=== PATIENT | male | born 1960 | race Caucasian/White ===

== ENCOUNTER 2020-05-24 10:31 | Emergency (ER) | payer MEDICARE, SELFPAY ==
--- NOTE | ~2020-05-24 | CT_ITS ---
EXAMINATION: CT abdomen pelvis wo con EXAM DATE: 05/24/2020 13:54 INDICATION: Flank pain, urinary retention and hematuria.. TECHNIQUE: Spiral CT of the abdomen and pelvis was performed without contrast. Axial, coronal and sag ittal images were reviewed. The dose-length product (DLP) for this examination was 1657.97 mGy-cm. The exposure was tailored according to patient size (auto mA exposure control), and iterative reconst ruction (ASIR) was used as additional dose reduction technique. Comparison is made to prior examinati on from 09/16/2010. FINDINGS: There are several mildly enlarged bilateral external iliac lymph nodes, measuring 2.7 x 1.1 cm on the left and 1.9 x 1.1 cm on the right. These appear unchanged compared to 2011. There is a 9 mm sclerot ic focus in the right superior ramus, new compared to 2011. Possible osteoblastic disease. Recommend considering possibility of prostate cancer. There is no nephrolithiasis or hydronephrosis. There is mild prostatomegaly. The bladder is unremar kable. The liver, spleen, adrenal glands and pancreas are unremarkable. There are cholecystectomy c lips. There is mild to moderate scattered arteriosclerotic disease. There are small to moderate-size d left inguinal, small right inguinal fat-containing hernias. There are surgical changes consistent with appendectomy. The stomach and small bowel are unremarkab le. There is expected amount of colonic stool. No free intraperitoneal gas. The heart is normal in size. There are no pericardial or pleural effusions. Cardiac pacemaker. The lung bases are unrema rkable. IMPRESSION: 1. Chronic mildly enlarged pelvic lymph nodes and development of small right superior ramus scleroti c focus. Prostate cancer could explain both these findings, although either or both could be benign. Check PSA levels. 2. Inguinal fat-containing hernias. 3. Surgical changes. 4. No nephrolithiasis, hydronephrosis or acute intra-abdominal findings. Reviewed, dictated and finalized at location A. [employer] IMPRESSION: 1. Chronic mildly enlarged pelvic lymph nodes and development of small right s uperior ramus sclerotic focus. Prostate cancer could explain both these finding s, although either or both could be benign. Check PSA levels. 2. Inguinal fat-containing hernias. 3. Surgical changes. 4. No nephrolithiasis, hydronephrosis or acute intra-abdominal findings.
[2020-05-24 10:38] VITALS: BP 133/92; PULSE 93; RESP 18; TEMP 36.8; O2SAT 98
[2020-05-24 11:36] LABS: Add Urine Microscopic? YES; Appearance Urine Turbid (Clear); Bilirubin Urine Negative (Negative); Blood Urine 3+ (Negative); Glucose Urine UA Negative (Negative); Ketones Urine Negative (Negative); Leukocyte Esterase Ur 3+ LEU/UL (Negative); Nitrate Urine Negative (Negative); Protein Urine 2+ mg/dL (Negative); RBC Urine >75 /hpf (0-2); Specific Grav Ur 1.015 (1.001-1.035); Squamous Epithelial Cell Urine Many /hpf (Few); Urobilinogen Urine Negative mg/dL (<2.0); WBC Clumps Urine Present /HPF; WBC Urine >75 /hpf
[2020-05-24 11:37] LABS: Color Urine Amber (Yellow)
[2020-05-24 12:11] LABS: Basophils Percent Auto 0.3 % (0.2-1.2); Eosinophils Absolute Auto 0.1 K/mm3 (0-0.3); Eosinophils Percent Auto 0.9 % (0-4.4); Hematocrit 45.5 % (42.0-52.0); Hemoglobin 15.3 g/dL (14.0-18.0); Immature Granulocyte Absolute 0.06 K/mm3 (0.00-0.031); Immature Granulocyte Percent A 0.5 % (0-0.5); Lymphocytes Absolute Auto 0.95 K/mm3 (0.9-3.2); Lymphocytes Percent Auto 8.1 % (18.3-44.2); Mean Corpuscular HGB Conc 33.6 g/dl (32-36); Mean Corpuscular Hemoglobin 29.4 pg (26-34); Mean Corpuscular Volume 87.3 fl (80-100); Mean Platelet Volume 9.3 fl (7.4-10.4); Monocytes Absolute Auto 1.5 K/mm3 (0.1-0.6); Monocytes Percent Auto 12.5 % (2.6-8.5); Neutrophils Absolute Auto 9.1 K/mm3 (1.3-6.7); Neutrophils Percent Auto 77.7 % (45.5-73.1); Platelet Count Result 187 k/mm3 (150-375); Red Blood Count 5.21 M/mm3 (4.6-6.20); Red Cell Distribution Width 13.1 % (11.5-14.5); White Blood Count 11.7 K/mm3 (4.5-10.0)
[2020-05-24] MEDS: SODIUM CHLORIDE 0.9% IV 1,000 ML 999 ML IV CONT (12:14)
[2020-05-24 12:21] LABS: Prothrombin Time 13.8 Seconds (11.1-14.7)
[2020-05-24 12:22] LABS: Anion Gap 6 mmol/L (8-16); Blood Urea Nitrogen 10 mg/dL (9-20); Carbon Dioxide 27 mmol/L (22-30); Chloride 103 mmol/L (98-107); Estimated CRCL calculation 99 ml/min; Estimated Glomerular Filt Rate > 60; Glucose 146 mg/dL (75-110); Potassium 4.3 mmol/L (3.4-5.0); Sodium 136 mmol/L (137-145)
[2020-05-24 13:56] VITALS: BP 132/90; PULSE 75; RESP 18; O2SAT 98
--- NOTE | 2020-05-24 15:11 | ED.GENADULT ---
HPI - General Adult General Chief complaint: Urogenital-Male Stated complaint: urinary retention, hematuria Time Seen by Provider: 05/24/20 11:22 Source: patient Mode of arrival: ambulatory Limitations: no limitations History of Present Illness HPI narrative: Patient is a 59-year-old male who presents to emergency department for evaluation of urinary frequency urgency and hematuria that began yesterday patient presents from home noting that he feels as though he needs to urinate and is able to and noticing some pink-tinged urine patient denies similar occurrence in the past patient is currently on Eliquis patient denies injury or trauma or other complaints and on arrival does not appear distressed or uncomfortable Related Data Home Medications Medication Instructions Recorded Confirmed amlodipine 05/24/20 apixaban [Eliquis] mg 05/24/20 Allergies Allergy/AdvReac Type Severity Reaction Status Date / Time No Known Allergies Allergy Verified 01/27/15 14:37 Review of Systems Review of Systems: All systems reviewed & are unremarkable except as noted in HPI and below PMFSH Past Medical History Medical History (Updated 05/24/20 @ 15:16 by Genaro Alexis PA-C) DVT (deep venous thrombosis) Pulmonary embolus Social History Social History Alcohol intake: never Gender identity (if verbalized by the patient): Male Sexual Orientation (if Verbalized by the Patient): Straight or Heterosexual Exam Narrative: Exam Narrative: GENERAL: Well-appearing, well-nourished, and in no acute distress. HEAD: Normocephalic, atraumatic. EYES: PERRLA and EOMI. ENT: Nares clear, no rhinorrhea or epistaxis. Mucous membranes moist. CHEST: Clear to auscultation. No respiratory distress. No wheezes rales or rhonchi HEART: Regular rate and rhythm. No murmur heard. Normal peripheral pulses. ABDOMEN: Soft, nontender, nondistended EXTREMITIES: Normal range of motion. No edema. SKIN: Warm, dry, no rash. NEURO: No focal deficits. Alert and oriented x3. Cranial nerves II through XII grossly intact. Normal speech and gait PSYCH: Normal mood and affect. Course Course Emergency Course: Patient evaluated in the emergency department for evaluation of urinary frequency urgency and hematuria patient was found to have what is likely a bladder or prostate infection was given IV fluids and antibiotics in the emergency department patient will be discharged home with plan follow-up with primary care as well as given referral for urology to rule out prostate cancer as a potential issue given his CT findings. There was no urolithiasis noted. Patient's urine does not appear to have obvious or gross blood on exam in the room. Patient provided with reasons to return Vital Signs Vital signs: Vital Signs Temperature 98.3 F 05/24/20 10:38 Pulse Rate 93 05/24/20 10:38 Respiratory Rate 18 05/24/20 10:38 Blood Pressure 133/92 H 05/24/20 10:38 Pulse Oximetry 98 05/24/20 10:38 Temperature 98.3 F 05/24/20 10:38 Pulse Rate 75 05/24/20 13:56 Respiratory Rate 18 05/24/20 13:56 Blood Pressure 132/90 05/24/20 13:56 Pulse Oximetry 98 05/24/20 13:56 Medical Decision Making MDM Narrative Medical decision making narrative: Patient aware of case findings treatment plan diagnosis agreeing to follow-up with instructed follow-ups and given reasons to return Vital Signs Vital Signs: Vital Signs Temperature 98.3 F 05/24/20 10:38 Pulse Rate 93 05/24/20 10:38 Respiratory Rate 18 05/24/20 10:38 Blood Pressure 133/92 H 05/24/20 10:38 Pulse Oximetry 98 05/24/20 10:38 Temperature 98.3 F 05/24/20 10:38 Pulse Rate 75 05/24/20 13:56 Respiratory Rate 18 05/24/20 13:56 Blood Pressure 132/90 05/24/20 13:56 Pulse Oximetry 98 05/24/20 13:56 Lab Data Result diagrams: 05/24/20 12:04 05/24/20 12:04 Labs: Lab Results
[2020-05-24 15:33] VITALS: BP 149/89; PULSE 74; RESP 20; O2SAT 99
== END 2020-05-24 15:34 | disposition home or self-care (01) ==
PROVIDERS: Emergency Medicine Emergency Medical Services; Emergency Provider Emergency Medicine; PCP Family Medicine
DX: N39.0 Urinary tract infection, site not specified (principal); R31.9 Hematuria, unspecified; Z86.718 Personal history of other venous thrombosis and embolism; Z86.711 Personal history of pulmonary embolism; Z79.01 Long term (current) use of anticoagulants; K40.90 Unilateral inguinal hernia, without obstruction or gangrene, not specified as recurrent; R93.5 Abnormal findings on diagnostic imaging of other abdominal regions, including retroperitoneum
CPT/HCPCS: 36415; 74176; 80048; 81001; 85025; 85610; 85730; 87077; 87086; 87088; 87186; 96365; 99284; J0696; J7030

== ENCOUNTER 2021-08-24 18:02 | Emergency (ER) | payer MEDICARE, SELFPAY ==
--- NOTE | ~2021-08-24 | CT_ITS ---
EXAMINATION: CT abdomen pelvis wo con DATE: 08/24/2021 20:01 INDICATION: Rflank pain,dysuria,urinary retention,chills,7/5prostat biop TECHNIQUE: Computed tomography (CT) of the abdomen and pelvis was performed without intravenous contr ast. Automated exposure control and iterative reconstruction technique were employed. The dose-length product was 1692.26 mGy-cm. COMPARISON: 05/24/2020. FINDINGS: Lower thorax: Incompletely visualized pacer wires. Coronary artery calcification. Liver: Normal. Biliary/Gallbladder: Gallbladder is absent. No bile duct dilation. Pancreas: No mass or duct dilation. Spleen: Normal. Adrenals:No mass. Kidneys: No mass, stone, or hydronephrosis. GI tract: No small or large bowel dilation. Appendectomy. Mesentery/Peritoneum: No ascites, mass, or free air. Retroperitoneum: No mass. Atherosclerotic arterial calcifications. Lower para-aortic and bilateral ex ternal iliac and inguinal lymphadenopathy, unchanged. Pelvis: Prostatomegaly. Soft Tissues: Bilateral fat-containing inguinal hernias. Bones: No acute osseous finding. Stable sclerotic focus in the right superior pubic ramus. IMPRESSION: No acute abdominopelvic process. Reviewed, dictated and finalized at location K.
[2021-08-24 18:09] VITALS: BP 102/73; PULSE 95; RESP 18; TEMP 37.1; O2SAT 98
[2021-08-24 18:26] LABS: Appearance Urine Cloudy (Clear); Bilirubin Urine 1+ (Negative); Blood Urine 3+ (Negative); Glucose Urine UA Negative (Negative); Ketones Urine 1+ mg/dL (Negative); Leukocyte Esterase Ur 2+ LEU/UL (Negative); Nitrate Urine Positive (Negative); Protein Urine 2+ mg/dL (Negative); Specific Grav Ur 1.025 (1.001-1.035)
[2021-08-24 18:31] LABS: Add Urine Microscopic? YES; Color Urine Dark Yellow (Yellow)
--- NOTE | 2021-08-24 19:33 | ED.MALEGU ---
HPI - Male Genitourinary General Chief complaint: Urogenital-Male Stated complaint: DYSURIA Time Seen by Provider: 08/24/21 19:15 History of Present Illness HPI Narrative: 60yoM h/o UTIs p/w 1-2d of dysuria, some right-sided dull aching nonradiating flank pain, and chills last night. He states he took a cold bath and thought it helped. No nausea/vomiting. Feels like his old UTIs. Related Data Home Medications Medication Instructions Recorded Confirmed amlodipine 5 mg tablet 05/24/20 apixaban 5 mg tablet (Eliquis) mg 05/24/20 Allergies Allergy/AdvReac Type Severity Reaction Status Date / Time No Known Allergies Allergy Verified 08/24/21 18:14 [facility] Past Medical History Medical History DVT (deep venous thrombosis) Pulmonary embolus Social History Social History Alcohol intake: never Gender identity (if verbalized by the patient): Male Sexual Orientation (if Verbalized by the Patient): Straight or Heterosexual Exam Narrative: EXAMINATION OF ORGAN SYSTEMS/BODY AREAS: Constitutional: Vital signs per nursing GENERAL:[No acute distress, non-toxic appearing.] HEAD: Normal with no signs of head trauma. EYES: EOMI, conjunctiva normal LUNGS: Nonlabored breathing. HEART: [Regular rate and rhythm] ABD: [Soft], [nontender to palpation], minimal CVAT on right EXT: Normal range of motion SKIN: [No rashes or lesions.] NEURO: [Alert and oriented x 3. No gross focal sensory or strength deficits.] PSYCH: Normal affect Course Vital Signs Vital signs: Vital Signs Temperature 98.8 F 08/24/21 18:09 Pulse Rate 95 08/24/21 18:09 Respiratory Rate 18 08/24/21 18:09 Blood Pressure 102/73 08/24/21 18:09 Pulse Oximetry 98 08/24/21 18:09 Temperature 98.8 F 08/24/21 18:09 Pulse Rate 95 08/24/21 18:09 Respiratory Rate 18 08/24/21 18:09 Blood Pressure 102/73 08/24/21 18:09 Pulse Oximetry 98 08/24/21 18:09 MDM - Male Genitourinary MDM Narrative Medical decision making narrative: 60-year-old male presenting with 1 to 2 days of dysuria, vital stable, exam shows minimal right flank tenderness hospitalist service is likely and no abdominal tenderness, I suspect likely UTI/pyelonephritis versus less likely kidney stone given the nature of his symptoms, urinalysis is notable for UTI, I will obtain a CT noncon to ensure no infected or obstructing stone, this is negative. Patient given IV ceftriaxone here and will be discharged with ciprofloxacin, he is given follow-up to his urologist and return precautions. Stable for discharge home. Lab Data Result diagrams: 08/24/21 19:39 08/24/21 19:39 Labs: Lab Results 08/24/21 08/24/21 08/24/21 Range/Units 18:19 19:39 19:39 WBC 13.2 H (4.5-10.0) K/mm3 RBC 4.94 (4.6-6.20) M/mm3 Hgb 14.5 (14.0-18.0) g/dL Hct 42.8 (42.0-52.0) % MCV 86.6 (80-100) fl MCH 29.4 (26-34) pg MCHC 33.9 (32-36) g/dl RDW 13.2 (11.5-14.5) % Plt Count 213 (150-375) k/mm3 MPV 9.7 (7.4-10.4) fl Immature Gran % (Auto) 0.5 (0-0.5) % Neut % (Auto) 81.2 H (45.5-73.1) % Lymph % (Auto) 5.6 L (18.3-44.2) % [place] % (Auto) 12.4 H (2.6-8.5) % Eos % (Auto) 0.1 (0-4.4) % Baso % (Auto) 0.2 (0.2-1.2) % Lymph # (Auto) 0.74 L (0.9-3.2) K/mm3 [place] # (Auto) 1.6 H (0.1-0.6) K/mm3 Eos # (Auto) 0.0 (0-0.3) K/mm3 Baso # (Auto) 0.0 (0.0-0.1) K/mm3 Abs Immat Gran (auto) 0.06 H (0.00-0.031) K/mm3 Absolute Neuts (auto) 10.7 H (1.3-6.7) K/mm3 Absolute Nucleated RBC 0.0 (0.0-0.012) K/mm3 Nucleated RBC % 0.0 (0.0-0.2) % Sodium 137 (137-145) mmol/L Potassium 3.7 (3.4-5.0) mmol/L Chloride 106 (98-107) mmol/L Carbon Dioxide 24 (22-30) mmol/L Anion Gap 7 L (8-16) mmol/L BUN 14 (9-20) mg/dL Creatinine 1.00 (0.7-1.3) m
[2021-08-24 19:44] LABS: Basophils Percent Auto 0.2 % (0.2-1.2); Eosinophils Percent Auto 0.1 % (0-4.4); Hematocrit 42.8 % (42.0-52.0); Hemoglobin 14.5 g/dL (14.0-18.0); Immature Granulocyte Absolute 0.06 K/mm3 (0.00-0.031); Immature Granulocyte Percent A 0.5 % (0-0.5); Lymphocytes Absolute Auto 0.74 K/mm3 (0.9-3.2); Lymphocytes Percent Auto 5.6 % (18.3-44.2); Mean Corpuscular HGB Conc 33.9 g/dl (32-36); Mean Corpuscular Hemoglobin 29.4 pg (26-34); Mean Corpuscular Volume 86.6 fl (80-100); Mean Platelet Volume 9.7 fl (7.4-10.4); Monocytes Absolute Auto 1.6 K/mm3 (0.1-0.6); Monocytes Percent Auto 12.4 % (2.6-8.5); Neutrophils Absolute Auto 10.7 K/mm3 (1.3-6.7); Neutrophils Percent Auto 81.2 % (45.5-73.1); Platelet Count Result 213 k/mm3 (150-375); Red Blood Count 4.94 M/mm3 (4.6-6.20); Red Cell Distribution Width 13.2 % (11.5-14.5); White Blood Count 13.2 K/mm3 (4.5-10.0)
[2021-08-24] MEDS: cefTRIAXone 2 GM in SODIUM CHLORIDE 0.9% IV 100 ML 200 ML IVPB (19:44)
[2021-08-24 19:54] LABS: Anion Gap 7 mmol/L (8-16); Blood Urea Nitrogen 14 mg/dL (9-20); Calcium 8.7 mg/dL (8.4-10.2); Carbon Dioxide 24 mmol/L (22-30); Chloride 106 mmol/L (98-107); Estimated CRCL calculation 101 ml/min; Estimated Glomerular Filt Rate > 60; Glucose 123 mg/dL (65-110); Potassium 3.7 mmol/L (3.4-5.0); Sodium 137 mmol/L (137-145)
[2021-08-24] MEDS: CIPROFLOXACIN 500 MG TAB PO (20:47)
[2021-08-24 20:50] VITALS: BP 102/70; PULSE 92; RESP 22; TEMP 36.1; O2SAT 96
== END 2021-08-24 20:53 | disposition home or self-care (01) ==
PROVIDERS: Emergency Medicine; Emergency Provider Emergency Medicine; PCP Family Medicine
DX: N10 Acute pyelonephritis (principal); B96.89 Other specified bacterial agents as the cause of diseases classified elsewhere; Z86.718 Personal history of other venous thrombosis and embolism; Z86.711 Personal history of pulmonary embolism
CPT/HCPCS: 36415; 74176; 80048; 81001; 85025; 87077; 87086; 87186; 96365; 99284; A9270

== ENCOUNTER 2024-02-21 14:51 | Emergency (ER) | payer MEDICARE, SELFPAY ==
--- NOTE | ~2024-02-21 | XR_ITS ---
XR knee LT min 4V Ordering provider: Monica Brasher PA-C History: . pain x1mo . Comparison: June 15, 2007 FINDINGS: BONES: No acute fracture or dislocation. JOINT SPACES: Normal. SOFT TISSUES: Normal. IMPRESSION: No acute osseous abnormality left knee. Reviewed, dictated and finalized at location A. [employer]
--- NOTE | ~2024-02-21 | US_ITS ---
EXAMINATION: US venous doppler [facility] DATE: 02/21/2024 15:55 INDICATION: Left calf pain. TECHNIQUE: Grayscale ultrasound images without and with compression and Doppler ultrasound images of the left lower extremity veins were obtained. COMPARISON: Ultrasound 01/28/2015 FINDINGS: The visualized portions of left common femoral vein, profunda (deep) femoral vein, femoral vein, popl iteal vein, peroneal veins, posterior tibial veins, and greater saphenous vein outflow are patent. IMPRESSION: 1. No deep venous thrombosis. Reviewed, dictated and finalized at location A. FARMER
[2024-02-21 15:04] VITALS: BP 161/97; PULSE 95; RESP 16; TEMP 36.6; O2SAT 97
--- NOTE | 2024-02-21 15:06 | ED_ITS ---
HPI - Extremity Problem General Chief complaint: Extremity Problem,Nontraumatic Stated complaint: L knee pain x 1 month Time Seen by Provider: 02/21/24 15:06 Focused HPI: Patient is a 63 y/o male who presents to the ED with c/o L knee pain. Patient reports having pain in his L calf over the past few weeks. States he has been walking differently to accommodate for this. Now reports having increased pain in his L knee, worse with bearing weight. Has been wearing a knee brace and taking Ibuprofen with minimal pain. Denies numbness. Has had previous DVT, on eliquis, notes he has missed a few doses here and there. Denies CP/SOB. GENERAL: Well-appearing, well-nourished, and in no acute distress. HEAD: Normocephalic, atraumatic. CHEST: Clear to auscultation. ?No respiratory distress. HEART: Regular rate and rhythm.? MSK: TTP along medial L knee joint space. No significant calf tenderness. Limited ROM of L knee d/t pain. Trace peripheral edema. NEURO: ?Alert and oriented x3. Patient screened in triage and initial orders placed.? ?Additional care and disposition to be based upon?diagnostic testing and treatment. Source: patient Mode of arrival: ambulatory Limitations: no limitations Related Data Home Medications Medication Instructions Recorded Confirmed amlodipine 5 mg tablet 05/24/20 apixaban 5 mg tablet (Eliquis) mg 05/24/20 Allergies Allergy/AdvReac Type Severity Reaction Status Date / Time No Known Allergies Allergy Verified 08/24/21 18:14 [facility] Past Medical History Medical History DVT (deep venous thrombosis) Pulmonary embolus Social History Social History Alcohol intake: never Gender identity (if verbalized by the patient): Male Sexual Orientation (if Verbalized by the Patient): Straight or Heterosexual Course Vital Signs Vital signs: Vital Signs Temperature 97.9 F 02/21/24 15:04 Pulse Rate 95 02/21/24 15:04 Respiratory Rate 16 02/21/24 15:04 Blood Pressure 161/97 H 02/21/24 15:04 Pulse Oximetry 97 02/21/24 15:04 Temperature 97.7 F 02/21/24 17:27 Pulse Rate 71 02/21/24 17:27 Respiratory Rate 16 02/21/24 17:27 Blood Pressure 149/80 H 02/21/24 17:27 Pulse Oximetry 97 02/21/24 17:27 MDM - Extremity (Nontraumatic) MDM Narrative Medical decision making narrative: MSE by KIAH in triage. Discharge Plan Discharge Clinical Impression: Acute internal derangement of left knee Patient Disposition: Home, Self-Care Condition: Stable Instructions: Antibiotic Form, Crutch Instructions (ED), Knee Pain (ED), Knee Immobilizer (ED) Additional Instructions: The knee immobilizer for comfort. Crutches for limited weight-bearing. Flexeril for muscle spasm pain [facility] as needed for additional pain control. Have close follow-up with your primary care physician for an outpatient MRI of the knee. Have close follow-up with Orthopedics. If you have any worsening symptoms then please call or return to the emergency department. Prescriptions: New hydrocodone-acetaminophen 5-325 mg tablet 1 tablet PO Q12H PRN (Reason: pain) Qty: 14 0RF cyclobenzaprine 10 mg tablet 10 mg PO BID PRN (Reason: muscle spasm) Qty: 14 0RF No Action ciprofloxacin HCl [Cipro] 500 mg tablet 500 mg PO Q12H Qty: 14 0RF amlodipine 5 mg tablet Eliquis 5 mg tablet cephalexin 500 mg tablet 500 mg PO Q12H 10 Days Qty: 20 0RF phenazopyridine [Pyridium] 200 mg tablet 200 mg PO TID PRN (Reason: pain) Qty: 6 0RF Follow-up/Referrals: Mumtaz Colmenares MD [Physician] - Myrick,Tiffanie Carver MD [Primary Care Provider] -
[2024-02-21] MEDS: ACETAMINOPHEN 500 MG TABLET 1000 MG PO (16:01)
[2024-02-21] MEDS: KETOROLAC 30 MG/ML VIAL (*BKC) IM (16:01)
--- NOTE | 2024-02-21 16:54 | ED.GENADULT ---
HPI - General Adult General Chief complaint: Extremity Problem,Nontraumatic Stated complaint: L knee pain x 1 month Time Seen by Provider: 02/21/24 15:06 Source: patient Mode of arrival: ambulatory Limitations: no limitations History of Present Illness HPI narrative: 63-year-old male presenting to the emergency department for evaluation for left knee pain. Patient reports he has had intermittent knee injuries to the left knee with the course of the last month. Patient states that the knee will began to heal up and then he has a no other twisting injury causing increased pain with weight-bearing. Knee brace that seemed to help but today patient states that the pain significantly worsened. Related Data Home Medications Medication Instructions Recorded Confirmed amlodipine 5 mg tablet 05/24/20 apixaban 5 mg tablet (Eliquis) mg 05/24/20 Allergies Allergy/AdvReac Type Severity Reaction Status Date / Time No Known Allergies Allergy Verified 08/24/21 18:14 Review of Systems Review of Systems: All systems reviewed & are unremarkable except as noted in HPI and below PMFSH Past Medical History Medical History DVT (deep venous thrombosis) Pulmonary embolus Social History Social History Alcohol intake: never Gender identity (if verbalized by the patient): Male Sexual Orientation (if Verbalized by the Patient): Straight or Heterosexual Exam Narrative: APPEARANCE: Well appearing, no pain, no distress, well-nourished. HEAD: normocephalic, atraumatic. EYES: PERRLA/EOMI, conjunctivae clear. NOSE: Normal no drainage EARS:TMS clear with good light reflex. THROAT: Pharynx clear, no exudate. NECK: Supple. No adenopathy, no masses. RESPIRATORY: Airway patent, respirations nonlabored. Clear to auscultation bilaterally, no rales, rhonchi, wheezing. CARDIOVASCULAR: Regular rate and rhythm without murmurs rubs or gallops. ABDOMINAL: Soft, nontender, nondistended, normal bowel sounds MUSCULOSKELETAL: No left knee deformity NEURO: Alert. Cranial nerves II through XII intact. Good gait. Good coordination SKIN: Warm, dry. Normal Color Course Vital Signs Vital signs: Vital Signs Temperature 97.9 F 02/21/24 15:04 Pulse Rate 95 02/21/24 15:04 Respiratory Rate 16 02/21/24 15:04 Blood Pressure 161/97 H 02/21/24 15:04 Pulse Oximetry 97 02/21/24 15:04 Temperature 97.9 F 02/21/24 15:04 Pulse Rate 95 02/21/24 15:04 Respiratory Rate 16 02/21/24 15:04 Blood Pressure 161/97 H 02/21/24 15:04 Pulse Oximetry 97 02/21/24 15:04 Medical Decision Making MDM Narrative Medical decision making narrative: [age] old male presenting to the emergency department for evaluation for left knee pain. X-ray was negative for acute fracture dislocation an ultrasound was negative for DVT. Patient does take Eliquis. Patient was provided crutches and knee immobilizer for comfort. Patient was encouraged of close follow-up with his primary care physician for additional outpatient imaging including an MRI. Patient was also encouraged to have close outpatient follow-up with Orthopedics. Patient was provided medications for pain control including [place] and Flexeril. Vital Signs Vital Signs: Vital Signs Temperature 97.9 F 02/21/24 15:04 Pulse Rate 95 02/21/24 15:04 Respiratory Rate 16 02/21/24 15:04 Blood Pressure 161/97 H 02/21/24 15:04 Pulse Oximetry 97 02/21/24 15:04 Temperature 97.9 F 02/21/24 15:04 Pulse Rate 95 02/21/24 15:04 Respiratory Rate 16 02/21/24 15:04 Blood Pressure 161/97 H 02/21/24 15:04 Pulse Oximetry 97 02/21/24 15:04 Discharge Plan Discharge Clinical Impression: Acute internal derangement of left knee Patient Disposition: Home, Self-Care Condition: Stable Instructions: Antibiotic Form, Crutch Instructions (ED), Knee Pain (ED), Knee Immobilizer (ED) Additional Instructions: The knee immobilizer for comfort. Crutches for limited weight-bearing. Flexeril for muscle spasm pain [place] as needed for additional pain control. Have close follow-up with your primary care physician for an outpatient MRI of the knee. Have close follow-up with Orthopedics. If you have any worsening symptoms then please call or return to the emergency department. Prescriptions: New hydrocodone-acetaminophen 5-325 mg tablet 1 tablet PO Q12H PRN (Reason: pain) Qty: 14 0RF cyclobenzaprine 10 mg tablet 10 mg PO BID PRN (Reason: muscle spasm) Qty: 14 0RF No Action ciprofloxacin HCl [Cipro] 500 mg tablet 500 mg PO Q12H Qty: 14 0RF amlodipine 5 mg tablet Eliquis 5 mg tablet cephalexin 500 mg tablet 500 mg PO Q12H 10 Days Qty: 20 0RF phenazopyridine [Pyridium] 200 mg tablet 200 mg PO TID PRN (Reason: pain) Qty: 6 0RF Follow-up/Referrals: Mumtaz Colmenares MD [Physician] - Myrick,Tiffanie Carver MD [Primary Care Provider] -
[2024-02-21 17:27] VITALS: BP 149/80; PULSE 71; RESP 16; TEMP 36.5; O2SAT 97
== END 2024-02-21 17:30 | disposition home or self-care (01) ==
PROVIDERS: Emergency Provider Emergency Medicine; PCP Family Medicine
DX: M23.92 Unspecified internal derangement of left knee (principal); Z86.718 Personal history of other venous thrombosis and embolism; Z86.711 Personal history of pulmonary embolism
CPT/HCPCS: 73564; 93971; 96372; 99284; A9270; J1885

== ENCOUNTER 2024-05-24 07:30 | Outpatient (CLI) | payer MEDICARE, SELFPAY ==
--- NOTE | ~2024-05-24 | XR_ITS ---
EXAMINATION: XR fl inj knee LT for MR/CT DATE: 05/24/2024 08:39 INDICATION: Other tear of medial meniscus, current injury. TECHNIQUE: A time-out was performed to verify the patient's name, date of , and procedure to b e performed. The procedure including the risks, benefits, and alternatives was discussed with the pat ient. Risks discussed included bleeding and infection. The patient understood the risks and agreed to proceed. The skin overlying the left knee joint was prepped and draped in usual sterile fashion. An esthetic was administered with 1% lidocaine subcutaneously. A 22 G needle was advanced under fluoros copic guidance into the joint. Subsequently, injectate consisting of 30 mL of 1:4 1% lidocaine and 1 :2 Omnipaque 240 was instilled. The needle was removed and the entry site was cleaned and dressed. There were no immediate complications. Fluoroscopy exposure time was 0.1 minutes. The total number of images was 2. FINDINGS: Real-time fluoroscopy demonstrates the needle and contrast in the left knee joint. IMPRESSION: 1. Successful left knee joint injection of contrast for subsequent CT arthrography. Reviewed, dictated and finalized at location A. NALISM INTERN IMPRESSION: 1. Successful left knee joint injection of contrast for subsequent CT arthrogra phy.
--- NOTE | ~2024-05-24 | CT_ITS ---
EXAMINATION: CT knee LT w con DATE: 05/24/2024 08:31 INDICATION: Medial meniscal tear TECHNIQUE: High resolution computed tomography (CT) of the left knee was performed with intra-articul ar contrast but without intravenous contrast. Details of the contrast mixture in joint injection have been dictated separately. Additional sagittal and coronal reconstructions were performed. Automated exposure control and iterative reconstruction technique were employed. The dose-length product was 63 5.40 mGy-cm. COMPARISON: None FINDINGS: Bone alignment is normal. No fracture. 3 small sclerotic bone islands in the distal femur. The inject ed intra-articular contrast extends into a moderate-sized Fry's cyst measuring 4.8 x 1.7 x 1.9 cm. Soft tissues surrounding the are unremarkable. Complex full-thickness oblique parrot beak configuration tear at the posterior horn of the medial men iscus with mild medial extrusion of the medial meniscal body. There is mild osteoarthritis in the med ial compartment with partial-thickness chondral ulceration and deep fissuring along the weightbearing medial femoral condyle and partial-thickness cartilage loss with chondral surface regularity the med ial tibial plateau with more focal partial-thickness chondral fissure at the medial aspect of the med ial tibial plateau at the base of the intercondylar eminence. Lateral meniscus is normal. There is partial thickness chondral fissuring involving up to 50% the car tilage thickness at the central and medial aspect of the lateral tibial plateau. Mild partial-thickne ss chondral ulceration along the anterior weightbearing lateral femoral condyle. Mild partial-thickness chondral fissuring at the lateral patellar facet. Deep chondral ulceration wit h underlying subarticular cystlike changes at the inferior aspect of the lateral trochlea. IMPRESSION: 1. Complex tear at the posterior horn of the medial meniscus. 2. 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 3. Moderate-sized Fry's cyst. Reviewed, dictated and finalized at location B. UAGE ARTS TEACHER IMPRESSION: 1. Complex tear at the posterior horn of the medial meniscus. 2. Mild tricompartmental osteoarthritis with high-grade chondromalacia at later al trochlea and with moderate grade chondral malacia the patella and in the med ial and lateral compartments. 3. Moderate-sized Fry's cyst.
--- OUTSIDE RECORDS SUMMARY | 2024-05-24 07:35 | XMS_ITS | Data Portability ---
Author Organization [facility] Address [address] [place] [address] Care Team Providers Care Neon Sign Servicer Name Role Phone SHERI WHITNEY Php Architect CHRISTY VELASQUEZ Urologist KAMERON CORRIGAN Medical Oncologist EDMUNDO ARRIETA Primary Care Provider Assessment No assessment recorded. Plan of Treatment Reminders Order Date Submit Date Provider Last Modified By Organization Details Last Modified Time Details Appointments ANY 15 2024 02:00P M RACHEAL Cano Not available Not available Not available MEDICARE WELLNESS VISIT 2024 01:30P M RACHEAL Cano Not available Not available Not available Lab HbA1c (hemoglob in A1c), blood 2024 025 [employer] [facility], [address], [address], [place], [address], 03/22/2024 10:45:38 CBC w/ auto diff 2024 025 [employer] [facility], [address], [place], [address], 03/22/2024 10:45:37 CMP, serum or plasma 2024 025 [employer] [facility], [address], [address], [place], [address], 03/22/2024 10:45:35 lipid panel, serum 2024 025 [employer] [facility], [address], [address], [place], [address], 03/22/2024 10:45:34 CMP, serum or plasma 2022 023 [facility] Not available 02/03/2023 16:12:58 CBC w/ auto diff 2022 023 [facility] Not available 02/03/2023 16:12:58 lipid panel, serum 2022 023 [facility] Not available 02/03/2023 16:12:58 HbA1c (hemoglob in A1c), blood 2022 023 [facility] Not available 02/22/2023 14:54:59 CMP, serum or plasma [facility], [address], [address], [place], [address], 08/31/2023 17:05:17 CBC w/ auto diff 2022 023 [facility], [address], [address], [place], [address], 08/31/2023 17:05:17 lipid panel, serum 2022 023 [facility], [address], [address], [place], [address], 08/31/2023 17:05:17 HbA1c (hemoglob in A1c), blood 2022 023 [facility], [address], [address], [place], [address], 08/18/2023 22:28:34 HbA1c (hemoglob in A1c), blood 2021 022 [employer] [facility], [address], [address], [place], [address], 02/01/2022 14:09:53 lipid panel, serum 2021 [facility], [address], [address], [place], [address], 02/01/2022 14:09:52 AST/SGOT (aspartat e aminotran sferase), serum or plasma 2021 [facility], [address], [address], [place], [address], 02/01/2022 14:09:52 BMP, serum or plasma 2021 [facility], [address], [address], [place], [address], 02/01/2022 14:09:53 Referral None recorded. Procedures None recorded. Surgeries None recorded. Imaging None recorded. Medication Orders amlodipin e 5 mg tablet 2022 023 [facility] [address], [address], [place], [address], 01/30/2023 17:30:19 Eliquis 5 mg tablet 2022 023 [facility] [address], [address], [place], [address], 01/30/2023 17:30:17 atorvasta tin 40 mg tablet 2021 022 [facility] [address], [address], [place], [address], 02/01/2022 14:23:01 Patient TargetsNo targets recorded. Patient Instructions Encounter Date Encounter Id Patient Instructions Last Modified By Organization Details Last Modified Time 07/12/2021 [id number] body mass index: care instructions Not available 07/12/2021 17:45:00 learning about healthy weight Not available 07/12/2021 17:45:00 hemorrhoids: car e instructions Not available 07/12/2021 17:43:56 When You Want to Lose Weight: Care Instructions Not available 07/12/2021 17:43:56 learning about high blood pressure Not available 07/12/2021 17:43:56 high cholesterol : care instructions Not available 07/12/2021 17:43:56 01/31/2022 [id number] learning about high blood sugar Not available 01/31/2022 16:54:40 When You Want to Lose Weight: Care Instructions Not available 01/31/2022 16:54:41 learning about high blood pressure Not available 01/31/2022 16:54:40 high cholesterol : care instructions Not available 01/31/2022 16:54:41 08/02/2022 [id number] high cholesterol : care instructions [email or web address] Not available 12/08/2023 17:20:31 sleep apnea: car e instructions [id number] Not available 12/08/2023 17:20:31 learning about high blood sugar [id number] Not available 12/08/2023 17:20:31 body mass index: care instructions [email or web address] Not available 12/08/2023 17:20:31 learning about healthy weight [email or web address] Not available 12/08/2023 17:20:31 learning about high blood pressure [email or web address] Not available 12/08/2023 17:20:31 Gino, - Thank you for your visit - Continue your current medications - Return to clinic in 6 months, AND as needed. - Call with any concerns Immunization recommendations: Preventive immunization against tetanus, diphtheria and pertussis is recommended every 10 years, or after 7 years if sustaining a tetanus-prone wound. Preventive immunization against shingles (herpes zoster) is recommended to reduce risk of occurrence, possible chronic pain, and transmission. Currently this is a two shot regimen. All individuals age 65 and up are encouraged to obtain vaccination against Pneumococcal pneumonia. Currently, this is a single immunization, [id number], if you have never previously been immunized. Yearly influenza immunization is recommended, and typically available beginning in mid-November. I highly encourage all who are able to complete an initial immunization series against COVID19, along with boosters as indicated by age or medical history. Exercise recommendations: It is recommended that you do daily aerobic (walking, bicycling, swimming) and resistance exercises (light weight lifting, resistance band stretching) for at least 30 minutes, most days of the week. If you cannot walk, chair exercises for 10-15 minutes a day would help tremendously. As little as 15-20 minutes exercise, in one or two sessions a day, is still very helpful to manage/improve your weight and overall health Diet recommendations: Eat small portion meals, trying not to consume more than 1800 calories a day. Try to eat not more than 2 servings of carbs (starches) with your meals. Avoid soft drinks, including regular sodas, fruit juices, and sweetened tea. Drink water instead. Eat plenty of green and leafy vegetables, including salads. [email or web address] Not available 08/02/2022 17:08:04 01/30/2023 [id number] high cholesterol : care instructions Not available 01/30/2023 17:20:28 sleep apnea: car e instructions [id number] Not available 01/30/2023 17:20:28 body mass index: care instructions [email or web address] Not available 01/30/2023 17:20:28 learning about healthy weight chutzktrdk39 Not available 01/30/2023 17:20:28 learning about high blood sugar byeeuwwzcu85 Not available 01/30/2023 17:20:28 learning about high blood pressure [id number] Not available 01/30/2023 17:20:28 Gino, - Thank you for your visit - Continue your current medications - HAVE YOUR LABWORK DONE AT YOUR EARLIEST CONVENIENCE - Your results will be available on the portal with any recommendations, or we will call you with them - Return to clinic in one year, AND as needed. - Consider scheduling or calling us to schedule a follow-up colonoscopy at your convenience - Call with any concerns Immunization recommendations: Preventive immunization against tetanus, diphtheria and pertussis is recommended every 10 years, or after 7 years if sustaining a tetanus-prone wound. Preventive immunization against shingles (herpes zoster) is recommended to reduce risk of occurrence, possible chronic pain, and transmission. Currently this is a two shot regimen. All individuals age 65 and up are encouraged to obtain vaccination against Pneumococcal pneumonia. Currently, this is a single immunization, [id number], if you have never previously been immunized. Yearly influenza immunization is recommended, and typically available beginning in mid-November. I highly encourage all who are able to complete an initial immunization series against COVID19, along with boosters as indicated by age or medical history. Consider obtaining an RSV immunization. For more information: https://www.cdc.g ov/vaccines/vpd/r sv/index.html Exercise recommendations: It is recommended that you do daily aerobic (walking, bicycling, swimming) and resistance exercises (light weight lifting, resistance band stretching) for at least 30 minutes, most days of the week. If you cannot walk, chair exercises for 10-15 minutes a day would help tremendously. As little as 15-20 minutes exercise, in one or two sessions a day, is still very helpful to manage/improve your weight and overall health Diet recommendations: Eat small portion meals, trying not to consume more than 1800 calories a day. Try to eat not more than 2 servings of carbs (starches) with your meals. Avoid soft drinks, including regular sodas, fruit juices, and sweetened tea. Drink water instead. Eat plenty of green and leafy vegetables, including salads. [email or web address] Not available 01/30/2023 17:30:14 03/21/2024 [id number] A healthy lifestyle: care instructions jreuss Not available 03/21/2024 16:21:14 Reason for Referral None Reported. Results Created Date Observation Date Name Description Value Unit Range Abnormal Flag Note LastModifiedBy Organization Detail LastModifiedTime 07/17/19 22 07/16/2021 PLATE LET COUNT platelet count 209 x10'3 /uL 130-40 0 Not Available [facility] (Lab) One [facility], [place], [address], 07/16/2021 09:16:28 07/17/19 22 07/16/2021 PLATE LET COUNT MPV 9.7 fL 9.3-12 .2 Not Available [facility] (Lab) [address] [facility], [place], [address], 07/16/2021 09:16:28 07/17/19 22 07/16/2021 PROTI ME protime 12.8 sec 10.2-1 2.9 Not Available [facility] (Lab) [address] [facility], [place], [address], 07/16/2021 09:34:44 07/17/19 22 07/16/2021 PROTI ME INR 1.1 Recom charlie d INR Thera peuti c Goals : 2.0-3 .0 Routi ne Thera py 2.5-3 .5 Mecha nical Prost hetic Valve s (High Risk) Not Available [facility] (Lab) [address] [facility], [place], [address], 07/16/2021 09:34:44 07/17/19 22 07/16/2021 PTT PTT 29.7 sec 25.1-3 6.5 Not Available [facility] (Lab) [address], [place], [address], 07/16/2021 09:34:46 07/17/19 22 07/16/2021 DOM SURGI JAVIER PATHO LOGY dom surgical pathology [facility] Sandra [facility] [place] [address] Phone : [phone] Fax: Depar tment of Patho logy Patho logy Repor t Consu ltati on Repor t Patie nt Name: GINO CUNNINGHAM Acces parveen# : [id number] : 960 (Age: 60) Locat ion: [facility] S Sean r: Alexa Dhillon cted Date: 2021 Med Rec #: [id number] Date Recei luis: 2021 Date Repor jessica: 022 Provi orlin: SAMPSON CORRIGAN DO SAQUI B ORI Henderson MD Speci men(s ) Flow cytom etry Final Patho logic Diagn osis PELVI C LYMPH NODE, FLOW CYTOM ETRIC IMMUN OPHEN OTYPI NG: - NO FLOW IMMUN OPHEN OTYPI C EVIDE NCE OF A LYMPH OPROL IFERA TIVE DISOR ORLIN COMME NT B cells are polyc lonal and T cells have no loss of T cell antig ens. There is no flow immun ophen otypi c evide nce of a B or T cell lymph oprol ifera tive disor orlin. Hodgk in lymph george, some large cell lymph omas, and nonhe matop oieti c tumor s canno t be exclu ded by flow cytom etry. Corre latio n with morph ology ([id number] ), clini javier histo ry, and other diagn ostic infor matio n is recom charlie d. Histo logic secti ons of the lymph node show invol vemen t by nonne croti zing granu lomat ous infla mmati on. Luisana ctron icall y Jen d Out YULIA Diego MD Patho logis t OJL:t hs Micro scopi c Descr iptio n: ANTIB ODIES EVALU ATED: CD2, CD3, CD4, CD5, CD7, CD8, CD10, CD11c , CD19, CD20, CD23, CD34, CD38, CD45, CD56, kappa , lambd a (17 antib odies ) Flow cytom etric immun ophen otypi ng is perfo rmed on the pelvi c lymph node. Evalu ation of CD45 expre ssion versu s side scatt er revea ls 95.3% of cells withi n the lymph ocyte gate, 4.2% withi n the granu locyt e gate, 0.4% withi n the CD45 negat fili gate, and 0.3% withi n the plasm a cell gate. Evalu ation of the lymph ocyte gate revea ls 58% T cells with a naun l CD4/C D8 ratio of 2.6 and witho ut overt pheno typic abnor malit y. Natur al kille r cells accou nt for 4% of the lymph ocyte s and matur e, polyc lonal B cells accou nt for 36% (jonah a/reaves bda ratio 1.3). CD34 posit fili event s are not detec jessica. Marek zuleta Fee Code( s): 30093 Not Available [facility] (Lab) One [facility], [place], [address], 07/19/2021 16:13:39 07/17/19 22 07/16/2021 DOM [facility]OL OGY [facility] [place] [address] Phone : [phone] Fax: Depar tment of Patho logy Patho logy Repor t CYTOL OGY FINAL REPOR T Patie nt Name: GINO CUNNINGHAM parveen# : [id number] : 960 (Age: 60) Locat ion: [facility] Estrada r: Alexa Dhillon cted Date: 2021 Med Rec #: [id number] Date Recei luis: 2021 Date Repor jessica: 022 Provi orlin: SAMPSON CORRIGAN DO ERNIE Henderson MD Speci men(s ) CT Guide d Needl e Biops y, Pelvi c Lymph Node Final Patho logic Diagn osis TOUCH IMPRI NTS FROM PELVI C LYMPH NODE CT- IDED BIOPS Y: NEGAT FILI FOR MADELINE MULLIGAN The smear s show predo minan tly lymph ocyte s with few histi ocyte s. For final diagn osis, pleas e see surgi javier biops y speci men [id number]. Luisana ctron icall y Jen d Out ALLIS ON T ROD Eduardo MD Patho logis t ATB:p b Micro scopi c Descr iptio n: Two air dried Diff- Quik stain ed slide s and one Papan icola ou stain ed slide are exami daniele. Clini javier Histo ry Pelvi c lymph node enlar alvarez [place] n Secti on Diagn osis Pelvi c lymph node: - Pass 1 and 2: Predo minan tly lymph ocyte s ATB Gross Descr iptio n Two air dried and one fixed smear are recei luis. :pb Marek ng Fee Code( s): 30274 , 92068 Not Available [facility] (Lab) One [facility], [place], [address], 07/20/2021 16:47:00 07/17/19 22 07/16/2021 DOM SURGI JAVIER PATHO LOGY dom surgical pathology [facility] 3 [facility] [place] [address] Phone : [phone] Fax: Depar tment of Patho logy Patho logy Repor t SURGI JAVIER FINAL REPOR T Shiv tarango Name: GINO CUNNINGHAM# : [id number] : 960 (Age: 60) Locat ion: [facility] Estrada r: M Colle cted Date: 2021 Med Rec #: [id number] Date Recei luis: 2021 Date Repor jessica: 022 Provi orlin: JUSTSydney CORRIGAN DO SAQUI B ORI Henderson MD Speci men(s ) CT Guide d Needl e Biops y, Pelvi c Lymph Node Final Patho logic Diagn osis PELVI C LYMPH NODE, CT- IDED BIOPS Y: LYMPH OID TISSU E WITH SMALL NON-N ECROT IZING GRANU NARCISO (SEE COMME NT) COMME NT Per the clini javier notes , the patie nt is a 60-ye ar-ol d male with 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 The biops y shows fragm ents of lymph oid tissu e with small non-n ecrot izing granu narciso . Non-n ecrot izing granu narciso may be seen with sarco idosi s, infec tious etiol ogies , react ion to forei gn mater ial or sarco id-li ke granu narciso . GMS and AFB stain s are negat fili for mycob acter ia and funga l forms . No polar izabl e mater ial is seen. No evide nce of madeline mulligan is seen in this biops y sampl e. Luisana ctron icall y Jen d Out ALLIS ON T ROD Eduardo MD Patho logis t ATB:p b Micro scopi c Descr iptio n: GMS and AFB stain s are perfo rmed on multi ple unsta ined slide level s. Dr. Corrigan was conta cted to discu ss the resul ts on 2. This case has under gone intra depar tment al revie w. The speci al stain contr ol(s) perfo rmed as expec jessica. Clini javier Histo ry Pelvi c lymph node enlar gemen t Gross Descr iptio n Recei luis is a singl e forma trisha-f illed conta iner label ed with the patie nt's name (Maverick Cunningham ), date of (1960) , colle ction time at 9:35, and addit ional ly label ed CT bx pelvi c lymph node. The speci men consi sts of multi ple red-t an tissu es and tissu e fragm ents, measu ring 0.9 x 0.5 x 0.2 cm in aggre gate dimen sions . The speci men is pipet jessica onto filtr ation paper , wrapp ed, and submi tted in toto in casse tte 1. :samuel zuleta Fee Code( s): 94745 , 08154 (2) Not Available [facility] (Lab) One [facility], [place], [address], 07/20/2021 17:14:47 02/01/20 22 02/01/2022 LIPID PANEL , STAND STEVENSON cholesterol, total 285 mg/dL <200 high Not Available [facility] [address] [address] [place], [address], 02/01/2022 14:09:52 02/01/20 22 02/01/2022 LIPID PANEL , STAND STEVENSON HDL cholesterol 38 mg/dL > or = 40 low Not Available [facility] [address] [address] [place], [address], 02/01/2022 14:09:52 02/01/20 22 02/01/2022 LIPID PANEL , STAND STEVENSON triglyceride s 133 mg/dL <150 normal Not Available [facility] [address] [address] [place], [address], 02/01/2022 14:09:52 02/01/20 22 02/01/2022 LIPID PANEL , STAND STEVENSON LDL-choleste rol 219 mg/dL _(javier c) high LDL-C level s > or = 190 mg/dL may indic ate famil ial hyper jenae stero lemia (FH). Clini javier asses sment and measu remen t of blood lipid level s shoul d be consi dered for all first degre e relat kilo of patie nts with an FH diagn osis. For quest ions about testi ng for famil ial hyper jenae stero lemia , pleas e call [facility] at 1.866 .GENE .INFO . Saman drew T, et al. J Natio nal Lipid Assoc iatio n Recom menda tions for Patie nt-Ce ntere d Manag ement of Dysli pidem ia: Part 1 Journ al of Clini javier Lipid ology 2015; 9(2), 129-1 69. Refer ence range : <100 Elsy able range <100 mg/dL for prima ry preve ntion ; <70 mg/dL for patie nts with CHD or diabe tic patie nts with > or = 2 CHD risk facto rs. LDL-C is now calcu lated using the [facility] kins danau daily roberts, which is a valid ated novel joao henderson accur acy than the Fried javier equat ion in the estim ation of LDL-C . Clare roberts SS et al. LORE. 2013; 310(1 9): 2061- 2068 (http ://ed ucati on.Qu Joey [employer]. com/f aq/FA Q164) Not Available [facility] [address] [address] [place], [address], 02/01/2022 14:09:52 02/01/20 22 02/01/2022 LIPID PANEL , STAND STEVENSON chol/HDLC ratio 7.5 (calc ) <5.0 high Not Available [facility] [address] [address] [place], [address], 02/01/2022 14:09:52 02/01/20 22 02/01/2022 LIPID PANEL , STAND STEVENSON non HDL cholesterol 247 mg/dL _(javier c) <130 high Non-H DL level > or = 220 is very high and may indic ate belinda ic famil ial hyper jenae stero lemia (FH). Clini javier asses sment and measu remen t of blood lipid level s shoul d be consi dered for all first -degr ee relat kilo of patie nts with an FH diagn osis. For patie nts with diabe josef plus 1 major ASCVD risk facto r, treat ing to a non-H DL-C goal of <100 mg/dL (LDL- C of <70 mg/dL ) is consi dered a thera peuti c optio n. Not Available [facility] [address] [address] [place], [address], 02/01/2022 14:09:52 02/01/20 22 02/01/2022 AST AST 20 U/L 10-35 normal Not Available [facility] [address] [address] [place], [address], 02/01/2022 14:09:52 02/01/20 22 02/01/2022 BASIC METAB OLIC PANEL glucose 105 mg/dL 65-99 high Fasti ng refer ence inter bin For someo ne witho ut known diabe josef, a gluco se value betwe en 100 and 125 mg/dL is consi stent with predi abete s and shoul d be confi rmed with a follo w-up test. Not Available [facility] [address] [address] [place], [address], 02/01/2022 14:09:53 02/01/20 22 02/01/2022 BASIC METAB OLIC PANEL urea nitrogen (BUN) 12 mg/dL 7-25 normal Not Available [address], [address], 02/01/2022 14:09:53 02/01/20 22 02/01/2022 BASIC METAB OLIC PANEL creatinine 0.98 mg/dL 0.70-1 .35 normal Not Available [address] [address] [place], [address], 02/01/2022 14:09:53 02/01/2002/01/2022 BASIC METAB OLIC PANEL eGFR 87 mL/mi n/1.7 3m2 > or = 60 normal The eGFR is based on the CKD-E PI 2020 equat ion. To calcu late the new eGFR from a previ ous Creat inine or Cysta tin C resul t, go to https ://pavel w.rashmi aguilar.o deanna/ander malhotra s/ kdoqi /gfr% 5Fcal culat or Not Available [facility] [address] [address] [place], [address], 02/01/2022 14:09:53 02/01/20 22 02/01/2022 BASIC METAB OLIC PANEL BUN/creatini ne ratio NOT APPLIC ABLE (calc ) 6-22 Not Available [facility] [address] [address] [place], [address], 02/01/2022 14:09:53 02/01/20 22 02/01/2022 BASIC METAB OLIC PANEL sodium 139 mmol/ L 135-14 6 normal Not Available [address], [address], 02/01/2022 14:09:53 02/01/20 22 02/01/2022 BASIC METAB OLIC PANEL potassium 4.3 mmol/ L 3.5-5. 3 normal Not Available [address], [address], 02/01/2022 14:09:53 02/01/20 22 02/01/2022 BASIC METAB OLIC PANEL chloride 104 mmol/ L 98-110 normal Not Available [address], [address], 02/01/2022 14:09:53 02/01/20 22 02/01/2022 BASIC METAB OLIC PANEL carbon dioxide 28 mmol/ L 20-32 normal Not Available [address], [address], 02/01/2022 14:09:53 02/01/20 22 02/01/2022 BASIC METAB OLIC PANEL calcium 9.1 mg/dL 8.6-10 .3 normal Not Available [address], [address], 02/01/2022 14:09:53 02/01/20 22 02/01/2022 HEMOG LOBIN A1C hemoglobin A1C 5.8 %_of_ total _HGB <5.7 high For someo ne witho ut known diabe josef, a hemog lobin A1c value betwe en 5.7% and 6.4% is consi stent with predi abete s and shoul d be confi rmed with a follo w-up test. For someo ne with known diabe josef, a value <7% indic ates that their diabe josef is well contr olled . A1c targe ts shoul d be indiv idual ized based on durat ion of diabe josef, age, comor bid condi tions , and other consi derat ions. This assay resul t is consi stent with an incre ased risk of diabe josef. Curre ntly, no conse nsus exist s leta albrecht use of hemog lobin A1c for diagn osis of diabe josef for child marva. Your reque st to have a Dine inli miriam copy faxed has been lara [facility] ed. Queue d to: [phone] Not Available [facility] [address] [address] [place], [address], 02/01/2022 14:09:53 03/21/1903/22/2024 LIPID PANEL , STAND STEVENSON cholesterol, total 309 mg/dL <200 high Not Available [facility] [address] [address] [place], [address], 03/22/2024 10:45:34 03/21/19 25 03/22/2024 LIPID PANEL , STAND STEVENSON HDL cholesterol 43 mg/dL > or = 40 normal Not Available [facility] [address] [address] [place], [address], 03/22/2024 10:45:34 03/21/19 25 03/22/2024 LIPID PANEL , STAND STEVENSON triglyceride s 233 mg/dL <150 high If a non-f astin g speci men was colle cted, consi orlin repea t trigl yceri de testi ng on a fasti ng speci men if clini zaida indic ated. Saman drew et al. J. of Clin. Lipid ol. 2015; 9:129 -169. Not Available [facility] [address] [address] [place], [address], 03/22/2024 10:45:34 03/21/19 25 03/22/2024 LIPID PANEL , STAND STEVENSON LDL-choleste rol 223 mg/dL _(javier c) high LDL-C level s > or = 190 mg/dL may indic ate famil ial hyper jenae stero lemia (FH). Clini javier asses sment and measu remen t of blood lipid level s shoul d be consi dered for all first degre e relat kilo of patie nts with an FH diagn osis. LDL Jenae stero l (LDL- C) level s > or = 300 mg/dL may indic ate homoz ygous famil ial hyper jenae stero lemia (HoFH ). Untre ated, these extre gonzalo high LDL-C level s can resul t in kwaku ture CV event s and morta lity. Patie nts shoul d be ident ified early and provi ded appro priat e inter venti ons to reduc e the cumul ative LDL-C burde n from . For quest ions about testi ng for famil ial hyper jenae stero lemia , pleas e call [facility] at 1.866 .GENE .INFO . Saman drew T, et al. J Natio nal Lipid Assoc iatio n Recom menda tions for Patie nt-Ce ntere d Manag ement of Dysli pidem ia: Part 1 Journ al of Clini javier Lipid ology 2015; 9(2), 129-1 69. Alexa Scales. et al. (2014 ). Homoz ygous famil ial hyper jenae stero laemi a: new insig hts and simone nce for clini cians to impro ve detec tion and clini javier manag ement . Europ mohit Heart Journ al, 35(32 ), 2146- 2157. Refer ence range : <100 Elsy able range <100 mg/dL for prima ry preve ntion ; <70 mg/dL for patie nts with CHD or diabe tic patie nts with > or = 2 CHD risk facto rs. LDL-C is now calcu lated using the Clare n-Hop kins calcu latrebeka n, which is a valid ated novel metho d provi ding seble r accur acy than the Fried javier equat ion in the estim ation of LDL-C . Clare roberts SS et al. LORE. 2013; 310(1 9): 2061- 2068 (http ://ed ucati on.Qu estDi kyle tics. com/f aq/FA Q164) Not Available [facility] [address], [place], [address], 03/22/2024 10:45:34 03/21/19 25 03/22/2024 LIPID PANEL , STAND STEVENSON chol/HDLC ratio 7.2 (calc ) <5.0 high Not Available [facility] [address], [place], [address], 03/22/2024 10:45:34 03/21/19 25 03/22/2024 LIPID PANEL , STAND STEVENSON non HDL cholesterol 266 mg/dL _(javier c) <130 high Non-H DL level > or = 220 is very high and may indic ate belinda ic famil ial hyper jenae stero lemia (FH). Clini javier asses sment and measu remen t of blood lipid level s shosybil lawton be consi dered for all first -degr ee relat kilo of patie nts with an FH diagn osis. For patie nts with diabe josef plus 1 major ASCVD risk facto r, treat ing to a non-H DL-C goal of <100 mg/dL (LDL- C of <70 mg/dL ) is consi dered a thera peuti c optio n. Not Available [address], [place], [address], 03/22/2024 10:45:34 03/21/19 25 03/22/2024 COMPR EHENS FILI METAB OLIC PANEL glucose 118 mg/dL 65-99 high Fasti ng refer ence inter bin For someo ne witho ut known diabe josef, a gluco se value betwe en 100 and 125 mg/dL is consi stent with predi abete s and toña lawton be confi rmed with a follo w-up test. Not Available [facility] [address], [place], [address], 03/22/2024 10:45:35 03/21/19 25 03/22/2024 COMPR EHENS FILI METAB OLIC PANEL urea nitrogen (BUN) 10 mg/dL 7-25 normal Not Available [address], [address], 03/22/2024 10:45:35 03/21/19 25 03/22/2024 COMPR EHENS FILI METAB OLIC PANEL creatinine 1.01 mg/dL 0.70-1 .35 normal Not Available [address], [address], 03/22/2024 10:45:35 03/21/19 25 03/22/2024 COMPR EHENS FILI METAB OLIC PANEL eGFR 83 mL/mi n/1.7 3m2 > or = 60 normal Not Available [address], [address], 03/22/2024 10:45:35 03/21/19 25 03/22/2024 COMPR EHENS FILI METAB OLIC PANEL BUN/creatini ne ratio SEE NOTE: (calc ) 6-22 Not Repor jessica: BUN and Creat inine are withi n refer ence range . Not Available [address], [address], 03/22/2024 10:45:35 03/21/19 25 03/22/2024 COMPR EHENS FILI METAB OLIC PANEL sodium 136 mmol/ L 135-14 6 normal Not Available [address], [address], 03/22/2024 10:45:35 03/21/19 25 03/22/2024 COMPR EHENS FILI METAB OLIC PANEL potassium 4.3 mmol/ L 3.5-5. 3 normal Not Available [address], [address], 03/22/2024 10:45:35 03/21/19 25 03/22/2024 COMPR EHENS FILI METAB OLIC PANEL chloride 101 mmol/ L 98-110 normal Not Available [address], [address], 03/22/2024 10:45:35 03/21/19 25 03/22/2024 COMPR EHENS FILI METAB OLIC PANEL carbon dioxide 23 mmol/ L 20-32 normal Not Available [address], [place], [address], 03/22/2024 10:45:35 03/21/19 25 03/22/2024 COMPR EHENS FILI METAB OLIC PANEL calcium 9.2 mg/dL 8.6-10 .3 normal Not Available [address], [place], [address], 03/22/2024 10:45:35 03/21/19 25 03/22/2024 COMPR EHENS FILI METAB OLIC PANEL protein, total 6.9 g/dL 6.1-8. 1 normal Not Available [address], [address], 03/22/2024 10:45:35 03/21/19 25 03/22/2024 COMPR EHENS FILI METAB OLIC PANEL albumin 4.3 g/dL 3.6-5. 1 normal Not Available [address], [address], 03/22/2024 10:45:35 03/21/19 25 03/22/2024 COMPR EHENS FILI METAB OLIC PANEL globulin 2.6 g/dL_ (calc ) 1.9-3. 7 normal Not Available [address], [address], 03/22/2024 10:45:35 03/21/19 25 03/22/2024 COMPR EHENS FILI METAB OLIC PANEL albumin/glob ulin ratio 1.7 (calc ) 1.0-2. 5 normal Not Available [address], [address], 03/22/2024 10:45:35 03/21/19 25 03/22/2024 COMPR EHENS FILI METAB OLIC PANEL bilirubin, total 1.4 mg/dL 0.2-1. 2 high Not Available [address], [address], 03/22/2024 10:45:35 03/21/19 25 03/22/2024 COMPR EHENS FILI METAB OLIC PANEL alkaline phosphatase 74 U/L 35-144 normal Not Available [facility] [address] [address] [address] [place], [address], 03/22/2024 10:45:35 03/21/19 25 03/22/2024 COMPR EHENS FILI METAB OLIC PANEL AST 22 U/L 10-35 normal Not Available [address], [address], 03/22/2024 10:45:35 03/21/19 25 03/22/2024 COMPR EHENS FILI METAB OLIC PANEL ALT 31 U/L 9-46 normal Not Available [address], [address], 03/22/2024 10:45:35 03/21/19 25 03/22/2024 CBC (INCL UDES DIFF/ PLT) white blood cell count TNP TEST NOT PERFO RMED Speci men recei luis clott ed. Not Available [address], [address], 03/22/2024 10:45:37 03/21/19 25 03/22/2024 HEMOG LOBIN A1C hemoglobin A1C 6.5 %_of_ total _HGB <5.7 high For someo ne witho ut known diabe josef, a hemog lobin A1c value of 6.5% or great er indic ates that they may have diabe josef and this shoul d be confi rmed with a follo w-up test. For someo ne with known diabe josef, a value <7% indic ates that their diabe josef is well contr olled and a value great er than or equal to 7% indic ates subop timal contr ol. A1c targe ts shoul d be indiv idual ized based on durat ion of diabe josef, age, comor bid condi tions , and other consi derat ions. Curre ntly, no conse nsus exist s leta albrecht use of hemog lobin A1c for diagn osis of diabe josef for child marva. Not Available [facility] [address] [address] [place], [address], 03/22/2024 10:45:38 05/06/1905/08/2024 LIPID PANEL , STAND STEVENSON cholesterol, total 250 mg/dL <200 high Not Available [facility] [address] [address] [place], [address], 05/08/2024 04:06:57 05/06/19 25 05/08/2024 LIPID PANEL , STAND STEVENSON HDL cholesterol 48 mg/dL > or = 40 normal Not Available [facility] [address] [address] [place], [address], 05/08/2024 04:06:57 05/06/19 25 05/08/2024 LIPID PANEL , STAND STEVENSON triglyceride s 169 mg/dL <150 high Not Available [facility] [address] [address] [place], [address], 05/08/2024 04:06:57 05/06/19 25 05/08/2024 LIPID PANEL , STAND STEVENSON LDL-choleste rol 170 mg/dL _(javier c) high Refer ence range : <100 Elsy able range <100 mg/dL for prima ry preve ntion ; <70 mg/dL for patie nts with CHD or diabe tic patie nts with > or = 2 CHD risk facto rs. LDL-C is now calcu lated using the Clare n-Hop kins calcu latio n, which is a valid ated novel beno jered pruett r accur acy than the Fried javier equat ion in the estim ation of LDL-C . Clare n SS et al. LORE. 2013; 310(1 9): 2061- 2068 (http ://ed ucati on.[employer] kervinmPATH. com/f aq/FA Q164) Not Available [facility] [address] [address], [place], [address], 05/08/2024 04:06:57 05/06/1905/08/2024 LIPID PANEL , STAND STEVENSON chol/HDLC ratio 5.2 (calc ) <5.0 high Not Available [facility] [address] [address], [place], [address], 05/08/2024 04:06:57 05/06/1905/08/2024 LIPID PANEL , STAND STEVENSON non HDL cholesterol 202 mg/dL _(javier c) <130 high For patie nts with diabe josef plus 1 major ASCVD risk facto r, treat ing to a non-H DL-C goal of <100 mg/dL (LDL- C of <70 mg/dL ) is consi dered a thera peuti c optio n. Not Available [facility] [address] [address], [place], [address], 05/08/2024 04:06:57 07/17/[address] gd BX lymph deep [facility] [address] EXAMIN ATION: CT-ofelia ded abdomi nal lymph node biopsy ACCESS ION: [id number] EXAM DATE/T PAT: 022 9:43 AM REASON FOR EXAM: 60-yea r-old male presen ting for core needle biopsy of the pelvic adenop athy.. COMPAR GASTON: CT abdome n pelvis 022 PROCED URE/FI NDINGS : Inform ed verbal and writte n consen t was obtain ed from the patien t/eunice ent's medica l power of attorn ey. The proced ure was explai daniele discus sed includ ing the ration gavin, altern atives , benefi ts and risks includ ing but not limite d to infect ion, bleedi ng, damage to adjace nt struct ures and failur e to obtain a diagno stic sample . The patien t was leticia t to the CT proced ure suite and positi oned prone on the table. Initia l planni ng CT imagin g was perfor med throug h to the low pelvis the to the inferi or pelvis redemo nstrat ing the iliac chain and obtura tor adenop athy. Index left anteri or obtura tor lymph node measur ing 1.8 x 2.5 cm lying just anteri or to the left acetab ulum was identi fied and target ed for sampli ng. Antici pated needle entry path was determ ined and skin entry site marked on the skin with the help of a radiop aque grid and preppe d and draped . All CT fluoro scopy and subseq uent CT imagin g was perfor med using an automa jessica low-do se exposu re protoc ol. Timeou t was perfor med. Intrav enous analge dann was admini stered by the interv ention al radiol ogy nurse with contin uous vital sign monito ring includ ing pulse, blood pressu re, and oxygen satura tion, under the superv ision of the interv ention al radiol ogist. Total intrap rocedu re time with the radiol ogist was 20 minute s. Medica tions: No IV sedati on Fentan yl 50 mcg IV Maximu m steril e ramin r techni que includ ing hand hygien e, and skin prepar ation was employ ed for the proced ure. 1% lidoca ine was admini stered for local anesth esia at the skin and deeper soft tissue s. A small skin incisi on was made throug h which a 17-gau ge guidin g needle was advanc ed with CT fluoro scopic guidan ce to the edge of the target lesion . Multip le 18-gau ge core needle biopsy sample s were acquir ed. These were collec jessica and assess ed by the pathol ogist on site. The guide needle was then remove d. Compre ssion applie d and a small steril e dressi ng placed . Patien t remain ed asympt omatic tolera ting the proced ure well. There was no immedi ate compli cation . Operat or: Dr. Salmeron : Domingo lopez blood loss: None IMPRES PARVEEN: Proced ure note for left anteri or operat or node lying just anteri or to the left acetab ulum 18-gau ge core needle biopsy perfor med with CT spenceran cintia. Ordere d By: KAMERON CORRIGAN Electr onical ly Signed By: Nabil Salmeron MD on 10:51 AM Interp reted By: Nabil Salmeron MD, 9:[address] [facility], [place], [address], 01/31/2022 16:56:53 08/26/19 22 08/24/2021 CT, abdom en + pelvi s, w/o contr ast No observ ation record ed. [address], [place], [address], 01/31/2022 16:56:53 Result Notes None recorded. Problems Name Problem SNOMED Code Status Onset Date Resolution Date Notes Provider Name and Address Organization Details Recorded Time Essential hypertensi on 09379303 Active 2019 Edmundo Arrieta MD Attn: Liliana diego,[address] [facility], [place], [address], [facility] 3 14:36:07 Retroperit ignacio lymphadeno tien 843190746 Active 2020 under care of DO Edmundo Conroy MD Attn: Liliana diego,[address] [facility], [place], [address], [facility] - [facility] 3 14:36:07 History of pulmonary embolus 508154364 Active 2014 Tiffanie vásquez, [place] - [facility] 2 08:49:02 Cardiac pacemaker in situ 006331158 Active 2015 Edmundo Arrieta MD Attn: Liliana diego,[address] [facility], [place], [address], [place] [facility] 3 14:36:07 Body mass index 40+ - severely obese 787301189 Active 2022 Edmundo Arrieta MD Attn: Aidansulaiman diego,[address] [facility], [place], [address], [place] [facility] 3 14:37:43 Sleep apnea 22030986 Active 2014 Edmundo Arrieta MD Attn: Liliana brandie,[address] [place] [address], [place], [address], [place] [facility] 3 14:35:54 Deep vein phlebitis and thrombophl ebitis of the leg Completed 201404/10/2015 Edmundo Arrieta MD Attn: Liliana brandie,[address] [place] [address], [place], [address], [place] [facility] 3 14:36:16 Gallstone 083571861 Completed 201506/08/2015 Edmundo Arrieta MD Attn: Liliana diego,[address] [place] [address], [place], [address], [place] [facility] 3 14:36:20 Pulmonary embolism 04712353 Completed 201404/10/2015 Edmundo Arrieta MD Attn: Liliana diego,[address] [place] [address], [place], [address], [place] - [facility] 3 14:36:24 External hemorrhoid s 81639467 Active 2014 Edmundo Arrieta MD Attn: Liliana diego,[address] [place] [address], [place], [address], [place] [facility] 3 14:35:28 Hyperlipid emia 80598080 Active 2014 Edmundo Arrieta MD Attn: Liliana diego,[address] [place] [address], [place], [address], [place] [facility] 3 14:35:36 Long-term drug therapy Active 2015 Edmundo Arrieta MD Attn: Liliana diego,[address] [facility], [place], [address], [place] - [facility] 3 14:35:40 Family history of Blood disorder 655729502 Active 2015 Edmundo Arrieta MD Attn: Liliana diego,[address] [facility], [place], [address], [facility] - [facility] 3 14:35:33 Hyperglyce nicolas 67571959 Active 2016 Edmundo Arrieta MD Attn: Liliana diego,[address] [facility], [place], [address], [facility] - [facility] 3 14:36:07 Problem Notes None recorded. Procedures Surgical History Date Name Laterality Status Provider Name and Address Organization Details Recorded Time 09/17/19 11 Appendectomy completed [facility] 12/01/2016 14:40:49 Tonsillectomy completed [facility] 12/01/2016 14:41:24 Imaging Results Imaging Date Name Status LastModified by Organiz ation Details LastModified Time 07/16/2021 CT gd BX lymph deep completed [address] [place], [address], 01/31/2022 16:56:53 08/24/2021 CT, abdomen + pelvis, w/o contrast completed [place], [place], [address], 01/31/2022 16:56:53 Procedure Notes None recorded. Medical Equipment None Reported. Allergies No known drug allergies Medications Name Sig Start Date Stop Date Status Note LastModified by Organization Details LastModified Time cyclobenza merna 10 mg tablet 03/21 completed Not Available Not Available Not Available atorvastat in 40 mg tablet TAKE 1 TABLET DAILY 02/01 completed Not Available Not Available Not Available prednisone 10 mg tablet 03/21 completed Not Available Not Available Not Available hydrocodon e 5 mg-acetami nophen 325 mg tablet 03/21 completed Not Available Not Available Not Available amlodipine 5 mg tablet TAKE 1 TABLET DAILY 2024 active Not Available Not Available Not Avai lable ciprofloxa jose david 500 mg tablet TAKE 1 TABLET BY MOUTH EVERY 12 HOURS 01/31 completed Not Available Not Available Not Available sulfametho xazole 800 mg-trimeth oprim 160 mg tablet TAKE 1 TABLET BY MOUTH TWICE DAILY 01/11 completed Not Available Not Available Not Available amoxicilli n 500 mg tablet TAKE 1 TABLET BY MOUTH THREE TIMES A DAY 01/30 completed Not Available Not Available Not Available tamsulosin 0.4 mg capsule Take 1 capsule by mouth at bedtime active Not Available Not Available No t Available cephalexin 500 mg capsule TAKE ONE CAPSULE BY MOUTH EVERY 12 HOURS 01/11 completed Not Available Not Available Not Available simvastati n 20 mg tablet Take 1 tablet po q hs 03/03 completed RxNorm: 501781; Allow Substit ution: True Not Available Not Available Not Available niacin 500 mg tablet take 1 tab q hs 02/09 completed RxNorm: 230206; Allow Substit ution: True Not Available Not Available Not Available niacin ER 500 mg capsule,ex tended release Take 1 capsule( s) by mouth daily 06/09 completed RxNorm: 195068; Allow Substit ution: True Not Available Not Available Not Available pravastati n 20 mg tablet Take 1 tablet(s ) by mouth at bedtime 08/02 completed RxNorm: 950274; Allow Substit ution: True Not Available Not Available Not Available metformin ER 500 mg tablet,ext ended release 24 hr TAKE 1 TABLET DAILY active Not Available Not Available No t Available Adult Low Dose Aspirin 81 mg tablet,del ayed release Take 1 tablet every day by oral route. 07/12 completed Not Available Not Available Not Available ezetimibe 10 mg tablet TAKE 1 TABLET DAILY active Not Available Not Available No t Available rosuvastat in 20 mg tablet Take 1 tablet every day by oral route. 08/02 completed nausea and dizzy Not Available Not Available Not Available GaviLyte-G 236 gram-22.74 gram-6.74 gram-5.86 gram oral solution 01/03 completed Not Available Not Available Not Available dabigatran etexilate 150 mg capsule Take 1 capsule( s) by mouth bid 07/05 completed Allow Substit ution: True Not Available Not Available Not Available Eliquis 5 mg tablet Take 1 tablet(s ) twice a day by oral route. 2024 active Not Available Not Available Not Avai lable Vitals Date Recorded Body height Body temperature Oxygen saturation Oxygen saturation in Arterial blood by Pulse oximetry Heart rate Systolic blood pressure Diastolic blood pressure Provider Name and Address Organization Details Last Updated DateTime 2 180.34 cm 97.7 [degF] 97 % 97 % 100 /min 118 mm[Hg] 78 mm[Hg] Talita Sánchez MA [facility] 2 16:58:01 Date Recorded Body mass index (BMI) Body weight Provider Name and Address Organization Details Last Updated DateTime 07/12/2021 44.8 kg/m2 675988.3 g Tiffanie Myrick [facility] 2021 17:33:59 Date Recorded Body height Body mass index (BMI) Body weight Body temperature Oxygen saturation Oxygen saturation in Arterial blood by Pulse oximetry Heart rate Systolic blood pressure Diastolic blood pressure Provider Name and Address Organization Details Last Updated DateTime 2 180.34 cm 45.2 kg/m2 553518. 93 g 97 [degF] 96 % 96 % 92 /min 126 mm[Hg] 84 mm[Hg] Tiffanie Chisholm MA [facility] 2 16:06:23 Date Recorded Body height Body mass index (BMI) Body weight Body temperature Oxygen saturation Oxygen saturation in Arterial blood by Pulse oximetry Heart rate Systolic blood pressure Diastolic blood pressure Provider Name and Address Organization Details Last Updated DateTime 3 180.34 cm 43 kg/m2 875989. 45 g 97.5 [degF] 98 % 98 % 83 /min 123 mm[Hg] 82 mm[Hg] Rudi Reza MA [facility] 3 15:51:49 Date Recorded Body height Body mass index (BMI) Body weight Body temperature Oxygen saturation Oxygen saturation in Arterial blood by Pulse oximetry Heart rate Systolic blood pressure Diastolic blood pressure Provider Name and Address Organization Details Last Updated DateTime 3 180.34 cm 42.5 kg/m2 102346. 18 g 97.8 [degF] 97 % 97 % 67 /min 135 mm[Hg] 84 mm[Hg] Kirill Stoll MA [facility] 3 16:41:05 Date Recorded Body weight Body temperature Oxygen saturation Oxygen saturation in Arterial blood by Pulse oximetry Heart rate Systolic blood pressure Diastolic blood pressure Provider Name and Address Organization Details Last Updated DateTime 5 451294. 34 g 97.9 [degF] 98 % 98 % 88 /min 140 mm[Hg] 82 mm[Hg] Kaur Carter MA [facility] 5 14:05:23 Date Recorded Systolic blood pressure Diastolic blood pressure Provider Name and Address Organization Details Last Updated DateTime 03/21/2024 138 mm[Hg] 84 mm[Hg] RACHEAL Cano Attn: Accounting[address] [place], [address], [facility] 03/21/2024 14:24:16 Social History Question Answer Notes LastModified by Organizat ion Details LastModified Time Tobacco Smoking Status Never Smoker Kaela Michelle vásquez, [facility] 12/01/2016 14:38:45 Do You Have An Advance Directive? No Information not available 07/12/2021 What Is Your Level Of Alcohol Consumption? Occasional Information not available 01/11/2021 Are You Blind Or Do You Have Difficulty Seeing? No Information not available 07/12/2021 What Is Your Level Of Caffeine Consumption? Occasional Information not available 01/11/2021 Are You Currently Employed? No Information not available 07/12/2021 Are You Deaf Or Do You Have Serious Difficulty Hearing? Yes Ringing In Ears Information not available 07/12/2021 What Type Of Diet Are You Following? REGULAR Information not available 07/12/2021 What Was The Date Of Your Most Recent Tobacco Screening? 01/30/2023 [email or web address] Information not available 01/30/2023 What Is Your Relationship Status? Information not available 07/12/2021 Do You Feel Stressed (tense, Restless, Nervous, Or Anxious, Or Unable To Sleep At Night)? [id number] Information not available 07/12/2021 Do You Use Any Illicit Or Recreational Drugs? No Information not available 01/11/2021 Has Tobacco Cessation Counseling Been Provided? No Information not available 01/31/2022 Do You Or Have You Ever Used Any Other Forms Of Tobacco Or Nicotine? No Information not available 01/31/2022 Sex: Male Functional Status Question Answer Note LastModified by Organizat ion Details LastModified Time Are you able to care for yourself? Yes Information not available 07/12/2021 What is your exercise level? Occasional Information not available 07/12/2021 Mental Status None recorded. Family History Relationship Description Onset Age of this Age Resolved Age Notes LastModified by Organization Details LastModified Time Mother Hypertensive disorder [email or web address] Not available 14:41:43 Paternal Grandmother Type 2 diabetes mellitus [email or web address] Not available 14:41:55 Maternal Grandmother Type 2 diabetes mellitus [email or web address] Not available 15:06:58 Medical History Condition Response High Cholesterol Y Immunizations Vaccine Type Date Status Note Provider Nam e and Address Organization Details Recorded Time Tdap 01/03/2017 completed Not Available [facility] 04/06/2019 02:42:30 Tdap 08/08/2000 completed Not Available [facility] 03/23/2016 05:53:41 Past Encounters Encounter ID Performer Location Encounter Start Date Encounter Closed Date Diagnosis/Indication Diagnosis SNOMED-CT Code Diagnosis ICD10 Code Diagnosis Note [id number] Keturah Guallpaalejandra [facility] [address] [place] [address] 06/28/2016 11:53:55 06/28/2016 14:40:14 Hyperlipidemia 13787339 E78.5 Morbid obesity 148992531 E66.01 Long-term drug therapy 629505536 Z79.531 [id number] Kaela Cadetpaul kimball [facility] [address] [place] [address] 07/05/2016 11:37:30 07/05/2016 13:40:37 Hyperlipidemia 34229531 E78.5 Coronary arteriosclerosis 33263059 I25.10 completed disability 5 Physical 2A Mixed anxi ety and depressive disorder 292799516 F41.8 [id number] [facility] [address] [place] [address] 01/03/2017 10:16:01 01/04/2017 16:43:53 Hyperlipidemia 53325155 E78.5 History of pulmonary embolus 057509827 Z86.711 Hyperglycemia 30138741 R 73.9 Administra tion of diphtheria, pertussis, and tetanus vaccine 598757565 Z23 Change in skin lesion 39 5908152 L98.9 enlarging lip lesion [id number] Pauline Snowmyranda [place] [id number] [place] [address] 01/04/2017 14:37:41 01/05/2017 15:00:53 Hyperglycemia 93642715 R73.9 Long-term drug therapy 195933668 Z79.899 Hyperlipidemia 97211561 E78.5 Morbid obesity 579505606 E66.01 [id number] Kaela kimball [place] [id number] [place] [address] 06/26/2017 14:49:40 06/27/2017 10:18:08 Hyperlipidemia 97010405 E78.5 Morbid obesity 449451632 E66.01 Essential hypertension 68630860 I10 Mixed anxi ety and depressive disorder 510302528 F41.8 Intentiona l weight loss 547832881 R63.8 [id number] [facility] [address] [place] [address] 12/28/2017 13:35:29 12/29/2017 11:34:05 Hyperlipidemia 07682537 E78.5 Essential hypertension 38125814 I10 History of pulmonary embolus 596406330 Z86.711 Influenza vaccination declined 957029934 Z28.21 [id number] [place] [address] [place] [address] 07/05/2018 14:17:04 07/06/2018 09:18:13 Hyperlipidemia 24673211 E78.5 Hyperglycemia 45214786 R 73.9 Morbid obesity 636518618 E66.01 Essential hypertension 25800287 I10 [id number] [place] [address] [place] [address] 01/03/2019 14:36:19 01/03/2019 16:15:16 Hyperlipidemia 25058124 E78.5 Essential hypertension 85615407 I10 History of pulmonary embolus 307558523 Z86.711 Hyperglycemia 57267949 R 73.9 Influenza vaccination declined 471309013 Z28.21 HIV screening 553879648 Z11.4 [id number] [place] [address] [place] [address] 07/04/2019 13:28:01 07/04/2019 15:19:05 Body mass index 40+ - severely obese 124535042 Z68.41 Hyperlipidemia 67101528 E78.5 Cardiomegaly 8739607 I51 .7 [id number] [place] [address] [place] [address] 12/24/2019 13:58:59 12/24/2019 18:05:52 Hyperlipidemia 30059577 E78.5 Essential hypertension 51789134 I10 History of pulmonary embolus 028596614 Z86.269 [id number] [place] [address] [place] [address] 01/11/2021 15:27:43 01/11/2021 17:06:49 Adult health examination 356255597 Z00.00 Body mass index 40+ - severely obese 902501515 Z68.41 Retroperit ignacio lymphadenopathy 840225745 R59.0 getting blood work from the specialist [id number] [place] [address] [place] [address] 07/12/2021 15:54:28 07/12/2021 18:03:57 Essential hypertension 03541653 I10 Morbid obesity 208050002 E66.01 Hyperlipidemia 43469644 E78.5 External hemorrhoids 239 28925 K64.4 Retroperit ignacio lymphadenopathy 427603018 R59.0 under care of oncology - maybe getting a biopsy soon Body mass index 40+ - severely obese 747454906 Z68.41 [id number] Tiffanie Myrick [facility] [address] [place] [address] 01/31/2022 15:52:32 01/31/2022 18:15:57 Essential hypertension 87476608 I10 Hyperlipidemia 96947258 E78.5 Morbid obesity 739478832 E66.01 Hyperglycemia 87719225 R 73.9 [id number] Edmundo Arrieta MD [facility] [address] [place] [address] 08/02/2022 15:29:08 08/17/2022 21:26:51 Essential hypertension 05878454 I10 # HTN {{Controll ed* Nearly controlled Suboptima lly controlled Uncontrol led}} Continue current medication s. No change in management Encouraged routine blood pressure checksat home, targetless than 140/90 DiscussedD MARLY diet(https ://www.nhl bi.nih.gov /files/doc s/public/h eart/dash_ brief.pdf) anddietary sodium restrictio ns Continue/I ncrease dietary efforts and physical activity Hyperlipidemia 70527262 E78.5 # Hyperlipid emiaLast lipid panel {{< >*}} 1 year agoObtain panel for cardiovasc ular disease, cerebrovas cular disease risk assessment Continue with current management without changes.Fo cus on a dietlow in saturated fats(https ://www.[facility] fhealth.or g/educatio n/guidelin es-for-a-l ow-cholest ruddy-low-s aturated-f at-diet),b lood pressure control,sm oking cessation( http://che tyes.org/) anddaily exerciseto reduce your risk ofheart disease and stroke. Cardiac pa angel in situ 644053414 Z95.0 follows with cardiology Sleep apnea 23302864 G47 .30 reports history of sleep apnea, not currently using cpapconsid er referral to sleep medicine Body mass index 40+ - severely obese 101352768 Z68.41 Focus on a healthy diet, avoid added salt, and [id number] calories or less daily. Exercise as tolerated, targeting3 0-60 minutes of exercise daily, at least 5 days per week Retroperit ignacio lymphadenopathy 264180782 R59.0 following with oncology for monitoring Long-term drug therapy 465130225 Z79.899 Checking routine labwork for ongoing long-term medication use. Hyperglycemia 77441464 R 73.9 recheck hemoglobin A1c [id number] Edmundo Arrieta MD [facility] [address] [place] [address] 01/30/2023 15:29:54 01/31/2023 15:04:33 Cardiac pacemaker in situ 169246318 Z95.0 - electrophy siology every 6 months- remote interrogat ion in 3 months Essential hypertension 11798653 I10 # HTN - {{Controll ed* Nearly controlled Suboptima lly controlled Uncontrol led}} - Continue current medication s. No change in management - Encouraged routine blood pressure checksat home, targetless than 140/90 - DiscussedD MARLY diet(https ://www.nhl bi.nih.gov /files/doc s/public/h eart/dash_ brief.pdf) anddietary sodium restrictio ns - Continue/I ncrease dietary efforts and physical activity Hyperlipidemia 19504228 E78.5 # Hyperlipid emia- Last lipid panel ~ 1 year ago- ACC/AHA CV risk {{< >*}} 7.5%- Repeat {{today* a t earliest convenienc e prior to next visit in one year}}- Continue with current management without changes.- Focus on a dietlow in saturated fats(https ://www.[facility] fhealth.or g/educatio n/guidelin es-for-a-l ow-cholest ruddy-low-s aturated-f at-diet),b lood pressure control,sm oking cessation( http://che tyes.org/) anddaily exerciseto reduce your risk ofheart disease and stroke. History of pulmonary embolus 139475110 Z86.711 - chronic apixaban use- stable- due for complete blood count Hyperglycemia 54106697 R 73.9 - check hemoglobin A1c Body mass index 40+ - severely obese 415446818 Z68.41 Focus on a healthy diet, avoid added salt, and gsssri7048 calories or less daily. Exercise as tolerated, targeting3 0-60 minutes of exercise daily, at least 5 days per week Long-term drug therapy 516255735 Z79.899 Checking routine labwork for ongoing long-term medication use. Retroperit ignacio lymphadenopathy 635890903 R59.0 - follows with hematology -oncology - Dr. Corrigan- no more scans, labs only Sleep apnea 26243007 G47 .30 # CARY on CPAPGood compliance .Symptoms improved.C ontinue to monitor. Adult [facility] th examination 704739376 Z00.00 Discussed importance of annual wellness examinatio nEncourage d routine exercise as well as the importance of balance training to improve stability and prevent fallsRevie wed alcohol and tobacco use and related concernsDi scussed current medication s, including risk of medication s, adherence and affordabil ity, as well as possible drug-to-dr ug and disease-to -drug interactio nsReviewed social support, ability to complete activities of daily living, as well as advance directives Performed depression and memory evaluation s as documented Discussed cancer screenings with considerat ion to life expectancy , potential harm, and patient preference Reviewed recommende d vaccinatio ns including annual influenza, pneumococc al (65+ year-old), and herpes zoster (50+ year-old) [id number] Susana Schofield, YARN BLEACHING MACHINE OPERATOR-C [facility] [address] [place] [address] 03/21/2024 13:42:50 03/22/2024 10:01:03 Pain of left knee joint [id number] 57798 M25.562 -has MRI 03/24/24 and f/u with Dr. Colmenares on 03/28/24.-he is using 1 crutch right now to help with ambulation . He feels like his knee is weak and that it will give out at any moment. Said this has happened before but resolved on its own. Will see what MRI shows and treatment will be determined from that. Essential hypertension 75904838 I10 -Controlle d on current therapy. -Should notify office for BP less than 90/60. -Maintain a low sodium (less than 2000mg) diet and encouraged at least 30-45 minutes of aerobic activity most days of the week -f/u 6 months Prediabetes 308754933 R7 3.03 -pt glucose was 120 in 2022, will check labs and A1C today.-if A1C is elevated again will discuss medication regimen. Sleep apnea 07441177 G47 .30 -Pt needs new machine and supplies soon.-pt has informatio n at home of where he wants it sent. If the company will not send in new equipment with new PCP laly n he will call me with informatio n on where to send orders to. Morbid obesity 549967294 E66.01 1. Restrict Caloric Intake: Instead of calculatin g total calories, you can eliminate one food item from daily intake at a time that would be worth of 100-200 kcal. Minimize Processed carbohydra josef (Potatoes, Pasta, Bread, rice and corn) and processed sugars (Sodas, Cookies, Donuts & Desserts). Small plates and bowels. Small meals (Under 250kcal) at a time! 2. Quality of Diet: Organic, Non-GMO, fresh, raw-food, whole-food & more fruits and vegetables . Look for lean protein (Soy, Lentils, beans, legumes and nuts). Avoid processed food (frozen, canned, fast-food) . Shop food economical ly from multiple places. 3. Stress Reduction: Yoga, Mindfulnes s, Exercise, Volunteeri ng, Spirituali ty! Mindfulnes s eating (Avoid multi-task ing while eating and Increase awareness of what food is doing to Body). 4. Quality Restful Sleep: Melatonin, Yoga-Nidra , Kiwi fruit. Avoid meals in last two hours of the day. Avoid Caffeine, alcohol, high sugar/mayco erts and tobacco with or after dinner. 5. Increase Exertion within Daily Activities : [id number] Steps/day. Avoid Elevators, escalators at public places. Increase steps in parking lots! Immunization advised 310 864180 Z71.9 -pt educated on flu, pneumonia, RSV and shingles vaccine. He declines today and says he does not do shots anymore and will not . I educated on his risk factors and why they would be appropriat e. Pt still declines at this time. Health Concerns Section Related Observation LastModified by Organization Detai ls LastModified Time None Recorded Concern Status LastModified by Organization Details LastModified Time None Recorded Advance Directives Directive N: Payers Encounter Date Sequence Insurance Name Policy Number Policy Ward Covered Member ID Ward Member ID Guarantor Name 07/12/2021 1 [employer] (MEDICARE REPLACEMENT PPO) [id number] Gino Hawthornear [id number] Gino Hawthornear 01/31/2022 1 [employer] (MEDICARE REPLACEMENT/AD VANTAGE - HMO) [id number] Gino Fiore Cuvar [id number] Gino Fiore Cuvar 08/02/2022 1 [employer] (MEDICARE REPLACEMENT/AD VANTAGE - HMO) [id number] Gino Fiore Cuvar [id number] Gino Hawthornear 01/30/2023 1 [employer] (MEDICARE REPLACEMENT/AD VANTAGE - HMO) [id number] Gino Hawthornear [id number] Gino Hawthornear 03/21/2024 1 [employer] (MEDICARE REPLACEMENT PPO) [id number] Gino Hawthornear [id number] Gino Cunningham Notes Date Note Type Note Provider Name and Address Organization Details Recorded Time 2 text/html HyperlipidemiaReported bypatient.Duration:chronic Prior Tests:highest cholesterol level: Control:usually well controlled Current Therapy:currently taking: Compliance:noncompliant Complications:no peripheral artery disease;coronary artery disease;cardiovascular disease Risk Factors:hypertensionHyperte nsion F/UReported bypatient.Associated Symptoms:no chest pain;dizziness;lightheadedn ess;shortness of breath(pulmonary issues);palpitations(someti mes);edema(ankles) Lifestyle:not exercising regularly;high salt intake Medications:taking medications as directed; no side effects from medication pt wants to know if you are the one that approves his Eliquis CHEIKH Elizabeth SIRadha 07/12/2021 17:45:21 2 text/html HyperlipidemiaReported bypatient.Duration:chronic Control:usually well controlled Current Therapy:currently taking: (atorvastatin 40mg); last cholesterol level: (156); last LDL level: (98); last triglyceride level: (95); last HDL level: (39); last non HDL level: (117); as of 01/01/2020 Compliance:noncompliant Complications:no peripheral artery disease;coronary artery disease;cardiovascular disease Risk Factors:hypertension;obesit yHypertension F/UReported bypatient.Associated Symptoms:no dizziness; no lightheadedness; no chest pain; no shortness of breath; no palpitations; no edema; no calf pain with exertion Lifestyle:not exercising regularly;high salt intake Medications:taking medications as directed; no side effects from medication Went over medications with pt pt states that he will need refills on today's visit. Tiffanie v[facility]quez [facility] 01/31/2022 16:57:32 3 text/html HyperlipidemiaReported bypatient.Duration:chronic Control:usually well controlled Current Therapy:currently taking: (atorvastatin 40mg); last cholesterol level: (156); last LDL level: (98); last triglyceride level: (95); last HDL level: (39); last non HDL level: (117); as of 01/01/2020 Compliance:noncompliant Complications:no peripheral artery disease;coronary artery disease;cardiovascular disease Risk Factors:hypertension;obesit yHypertension F/UReported bypatient.Associated Symptoms:no dizziness (not since stopping cholesterol meds); no lightheadedness; no chest pain; no shortness of breath; no palpitations; no edema; no calf pain with exertion Lifestyle:not exercising regularly;high salt intake Medications:taking medications as directed;side effects from medications(cholesterol meds he stopped)Obstructive Sleep Apnea F/UReported bypatient.Quality:no change since last visit Onset/Timing:chronic Severity:does not limit daily activities; no difficulty getting going in the morning; no awakening in the middle of the night with sore throat Context:no lack of adequate sleep; using cp 6-MONTH FOLLOW-UP VISIT/SUBJECTIVE: The patient presents for routine 6-month follow-up of hypertension, hyperlipidemia, hyperglycemia, obstructive sleep apnea, among other chronic conditions Last office visit: [id number] labwork: Patient reports consistent use of medications, without side effects or intolerances. Current concerns:- none- recently pulled his back-- 1 month ago while working on a deck-- affecting sleep to some degree- decreased hearing on left - working on getting replacement aids- lymphadenopathy - pelvis, found on imaging for prostate Health maintenance:- Immunizations due: Tdap up to date, all others due (declines)- Colorectal cancer screeninOct19 - Josué - 3 yrfu- PSA: urology follows ([facility]) History of pulmonary embolism, deep venous thromboses - {{On* Not on}} chronic anticoagulation - And rate control medications - {{Consistent* Inconsistent} } use of medications - {{No side effects* Side effects, including:}} - {{Endorses Denies*}} palpitations, chest pain, dyspnea. Hypertension - On {{ amlodipine* atenolol liseth azepril bisoprolol bumetani de candesartan carvedilol c hlorthalidone clonidine dil tiazem doxazosin enalapril fosinopril furosemide guanf acine hydralazine hydrochlo rothiazide indapamide labet alol lisinopril losartan me tolazone metoprolol nadolol nebivolol nicardipine nife dipine perindopril proprano lol quinapril ramipril sota lol spironolactone telmisar kirk terazosin torsemide tra ndolapril triamterene valsa rtan verapamil}} - {{Consistent* Inconsistent} } use of medications - {{Reports Does not report any*}} headaches, blurry vision, dizziness, chest pain, shortness of breath, or palpitations - {{Following* Not following}} a low salt diet. - {{Exercising* Not exercising Limited exercise}} - active, no formal Hyperlipidemia - {{Consistent use of lipid-lowering medication(s) Inconsistent use of lipid-lowering medication(s) On no medication(s) at this time*}} - intolerable side effects - {{No side effects* Notes side effects including:}} - {{Following* Not following}} a low-cholesterol diet - Last lipid panel {{<* >}} 1 year ago Prediabetes - last hemoglobin A1c {{>* <}} 1 year ago - {{Following* Not following}} a lower carbohydrate diet - {{Exercising* Not Exercising}} CARY on CPAP - Good adherence to CPAP use - Comfortable with CPAP pressures and mask fit - Reports improvement in alertness and quality of life -Customer Service Associate/Nursing note reviewed.- Edmundo Arrieta MD Attn: Accounting,[address] , [place], [address], [place] [facility] 12/08/2023 17:20:35 3 text/html HyperlipidemiaReported bypatient.Duration:chronic Control:usually well controlled Current Therapy:currently taking: (atorvastatin 40mg); last cholesterol level: (156); last LDL level: (98); last triglyceride level: (95); last HDL level: (39); last non HDL level: (117); as of 01/01/2020 Compliance:noncompliant Complications:no peripheral artery disease;coronary artery disease;cardiovascular disease Risk Factors:hypertension;obesit yHypertension F/UReported bypatient.Associated Symptoms:no dizziness (not since stopping cholesterol meds); no lightheadedness; no chest pain; no shortness of breath; no palpitations; no edema; no calf pain with exertion Lifestyle:not exercising regularly;high salt intake Medications:taking medications as directed;side effects from medications(cholesterol meds he stopped)Obstructive Sleep Apnea F/UReported bypatient.Quality:no change since last visit Onset/Timing:chronic Severity:does not limit daily activities; no difficulty getting going in the morning; no awakening in the middle of the night with sore throat Context:no lack of adequate sleep; using cp ANNUAL HEALTH MAINTENANCE VISIT/SUBJECTIVE: Gino presents for routine yearly health maintenance visit. Last routine follow-up office visit: [id number] labwork: Patient reports consistent use of medications, without side effects or intolerances. Current concerns:- none Health maintenance:- Immunizations due: COVID series, vzv, RSV, flu- Colorectal cancer screeninOct19 - [place] - 3 yrfu -- PSA: urology follows ([facility] [place]- LDCT: never smoker History of pulmonary embolism, deep venous thromboses- {{On* Not on}} chronic anticoagulation- And rate control medications- {{Consistent* Inconsistent} } use of medications- {{No side effects* Side effects, including:}}- {{Endorses Denies*}} palpitations, chest pain, dyspnea. Hypertension- On {{ amlodipine* atenolol liseth azepril bisoprolol bumetani de candesartan carvedilol c hlorthalidone clonidine dil tiazem doxazosin enalapril fosinopril furosemide guanf acine hydralazine hydrochlo rothiazide indapamide labet alol lisinopril losartan me tolazone metoprolol nadolol nebivolol nicardipine nife dipine perindopril proprano lol quinapril ramipril sota lol spironolactone telmisar kirk terazosin torsemide tra ndolapril triamterene valsa rtan verapamil}}- {{Consistent* Inconsistent} } use of medications- {{Reports Does not report any*}} headaches, blurry vision, dizziness, chest pain, shortness of breath, or palpitations- {{Following* Not following}} a low salt diet.- {{Exercising* Not exercising Limited exercise}} - active, no formal Hyperlipidemia- {{Consistent use of lipid-lowering medication(s) Inconsistent use of lipid-lowering medication(s) On no medication(s) at this time*}} - intolerable side effects- {{No side effects* Notes side effects including:}}- {{Following* Not following}} a low-cholesterol diet- Last lipid panel {{<* >}} 1 year ago Prediabetes- last hemoglobin A1c {{>* <}} 1 year ago- {{Following* Not following}} a lower carbohydrate diet- {{Exercising* Not Exercising}} CARY on CPAP- Good adherence to CPAP use- Comfortable with CPAP pressures and mask fit- Reports improvement in alertness and quality of life -Customer Service Associate/Nursing note reviewed.- Edmundo Arrieta MD Attn: Accounting,[address] [facility], [place], [address], [facility] 01/30/2023 17:38:31 5 text/html Pt is here today for an annual visit. He has no complaints other than his knee, but he has f/u with Dr. Colmenares coming up next week for further evaluation. RACHEAL Cano Attn: Accounting,[address] [facility], [place], [address], [facility] 03/21/2024 16:23:35
--- OUTSIDE RECORDS SUMMARY | 2024-05-24 07:35 | XMS_ITS | Clinical Summary ---
Author Organization [facility] Address [address] [place] [address] Care Team Providers Care Director Electrical Engineering Name Role Phone Faisal Marina MD Unavailable Marjan Henriquez PA-C Unavailable Howard Ponce MD Primary Care Provider [phone] Source Comments [facility],non-owned Affiliates and Associated Physician Practices is amultiple site organization consisting of ambulatory clinics and hospital sitesin [place], [place], [place] and [place]. This disclosure is being madepursuant to the Care Everywhere program and may not contain all information available regarding this patient. Last updated 17.[facility] Allergies No known active allergies Medications * Be aware that medications may not be up to date on this document. Alwaysverify current medications with the patient. Medication Sig Dispensed Refills Start Date End Date Status amLODIPine (NORVASC) 5 MG tablet Take 5 mg by mouth DAILY. 90 tablet 5 03/06/2017 Active apixaban (ELIQUIS) 5 MG tablet 1 tablet 2 times daily 60 tablet 3 12/22/2017 Active Tamsulosin HCl (FLOMAX PO) Active Active Problems Problem Noted Date Diagnosed Date Sinus bradycardia 12/18/2017 Supraventricular tachycardia 04/26/2017 Overview (06/19/2017): Up to 16 seconds in duration. Cycle length 290-320 ms. Assessment & Plan (10/04/2019 1:15 PM CDT): No symptoms since last visit. No further workup or evaluation at this time Nonrheumatic mitral valve insufficiency 04/21/19 Overview (06/19/2017): And moderate TR with EF of 60% along with mild CLVH on echo of 04-20-2017 Assessment & Plan (10/04/2019 1:16 PM CDT): Continues on a baby aspirin a day, statin, and amlodipine for blood pressure control and primary preventative therapy. Encouraged increase in activity to result in better cardiovascular fitness as well as weight loss. Presence of cardiac pacemaker 04/20/2016 Overview (06/19/2017): Medtronic DDD MRI compatible pacer implanted on 01-11-2016 for symptomatic sinus bradycardia. Assessment & Plan (01/04/2019 9:36 AM CDT): Medtronic dual chamber pacemaker interrogated today. Underlying rhythm is sinus, as 63 bpm. Programmed in AAIR plus mode. Lower pacing rate of 60 bpm. Noted to require 96% atrial pacing. Battery voltage of 3.01 V, with estimated life of 7 years. Thresholds and impedance levels for right atrial right ventricular leads within normal limits. 5 episodes of supraventricular tachycardia noted, most recent and longest episode was on November 27 lasting 1 minute and 13 seconds at 154 bpm. Cholecystitis 07/12/2015 Abdominal distension (gaseous) 06/02/2015 Overview (06/19/2017): Patient has been on Prilosec twice a day for gastric dyspepsia and is now feeling better. Still has bloating symptomatology. 54 y.o. male patient who recently presented to [facility] ER with epigastric pain. He relates that he had had chocolate bars and caffeinate soda prior to the episode. He describes the pain consistent with GERD. Please note the patient is on ASA and Pradaxa being s/p bilateral PE in January 2015 with subsequent IVC filter placed. Patient is morbidly obese. He also describes significant intake of methylxanthines. CT scan at time of ER demonstrates cholelithiasis without wall thickening nor pericholecystic fluid. Patient tried to recreate the episode with eating a high fat meal without subsequent pain. Symptoms are all consistent with dypepsia and GERD. Epigastric pain 05/19/2015 Overview (06/19/2017): Patient presented recently to [facility] ER with epigastric pain. He relates that he had had chocolate bars and caffeinate soda prior to the episode. He describes the pain consistent with GERD. Please note the patient is on ASA and Pradaxa being s/p bilateral PE in January 2015 with subsequent IVC filter placed. Patient is morbidly obese. He also describes significant intake of methylxanthines. CT scan at time of ER demonstrates cholelithiasis without wall thickening nor pericholecystic fluid. Patient tried to recreate the episode with eating a high fat meal without subsequent pain. Symptoms are all consistent with dypepsia and GERD. 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 Morbid (severe) obesity due to excess calories 0 05/19/2015 Body mass index (BMI) of 40.0-44.9 in adult 03/2015 Gastro-esophageal reflux disease without esophag itis 05/19/2015 Overview (06/19/2017): Patient presented recently to [facility] ER with epigastric pain. He relates that he had had chocolate bars and caffeinate soda prior to the episode. He describes the pain consistent with GERD. Please note the patient is on ASA and Pradaxa being s/p bilateral PE in January 2015 with subsequent IVC filter placed. Patient is morbidly obese. He also describes significant intake of methylxanthines. CT scan at time of ER demonstrates cholelithiasis without wall thickening nor pericholecystic fluid. Patient tried to recreate the episode with eating a high fat meal without subsequent pain. Symptoms are all consistent with dypepsia and GERD. Acute embolism and thrombosi s of deep vein of lower extremity 02/02/2015 Cardiomegaly 01/28/2015 Other pulmonary embolism without acute cor pulmo nale 01/28/2015 Obstructive sleep apnea 01/28/2015 Dependence on other enabling machines and device s 01/28/2015 Other secondary pulmonary hypertension 5 Resolved Problems Problem Noted Date Diagnosed Date Resolved Date Shortness of breath 01/28/2015 10/04/19 20 Immunizations Name Administration Dates Next Due TDAP (7yrs+) 01/03/2017,08/08/2000 Family History Medical History Relation Name Comments CVA Father Heart Disease Mother Relation Name Status Comments Father Alive Mother Alive Social History Tobacco Use Types Packs/Day Years Used Date Smoking Tobacco: Never Smokeless Tobacco: Never Alcohol Use Standard Drinks/Week Comments Yes 0.8 (1 standard drink = 0.6 oz p ure alcohol) rare Sex and Gender Information Value Date Recorded Sex Assigned at Not on file Gender Identity Not on file Sexual Orientation Not on file Last Filed Vital Signs Vital Sign Reading Time Taken Comments Blood Pressure 130/84 10/31/2022 2:38 PM CDT Pulse 93 10/31/2022 1:49 PM CDT Temperature 36.8 C (98.2 F) 04/20/2022 4:11 PM HAND BOX FOLDER Respiratory Rate 18 05/29/2019 12:21 PM CDT Oxygen Saturation 98% 10/31/2022 1:49 PM CDT Inhaled Oxygen Concentration - - Weight 131.5 kg (290 lb) 10/31/2022 2:38 PM CDT Height 175.3 cm (5' 9 ) 05/04/2023 2:57 PM HAND BOX FOLDER Body Mass Index 42.83 10/31/2022 2:38 PM CDT Plan of Treatment Upcoming Encounters Date Type Department Care Team (Late st Contact Info) Description 08/06/2024 1:10 AM CDT Clinical Support [facility] - Cardiology [address] [facility], [address] [address] 11/05/2024 1:10 AM CDT Clinical Support [facility] - Cardiology [address] [facility], [address] [address] 02/04/2025 1:10 AM HAND BOX FOLDER Clinical Support [facility] - Cardiology [address] [facility], [address] [address] Health Maintenance Due Date Last Done Comments COLOGUARD (AGES 45-75) - COL ON CA SCREENING 1960 CT COLONOGRAPHY - COLON CA SCREENING 1960 FIT - COLON CA SCREENING 1960 FLEX SIG - COLON CA SCREENING 1960 HIV SCREENING 09/22/1974 HEPATITIS C SCREENING 09/18/1977 PNEUMOCOCCAL VACCINE 50+ (1 of 1 - PCV) 09/22/2009 ZOSTER VACCINE (1 of 2) 09/22/2009 Respiratory Syncytial Virus (RSV) Vaccine Pt: or over 60 yrs (1 - Risk 60-74 years 1-dose series) 2019 LIPID TESTING 04/20/2022 04/20/2017 COVID-19 VACCINE (1 - 2023-2 5 season) 2023 INFLUENZA VACCINE (#1) 2023 DEPRESSION SCREENING 03/20/2024 MEDICARE AWV CALENDAR YEAR 2024 DTAP/TDAP/TD VACCINES (3 - T d or Tdap) 01/03/2027 01/03/2017, 08/08/2000 COLON MONITORING 12/20/2028 12/20/2018, 12/20/2018 COLONOSCOPY - COLON CA SCREENING 12/20/2028 12/20/2018, 12/20/2018 Colorectal Cancer Screening 12/20/2028 HEPATITIS B VACCINE Aged Out No longe r eligible based on patient's age to complete this topic HIB VACCINE Aged Out No longer eligi ble based on patient's age to complete this topic HPV VACCINE Aged Out No longer eligi ble based on patient's age to complete this topic MENINGOCOCCAL (Group B) VACCINE Aged Out No longer eligible b ased on patient's age to complete this topic MENINGOCOCCAL VACCINE Aged Out No bernardo og eligible based on patient's age to complete this topic Procedures Procedure Name Priority Date/Time Associated Diagnosis Comments ENDOSCOPY, COLON, SCREENING Routine 12/20/2018 1:47 PM CDT LIPID PROFILE Routine 04/20/2017 11:55 AM HAND BOX FOLDER from Last 3 Months or Most Recently Relevant to Health Maintenance Results * ENDOSCOPY, COLON, SCREENING (12/20/2018 1:47 PM CDT) Report Endoscopy POC Endoscopy Department Report _ Patient Name: Gino Cunningham Procedure Date: 12/20/2018 1:47 PM Date of : 1960 Classification: Outpatient Gender: Male Ethnicity: Not or Race: White _ Providers: Nick Moses MD, Vitaliy Hickman (Fellow) Referring MD: Tiffanie Myrick (Referring MD) Procedure: Colonoscopy Indications: High risk colon cancer surveillance: Personal history of colonic polyps Medications: Monitored Anesthesia Care Description of Procedure: Pre-Anesthesia Assessment: - Prior to the procedure, a History and Physical was performed, and patient medications and allergies were reviewed. The patient's tolerance of previous anesthesia was also reviewed. The risks and benefits of the procedure and the sedation options and risks were discussed with the patient. All questions were answered, and informed consent was obtained. Prior Anticoagulants: The patient has taken Eliquis (apixaban), last dose was 4 days prior to procedure. ASA Grade Assessment: II - A patient with mild systemic disease. After reviewing the risks and benefits, the patient was deemed in satisfactory condition to undergo the procedure. After I obtained informed consent, the scope was passed under direct vision. Throughout the procedure, the patient's blood pressure, pulse, and oxygen saturations were monitored continuously. The [id number] was introduced through the anus and advanced to the cecum, identified by appendiceal orifice and ileocecal valve. The colonoscopy was performed without difficulty. The patient tolerated the procedure well. The quality of the bowel preparation was good. Findings: Four small polyps were found in the rectum (on retroflexion), transverse colon and ascending colon. The polyps were 3 to 7 mm in size. These polyps were removed with a jumbo cold forceps. Resection and retrieval were complete. Two polyps were found in the descending colon and transverse colon. The polyps were 8 mm in size. These polyps were removed with a cold snare. Resection and retrieval were complete. A few diverticula were found in the sigmoid colon and descending colon. The exam was otherwise without abnormality. No mass or large polyps seen. External and internal hemorrhoids were found during retroflexion. The hemorrhoids were medium-sized. Estimated Blood Loss: Estimated blood loss was minimal. Complications: No immediate complications. Impression: - Four 3 to 7 mm polyps in the rectum, in the transverse colon and in the ascending colon, removed with a jumbo cold forceps. Resected and retrieved. - Two 8 mm polyps in the descending colon and in the transverse colon, removed with a cold snare. Resected and retrieved. - Diverticulosis in the sigmoid colon and in the descending colon. - The examination was otherwise normal. - External and internal hemorrhoids. Recommendation: - Await pathology results. - Repeat colonoscopy in 3 years for surveillance. - Resume regular diet. - Resume Eliquis (apixaban) at prior dose tomorrow. - Return to referring physician as previously scheduled. Attending Participation: I was present and participated during the entire procedure, including non-hernadez portions. Procedure Code(s): --- Professional --- 46090, Colonoscopy, flexible; with removal of tumor(s), polyp(s), or other lesion(s) by snare technique 60325, 59, Colonoscopy, flexible; with biopsy, single or multiple Diagnosis Code(s): --- Professional --- Z86.010, Personal history of colonic polyps K62.1, Rectal polyp D12.2, Benign neoplasm of ascending colon D12.4, Benign neoplasm of descending colon D12.3, Benign neoplasm of transverse colon (hepatic flexure or splenic flexure) K64.8, Other hemorrhoids K57.30, Diverticulosis of large intestine without perforation or abscess without bleeding CPT copyright 2016 [employer]. All rights reserved. The codes documented in this report are preliminary and upon directory assistance operator review may be revised to meet current compliance requirements. _ Nick Moses MD 12/20/2018 3:33:40 PM Note Initiated On: 12/20/2018 1:47 PM Number of Addenda: 0 [facility] [address] [place] [address] H PROVATION 12/20/2018 1:47 PM CDT Nick Moses MD GI PROCEDURE ORDERAB LES [facility] PROVATION * (ABNORMAL) LIPID PROFILE (04/20/2017 11:55 AM HAND BOX FOLDER) Cholesterol Total 125 <200 mg/dL [facility] HDL 31(L) >40 mg/dL [facility] Comment: ATP III Classification of HDL Cholesterol: <40 mg/dL: Considered a major risk factor. >60 mg/dL: Considered a negative risk factor. LDL Calculated 74 <100 mg/dL [facility] Comment: ATP III Classification of LDL Cholesterol: <100 mg/dL: Optimal 100 - 129 mg/dL: Near Optimal/Above Optimal 130 - 159 mg/dL: Borderline High 160 - 189 mg/dL: High >190 mg/dL: Very High Triglycerides 99 <150 mg/dL [facility] Comment: ATP III Classification of Triglycerides: <150 mg/dL: Normal 150 - 199 mg/dL: Borderline High 200 - 400 mg/dL: High >500 mg/dL: Very High Blood specimen (specimen) BLOOD SPECIMEN / Unknown 04/20/2017 11:55 AM HAND BOX FOLDER 04/20/2017 12:27 PM HAND BOX FOLDER Historical Provider LAB - CHEMISTRY [facility] [address] [phone] from Last 3 Months or Most Recently Relevant to Health Maintenance Care Teams Director Electrical Engineering Relationship Specialty Start Date End Date Howard Ponce MD [address] [address] PCP - General Internal Medicine 10/31/22 Faisal Marina MD Internal Medicine 02/26/19 Marjan Henriquez, PA-C [address] [facility] [address] [place] [id number] Gastroenterology 02/26/19
--- OUTSIDE RECORDS SUMMARY | 2024-05-24 07:35 | XMS_ITS | Patient Health Summary ---
Author Organization [facility] Address [address] [place] [address] Care Team Providers Care Registered Nurse Post Partum Name Role Phone Faisal Marina MD Unavailable [phone] Marjan Henriquez PA-C Unavailable Howard Ponce MD Primary Care Provider [phone] Note from [facility],non-owned Affiliates and Associated Physician Practices is amultiple site organization consisting of ambulatory clinics and hospital sitesin [place], [place], [place] and [place]. This disclosure is being madepursuant to the Care Everywhere program and may not contain all information available regarding this patient. Last updated 17.[facility] Allergies No known active allergies Medications * Be aware that medications may not be up to date on this document. Alwaysverify current medications with the patient. * amLODIPine (NORVASC) 5 MG tablet(Started 03/06/2017) Take 5 mg by mouth DAILY. 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 Morbid (severe) obesity due to excess calories 0 05/19/2015 Body mass index (BMI) of 40.0-44.9 in adult 03/2015 Gastro-esophageal reflux disease without esophag itis 05/19/2015 Acute embolism and thrombosi s of deep vein of lower extremity 02/02/2015 Cardiomegaly 01/28/2015 Other pulmonary embolism without acute cor pulmo nale 01/28/2015 Obstructive sleep apnea 01/28/2015 Dependence on other enabling machines and device s 01/28/2015 Other secondary pulmonary hypertension 5 Resolved Problems Problem Noted Date Diagnosed Date Resolved Date Shortness of breath 01/28/2015 10/04/19 20 Immunizations * TDAP (7yrs+)(Given 01/03/2017, 08/08/2000) Social History Tobacco Use Types Packs/Day Years [...] 36.8 C (98.2 F) 04/20/2022 4:11 PM FLAG CAR DRIVER Respiratory Rate 18 05/29/2019 12:21 PM CDT Oxygen Saturation 98% 10/31/2022 1:49 PM CDT Inhaled Oxygen Concentration - - Weight 131.5 kg (290 lb) 10/31/2022 2:38 PM CDT Height 175.3 cm (5' 9 ) 05/04/2023 2:57 PM FLAG CAR DRIVER Body Mass Index 42.83 10/31/2022 2:38 PM CDT Procedures * NE PM/ICD REMOTE TECH SERV(Performed 02/18/2024) Performed for Sinus bradycardia * NE PM DEVICE INTERROGATE REMOTE(Performed 02/18/2024) Performed for Sinus bradycardia * CARDIAC PROCEDURE ORDER(Performed 02/06/2024) * CARDIAC PROCEDURE ORDER(Performed 05/09/2023) * NE PM DEVICE PROGR EVAL DUAL(Performed 05/04/2023) Performed for Presence of cardiac pacemaker * NE PM DEVICE INTERROGATE REMOTE(Performed 03/14/2023) Performed for Presence of cardiac pacemaker, Sinus bradycardia * NE PM/ICD REMOTE TECH SERV(Performed 03/14/2023) Performed for Presence of cardiac pacemaker, Sinus bradycardia * CARDIAC PROCEDURE ORDER(Performed 01/30/2023) * NE PM DEVICE EVAL IN PERSON(Performed 10/31/2022) Performed for Sinus bradycardia, Presence of cardiac pacemaker * ECHO COMPLETE(Performed 10/31/2022) Performed for Nonrheumatic mitral valve insufficiency * CARDIAC PROCEDURE ORDER(Performed 05/16/2022) * NE PM DEVICE EVAL IN PERSON(Performed 04/21/2022) Performed for Sinus bradycardia, Presence of cardiac pacemaker * NE PM/ICD REMOTE TECH SERV(Performed 01/30/2022) Performed for Sinus bradycardia, Presence of cardiac pacemaker * NE PM DEVICE INTERROGATE REMOTE(Performed 01/30/2022) Performed for Sinus bradycardia, Presence of cardiac pacemaker * CARDIAC PROCEDURE ORDER(Performed 01/20/2022) * NE PM DEVICE PROGR EVAL DUAL(Performed 10/21/2021) Performed for Sinus bradycardia, Presence of cardiac pacemaker * CARDIAC PROCEDURE ORDER(Performed 10/21/2021) * CARDIAC PROCEDURE ORDER(Performed 10/14/2021) * CARDIAC PROCEDURE ORDER(Performed 04/15/2021) * PROC IMPLANT WEAR CARDIAC DEVICE EVAL(Performed 04/13/2021) Performed for Presence of cardiac pacemaker * NE PM/ICD REMOTE TECH SERV(Performed 01/19/2021) Performed for Presence of cardiac pacemaker, Sinus bradycardia * NE PM DEVICE INTERROGATE REMOTE(Performed 01/19/2021) Performed for Presence of cardiac pacemaker, Sinus bradycardia * CARDIAC PROCEDURE ORDER(Performed 01/11/2021) * CARDIAC PROCEDURE ORDER(Performed 01/11/2021) * CARDIAC PROCEDURE ORDER(Performed 10/21/2020) * PROC IMPLANT WEAR CARDIAC DEVICE EVAL(Performed 10/13/2020) Performed for Presence of cardiac pacemaker * NE PM/ICD REMOTE TECH SERV(Performed 07/21/2020) Performed for Presence of cardiac pacemaker, Sinus bradycardia * NE PM DEVICE INTERROGATE REMOTE(Performed 07/21/2020) Performed for Presence of cardiac pacemaker, Sinus bradycardia * CARDIAC PROCEDURE ORDER(Performed 06/22/2020) * CARDIAC PROCEDURE ORDER(Performed 04/14/2020) * NE PM/ICD REMOTE TECH SERV(Performed 04/14/2020) Performed for Presence of cardiac pacemaker, Sinus bradycardia * NE PM DEVICE INTERROGATE REMOTE(Performed 04/14/2020) Performed for Presence of cardiac pacemaker, Sinus bradycardia * NE PM/ICD REMOTE TECH SERV(Performed 12/31/2019) Performed for Supraventricular tachycardia, Sinus bradycardia, Presence of cardiac pacemaker * NE PM DEVICE INTERROGATE REMOTE(Performed 12/31/2019) Performed for Supraventricular tachycardia, Sinus bradycardia, Presence of cardiac pacemaker * CARDIAC PROCEDURE ORDER(Performed 12/25/2019) * NE PM/ICD REMOTE TECH SERV(Performed 09/25/2019) Performed for Sinus bradycardia, Presence of cardiac pacemaker * NE PM DEVICE INTERROGATE REMOTE(Performed 09/25/2019) Performed for Sinus bradycardia, Presence of cardiac pacemaker * CARDIAC PROCEDURE ORDER(Performed 09/25/2019) * CARDIAC PROCEDURE ORDER(Performed 04/01/2019) * NE PM/ICD REMOTE TECH SERV(Performed 03/29/2019) Performed for Sinus bradycardia, Supraventricular tachycardia, Presence of cardiac pacemaker * NE PM DEVICE INTERROGATE REMOTE(Performed 03/29/2019) Performed for Sinus bradycardia, Supraventricular tachycardia, Presence of cardiac pacemaker * NE PM DEVICE PROGR EVAL DUAL(Performed 01/04/2019) Performed for Presence of cardiac pacemaker, Symptomatic bradycardia, Hx pulmonary embolism * PATHOLOGY TISSUE(Performed 12/20/2018) Performed for Colon cancer screening * COLONOSCOPY SCREEN(Performed 12/20/2018) Performed for Colon cancer screening * ENDOSCOPY, COLON, SCREENING(Performed 12/20/2018) * NE PM/ICD REMOTE TECH SERV(Performed 09/14/2018) Performed for Sinus bradycardia, Presence of cardiac pacemaker * NE PM DEVICE INTERROGATE REMOTE(Performed 09/14/2018) Performed for Sinus bradycardia, Presence of cardiac pacemaker * CARDIAC PROCEDURE ORDER(Performed 08/28/2018) * NE PM DEVICE PROGR EVAL DUAL(Performed 06/08/2018) Performed for Supraventricular tachycardia, Sinus bradycardia, SSS (sick sinus syndrome) (HCC), Pacemaker * NE PM/ICD REMOTE TECH SERV(Performed 02/23/2018) Performed for Sinus bradycardia, Supraventricular tachycardia, Presence of cardiac pacemaker * NE PM DEVICE INTERROGATE REMOTE(Performed 02/23/2018) Performed for Sinus bradycardia, Supraventricular tachycardia, Presence of cardiac pacemaker * NE PM/ICD REMOTE TECH SERV(Performed 12/18/2017) Performed for Presence of cardiac pacemaker, Sinus bradycardia * NE PM DEVICE INTERROGATE REMOTE(Performed 12/18/2017) Performed for Presence of cardiac pacemaker, Sinus bradycardia * CARDIAC PROCEDURE ORDER(Performed 08/22/2017) * NE PM DEVICE PROGR EVAL DUAL(Performed 08/10/2017) Performed for Presence of cardiac pacemaker * PROC IMPLANT WEAR CARDIAC DEVICE EVAL(Performed 04/26/2017) * VAS BILATERAL VENOUS DUPLEX LE(Performed 04/20/2017) * NM LUNG VENT AND PERFUSION(Performed 04/20/2017) * CBC W AUTO DIFFERENTIAL(Performed 04/20/2017) * HEMOGLOBIN A1C(Performed 04/20/2017) * AST BLOOD(Performed 04/20/2017) * LIPID PROFILE(Performed 04/20/2017) * BASIC METABOLIC PANEL (CALCIUM TOTAL)(Performed 04/20/2017) * CBC W AUTO DIFFERENTIAL(Performed 04/20/2017) * ECHO COMPLETE(Performed 04/20/2017) * PROC PACEMAKER DEVICE CHECK (REMOTE)(Performed 10/28/2016) * PROC PACEMAKER DEVICE CHECK (REMOTE)(Performed 08/04/2016) * PFT CARDIOPULMONARY EXERCISE TEST-CPET(Performed 07/06/2016) * COMPREHENSIVE METABOLIC PANEL(Performed 06/01/2016) * CBC W AUTO DIFFERENTIAL(Performed 06/01/2016) * CBC W AUTO DIFFERENTIAL(Performed 06/01/2016) * PROC IMPLANT WEAR CARDIAC DEVICE EVAL(Performed 04/20/2016) * XR CHEST 1VW PORTABLE(Performed 01/11/2016) * EP A-V PPM INSERT(Performed 01/11/2016) * US ABDOMEN LIMITED(Performed 01/11/2016) * EKG 12-LEAD(Performed 01/11/2016) * TISSUE TRANSGLUTAMINASE AB IGA(Performed 12/30/2015) * COMPREHENSIVE METABOLIC PANEL(Performed 12/30/2015) * CBC W AUTO DIFFERENTIAL(Performed 12/30/2015) * CBC W AUTO DIFFERENTIAL(Performed 12/30/2015) * CULTURE DUODENAL ASPIRATE QUANT(Performed 12/23/2015) * PATHOLOGY TISSUE(Performed 12/23/2015) * PROC MOBILE CV TELEMETRY(Performed 11/06/2015) * IR IVC FILTER REMOVAL(Performed 10/30/2015) * PT-INR SLH(Performed 10/30/2015) * CBC W AUTO DIFFERENTIAL(Performed 10/30/2015) * CBC W AUTO DIFFERENTIAL(Performed 10/30/2015) * VAS BILATERAL VENOUS DUPLEX LE(Performed 10/28/2015) * COMPREHENSIVE METABOLIC PANEL(Performed 07/15/2015) * DIFFERENTIAL MANUAL(Performed 07/14/2015) * CBC W AUTO DIFFERENTIAL(Performed 07/14/2015) * CBC W AUTO DIFFERENTIAL(Performed 07/14/2015) * COMPREHENSIVE METABOLIC PANEL(Performed 07/14/2015) * PATHOLOGY TISSUE(Performed 07/13/2015) * FACTOR V LEIDEN MUTATION PANEL(Performed 07/13/2015) * TYPE + SCREEN PANEL(Performed 07/13/2015) * CBC W AUTO DIFFERENTIAL(Performed 07/13/2015) * DIFFERENTIAL MANUAL(Performed 07/13/2015) * CBC W AUTO DIFFERENTIAL(Performed 07/13/2015) * COMPREHENSIVE METABOLIC PANEL(Performed 07/13/2015) * US ABDOMEN LIMITED(Performed 07/12/2015) * XR CHEST 1VW PORTABLE(Performed 07/12/2015) * LACTIC ACID BLOOD(Performed 07/12/2015) * CK + CKMB PANEL(Performed 07/12/2015) * TROPONIN I(Performed 07/12/2015) * LIPASE BLOOD(Performed 07/12/2015) * COMPREHENSIVE METABOLIC PANEL(Performed 07/12/2015) * CBC W AUTO DIFFERENTIAL(Performed 07/12/2015) * CBC W AUTO DIFFERENTIAL(Performed 07/12/2015) * EKG 12-LEAD(Performed 07/12/2015) * HELICOBACTER PYLORI ANTIBODY IGA(Performed 05/19/2015) * HELICOBACTER PYLORI ANTIBODY IGM(Performed 05/19/2015) * HELICOBACTER PYLORI ANTIBODY IGG(Performed 05/19/2015) * LACTIC ACID BLOOD(Performed 05/07/2015) * D-DIMER(Performed 05/07/2015) * PTT SLH(Performed 05/07/2015) * PT-INR SLH(Performed 05/07/2015) * CT ANGIO AORTA FOR DISSECTION(Performed 05/07/2015) * XR CHEST 1VW PORTABLE(Performed 05/07/2015) * LACTIC ACID BLOOD(Performed 05/07/2015) * CK + CKMB PANEL(Performed 05/07/2015) * TROPONIN I(Performed 05/07/2015) * B-TYPE NATRIURETIC PEPTIDE(Performed 05/07/2015) * LIPASE BLOOD(Performed 05/07/2015) * COMPREHENSIVE METABOLIC PANEL(Performed 05/07/2015) * CBC W AUTO DIFFERENTIAL(Performed 05/07/2015) * CBC W AUTO DIFFERENTIAL(Performed 05/07/2015) * EKG 12-LEAD(Performed 05/07/2015) * XR CHEST 2VW(Performed 05/06/2015) * NM LUNG VENT AND PERFUSION(Performed 05/06/2015) * VAS BILATERAL VENOUS DUPLEX LE(Performed 05/06/2015) * ECHO COMPLETE(Performed 05/06/2015) * CT HEAD WO CONTRAST(Performed 02/11/2015) * PROTHROMBIN [id number] PANEL(Performed 02/02/2015) * PTT SLH(Performed 02/02/2015) * BLOOD GASES ARTERIAL(Performed 02/02/2015) * NM LUNG VENT AND PERFUSION(Performed 02/02/2015) * VAS BILATERAL VENOUS DUPLEX LE(Performed 02/02/2015) * PHOSPHORUS BLOOD(Performed 02/02/2015) * MAGNESIUM BLOOD(Performed 02/02/2015) * COMPREHENSIVE METABOLIC PANEL(Performed 02/02/2015) * PTT SLH(Performed 02/02/2015) * CBC W AUTO DIFFERENTIAL(Performed 02/02/2015) * CBC W AUTO DIFFERENTIAL(Performed 02/02/2015) * PTT SLH(Performed 02/01/2015) * PTT SLH(Performed 02/01/2015) * CBC W AUTO DIFFERENTIAL(Performed 02/01/2015) * CBC W AUTO DIFFERENTIAL(Performed 02/01/2015) * COMPREHENSIVE METABOLIC PANEL(Performed 02/01/2015) * PHOSPHORUS BLOOD(Performed 02/01/2015) * MAGNESIUM BLOOD(Performed 02/01/2015) * PTT SLH(Performed 02/01/2015) * PTT SLH(Performed 01/31/2015) * PTT SLH(Performed 01/31/2015) * PTT SLH(Performed 01/31/2015) * PTT SLH(Performed 01/31/2015) * COMPREHENSIVE METABOLIC PANEL(Performed 01/31/2015) * PHOSPHORUS BLOOD(Performed 01/31/2015) * MAGNESIUM BLOOD(Performed 01/31/2015) * PTT SLH(Performed 01/31/2015) * PTT SLH(Performed 01/30/2015) * PTT SL[facility](Performed 01/30/2015) * IR IVC FILTER PLACEMENT(Performed 01/30/2015) * IR THROMBOLYSIS RECHECK(Performed 01/30/2015) * PHOSPHORUS BLOOD(Performed 01/30/2015) * MAGNESIUM BLOOD(Performed 01/30/2015) * COMPREHENSIVE METABOLIC PANEL(Performed 01/30/2015) * PTT SLH(Performed 01/30/2015) * CBC W AUTO DIFFERENTIAL(Performed 01/30/2015) * CBC W AUTO DIFFERENTIAL(Performed 01/30/2015) * ECHO COMPLETE(Performed 01/30/2015) * PTT SLH(Performed 01/29/2015) * IR THROMBOLYSIS ARTERIAL(Performed 01/29/2015) * IR THROMBOLYSIS ARTERIAL(Performed 01/29/2015) * IR PULMONARY ANGIO PROCEDURAL CODE(Performed 01/29/2015) * IR PULMONARY ANGIO PROCEDURAL CODE(Performed 01/29/2015) * IR PULMONARY ANGIOGRAM BILAT(Performed 01/29/2015) * IR PULMONARY ANGIOGRAM BILAT(Performed 01/29/2015) * IR US GUIDE VASCULAR ACCESS(Performed 01/29/2015) * VAS BILATERAL VENOUS DUPLEX LE(Performed 01/29/2015) * TROPONIN I(Performed 01/29/2015) * PTT SLH(Performed 01/29/2015) * CARDIOLIPIN ANTIBODY IGM(Performed 01/29/2015) * CARDIOLIPIN ANTIBODY IGG(Performed 01/29/2015) * CARDIOLIPIN ANTIBODY IGA(Performed 01/29/2015) * FACTOR V ASSAY(Performed 01/29/2015) * TROPONIN I(Performed 01/29/2015) * COMPREHENSIVE METABOLIC PANEL(Performed 01/29/2015) * PHOSPHORUS BLOOD(Performed 01/29/2015) * MAGNESIUM BLOOD(Performed 01/29/2015) * HOMOCYSTEINE BLOOD QUANTITATIVE(Performed 01/29/2015) * PTT SLH(Performed 01/29/2015) * CBC W AUTO DIFFERENTIAL(Performed 01/29/2015) * CBC W AUTO DIFFERENTIAL(Performed 01/29/2015) * PTT SLH(Performed 01/29/2015) * CT ANGIO CHEST PULM EMBOLISM(Performed 01/28/2015) * XR CHEST 1VW PORTABLE(Performed 01/28/2015) * B-TYPE NATRIURETIC PEPTIDE(Performed 01/28/2015) * CK + CKMB PANEL(Performed 01/28/2015) * TROPONIN I(Performed 01/28/2015) * PTT SLH(Performed 01/28/2015) * PT-INR SLH(Performed 01/28/2015) * BASIC METABOLIC PANEL (CALCIUM TOTAL)(Performed 01/28/2015) * PHOSPHORUS BLOOD(Performed 01/28/2015) * MAGNESIUM BLOOD(Performed 01/28/2015) * CBC W AUTO DIFFERENTIAL(Performed 01/28/2015) * CBC W AUTO DIFFERENTIAL(Performed 01/28/2015) * ECHO COMPLETE(Performed 01/28/2015) * EKG 12-LEAD(Performed 01/28/2015) Results * NE PM DEVICE INTERROGATE REMOTE, NE PM/ICD REMOTE TECH SERV (02/18/2024 5:40 PM FLAG CAR DRIVER) Narrative Kofi Joseph MD - 02/18/2024 5:40 PM FLAG CAR DRIVER Kofi Joseph MD 02/18/2024 5:41 PM Dear Gino Cunningham, I reviewed the remote interrogation of your device. Your device's sensing and capture thresholds are appropriate and stable. Lead impedances for your device: Atrial lead: 361 ohms RV lead: 418 ohms You are currently paced 100% in the atrial and 0% in the ventricle. During this most recent monitored period (02/06/2024 to 02/06/2024), you had no sustained arrhythmias. The estimated remaining battery life for your device is 2.5 years. Device function is normal, and no programming changes are required. Please call our offices if you have any further questions. Sincerely, Kofi Joseph 02/18/2024 Kofi Joseph MD PROCEDURE/MINOR SURG ICAL ORDERABLES * CARDIAC PROCEDURE ORDER (02/06/2024) Only the most recent of18 resultswithin the time period is included. Narrative 02/06/2024 Ordered by an unspecified provider. Scanned Document CARDIAC SERVICES ORD ERABLES * NE PM DEVICE PROGR EVAL DUAL (05/04/2023 3:50 PM FLAG CAR DRIVER) Narrative Marianne Srivastava PA - 05/04/2023 3:50 PM FLAG CAR DRIVER Marianne Srivastava PA 05/04/2023 3:51 PM See progress note. Marianne BARBA PROCEDURE/MINOR SURG ICAL ORDERABLES * NE PM/ICD REMOTE TECH SERV, NE PM DEVICE INTERROGATE REMOTE (03/14/2023 12:22 AM FLAG CAR DRIVER) Narrative Eliza Tran MD - 03/14/2023 12:22 AM FLAG CAR DRIVER Eliza Tran MD 03/14/2023 12:23 AM Conclusion: Battery longevity 3 years Lead parameters are acceptable Percent pacing: Total ventricular pacing 0% Total atrial pacing 28% Events: None Impression: Normal Device Function. Mr. Cunningham will follow up with a remote check in 3 months and /or a follow-up in device clinic in 3-6 months. Thank you for allowing me to participate in the care of your patient. If you have any questions or concerns please do not hesitate to contact me.or concerns please do not hesitate to contact me. Eliza Tran MD PROCEDURE/AK NOR SURGICAL ORDERABLES * NE PM DEVICE EVAL IN PERSON (10/31/2022 3:48 PM CDT) Narrative Salome Seay, SENIOR MATERIALS ANALYST-STATISTICAL METHODS PROFESSOR - 10/31/2022 3:48 PM CDT Salome Seay APRN-[place] 10/31/2022 3:51 PM See progress note. Salome Seay APRN-[place] PROCEDURE/AK NOR SURGICAL ORDERABLES * ECHO COMPLETE (10/31/2022 2:39 PM CDT) [facility] BSA 2.1502150 m2 SSM CV FUJ I PACS RV-henderson basal diam 4.2 2.5 - 4.1 cm SSM CV FUJI PACS LV biplane EF 58 52 - 72 % SSM CV FUJI PACS LV A2C EF 61 48 - 76 % SSM CV FUJ I PACS LV A4C EF 55 46 - 74 % SSM CV FUJ I PACS LVOT stroke vol 76.18 cm3 SSM CV FUJI PACS LV stroke vol 2D teich 38.896 ml SSM CV FUJI PACS LV stroke vol index A4C MOD 56.081 ml SSM CV FUJI PACS LVIDd 3.92 4.2 - 5.8 cm SSM CV FUJI PACS LVIDs 2.73 2.5 - 4.0 cm SSM CV FUJI PACS IVSd 2D 1.195 0.6 - 1 cm SSM CV FUJI PACS LVPWd 1.01 cm SSM CV FUJ I PACS Fractional Shortening 2D 30 28 - 44 % SSM CV FUJI PACS LV ESV BP 39.361 21 - 61 mL SSM CV FUJI PACS LV ESV index BP 15.2 11 - 31 mL/m2 SSM CV FUJI PACS LV ESV A2C 45.015 15 - 75 mL SSM CV FUJI PACS LV EDV BP 94.357 mL SSM CV FUJ I PACS LV ESV A4C 34.244 22 - 78 mL SSM CV FUJI PACS LV EDV index BP 36.4 34 - 74 mL/m2 SSM CV FUJI PACS LV EDV A2C 87.359 59 - 175 mL SSM CV FUJI PACS LV EDV A4C 101.096 mL SSM CV FU JI PACS LV ESV 2D 27.76 21 - 61 mL SSM CV FUJI PACS LV EDV 2D 66.656 62 - 150 mL SSM CV FUJI PACS LVOT diam 2.2 cm SSM CV FUJ I PACS LVOT area 3.80 cm2 SSM CV [facility] I PACS LV RWT 0.518 SSM CV FUJ I PACS LV [place] A2C 9.875 cm SSM CV F UJI PACS LV [place] A4C 9.75 cm SSM CV F UJI PACS IVS/LVPW 1.178 SSM CV [facility] I PACS LV mass 2D 141.927 96 - 200 g SSM CV FUJI PACS LV mass index 2D 54.70 50 - 102 g/m2 [facility] MV E pk matthew 49.281 cm/s SSM CV F UJI PACS MV avg E/e' ratio 6.83 SS M CV FUJI PACS MV A pk matthew 73.715 cm/s SSM CV F UJI PACS MV E A ratio 0.67 [facility] MV E' lateral matthew 9.909 cm/s SS M CV FUJI PACS MV DT 212 ms SSM CV [facility] I PACS MV E' septal matthew 5.676 cm/s SSM CV FUJI PACS MV E/e' septal 8.683 SSM C V FUJI PACS MV E/e' lateral 4.973 SSM CV FUJI PACS LA vol BP 68.829 mL SSM CV [facility] I PACS TR pk matthew 221.1 cm/s SSM CV [facility] I PACS LVOT pk matthew 0.94 m/s SSM CV F UJI PACS LVOT mn matthew 0.69 m/s SSM CV F UJI PACS LVOT mn grad 2.0 mmHg SSM CV FUJI PACS LVOT Cardiac Output 5.13 l/min SSM CV FUJI PACS LA vol index 27.0 16 - 34 mL/m2 SSM CV FUJI PACS LA ESV A2C MOD Index 29 ml/m2 SSM CV FUJI PACS LA ESV A4C MOD Index 23 ml/m2 SSM CV FUJI PACS LA size 3.351 3.0 - 4.0 cm SSM CV FUJI PACS LA vol BP A-L 71.087 mL SSM CV FUJI PACS TV S' matthew 12.212 SSM CV FUJ I PACS TAPSE 2.667 1.7 cm SSM CV FUJ I PACS RA vol index 13 mL/m2 SSM CV FUJI PACS RA area 14.125 cm2 SSM CV FUJ I PACS AV mn grad 6 mmHg SSM CV FU JI PACS AV pk grad 12 mmHg SSM CV FU JI PACS AV mn matthew 1.18 m/s SSM CV FUJ I PACS AV pk matthew 1.75 m/s SSM CV FUJ I PACS AV VTI 32.635 cm SSM CV FUJ I PACS LVOT pk grad 3.505 mmHg SSM CV FUJI PACS LVOT VTI 20.051 cm SSM CV FUJ I PACS AV area planimetry 2.33 cm2 SSM CV FUJI PACS AV area index 0.9 cm2/m2 SSM CV FUJI PACS AV area cont VTI 2.3 cm2 SSM CV FUJI PACS AV area pk matthew 2.0 cm2 SSM C V FUJI PACS AV Doppler matthew index pk matthew 0.54 SSM CV FUJI PACS Dimensionless Index 0.614 SSM CV FUJI PACS AV PHT 808 ms SSM CV FUJ I PACS AV pk matthew regurg 429.165 cm/s SSM CV FUJI PACS MV decel slope 232.731 cm/s2 SSM C V FUJI PACS TR pk grad 20 mmHg SSM CV FU JI PACS PV pk matthew 92.426 cm/s SSM CV FUJ I PACS PV pk grad 3 mmHg SSM CV FU JI PACS Ascending aorta 4.15 cm SSM CV FUJI PACS IVC size 1.2 cm SSM CV FUJ I PACS Max Age Predicted HR 157 SSM CV FUJI PACS Target HR 133 SSM CV FUJ I PACS [id number] 8.331 cm SSM CV FUJ I PACS [id number] 8.151 cm SSM CV FUJ I PACS AV decel slope regurg 154.036 cm/s2 SSM CV FUJI PACS LA Size 5.193 cm [facility] CV FUJ I PACS LV stroke vol BP 54.996 mL [facility] CV FUJI PACS LVIDs index 1.05 1.3 - 2.1 cm/m2 SS CV FUJI PACS LV LVIDd index 1.51 2.2 - 3.0 cm/m2 [facility] CV FUJI PACS Anatomical Region Laterality Modality Ultrasound Narrative 11/01/2022 8:00 AM CDT Left Ventricle: Left ventricle size is normal. Normal wall thickness. Ventricular mass is normal. Normal systolic function. EF by 2D Salazar biplane is 58%. Normal wall motion. Normal diastolic function. Left Atrium: Left atrium is mildly dilated. Right Ventricle: Pacing/ICD wire present in the right ventricle. Right Atrium: Pacing/ICD wire present in the right atrium. Aortic Valve: Mild regurgitation. Aorta: Mildly enlarged ascending aorta ( 4.1 cm). Left Ventricle Left ventricle size is normal. Normal wall thickness. Ventricular mass is normal. Normal systolic function. EF by 2D Salazar biplane is 58%. Normal wall motion. Normal diastolic function. Right Ventricle Right ventricle size is normal. Normal systolic function. Pacing/ICD wire present in the right ventricle. Left Atrium Left atrium is mildly dilated. Right Atrium Right atrium size is normal. Pacing/ICD wire present in the right atrium. IVC/SVC IVC diameter is less than or equal to 21 mm and decreases greater than 50% during inspiration; therefore the estimated right atrial pressure is normal (~3 mmHg). Mitral Valve Valve structure is normal. Mild regurgitation. No stenosis. Tricuspid Valve Valve structure is normal. Mild regurgitation. The pulmonary artery systolic pressure is normal (under 35 mmHg). No stenosis. Aortic Valve Valve structure is trileaflet. Mild regurgitation. No stenosis. Pulmonic Valve Valve structure is normal. No regurgitation. No stenosis. Ascending Aorta Mildly enlarged ascending aorta ( 4.1 cm). Pericardium No pericardial effusion. Study Details Study quality was adequate. A complete 2D, color Doppler, spectral Doppler and M-mode echocardiogram was performed. The apical, parasternal, subcostal and suprasternal views were obtained. YUAN, Symptomatic Bradycardia, s/p dual chamber pacemaker Procedure Note Pauline Cardoza MD - 11/01/2022 Left Ventricle: Left ventricle size is normal. Normal wall thickness.Ventricular mass is normal. Normal systolic function. EF by 2D Simpsonbiplane is 58%. Normal wall motion. Normal diastolic function. Left Atrium: Left atrium is mildly dilated. Right Ventricle: Pacing/ICD wire present in the right ventricle. Right Atrium: Pacing/ICD wire present in the right atrium. Aortic Valve: Mild regurgitation. Aorta: Mildly enlarged ascending aorta ( 4.1 cm). 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 Interrogation was performed with results as follows: Device: Medtronic Advisa dual chamber pacemaker Mode: AAIR <-> DDDR 60-140 bpm Presenting EGM: Atrial paced, ventricular sensed rhythm Battery: 2.98 Volts; Estimated longevity 3.5 years Percent Paced: 53.8% in atrium, <0.2% in ventricle Sensing: P-waves 2.6 mV; R-waves 3.8 mV Impedance: Right Atrial 399 ohms; Right Ventricular 437 ohms Threshold: Right Atrial 0.75 V @ 0.4 ms; Right Ventricular 0.75 V @ 0.4 ms Events: No sustained arrhythmias Changes: None Impression: Normal Device Function. Patient reports worsening YUAN that he attributes to decreased amount of regular physical activity. No shortness of breath at rest or with ADLs. No chest pain, swelling, palpitations, dizziness/lightheadedness, or syncope. He has a history of mild MR, most recent echo 5 years ago. Plan to check echo at next office visit. Gino Cunningham will follow up with a remote check in 3 months and a follow-up in clinic in 6 months. Thank you for allowing me to participate in the care of your patient. If you have any questions or concerns please do not hesitate to contact me. Salome Seay APRN-[place] PROCEDURE/AK NOR SURGICAL ORDERABLES * NE PM DEVICE INTERROGATE REMOTE, NE PM/ICD REMOTE TECH SERV (01/30/2022 10:13 PM FLAG CAR DRIVER) Eliza Wolf MD - 01/30/2022 10:13 PM FLAG CAR DRIVER Eliza Tran MD 01/30/2022 10:19 PM Gino Cunningham underwent remote device check with the results as follows: Device: Advisa DR MRI [id number] Mode: AAIR<=> DDDR 60-140 bpm (MVP). Battery: 2.99 Volts; Estimated longevity 4 years. Sensing: P-waves 3.0 mV; R-waves 4.8 mV Impedence: Right Atrial 399 ohms; Right Ventricular 456 ohms Threshold: Right Atrial 0.75 V @ 0.4 ms; Right Ventricular 0.75 V @ 0.4 ms Percent Paced: Total DRYWALL STRIPPER 0% (MVP On) -VS 0% -DRYWALL STRIPPER 0% AP-VS 100% AP-DRYWALL STRIPPER 0% Events: None Impression: Normal Device Function. Gino Cunningham will follow up with a remote check in 3 months and a follow-up in device clinic every 6 months. Thank you for allowing me to participate in the care of your patient. If you have any questions or concerns please do not hesitate to contact me.or concerns please do not hesitate to contact me. Eliza Tran MD PROCEDURE/AK NOR SURGICAL ORDERABLES * NE PM DEVICE PROGR EVAL DUAL (10/21/2021 8:44 AM CDT) Salome Bowman, TO-[place] - 10/21/2021 8:44 AM CDT Salome Seay APRN-[place] 10/21/2021 8:49 AM Gino Cunningham presented to device clinic for follow up of the patient's pacemaker. Interrogation was performed with results as follows: Device: Medtronic Advisa dual chamber pacemaker Mode: AAIR <-> DDDR 60-140 bpm Battery: 2.99 Volts; Estimated longevity 5 years Percent Paced: 53.7% in atrium, < 0.1% in ventricle Sensing: P-waves 2.8 mV; R-waves 10.1 mV Impedance: Right Atrial 380 ohms; Right Ventricular 437 ohms Threshold: Right Atrial 0.75 V @ 0.4 ms; Right Ventricular 0.75 V @ 0.4 ms Events: 12 fast rate episodes, tracings show oversensing on the RV lead with unipolar sensing Changes: RV sensing changed to bipolar to prevent oversensing. Impression: Normal Device Function. Gino Cunningham will follow up with a remote check in 3 months and a follow-up in device clinic in 6 months. Thank you for allowing me to participate in the care of your patient. If you have any questions or concerns please do not hesitate to contact me. Salome Seay SENIOR MATERIALS ANALYST-STATISTICAL METHODS PROFESSOR PROCEDURE/AK NOR SURGICAL ORDERABLES * Implant Device Check (Office) (04/13/2021 3:56 PM FLAG CAR DRIVER) Eliza Wolf MD - 04/13/2021 3:56 PM FLAG CAR DRIVER Eliza Tran MD 04/13/2021 4:00 PM Gino Cunningham presented to device clinic for follow up of the patient's pacemaker. Interrogation was performed with results as follows: Device: Advisa DR TATE dual chamber PPM. Mode: AAIR <=> DDDR Battery: 2.99 Volts; Estimated longevity : 4.5 years Percent Paced: 95% in atrium, 0% in ventricle Sensing: P-waves 2.9 mV; R-waves 10.6 mV Impedence: Right Atrial 399 ohms; Right Ventricular 456 ohms. Threshold: Right Atrial 1.0 V @ 0.4 ms; Right Ventricular 1.5 V @ 0.4 ms Events: 5 NSVT episodes. There were 22 short runs of SVT, likely atrial tachycardia with the longest of 1.5 seconds and a total burden of <0.1%. Changes: The preferential pacing was turned off to save battery. Impression: Normal Device Function. Gino Cunningham will follow up with a remote check in 3 months and a follow-up in device clinic in 6 months. Thank you for allowing me to participate in the care of your patient. If you have any questions or concerns please do not hesitate to contact me.or concerns please do not hesitate to contact me. Eliza Tran MD PROCEDURE/AK NOR SURGICAL ORDERABLES * NE PM DEVICE INTERROGATE REMOTE, NE PM/ICD REMOTE TECH SERV (01/19/2021 2:01 PM CDT) Salome Bowman, TRINO - 01/19/2021 2:01 PM CDT Salome Seay APRN-CNP 01/19/2021 2:17 PM Gino Cunningham is undergoing remote device monitoring. Interrogation of patient's pacemaker was performed with results as follows: Device: Medtronic Advisa dual chamber pacemaker Mode: AAIR <-> DDDR 60-140 bpm Presenting EGM: Atrial paced, ventricular sensed rhythm Battery: 3 Volts; Estimated longevity 5 years Percent Paced: 97.2% in atrium, 0% in ventricle Sensing: P-waves 3 mV; R-waves 10.6 mV Impedance: Right Atrial 380 ohms; Right Ventricular 456 ohms Threshold: Right Atrial 0.75 V @ 0.4 ms; Right Ventricular 0.875 V @ 0.4 ms Events: None Impression: Normal Device Function. Gino Cunningham will follow up in EP clinic in 3 months. Thank you for allowing me to participate in the care of your patient. If you have any questions or concerns please do not hesitate to contact me. Salome JAMESON PROCEDURE/AK NOR SURGICAL ORDERABLES * Implant Device Check (Office) (10/13/2020 4:15 PM CDT) Eliza Wolf MD - 10/13/2020 4:15 PM CDT Eliza Tran MD 10/13/2020 4:18 PM Gino Cunningham presented to device clinic for follow up of the patient's pacemaker. Interrogation was performed with results as follows: Device: Advisa DR MRI dual chamber PPM. Mode: AAIR <=> DDDR Battery: 3 Volts; Estimated longevity : 5 years Percent Paced: 97% in atrium, 0% in ventricle Sensing: P-waves 3.1 mV; R-waves 10.3 mV Impedence: Right Atrial 399 ohms; Right Ventricular 456 ohms. Threshold: Right Atrial 1.25 V @ 0.4 ms; Right Ventricular 1.25 V @ 0.4 ms Events: 2 SVT episodes. Impression: Normal Device Function. Gino Cunningham will follow up with a remote check in 3 months and a follow-up in device clinic in 6 months. Thank you for allowing me to participate in the care of your patient. If you have any questions or concerns please do not hesitate to contact me.or concerns please do not hesitate to contact me. Eliza Tran MD PROCEDURE/AK NOR SURGICAL ORDERABLES * NE PM DEVICE INTERROGATE REMOTE, NE PM/ICD REMOTE TECH SERV (07/21/2020 9:37 AM CDT) Salome Bowman APRN-CNP - 07/21/2020 9:37 AM CDT Salome Seay APRN-CNP 07/21/2020 9:43 AM Gino Cunningham is undergoing remote device monitoring. Interrogation of patient's pacemaker was performed with results as follows: Device: Medtronic Advisa dual chamber pacemaker Mode: AAIR <-> DDDR 60-140 bpm Presenting EGM: Atrial paced, ventricular sensed rhythm Battery: 3.01 Volts; Estimated longevity 6 years Percent Paced: 100% in atrium, 0% in ventricle Sensing: P-waves 3 mV; R-waves 8.5 mV Impedance: Right Atrial 380 ohms; Right Ventricular 418 ohms Threshold: Right Atrial 0.875 V @ 0.4 ms; Right Ventricular 0.875 V @ 0.4 ms Events: None Impression: Normal Device Function. Gino Cunningham will follow up in EP clinic in 3 months. Thank you for allowing me to participate in the care of your patient. If you have any questions or concerns please do not hesitate to contact me. Salome JAMESON PROCEDURE/AK NOR SURGICAL ORDERABLES * NE PM DEVICE INTERROGATE REMOTE, NE PM/ICD REMOTE TECH SERV (04/14/2020 10:01 AM FLAG CAR DRIVER) Salome Bowman APRN-CNP - 04/14/2020 10:01 AM FLAG CAR DRIVER Salome Seay APRN-CNP 04/14/2020 10:11 AM Gino Cunningham is undergoing remote device monitoring. Interrogation of patient's pacemaker was performed with results as follows: Device: Medtronic Advisa dual chamber pacemaker Mode: AAIR <-> DDDR 60-140 bpm Presenting EGM: Atrial paced, ventricular sensed rhythm Battery: 3.01 Volts; Estimated longevity 6 years Percent Paced: 96.8% in atrium, < 0.1% in ventricle Sensing: P-waves 3 mV; R-waves 9.9 mV Impedance: Right Atrial 380 ohms; Right Ventricular 456 ohms Threshold: Right Atrial 0.75 V @ 0.4 ms; Right Ventricular 0.875 V @ 0.4 ms Events: 2 NSVT episodes, up to 6 beats. 4 Fast A&V episodes, sinus tachycardia at 162 bpm up to 4 minutes. 1 AF episode, 45 seconds in duration. Patient is taking Eliquis for anticoagulation. Impression: Normal Device Function. Gino Cunningham will follow up with a remote check in 3 months and a follow-up in EP clinic in 6 months. Thank you for allowing me to participate in the care of your patient. If you have any questions or concerns please do not hesitate to contact me. Salome Seay APRNAUGUSTA PROCEDURE/AK NOR SURGICAL ORDERABLES * NE PM DEVICE INTERROGATE REMOTE, NE PM/ICD REMOTE TECH SERV (12/31/2019 9:18 AM CDT) Narrative Salome Seay APRN-CNP - 12/31/2019 9:18 AM CDT Salome Seay, TRINO 12/31/2019 9:25 AM Gino Cunningham is undergoing remote device monitoring. Interrogation of patient's pacemaker was performed with results as follows: Device: Medtronic Advisa dual chamber pacemaker Mode: AAIR <-> DDDR 60-140 bpm Presenting EGM: Atrial paced, ventricular sensed rhythm Battery: 3.01 Volts; Estimated longevity 6 years Percent Paced: 100% in atrium, 0% in ventricle Sensing: P-waves 3.4 mV; R-waves 9.8 mV Impedance: Right Atrial 418 ohms; Right Ventricular 494 ohms Threshold: Right Atrial 0.75 V @ 0.4 ms; Right Ventricular 0.875 V @ 0.4 ms Events: None Impression: Normal Device Function. Gino Cunningham will follow up with a remote check in 3 months. Thank you for allowing me to participate in the care of your patient. If you have any questions or concerns please do not hesitate to contact me. Salome Seay APRN-STATISTICAL METHODS PROFESSOR PROCEDURE/AK NOR SURGICAL ORDERABLES * NE PM DEVICE INTERROGATE REMOTE, NE PM/ICD REMOTE TECH SERV (09/25/2019 10:27 AM CDT) Salome Bowman APRN-CNP - 09/25/2019 10:27 AM CDT Salome Seay APRN-CNP 09/25/2019 10:33 AM Gino Cunningham is undergoing remote device monitoring. Interrogation of patient's pacemaker was performed with results as follows: Device: Medtronic Advisa dual chamber pacemaker Mode: AAIR <-> DDDR 60-140 bpm Presenting EGM: Atrial paced, ventricular sensed rhythm Battery: 3.01 Volts; Estimated longevity 7 years Percent Paced: 96.3% in atrium, <0.1% in ventricle Sensing: P-waves 2.8 mV; R-waves 9.6 mV Impedance: Right Atrial 380 ohms; Right Ventricular 437 ohms Threshold: Right Atrial 0.75 V @ 0.4 ms; Right Ventricular 1 V @ 0.4 ms Events: None Impression: Normal Device Function. Gino Cunningham will follow up with a remote check in 3 months. Thank you for allowing me to participate in the care of your patient. If you have any questions or concerns please do not hesitate to contact me. Salome JAMESON PROCEDURE/AK NOR SURGICAL ORDERABLES * NE PM DEVICE INTERROGATE REMOTE, NE PM/ICD REMOTE TECH SERV (03/29/2019 3:27 PM FLAG CAR DRIVER) Salome Bowman APRN-CNP - 03/29/2019 3:27 PM FLAG CAR DRIVER Salome Seay APRN-CNP 04/08/2019 1:34 PM Remote interrogation of patient's pacemaker was performed with results as follows: Device: Medtronic Advisa dual chamber pacemaker Mode: AAIR <-> DDDR 60-140 bpm Battery: 3.01 Volts; Estimated longevity 7 years Percent Paced: 96.8% in atrium, < 0.1% in ventricle Sensing: P-waves 2.6 mV; R-waves 9.5 mV Impedence: Right Atrial 361 ohms; Right Ventricular 437 ohms Threshold: Right Atrial 0.75 V @ 0.4 ms; Right Ventricular 0.75 V @ 0.4 ms Events: 3 VT episodes, available EGM shows oversensing of atrial activity on RV lead, episodes 1 second each. 12 fast A&V episodes, tracings show 1:1 conduction consistent with SVT vs sinus tachycardia at rates up to 162 bpm. 1 fast A&V episode on 02/07/19 showed sudden onset and termination of SVT vs AVNRT at 194 bpm for 8 seconds. Impression: Normal Device Function. Gino Cunningham will follow up in clinic in 3 months. Thank you for allowing me to participate in the care of your patient. If you have any questions or concerns please do not hesitate to contact me. Salome Seay SENIOR MATERIALS ANALYST-STATISTICAL METHODS PROFESSOR PROCEDURE/AK NOR SURGICAL ORDERABLES * NE PM DEVICE PROGR EVAL DUAL (01/04/2019 9:44 AM CDT) Narrative Faisal Marina MD - 01/04/2019 9:44 AM CDT Faisal Marina MD 01/04/2019 9:44 AM Dual-chamber pacemaker interrogated today. Discussed in progress note. Full interrogation scanned into the record Faisal Marina MD PROCEDURE/MINOR SURG ICAL ORDERABLES * PATHOLOGY TISSUE (12/20/2018 2:53 PM CDT) Only the most recent of3 resultswithin the time period is included. Case Report Surgical Pathology Report Case: [id number] Authorizing Provider: Nick Moses MD Collected: 12/20/2018 02:53 PM Ordering Location: [facility] Received: 12/20/2018 07:01 PM Pathologist: Codie Lima MD Specimen: Colon, ascending polyps x3, transverse polyps x2, rectal polyp 12/24/2018 10:59 AM CDT [facility] Final Diagnosis Large intestine, ascending, transverse, rectal polyps, biopsy (A): - Tubular adenoma - Sessile serrated adenoma(s), fragmented - Hyperplastic polyps 12/24/2018 10:59 AM CDT [facility] Microscopic Description and Comment Microscopic examination substantiates the final diagnosis. 12/24/2018 10:59 AM CDT [facility] Clinical History The patient is a 58-year-old man who presents for high risk colon cancer surveillance (personal history of colonic polyps). Operative procedure/findings: Colonoscopy - four (3-7 mm) polyps in the rectum, transverse colon, ascending colon, biopsied; two (8mm) polyps in the descending and transverse colon, biospied. 12/24/2018 10:59 AM [facility] Gross Description The requisition and specimen label(s) are identified with the patient name, Gino Cunningham Received in formalin, specimen A, ascending colon polyps x3 , are multiple soft, brown-kirk tissue fragments ranging in size from 0.2 to 0.6 cm in greatest dimension, with an aggregate measurement of 1.2 x 1.0 x 0.2 cm. The specimen is entirely submitted in cassette A1. DS/met 12/24/2018 10:59 AM T [facility] Disclaimer The performance characteristics of all immunohistochemical and indirect immunofluorescence stains (if any) cited in this report were determined by the Histopathology Laboratory of [facility]. Some of these tests were developed by our own laboratory and have not been cleared or approved by the US Food and Drug Administration. The FDA does not require this test to go through premarket FDA review. These tests are used for clinical purposes. They should not be regarded as investigational or for research. This laboratory is certified under the Clinical Laboratory Improvement Amendments (CLIA) as qualified to perform high complexity clinical laboratory testing. This case has been personally reviewed and interpreted by the attending (teaching) pathologist. 12/24/2018 10:59 AM [facility] Embedded Images 12/24/2018 10:59 AM [facility] Biopsy, NOS COLON PART / Unknown 12/20/2018 2:53 PM CDT 12/20/2018 7:01 PM CDT Comment:Pre-op diagnosis: SCREENING Nick Moses MD LAB - PATHOLOGY/CYTO LOGY ORDERABLES [facility] [address] [phone] * ENDOSCOPY, COLON, SCREENING (12/20/2018 1:47 PM [...] and oxygen saturations were monitored continuously. The [id number] was introduced through the anus and advanced [...] non-hernadez portions. Procedure Code(s): --- Professional --- 05414, Colonoscopy, flexible; with removal of tumor(s), polyp(s), or other lesion(s) by snare technique 28529, 59, Colonoscopy, flexible; with biopsy, single or multiple Diagnosis Code(s): --- Professional --- Z86.010, Personal history of colonic polyps K62.1, Rectal polyp D12.2, Benign neoplasm of ascending colon D12.4, Benign neoplasm of descending colon D12.3, Benign neoplasm of transverse colon (hepatic flexure or splenic flexure) K64.8, Other hemorrhoids K57.30, Diverticulosis of large intestine without perforation or abscess without bleeding CPT copyright 2016 [employer]. All rights reserved. The codes documented in this report are preliminary and upon immigration law specialist review may be revised to meet current compliance requirements. _ Nick Moses MD 12/20/2018 3:33:40 PM Note Initiated On: 12/20/2018 1:47 PM Number of Addenda: 0 [facility] [address] [place] [address] [facility] 12/20/2018 1:47 PM CDT Nick Moses MD GI PROCEDURE ORDERAB LES [facility] * NE PM DEVICE INTERROGATE REMOTE, NE PM/ICD REMOTE TECH SERV (09/14/2018 3:36 PM CDT) Narrative Salome Seay APRN-STATISTICAL METHODS PROFESSOR - 09/14/2018 3:36 PM CDT Salome Seay APRN-CNP 09/14/2018 3:36 PM Remote interrogation of Gino Cunningham's pacemaker was performed with results as follows: Device: Medtronic Advisa dual chamber pacemaker Mode: AAIR <-> DDDR 60-140 bpm Battery: 3.02 Volts; Estimated longevity 7.5 years Percent Paced: 96.3% in atrium, < 0.1% in ventricle Sensing: P-waves 3 mV; R-waves 9 mV Impedence: Right Atrial 380 ohms; Right Ventricular 437 ohms Threshold: Right Atrial 0.75 V @ 0.4 ms; Right Ventricular 0.75 V @ 0.4 ms Events: 3 nonsustained VT episodes, 15 SVT episodes, 1 Fast A&V episode. Nonsustained VT episodes occurred on 08/19/18 between 8 PM and 8:15 PM and appeared to show oversensing on the RV lead. SVT episodes showed SVT vs sinus tachycardia at up to 162 bpm, lasting up to 1 minute and 18 seconds. Fast A&V episode reviewed with Dr. Hamlet Baron. 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 Impression: Normal Device Function. Gino Cunningham will follow up with Dr. Marina on 12/05/18. Salome Seay APRN-[place] PROCEDURE/AK NOR SURGICAL ORDERABLES * NE PM DEVICE PROGR EVAL DUAL (06/08/2018 4:09 PM CDT) Narrative Faisal Marina MD - 06/08/2018 4:09 PM CDT Faisal Marina MD 06/08/2018 4:09 PM Medtronic dual chamber pacemaker interrogated today, discussed results in progress note. Full interrogation scanned into record Faisal Marina MD PROCEDURE/MINOR SURG ICAL ORDERABLES * NE PM DEVICE INTERROGATE REMOTE, NE PM/ICD REMOTE TECH SERV (02/23/2018 2:55 PM FLAG CAR DRIVER) Narrative Kayla Stacy APRN-STATISTICAL METHODS PROFESSOR - 02/23/2018 2:55 PM FLAG CAR DRIVER Kayla Stacy, [facility] 02/23/2018 2:55 PM Carelink transmission reveals 23 fast A and V, longest 2 min. Fastest 158 bpm. ASVS 4% APVS 96%. Battery voltage, lead impedance, pacing and sensing all WNL(see printout in media) Kayla Stacy [facility] PROCEDURE/M INOR SURGICAL ORDERABLES * NE PM DEVICE INTERROGATE REMOTE, NE PM/ICD REMOTE TECH SERV (12/18/2017 3:30 PM CDT) Narrative Kayla Stacy [facility] - 12/18/2017 3:30 PM CDT Kayla Stacy [facility] 12/18/2017 3:30 PM Carelink transmission 11/13 reveals 1 VT on 11/09, <1 sec, A 122, V 240 bpm. 19 fast A and V, longest 1 min 10 sec, fastest 158 bpm. ASVS 4%. APVS 96%. Battery voltage, lead impedance, pacing and sensing all WNL.(see printout) Kayla Stacy [facility] PROCEDURE/M INOR SURGICAL ORDERABLES * NE PM DEVICE PROGR EVAL DUAL (08/10/2017 4:42 PM CDT) Narrative Faisal Marina MD - 08/10/2017 4:42 PM CDT Faisal Marina MD 08/10/2017 4:42 PM Interrogation scanned into media and discussed in progress note from today's visit. Faisal Marina MD PROCEDURE/MINOR SURG ICAL ORDERABLES * PROC IMPLANT WEAR CARDIAC DEVICE EVAL (04/26/2017 10:46 AM FLAG CAR DRIVER) Narrative [facility] - 04/26/2017 10:46 AM FLAG CAR DRIVER Medtronic dual-chamber pacemaker was implanted on December for the diagnosis of symptomatic sinus bradycardia. On interrogation today, sensing, pacing, impedance parameters were all within normal limits. Had 94% atrial paced rhythm. There was no ventricular paced rhythm. Estimated longevity 9 years. 98 episodes of SVT noted. The cycle length is around 320 ms. Longest one lasted 16 second . One episode of nonsustained asymptomatic VT noted. Remote interrogation every 3 months and in office device checked once a year. This dictation was performed using [employer] dictation. There may be some final inspector variances which are not appreciated and corrected in this note. Tanya Ballesteros MD Procedure Note Provider, MD Michel - 08/25/2017 Medtronic dual-chamber pacemaker was implanted on December forthe diagnosis of symptomatic sinus bradycardia. On interrogation today, sensing, pacing, impedance parameters were allwithin normal limits. Had 94% atrial paced rhythm. There was noventricular paced rhythm. Estimated longevity 9 years. 98 episodes of SVT noted. The cycle length is around 320 ms. Longest onelasted 16 second . One episode of nonsustained asymptomatic VT noted. Remote interrogation every 3 months and in office device checked once ayear. This dictation was performed using [employer] dictation. There may be sometranscription variances which are not appreciated and corrected in thisnote. Tanya Ballesteros MD Tanya Ballesteros MD PROCEDURE/MINOR SURG ICAL ORDERABLES [facility] * VAS BILATERAL VENOUS DUPLEX LE (04/20/2017 1:34 PM FLAG CAR DRIVER) Only the most recent of5 resultswithin the time period is included. Anatomical Region Laterality Modality Other Mack Harp MD VASCULAR LAB OR DERABLES * NM LUNG VENT AND PERFUSION (04/20/2017 1:15 PM FLAG CAR DRIVER) Only the most recent of3 resultswithin the time period is included. Anatomical Region Laterality Modality Lung, Chest Other Impressions 04/20/2017 4:30 PM FLAG CAR DRIVER Procedure: Ventilation and Perfusion (V/Q) Lung Scan History: 56-year-old male with shortness of breath. Past medical history significant for pulmonary embolism status post USAT and IVC filter placement 01/2015. Technique: 17.72 mCi of Xe-133 was administered via inhalation route. Single breath and equilibrium images were obtained during radioxenon inhalation in the posterior projection. Early and delayed washout images were obtained in posterior projection. Subsequently, 5.21 mCi Tc-99m MAA was administered IV in the RAC. Multiple planar perfusion images of the lungs were obtained in the anterior, posterior, and four oblique views. Patient's weight 332 pounds, height is 175 cm. Findings: Comparison is made to prior VQ scan from 05/06/2015. Chest radiograph from 01/11/2016 was reviewed. Ventilation scan shows normal tracer distribution during xenon entry and equilibrium phase within the lung. The early and delayed washout phases reveal no significant gas trapping. Multiple planar perfusion images of the lungs reveal mildly heterogeneous tracer distribution to both lungs. There is no significant change in the segmental defect the posterior aspect of the mid left lung. Impression: 1. Unchanged segmental defect in the posterior aspect of the mid left lung consistent with chronic PE. 2. No evidence of acute PE. This report was approved by [place] Maldonado on 04/20/2017 4:13 PM . I, Dr. BERTHA BROWN D.O. have personally reviewed and interpreted this examination/study. This report was electronically signed by BERTHA BROWN D.O. on 04/20/2017 4:30 PM . Narrative Procedure Note Bertha Brown, DO - 06/21/2017 IMPRESSION Procedure: Ventilation and Perfusion (V/Q) Lung Scan History: 56-year-old male with shortness of breath. Past medical historysignificant for pulmonary embolism status post USAT and IVC filterplacement 01/2015. Technique: 17.72 mCi of Xe-133 was administered via inhalation route.Single breath and equilibrium images were obtained during radioxenoninhalation in the posterior projection. Early and delayed washout imageswere obtained in posterior projection. Subsequently, 5.21 mCi Tc-99m MAA was administered IV in the RAC. Multipleplanar perfusion images of the lungs were obtained in the anterior,posterior, and four oblique views. Patient's weight 332 pounds, height is175 cm. Findings: Comparison is made to prior VQ scan from 05/06/2015. Chestradiograph from 01/11/2016 was reviewed. Ventilation scan shows normal tracer distribution during xenon entry andequilibrium phase within the lung. The early and delayed washout phasesreveal no significant gas trapping. Multiple planar perfusion images of the lungs reveal mildly heterogeneoustracer distribution to both lungs. There is no significant change in thesegmental defect the posterior aspect of the mid left lung. Impression: 1. Unchanged segmental defect in the posterior aspect of the mid left lungconsistent with chronic PE. 2. No evidence of acute PE. This report was approved by [place] Maldonado on 04/20/2017 4:13 PM . I, Dr. BERTHA BROWN D.O. have personally reviewed and interpreted thisexamination/study. This report was electronically signed by BERTHA BROWN D.O. on 04/20/20174:30 PM . Mack Harp MD NM ORDERABLES * HEMOGLOBIN A1C (04/20/2017 11:55 AM FLAG CAR DRIVER) Hemoglobin A1c 5.5 4.4 - 6.3 % [facility] Estimated Average Glucose 111 mg/dL [facility] Comment: HbA1c Interpretation: Treatment target values recommended by ADA and other clinical organizations should be used to evaluate metabolic control in patients. Treatment Target Values: Normal : < 5.7% Pre-diabetes: 5.7-6.4% Diabetes: Equal to or greater than 6.5% Reference: [place] [employer] Standards of Care in Diabetes -2014 In patients 70 years and older consider HbA1c target range of 7.0-7.5% Reference: Diabetes Mellitus in Older People: Position Statement on behalf of the International Association of Gerontology and Geriatrics (IAGG), the Diabetes Working Constitution Party for Older People (EDWPOP), and the International Task Force of Experts in Diabetes. Janes Carr, et al. J [employer]. 2012 Test results diagnostic of diabetes should be repeated for confirmation. The Tosoh G8 assay for the measurement of HbA1c is a National Glycohemoglobin Standardization Program (NGSP)certified method. Results for patients with HbE disease should be interpreted with caution as this hemoglobinopathy has been shown to interfere with the Tosoh G8 assay. Blood specimen (specimen) BLOOD SPECIMEN / Unknown 04/20/2017 11:55 AM FLAG CAR DRIVER 04/20/2017 12:28 PM FLAG CAR DRIVER Historical Provider LAB - CHEMISTRY O RDERABLES [facility] [address] [phone] * (ABNORMAL) CBC W AUTO DIFFERENTIAL (04/20/2017 11:55 AM FLAG CAR DRIVER) Only the most recent of26 resultswithin the time period is included. WBC 4.9 3.5 - 10.5 10 3/uL [facility] RBC 4.94 4.30 - 5.70 10 6/uL [facility] Hemoglobin 14.5 13.5 - 17.5 g/dL [facility] Hematocrit 42.5 39.0 - 50.0 % [facility] MCV 86.0 81.0 - 97.0 fL [facility] MCH 29.4 28.0 - 34.0 pg [facility] MCHC 34.1 32.0 - 36.0 g/dL [facility] Platelet Count 208 150 - 400 10 3/uL [facility] RDW-SD 43.0 36.0 - 50.0 fL [facility] RDW-CV 13.6 11.2 - 14.8 % [facility] MPV 10.1 9.3 - 12.8 fL [facility] Neutrophils % 56.5 35.0 - 70.0 % [facility] Lymphocytes % 25.0 19.7 - 55.1 % [facility] Monocytes % 15.0 3.0 - 15.0 % [facility] Eosinophils % 3.1 0.0 - 6.0 % [facility] Basophil % 0.4 0.0 - 1.5 % [facility] Neutrophils Absolute 2.8 1.6 - 7.0 10 3/uL [facility] Lymphocyte Absolute 1.2 0.8 - 2.9 10 3/uL [facility] Monocytes Absolute 0.73(H) 0.14 - 0.66 10 3/uL [facility] Eosinophils Absolute 0.15 0.00 - 0.22 10 3/uL [facility] Basophils Absolute 0.02 0.00 - 0.06 10 3/uL [facility] Immature Granulocytes % 0.4 0.0 - 1.0 % [facility] Blood specimen (specimen) BLOOD SPECIMEN / Unknown 04/20/2017 11:55 AM FLAG CAR DRIVER 04/20/2017 12:27 PM FLAG CAR DRIVER Historical Provider LAB - HEMATOLOGY ORDERABLES Performing Organization Address City/[facility] Co de Phone Number [address] [phone] * BASIC METABOLIC PANEL (CALCIUM TOTAL) (04/20/2017 11:55 AM FLAG CAR DRIVER) Only the most recent of2 resultswithin the time period is included. BUN 16 7 - 26 mg/dL [facility] Creatinine 1.0 0.6 - 1.2 mg/dL [facility] Sodium 142 136 - 145 mmol/L [facility] Potassium 3.8 3.5 - 4.5 mmol/L [facility] Chloride 105 98 - 107 mmol/L [facility] CO2 29 22 - 29 mmol/L [facility] Glucose 87 70 - 115 mg/dL [facility] Calcium 9.5 8.4 - 10.2 mg/dL [facility] Anion Gap 12 8 - 18 [facility] BUN/Creatinine Ratio 16 7 - 23 [facility] Osmolality Calculated 295 270 - 300 mOsm/kg [facility] eGFR >60 >60 mL/min/1.7 3 m2 [facility] Blood specimen (specimen) BLOOD SPECIMEN / Unknown 04/20/2017 11:55 AM FLAG CAR DRIVER 04/20/2017 12:27 PM FLAG CAR DRIVER Historical Provider LAB - CHEMISTRY O RDERABLES [address] [phone] * AST BLOOD (04/20/2017 11:55 AM FLAG CAR DRIVER) AST 30 5 - 34 Units/L [facility] Blood specimen (specimen) BLOOD SPECIMEN / Unknown 04/20/2017 11:55 AM FLAG CAR DRIVER 04/20/2017 12:27 PM FLAG CAR DRIVER Historical Provider LAB - CHEMISTRY O SUHAIL [address] [phone] * (ABNORMAL) LIPID PROFILE (04/20/2017 11:55 AM FLAG CAR DRIVER) Cholesterol Total 125 <200 mg/dL [facility] HDL 31(L) >40 mg/dL [facility] Comment: ATP III Classification of HDL Cholesterol: <40 mg/dL: Considered a major risk factor. >60 mg/dL: Considered a negative risk factor. LDL Calculated 74 <100 mg/dL [facility] Comment: ATP III Classification of LDL Cholesterol: <100 mg/dL: Optimal 100 - 129 mg/dL: Near Optimal/Above Optimal 130 - 159 mg/dL: Borderline High 160 - 189 mg/dL: High >190 mg/dL: Very High Triglycerides 99 <150 mg/dL [facility] Comment: ATP III Classification of Triglycerides: <150 mg/dL: Normal 150 - 199 mg/dL: Borderline High 200 - 400 mg/dL: High >500 mg/dL: Very High Blood specimen (specimen) BLOOD SPECIMEN / Unknown 04/20/2017 11:55 AM FLAG CAR DRIVER 04/20/2017 12:27 PM FLAG CAR DRIVER Historical Provider LAB - CHEMISTRY Jesus JANG Performing Organization Address City/[facility]/ZIP Co de Phone Number [address] [phone] * ECHO W DOPPLER AND COLOR FLOW (04/20/2017 12:00 AM FLAG CAR DRIVER) Only the most recent of4 resultswithin the time period is included. Anatomical Region Laterality Modality Other 04/20/2017 Mack Harp MD ECHOCARDIOGRAPH Y RADIANT * PROC PACEMAKER DEVICE CHECK (REMOTE) (10/28/2016 4:49 PM CDT) Narrative [facility] - 10/28/2016 4:49 PM CDT Carelink transmission reveals 3 VT episodes, 53 fast A and V , longest 15 sec. ASVS 7% APVS93%. Battery voltage, lead impedance, pacing and sensing all WNL(see printout) Procedure Note ProviderMichel MD - 08/25/2017 Carelink transmission reveals 3 VT episodes, 53 fast A and V , longest 15sec. ASVS 7% APVS93%. Battery voltage, lead impedance, pacing and sensing all WNL(seeprintout) Kayla JAMESON PROCEDURE/M INOR SURGICAL ORDERABLES Performing Organization Address [facility] de Phone Number [facility] * PROC PACEMAKER DEVICE CHECK (REMOTE) (08/04/2016 7:46 PM CDT) Narrative [facility] - 08/04/2016 7:46 PM CDT Carelink transmission reveals 1 VT which appears to atrial in origin, 14 fast A&V-longest 9 min, No AF. ASVS 4.8%. APVS 95%. Battery voltage, lead impedance, pacing and sensing all WNL(see printout) Procedure Note ProviderMichel MD - 08/25/2017 Carelink transmission reveals 1 VT which appears to atrial in origin, 14fast A&V-longest 9 min, No AF. ASVS 4.8%. APVS 95%. Battery voltage, lead impedance, pacing and sensing all WNL(seeprintout) Kayla JAMESON PROCEDURE/M INOR SURGICAL ORDERABLES Performing Organization Address [facility] de Phone Number [facility] * PFT CARDIOPULMONARY EXERCISE TEST-CPET (07/06/2016 12:27 PM CDT) Impressions [facility] - 07/06/2016 12:27 PM CDT Cardiopulmonary Exercise Test Results: HISTORY Gino Cunningham is a 55 y.o. year old male undergoing cardiopulmonary exercise testing for evaluation of dyspnea/etiology of inactivity. His height is 175 cm and weight 149 kg, with BMI of 48.4. The exercise test was performed on a treadmill using a ramp protocol. The patient tolerated a maximum workload of 3 mph at 7% grade, exercising for a total of 5 minutes 35 seconds while breathing room air. The patient s reason for stopping was shortness of breath and leg fatigue. Comments: Patient visibly fatigued at the conclusion of the test. HEMODYNAMICS The resting HR was 85 bpm. The patient had normal sinus rhythm. The peak HR was 155 bpm, or 95% of predicted at peak workload. The patient had sinus tachycardia. The patient s blood pressure was 120/78 at rest and 154/84 at maximal exertion. The O2 pulse was 5.2 mL/beat at rest and 20 mL/beat at maximal exertion. Comments: Normal maximal heart rate and O2 pulse. VENTILATION & GAS EXCHANGE The patient s breath rate was 12 per minute with a minute ventilation of 11.6 L/min at rest. The breath rate increased to 37 per minute with a minute ventilation of 104.3 L/min at peak exercise. The peak ventilation was 81% of predicted maximal ventilation. Pulse oximetry showed oxygen saturation of 99% at rest and 98% at peak exercise. Ventilatory reserve is > 11L which is normal. The Vd/Vt ratio was 14% at rest and decreased to 6% at peak exercise, which is a normal response. The peak VO2 is 3100 ml/min which is 101% of predicted max but when adjusted to IBW the peak VO2 is 20.8 mL/min/kg at peak exercise, or 63% of the predicted maximum, consistant with mild functional aerobic impairment. Anaerobic threshold occurred at 1 minute 50 seconds of exercise (in stage II of the protocol), at 63% of peak VO2, which was when expected. The R value was 1.19 at peak exercise, suggesting maximal effort. Comments: Mild functional aerobic impairment. NINE-PANEL GRAPHS Panel 1: VE increases in a curvilinear fashion as the AT increases. Normal. Panel 2: HR over time graph is upsloping. Normal. Panel 3: VO2 and VCO2 increase in an upsloping curvilinear fashion with time. Normal. Panel 4: VE increases linearly with VCO2. Normal. Panel 5: HR increases linearly with VO2. Normal. Panel 6: VE/VO2 and VE/VCO2 decreases to charity at AT. Normal. Panel 7: VT increases linearly with VE. Normal. Panel 8: RER over time graph appears normal. Panel 9: Normal. IMPRESSION 1. Mild functional aerobic impairment likely secondary to obesity and/or deconditioning. 2. Flow limitation with exercise. Gilberto Harp D.O. Pulmonary and Critical Care Fellow, PGY-4 [facility] Division of Pulmonary, Critical Care and Sleep Medicine Pager: [phone] 07/06/2016 ATTENDING PHYSICIAN ATTESTATION/MACK HARP M.D.: I have personally reviewed and interpreted the above test and I have made the necessary changes if needed to the above interpretation. Narrative Procedure Note ProviderMichel MD - 08/25/2017 IMPRESSION Cardiopulmonary Exercise Test Results: HISTORY Gino Cunningham is a 55 y.o. year old male undergoing cardiopulmonaryexercise testing for evaluation of dyspnea/etiology of inactivity. Hisheight is 175 cm and weight 149 kg, with BMI of 48.4. The exercise testwas performed on a treadmill using a ramp protocol. The patient tolerateda maximum workload of 3 mph at 7% grade, exercising for a total of 5minutes 35 seconds while breathing room air. The patient s reason forstopping was shortness of breath and leg fatigue. Comments: Patient visibly fatigued at the conclusion of the test. HEMODYNAMICS The resting HR was 85 bpm. The patient had normal sinus rhythm. The peakHR was 155 bpm, or 95% of predicted at peak workload. The patient hadsinus tachycardia. The patient s blood pressure was 120/78 at rest [id number] at maximal exertion. The O2 pulse was 5.2 mL/beat at rest and 20mL/beat at maximal exertion. Comments: Normal maximal heart rate and O2 pulse. VENTILATION & GAS EXCHANGE The patient s breath rate was 12 per minute with a minute ventilation of11.6 L/min at rest. The breath rate increased to 37 per minute with aminute ventilation of 104.3 L/min at peak exercise. The peak ventilationwas 81% of predicted maximal ventilation. Pulse oximetry showed oxygensaturation of 99% at rest and 98% at peak exercise. Ventilatory reserve is> 11L which is normal. The Vd/Vt ratio was 14% at rest and decreased to 6% at peak exercise,which is a normal response. The peak VO2 is 3100 ml/min which is 101% of predicted max but whenadjusted to IBW the peak VO2 is 20.8 mL/min/kg at peak exercise, or 63% ofthe predicted maximum, consistant with mild functional aerobic impairment.Anaerobic threshold occurred at 1 minute 50 seconds of exercise (in stageII of the protocol), at 63% of peak VO2, which was when expected. The Rvalue was 1.19 at peak exercise, suggesting maximal effort. Comments: Mild functional aerobic impairment. NINE-PANEL GRAPHS Panel 1: VE increases in a curvilinear fashion as the AT increases.Normal. Panel 2: HR over time graph is upsloping. Normal. Panel 3: VO2 and VCO2 increase in an upsloping curvilinear fashion withtime. Normal. Panel 4: VE increases linearly with VCO2. Normal. Panel 5: HR increases linearly with VO2. Normal. Panel 6: VE/VO2 and VE/VCO2 decreases to charity at AT. Normal. Panel 7: VT increases linearly with VE. Normal. Panel 8: RER over time graph appears normal. Panel 9: Normal. IMPRESSION 1. Mild functional aerobic impairment likely secondary to obesity and/ordeconditioning. 2. Flow limitation with exercise. Gilberto Harp D.O. Pulmonary and Critical Care Fellow, PGY-4 [facility] Division of Pulmonary, Critical Care and Sleep Medicine Pager: [phone] 07/06/2016 ATTENDING PHYSICIAN ATTESTATION/MACK HARP M.D.: I have personallyreviewed and interpreted the above test and I have made the necessarychanges if needed to the above interpretation. Mack Harp MD PFT ORDERABLES [facility] * (ABNORMAL) COMPREHENSIVE METABOLIC PANEL (06/01/2016 12:53 PM CDT) Only the most recent of12 resultswithin the time period is included. BUN 11 7 - 26 mg/dL [facility] Creatinine 1.1 0.6 - 1.2 mg/dL [facility] Sodium 137 136 - 145 mmol/L [facility] Potassium 4.0 3.5 - 4.5 mmol/L [facility] Chloride 103 98 - 107 mmol/L [facility] CO2 24 22 - 29 mmol/L [facility] Glucose 99 70 - 115 mg/dL [facility] Calcium 8.9 8.4 - 10.2 mg/dL [facility] Protein Total 6.8 6.0 - 8.3 g/dL [facility] Albumin 3.7 3.4 - 5.0 g/dL [facility] Bilirubin Total 1.5(H) 0.2 - 1.2 mg/dL [facility] Alkaline Phosphatase 75 40 - 150 Units/L [facility] ALT 46 0 - 55 Units/L [facility] AST 31 5 - 34 Units/L [facility] Anion Gap 14 8 - 18 [facility] BUN/Creatinine Ratio 10 7 - 23 [facility] Osmolality Calculated 283 270 - 300 mOsm/kg [facility] Albumin/Globulin Ratio 1.2 1.1 - 2.3 [facility] eGFR >60 >60 mL/min/1.7 3 m2 [facility] Blood specimen (specimen) BLOOD SPECIMEN / Unknown 06/01/2016 12:53 PM CDT 06/01/2016 1:12 PM CDT Marjan Henriquez PA-C LAB - CHEMISTRY O RDERABLES [facility] [address] [place] [address] * PROC IMPLANT WEAR CARDIAC DEVICE EVAL (04/20/2016 10:39 AM FLAG CAR DRIVER) Narrative [facility] - 04/20/2016 10:39 AM FLAG CAR DRIVER Medtronic dual-chamber pacemaker was implanted on December for the diagnosis of symptomatic sinus bradycardia. Interrogation today demonstrated less than 1% ventricular paced rhythm at 96% atrial paced rhythm. Sensing, pacing, impedance parameters were all within normal limits. Sinus tachycardia with a rate of 158 beats a minute was noted in 3 different occasions lasting 5 minutes. No atrial fibrillation. Remote interrogation every 3 months and in device clinic visit once per year. This dictation was performed using [employer] dictation. There may be some final inspector variances which are not appreciated and corrected in this note. Tanya Ballesteros MD Procedure Note Provider, MD Michel - 08/25/2017 Medtronic dual-chamber pacemaker was implanted on December forthe diagnosis of symptomatic sinus bradycardia. Interrogation today demonstrated less than 1% ventricular paced rhythm at96% atrial paced rhythm. Sensing, pacing, impedance parameters were allwithin normal limits. Sinus tachycardia with a rate of 158 beats a minutewas noted in 3 different occasions lasting 5 minutes. No atrial fibrillation. Remote interrogation every 3 months and in device clinic visit once peryear. This dictation was performed using [employer] dictation. There may be sometranscription variances which are not appreciated and corrected in thisnote. Tanya Ballesteros MD Tanya Ballesteros MD PROCEDURE/MINOR SURG ICAL ORDERABLES [facility] * XR CHEST 1VW PORTABLE (01/11/2016 2:22 PM CDT) Only the most recent of4 resultswithin the time period is included. Anatomical Region Laterality Modality Chest Other Impressions 01/12/2016 12:33 PM CDT IMPRESSION: No pneumothorax post left subclavian approach pacemaker implantation. Report dictated by Wen Meeks MD (sales vice president). This report was approved by Eda Meeks M.D. on 01/12/2016 11:05 AM . I, Dr. FREDERICK TUCKER M.D. have personally reviewed and interpreted this examination/study. This report was electronically signed by FREDERICK TUCKER M.D. on 01/12/2016 12:33 PM . Narrative 01/12/2016 12:33 PM CDT EXAMINATION: Chest, AP portable view HISTORY: s/p pacemaker implant - rule out pneumothorax COMPARISON: Comparison is made with chest radiograph from 07/12/2015. A left subclavian approach pacemaker has 2 intact leads which terminate in the right atrium and the right ventricle. The lungs are clear. There is no focal consolidation, pleural effusion, or pneumothorax. The cardiomediastinal silhouette is normal. Procedure Note Frederick Tucker MD - 06/17/2017 EXAMINATION: Chest, AP portable view HISTORY: s/p pacemaker implant - rule out pneumothorax COMPARISON: Comparison is made with chest radiograph from 07/12/2015. A left subclavian approach pacemaker has 2 intact leads which terminate inthe right atrium and the right ventricle. The lungs are clear. There is no focal consolidation, pleural effusion, orpneumothorax. The cardiomediastinal silhouette is normal. IMPRESSION IMPRESSION: No pneumothorax post left subclavian approach pacemaker implantation. Report dictated by Wen Meeks MD (sales vice president). This report was approved by Eda Meeks M.D. on 01/12/2016 11:05AM . Dr. FREDERICK Grimes M.D. have personally reviewed and interpreted thisexamination/study. This report was electronically signed by FREDERICK TUCKER M.D. on 01/12/201612:33 PM . Tanya Ballesteros MD DIAGNOSTIC IMAGING O RDERABLES * EP A-V PPM INSERT (01/11/2016 1:43 PM CDT) Anatomical Region Laterality Modality Other Narrative 01/11/2016 1:55 PM CDT This procedure was performed by a Cardiac Circuit Clerk in the EP lab. Please see the Op Note or Procedures Note placed by Electrophysiology. Procedure Note ProviderMichel MD - 08/25/2017 This procedure was performed by a Cardiac Circuit Clerk in the [facility]. Please see the Op Note or Procedures Note placed byElectrophysiology. Tanya Ballesteros MD ELECTROPHYS RADIANT * US ABDOMEN LIMITED (01/11/2016 9:23 AM CDT) Only the most recent of2 resultswithin the time period is included. Anatomical Region Laterality Modality Abdomen Other Impressions 01/11/2016 6:58 PM CDT IMPRESSION: 1. Hepatic steatosis. 2. No sonographic evidence of biliary dilatation. Report dictated by Aruna Yung M.D. This report was approved by Aruna Yung M.D. on 01/11/2016 11:[address] Deneen Grimes M.D. have personally reviewed and interpreted this examination/study. This report was electronically signed by Deneen CHOWDHURY M.D. on 01/11/2016 6:58 PM . Narrative 01/11/2016 6:58 PM CDT EXAM: Limited abdominal ultrasound HISTORY: 55-year-old male with history of abdominal pain and gallstones status post cholecystectomy in Jul, 2015. FINDINGS: Comparison is made to the prior study from 07/12/2015. The hepatic echogenicity is increased consistent with hepatic steatosis. The liver surface contour is smooth. No discrete hepatic mass or intrahepatic biliary dilation is seen. Color Doppler evaluation demonstrates patency of the hepatic and portal veins. The gallbladder is surgically absent. The common bile duct is nondilated, measuring 5.1 mm. The right kidney measures 12 x 7.2 x 5.8 cm. Limited views reveal no evidence of hydronephrosis. The visible pancreas shows normal echogenicity. The spleen measures 12.8 cm in length. No ascites is seen. Procedure Note Jojo Chowdhury MD - 06/17/2017 EXAM: Limited abdominal ultrasound HISTORY: 55-year-old male with history of abdominal pain and gallstonesstatus post cholecystectomy in Jul, 2015. FINDINGS: Comparison is made to the prior study from 07/12/2015. The hepatic echogenicity is increased consistent with hepatic steatosis.The liver surface contour is smooth. No discrete hepatic mass orintrahepatic biliary dilation is seen. Color Doppler evaluationdemonstrates patency of the hepatic and portal veins. The gallbladder is surgically absent. The common bile duct is nondilated,measuring 5.1 mm. The right kidney measures 12 x 7.2 x 5.8 cm. Limited views reveal noevidence of hydronephrosis. The visible pancreas shows normalechogenicity. The spleen measures 12.8 cm in length. No ascites is seen. IMPRESSION IMPRESSION: 1. Hepatic steatosis. 2. No sonographic evidence of biliary dilatation. Report dictated by Aruna Yung M.D. This report was approved by Aruna Yung M.D. on 01/11/2016 11:[address] Deneen Grimes M.D. have personally reviewed and interpreted thisexamination/study. This report was electronically signed by Deneen CHOWDHURY M.D. on01/11/2016 6:58 PM . Marjan Henriquez PA-C US ORDERABLES * EKG 12-LEAD (01/11/2016 12:00 AM CDT) Only the most recent of4 resultswithin the time period is included. Pathologist [facility] Comment: Exam Date/Time: Jan 11 2016 18:09:38 Test Reason : s/p pacemaker implant Blood Pressure : / mmHG Vent. Rate : 061 BPM Atrial Rate : 061 BPM P-R Int : 200 ms QRS Dur : 092 ms QT Int : 422 ms P-R-T Axes : 056 018 041 degrees QTc Int : 424 ms Electronic atrial pacemaker When compared with ECG of 12-JUL-2015 07:05, Electronic atrial pacemaker has replaced Sinus rhythm Confirmed by Franko Bunn, Amy ([id number]), dictionary editor LISBETH HARE ([id number]) on 02/16/2016 2:36:53 PM Referred By: REFERRING NO Confirmed By:Amy Bunn M.D. 01/11/2016 Jess Samuel SENIOR MATERIALS ANALYST-STATISTICAL METHODS PROFESSOR ECG ORDERABLES Performing Organization Address [facility] Co de Phone Number [facility] * TISSUE TRANSGLUTAMINASE AB IGA (12/30/2015 12:28 PM CDT) Pathologist [facility] TTG Antibody IgA <2 0 - 3 U/mL [facility] Comment: Negative 0 - 3 Weak Positive 4 - 10 Positive >10 Tissue Transglutaminase (tTG) has been identified as the endomysial antigen. Studies have demonstr- ated that endomysial IgA antibodies have over 99% specificity for gluten sensitive enteropathy. Blood specimen (specimen) BLOOD SPECIMEN / Unknown 12/30/2015 12:28 PM CDT 12/30/2015 1:22 PM CDT Narrative [facility] ([facility] - 12/31/2015 3:19 PM CDT Performed at: [facility] [id number] Jazz Singer: Dave Tarango PhD, Phone: [phone] Marjan Henriquez PA-C LAB - SEROLOGY OR DERABLES Performing Organization Address City/[facility] Co de Phone Number [facility]) * CULTURE DUODENAL ASPIRATE QUANT (12/23/2015 11:29 AM CDT) Culture Quant-Duodenal No Growth at 48 hours [facility] Duodenum PART OF DUODENUM / Unknown 12/23/2015 11:29 AM CDT 12/23/2015 12:40 PM CDT Юлия Falcon MD LAB - MICROBIOLOGY O RDERABLES Performing Organization Address [facility]/ZIP Co de Phone Number [address] [phone] * PROC MOBILE CV TELEMETRY (11/06/2015 8:35 AM CDT) Narrative [facility] - 11/06/2015 8:35 AM CDT Gino Cunningham underwent cardiac monitoring with a 14 day mobile telemetry. Results are as follows: Quality of Tracings: Good. Rhythm: Sinus. Rates: 24 1 27 with a mean of 70 bpm. Ectopy: None. Asymptomatic 3.1 seconds sinus pause with junctional escape beat noted. Symptoms: Lightheaded, dizzy, which correlated with sinus rhythm with a rate of 67 bpm. Short of breath, which correlated with sinus rhythm with a rate of 66 bpm. Please feel free to contact me with any questions, thank you. Procedure Note Provider, MD Michel - 08/25/2017 Gino Cunningham underwent cardiac monitoring with a 14 day mobile telemetry.Results are as follows: Quality of Tracings: Good. Rhythm: Sinus. Rates: 24 1 27 with a mean of 70 bpm. Ectopy: None. Asymptomatic 3.1 seconds sinus pause with junctional escapebeat noted. Symptoms: Lightheaded, dizzy, which correlated with sinus rhythm with arate of 67 bpm. Short of breath, which correlated with sinus rhythm with arate of 66 bpm. Please feel free to contact me with any questions, thank you. Hamlet Baron CD PROCEDURE/MINOR SURG ICAL ORDERABLES [facility] * IR IVC FILTER REMOVAL (10/30/2015 7:02 PM CDT) Anatomical Region Laterality Modality Other Impressions 10/30/2015 9:53 PM CDT Impression: Successful retrieval of embedded Crux IVC filter via right internal jugular vein and common femoral vein approach as described above. I Dr. Wesley was present throughout the procedure and provided the moderate sedation service. Please see nursing sedation flowsheet. I, Dr. Jacques Wesley M.D. have personally reviewed and interpreted this examination/study. This report was electronically signed by Jacques Wesley M.D. on 10/30/2015 9:53 PM . Narrative 10/30/2015 9:53 PM CDT History: 55 y.o. 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 Patient currently tolerating anticoagulation and has stable left DVT. He presents to IR for IVC filter removal. Operators: 1. Dr. Wesley, Attending Physician 2. Dr. Fuentes, Attending Physician 3. Dr. Ann, Resident Physician Anesthesia: 1. Local anesthesia - 10 ml of 1 % lidocaine 2. Intravenous Conscious Sedation (Versed 4 mg and Fentanyl 200 mcg). Procedure: 1. Initial spot radiograph of abdomen 2. Ultrasound-guided access of right internal jugular vein. 3. Inferior venacavogram. 4. Ultrasound-guided access of right common femoral vein. 5. Inferior venacavogram. 6. Removal of a Crux IVC filter using snare technique. 7. Post retrieval inferior venacavogram. Start time: 15:09, Sedation start time: 15:31, End time: 19:03 Fluoroscopic time: 50.8 minute Contrast: 180 mL of Omnipaque-240 Procedure in detail: The procedure, risks and possible complications were explained to the patient in detail, and an informed consent was obtained. The patient was placed supine on the angiographic table. The right neck was prepped and draped in the usual sterile manner. A athletic scout film of abdomen was obtained, which demonstrates an intact Crux IVC filter at the L1-L3 level. The patient was initiated intravenous conscious sedation with Versed and Fentanyl and maintained throughout the procedure. The vital signs of the patient were monitored by a qualified Radiology Nurse throughout the procedure. Limited ultrasound of right neck demonstrated a patent and compressible right internal jugular vein. A dover scale image was documented. After instillation with 1 % local lidocaine, a small incision was made in the right lower neck. Under real time ultrasound guidance, using a micropuncture needle, the right internal jugular vein was accessed. The needle entry was documented on dover scale ultrasound imaging. Following a series of exchanges, a 0.035 Amplatz wire was advanced through the right atrium into the IVC. A 10 Guamanian x 40 cm Flexor Check-Azam sheath was advanced and an inferior venacavogram was obtained. The study again revealed stable IVC filter position, patent IVC without acute thrombus or congenital abnormality, A 7 Guamanian x 45 cm Flexor Check-Azam sheath was advanced through the 10 Guamanian sheath above the level of filter apex. A 12-20 mm tri-lobed snare was introduced and used to snare the superior hook of the Crux IVC filter. Multiple attempts to advance the 7 Guamanian and 10 Guamanian sheath over the entire IVC filter was unsuccessful. The decision was made to access the right groin and try retrieving the filter below. Limited ultrasound of right groin demonstrated a patent and compressible right common femoral vein. A dover scale image was documented. After instillation with 1 % local lidocaine, a small incision was made in the right groin. Under real time ultrasound guidance, using a micropuncture needle, the right common femoral vein was accessed. The needle entry was documented on dover scale ultrasound imaging. Following a series of exchanges, a 0.035 Amplatz wire was advanced through the iliac vein into the IVC. A 10 Guamanian x 40 cm Flexor Check-Azam sheath was advanced and an inferior venacavogram was obtained. The study again revealed stable IVC filter position, patent IVC without acute thrombus or injury. A 7 Guamanian x 45 cm Flexor Check-Azam sheath was advanced through the 10 Guamanian sheath below the level of filter apex. A 12-20 mm tri- lobed snare was introduced and used to snare the inferior hook of the Crux IVC filter. Multiple attempts to advance the 7 Guamanian and 10 Guamanian sheath over the entire IVC filter were again unsuccessful. The 10 Guamanian sheath was exchanged for an 11 Guamanian Cook sheath. The mid body of the filter was noted to embedded along the posterior wall. A 7 Guamanian sheath was again advanced through the 10 Guamanian right IJ sheath above the filter apex. A snare was used to capture the filter superior filter hook again. With the superior and inferior hooks snared and constant tension applied. The 7 Guamanian and 10 Guamanian right IJ sheaths were able to completely sheath over the Crux IVC filter. The IVC filter was removed in its entirety. Follow-up venograms were performed through the right IJ and common femoral vein sheaths. The venogram demonstrated no acute thrombus or contrast extravasation. Both sheaths were removed. Hemostasis was achieved with manual compression at the right IJ and right common femoral venotomy sites. The right neck and right groin incision sites were closed with Dermabond and Steri-strips and sterile dressing were applied. The patient tolerated the procedure well and was transferred to holding area in stable condition. There were no immediate complications associated with the procedure. Procedure Note Jacques Wesley MD - 06/17/2017 History: 55 y.o. 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 Patient currently tolerating anticoagulation and hasstable left DVT. He presents to IR for IVC filter removal. Operators: 1. Dr. Wesley, Attending Physician 2. Dr. Fuentes, Attending Physician 3. Dr. Ann, Resident Physician Anesthesia: 1. Local anesthesia - 10 ml of 1 % lidocaine 2. Intravenous Conscious Sedation (Versed 4 mg and Fentanyl 200 mcg). Procedure: 1. Initial spot radiograph of abdomen 2. Ultrasound-guided access of right internal jugular vein. 3. Inferior venacavogram. 4. Ultrasound-guided access of right common femoral vein. 5. Inferior venacavogram. 6. Removal of a Crux IVC filter using snare technique. 7. Post retrieval inferior venacavogram. Start time: 15:09, Sedation start time: 15:31, End time: 19:03 Fluoroscopic time: 50.8 minute Contrast: 180 mL of Omnipaque-240 Procedure in detail: The procedure, risks and possible complications wereexplained to the patient in detail, and an informed consent was obtained.The patient was placed supine on the angiographic table. The right neckwas prepped and draped in the usual sterile manner. A athletic scout film of abdomen was obtained, whichdemonstrates an intact Crux IVC filter at the L1-L3 level. The patient was initiated intravenous conscious sedation with Versed andFentanyl and maintained throughout the procedure. The vital signs of thepatient were monitored by a qualified Radiology Nurse throughout theprocedure. Limited ultrasound of right neck demonstrated a patent and compressibleright internal jugular vein. A dover scale image was documented. Afterinstillation with 1 % local lidocaine, a small incision was made in theright lower neck. Under real time ultrasound guidance, using a micropuncture needle, the right internaljugular vein was accessed. The needle entry was documented on dover scaleultrasound imaging. Following a series of exchanges, a 0.035 Amplatz wirewas advanced through the right atrium into the IVC. A 10 Guamanian x 40 cm Flexor Check-Azam sheath was advanced and an inferiorvenacavogram was obtained. The study again revealed stable IVC filterposition, patent IVC without acute thrombus or congenital abnormality, A 7 Guamanian x 45 cm Flexor Check-Azam sheath was advanced through the 10French sheath above the level of filter apex. A 12-20 mm tri-lobed snarewas introduced and used to snare the superior hook of the Crux IVC filter.Multiple attempts to advance the 7 Guamanian and 10 Guamanian sheath over the entire IVC filter was unsuccessful. The decision was made to access the right groin and try retrieving thefilter below. Limited ultrasound of right groin demonstrated a patent andcompressible right common femoral vein. A dover scale image wasdocumented. After instillation with 1 % local lidocaine, a small incision was made in the right groin. Under realtime ultrasound guidance, using a micropuncture needle, the right commonfemoral vein was accessed. The needle entry was documented on dover scaleultrasound imaging. Following a series of exchanges, a 0.035 Amplatz wire was advanced through the iliacvein into the IVC. A 10 Guamanian x 40 cm Flexor Check-Azam sheath was advanced and an inferiorvenacavogram was obtained. The study again revealed stable IVC filterposition, patent IVC without acute thrombus or injury. A 7 Guamanian x 45 cmFlexor Check-Azam sheath was advanced through the 10 Guamanian sheath below the level of filter apex. A 12-20 mmtri-lobed snare was introduced and used to snare the inferior hook of theCrux IVC filter. Multiple attempts to advance the 7 Guamanian and 10 Frenchsheath over the entire IVC filter were again unsuccessful. The 10 Guamanian sheath was exchanged for an 11French Cook sheath. The mid body of the filter was noted to embedded alongthe posterior wall. A 7 Guamanian sheath was again advanced through the 10 Guamanian right IJ sheathabove the filter apex. A snare was used to capture the filter superiorfilter hook again. With the superior and inferior hooks snared andconstant tension applied. The 7 Guamanian and 10 Guamanian right IJ sheaths were able to completely sheath over theCrux IVC filter. The IVC filter was removed in its entirety. Follow-up venograms wereperformed through the right IJ and common femoral vein sheaths. Thevenogram demonstrated no acute thrombus or contrast extravasation. Both sheaths were removed. Hemostasis was achieved with manual compressionat the right IJ and right common femoral venotomy sites. The right neckand right groin incision sites were closed with Dermabond and Steri-stripsand sterile dressing were applied. The patient tolerated the procedure well and was [facility] condition. There were no immediate complicationsassociated with the procedure. IMPRESSION Impression: Successful retrieval of embedded Crux IVC filter via rightinternal jugular vein and common femoral vein approach as describedabove. I Dr. Wesley was present throughout the procedure and provided the moderatesedation service. Please see nursing sedation flowsheet. I, Dr. Jacques Wesley M.D. have personally reviewed and interpreted thisexamination/study. This report was electronically signed by Jacques Wesley M.D. on 10/30/20159:53 PM . Mack Harp MD IR ORDERABLES * PT-INR U (10/30/2015 12:48 PM CDT) Only the most recent of3 resultswithin the time period is included. PT 13.1 12.1 - 14.8 Seconds [facility] INR 1.0 See Comment [facility] Comment: Suggested therapeutic range for low-intensity coumadin therapy for venous thromboembolism prophylaxis is an INR of 2.0-3.0. For high risk patients (Mitral Valve Prosthesis, Atrial Fibrillation, history of TIA/stroke), suggested prophylactic therapeutic range is an INR of 2.5-3.5. Blood specimen (specimen) BLOOD SPECIMEN / Unknown 10/30/2015 12:48 PM CDT 10/30/2015 12:57 PM CDT Narrative [facility] - 10/30/2015 1:13 PM CDT Is patient on Heparin, Argatroban or Dabigatran?->N Silver Kim MD LAB - COAGULATION OR DERABLES [address] [phone] * (ABNORMAL) DIFFERENTIAL MANUAL (07/14/2015 11:30 AM CDT) Only the most recent of2 resultswithin the time period is included. WBC (corrected for NRBC) 8.1 10 3/uL [facility] Total Cell Count 100 [facility] Neutrophils Absolute Manual 5.59 1.60 - 7.00 10 3/uL [facility] Comment:(BANDS+SEGS) x WBC = NEUT # (ANC) Lymphocyte Absolute Manual 1.05 0.80 - 2.90 10 3/uL [facility] Monocytes Absolute Manual 1.30(H) 0.14 - 0.66 10 3/uL [facility] Eosinophils Absolute Manual 0.08 0.00 - 0.22 10 3/uL [facility] Neutrophil % Manual 69(H) 30 - 60 % [facility] Lymphocyte % Manual 13(L) 20 - 45 % [facility] Monocytes % Manual 16(H) 2 - 10 % [facility] Eosinophils % Manual 1 1 - 6 % [facility] Atypical Lymphocyte % Manual 1(H) 0 % [facility] Platelet Estimate Adequate Adequate [facility] RBC Morphology Normal [facility] Blood specimen (specimen) BLOOD SPECIMEN / Unknown 07/14/2015 11:30 AM CDT 07/14/2015 12:10 PM CDT Henry Díaz MD LAB - HEMATOLOGY ORD ERABLES [address] [phone] * FACTOR V LEIDEN MUTATION PANEL (07/13/2015 12:00 PM CDT) Specimen Type Whole Blood [facility] ([employer]) Factor V Leiden R506Q Mutation Negative [facility] ([employer]) Comment: Indication for testing: Assess genetic risk for thrombosis. NEGATIVE: The factor V Leiden mutation, R506Q, was not detected. This result has been reviewed and approved by Ramon Casanova, Ph.D. BACKGROUND INFORMATION: Factor V Leiden (F5) R506Q Mutation CHARACTERISTICS: Factor V Leiden mutation is the most common cause of inherited thrombophilia and accounts for over 90 percent of activated protein C resistance. The expression of Factor V Leiden thrombophilia is impacted by coexisting genetic thrombophilic disorders, acquired thrombophilic disorders (malignancy, hyperhomocysteinemia, high factor VIII levels), and circumstances including: , oral contraceptive use, hormone replacement therapy, selective estrogen receptor modulators, travel, central venous catheters, surgery, transplantation and advanced age. INCIDENCE: Approximately 5 percent of Caucasians, 2 percent of Hispanics, 1 percent of Americans and [place] Americans and 0.5 percent of Asians are heterozygous; homozygosity occurs in 1 in 5000 individuals. INHERITANCE: Incomplete autosomal dominant. PENETRANCE: Lifetime risk of thrombosis is 10 percent for heterozygotes and 80 percent of homozygotes. CAUSE: A deleterious F5 gene mutations R506Q ([id number]) Note: Standardized nomenclature for the Factor V Leiden mutation is c.[id number] (p.[id number]). CLINICAL SENSITIVITY AND SPECIFICITY: 99 percent. METHODOLOGY: Polymerase chain reaction and fluorescence monitoring. ANALYTICAL SENSITIVITY AND SPECIFICITY: 99 percent. LIMITATIONS: Diagnostic errors can occur due to rare sequence variations. F5 gene mutations, other than R506Q, will not be detected. Test developed and characteristics determined by [employer]. See Compliance Statement C: Bplats.Cubicle/CS Blood specimen (specimen) BLOOD SPECIMEN / Unknown 07/13/2015 12:00 PM CDT 07/13/2015 12:03 PM CDT Henry Díaz MD LAB - COAGULATION OR DERABLES [facility] (BEAKER) * TYPE + SCREEN PANEL (07/13/2015 2:45 AM CDT) Typem A POS [facility] Antibody Screen NEG [facility] Blood specimen (specimen) 07/13/2015 2:45 AM CDT 07/13/2015 3:25 AM CDT Henry Díaz MD LAB - BLOOD BANK ORD ERABLES [facility] [address] * (ABNORMAL) LACTIC ACID BLOOD (07/12/2015 7:47 AM CDT) Only the most recent of3 resultswithin the time period is included. Lactic Acid-Stat 3.9(H) 0.5 - 2.2 mmol/L [facility] Blood specimen (specimen) BLOOD SPECIMEN / Unknown 07/12/2015 7:47 AM CDT 07/12/2015 7:51 AM CDT Sarah Cotton MD LAB - CHEMISTRY NEDA ELLIOTT [address] [phone] * TROPONIN I (07/12/2015 7:08 AM CDT) Only the most recent of5 resultswithin the time period is included. Troponin I <0.010 <0.032 ng/mL [facility] Blood specimen (specimen) BLOOD SPECIMEN / Unknown 07/12/2015 7:08 AM CDT 07/12/2015 8:34 AM CDT Sarah Cotton MD LAB - CHEMISTRY NEDA ELLIOTT Performing Organization Address [facility] Co de Phone Number [address] [phone] * LIPASE BLOOD (07/12/2015 7:08 AM CDT) Only the most recent of2 resultswithin the time period is included. Lipase 22 8 - 78 Units/L [facility] Blood specimen (specimen) BLOOD SPECIMEN / Unknown 07/12/2015 7:08 AM CDT 07/12/2015 8:34 AM CDT Sarah Cotton MD LAB - CHEMISTRY NEDA ELLIOTT Performing Organization Address City/[facility]/ZIP Co de Phone Number [address] [phone] * (ABNORMAL) CK + CKMB PANEL (07/12/2015 7:08 AM CDT) Only the most recent of3 resultswithin the time period is included. Pathologist [facility] CK Total 215(H) 30 - 200 Units/L [facility] CK-MB 2.1 0.0 - 6.6 ng/mL [facility] Blood specimen (specimen) BLOOD SPECIMEN / Unknown 07/12/2015 7:08 AM CDT 07/12/2015 8:34 AM CDT Sarah Cotton MD LAB - CHEMISTRY NEDA ELLIOTT [address] [phone] * HELICOBACTER PYLORI ANTIBODY IGA (05/19/2015 11:58 AM FLAG CAR DRIVER) [facility] Helicobacter pylori Antibody IgA <9.0 0.0 - 8.9 units [facility] ([facility]) Comment: Negative <9.0 Equivocal 9.0 - 11.0 Positive >11.0 Blood specimen (specimen) BLOOD SPECIMEN / Unknown 05/19/2015 11:58 AM FLAG CAR DRIVER 05/19/2015 1:16 PM FLAG CAR DRIVER Narrative [facility] ([facility]) - 05/21/2015 1:14 PM FLAG CAR DRIVER Performed at: [facility] [id number] Jazz Singer: Dave Tarango PhD, Phone: [phone] Hugo Edmondson MD LAB - SEROLOGY ORDER HALIE Performing Organization Address City/[facility]/ZIP Co de Phone Number [facility] ([facility]) * HELICOBACTER PYLORI ANTIBODY IGG (05/19/2015 11:58 AM FLAG CAR DRIVER) [facility] Helicobacter pylori Antibody IgG <0.9 0.0 - 0.8 U/mL [facility] ([facility] Comment: Negative <0.9 Indeterminate 0.9 - 1.0 Positive >1.0 Blood specimen (specimen) BLOOD SPECIMEN / Unknown 05/19/2015 11:58 AM FLAG CAR DRIVER 05/19/2015 1:16 PM FLAG CAR DRIVER Narrative [facility] ([facility] - 05/20/2015 3:23 PM FLAG CAR DRIVER Performed at: [address] [place] [id number] Jazz Singer: Dave Tarango PhD, Phone: [phone] Hugo Edmondson MD LAB - CHEMISTRY ORDE EARL Performing Organization Address [facility] Co de Phone Number [facility]) * HELICOBACTER PYLORI ANTIBODY IGM (05/19/2015 11:58 AM FLAG CAR DRIVER) Pathologist [facility] Helicobacter pylori Antibody IgM <9.0 0.0 - 8.9 units [facility] ([facility]) Comment: Negative <9.0 Equivocal 9.0 - 11.0 Positive >11.0 This test was developed and its performance characteristics determined by [facility]. It has not been cleared or approved by the Food and Drug Administration. Results of this test are for investigational purposes only. The result should not be used as a diagnostic procedure without confirmation of the diagnosis by another medically diagnostic product or procedure. Blood specimen (specimen) BLOOD SPECIMEN / Unknown 05/19/2015 11:58 AM FLAG CAR DRIVER 05/19/2015 1:16 PM FLAG CAR DRIVER Narrative [facility] ([facility]) - 05/20/2015 5:15 PM FLAG CAR DRIVER Performed at: [address] [place] [address] [id number] Jazz Singer: Dave Tarango PhD, Phone: [phone] Hugo Edmondson MD LAB - SEROLOGY ORDER HALIE Performing Organization Address [facility] Co de Phone Number [facility]) * PTT SLU (05/07/2015 3:44 AM FLAG CAR DRIVER) Only the most recent of19 resultswithin the time period is included. Pathologist [facility] APTT 30.1 23.0 - 38.4 Seconds [facility] Comment:Suggested therapeuti c range for full dose I.V. heparin therapy for venous thromboembolism is 66.0-91.0 seconds. Blood specimen (specimen) BLOOD SPECIMEN / Unknown 05/07/2015 3:44 AM FLAG CAR DRIVER 05/07/2015 3:44 AM FLAG CAR DRIVER Narrative [facility] - 05/07/2015 4:09 AM FLAG CAR DRIVER Is patient on Heparin, Argatroban or Dabigatran?->N Thom Shelley MD LAB - COAGULATION OR DERABLES Performing Organization Address [facility] Co de Phone Number [address] [phone] * D-DIMER (05/07/2015 3:44 AM FLAG CAR DRIVER) D-Dimer Quantitative 0.35 <=0.50 mcg/mL FEU [facility] Comment: In the absence of clinical symptoms, a value less than or equal to 0.5 mcg/mL FEU significantly decreases the probability of PE/DVT (negative predictive value >95%). 1 mcg/mL FEU = 1 Fibrinogen Equivalent Unit (approximates 0.5 mcg/ml of D- Dimer). Blood specimen (specimen) BLOOD SPECIMEN / Unknown 05/07/2015 3:44 AM FLAG CAR DRIVER 05/07/2015 3:44 AM FLAG CAR DRIVER Thom Shelley MD LAB - COAGULATION OR DERABLES Performing Organization Address [facility] Co de Phone Number [address] [phone] * CT ANGIO AORTA FOR DISSECTION (05/07/2015 3:31 AM FLAG CAR DRIVER) Anatomical Region Laterality Modality Other Impressions 05/07/2015 8:57 AM FLAG CAR DRIVER IMPRESSION: 1. No acute aortic dissection, intramural hematoma, penetrating atherosclerotic ulcer, or aneurysm. Interval resolution of the previously seen large bilateral pulmonary emboli. 2. Cholelithiasis without CT evidence of acute cholecystitis. Report dictated by Tanya Mi M.D. (International Project Manager) I, Dr. SHIRLEY RICH M.D. have personally reviewed and interpreted this examination/study. This report was electronically signed by SHIRLEY RICH M.D. on 05/07/2015 8:57 AM . Narrative 05/07/2015 8:57 AM FLAG CAR DRIVER EXAMINATION: Computed tomography (CT) of the chest, abdomen, and pelvis without and with contrast HISTORY: Chest Pain TECHNIQUE: CT of the chest, abdomen, and pelvis was performed prior to and following the uneventful administration of 100 mL of Omnipaque 350 intravenous contrast according to an angiogram dissection protocol. COMPARISON: Comparison is made with the prior CT study of the chest dated 01/28/2015. FINDINGS: Vascular: There is no acute aortic dissection, intramural hematoma, penetrating atherosclerotic ulcer, or aneurysm. 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 There is moderate atherosclerotic calcification of the distal aorta and coronary arteries. The ascending thoracic aorta is mildly ectatic measuring 4 cm in AP dimension. The main pulmonary artery is nondilated without evidence of filling defects. The previous bilateral pulmonary emboli have resolved. The celiac, superior mesenteric, and inferior mesenteric arteries appear normal. The bilateral renal arteries appear normal. An accessory left renal arteries present supplying the inferior pole of the left kidney. Other than mild atherosclerotic calcifications, the common, external, and internal iliac arteries appear normal. Chest: The lungs are clear of focal consolidation. No pleural effusion or focal pleural thickening is identified. There is no evidence of pneumothorax. No suspicious pulmonary nodules are seen. The trachea is patent and midline. The heart size is normal. No pericardial effusion is present. No mediastinal, hilar, supraclavicular, or axillary lymphadenopathy is seen. The thyroid gland enhances homogenously. Abdomen & Pelvis: Within the limits of an arterial phase exam, no focal lesions are seen within the liver or spleen. Cholelithiasis is redemonstrated. Otherwise the gallbladder is normal without evidence of wall thickening or pericholecystic fluid. The intrahepatic and extrahepatic bile ducts are nondilated. There is mild fatty atrophy of the pancreas. The adrenal glands are normal. The kidneys enhance symmetrically. There is no evidence of renal calculi, hydronephrosis, or hydroureter. The esophagus and stomach appear normal. The small bowel and large bowel are normal in caliber without evidence of wall thickening or obstruction. The appendix is not visualized; however, no inflammatory changes are seen in the right lower quadrant. No free air or free fluid is identified within the abdomen. There is no abdominal or pelvic lymphadenopathy. The bladder is nondistended and appears normal. The prostate is present. No free fluid is seen within the pelvis. Osseous: Bone windows demonstrate no suspicious lytic or blastic lesions. The visible osseous structures are intact. Multilevel degenerative changes are noted in the spine. Procedure Note Patrizia Rich MD - 06/17/2017 EXAMINATION: Computed tomography (CT) of the chest, abdomen, and pelviswithout and with contrast HISTORY: Chest Pain TECHNIQUE: CT of the chest, abdomen, and pelvis was performed prior to andfollowing the uneventful administration of 100 mL of Omnipaque 350intravenous contrast according to an angiogram dissection protocol. COMPARISON: Comparison is made with the prior CT study of the chest dated103/30/2014. FINDINGS: Vascular: There is no acute aortic dissection, intramural hematoma, penetratingatherosclerotic ulcer, or aneurysm. There is a left-sided three-vesselaortic arch. There is moderate atherosclerotic calcification of the distalaorta and coronary arteries. The ascending thoracic aorta is mildly ectatic measuring 4 cm in AP dimension.The main pulmonary artery is nondilated without evidence of fillingdefects. The previous bilateral pulmonary emboli have resolved. Theceliac, superior mesenteric, and inferior mesenteric arteries appear normal. The bilateral renal arteries appearnormal. An accessory left renal arteries present supplying the inferiorpole of the left kidney. Other than mild atherosclerotic calcifications,the common, external, and internal iliac arteries appear normal. Chest: The lungs are clear of focal consolidation. No pleural effusion or focalpleural thickening is identified. There is no evidence of pneumothorax. Nosuspicious pulmonary nodules are seen. The trachea is patent andmidline. The heart size is normal. No pericardial effusion is present. Nomediastinal, hilar, supraclavicular, or axillary lymphadenopathy is seen.The thyroid gland enhances homogenously. Abdomen & Pelvis: Within the limits of an arterial phase exam, no focal lesions are seenwithin the liver or spleen. Cholelithiasis is redemonstrated. Otherwisethe gallbladder is normal without evidence of wall thickening orpericholecystic fluid. The intrahepatic and extrahepatic bile ducts are nondilated. There is mild fatty atrophy of thepancreas. The adrenal glands are normal. The kidneys enhancesymmetrically. There is no evidence of renal calculi, hydronephrosis, orhydroureter. The esophagus and stomach appear normal. The small bowel and large bowelare normal in caliber without evidence of wall thickening or obstruction.The appendix is not visualized; however, no inflammatory changes are seenin the right lower quadrant. No free air or free fluid is identified within the abdomen. There is noabdominal or pelvic lymphadenopathy. The bladder is nondistended and appears normal. The prostate is present.No free fluid is seen within the pelvis. Osseous: Bone windows demonstrate no suspicious lytic or blastic lesions. Thevisible osseous structures are intact. Multilevel degenerative changes arenoted in the spine. IMPRESSION IMPRESSION: 1. No acute aortic dissection, intramural hematoma, penetratingatherosclerotic ulcer, or aneurysm. Interval resolution of the previouslyseen large bilateral pulmonary emboli. 2. Cholelithiasis without CT evidence of acute cholecystitis. Report dictated by Tanya Mi M.D. (International Project Manager) I, Dr. SHIRLEY RICH M.D. have personally reviewed and interpreted thisexamination/study. This report was electronically signed by SHIRLEY RICH M.D. on05/07/2015 8:57 AM . Thom Shelley MD CT ORDERABLES * B-TYPE NATRIURETIC PEPTIDE (05/07/2015 2:53 AM FLAG CAR DRIVER) Only the most recent of2 resultswithin the time period is included. BNP 14 See Comment pg/mL [facility] Comment: A decision threshold of 100 pg/mL has been demonstrated to provide the maximal combination of sensitivity, specificity and predictive value for the diagnosis of congestive heart failure (CHF). Virtually all patients with no evidence of CHF have BNP values less than 100 pg/mL. A BNP value greater than 100 pg/mL is consistent with the diagnosis of CHF in the appropriate clinical setting. In a study of 693 patients (male and female) with diagnosed CHF, the following values were determined based on the NYHA functional classification system: NYHA Functional Class Mean Valule (pg/mL) % >100 pg/mL I 320 58.1 II 432 73.0 III 656 79.0 IV 1635 98.3 Blood specimen (specimen) BLOOD SPECIMEN / Unknown 05/07/2015 2:53 AM FLAG CAR DRIVER 05/07/2015 3:04 AM FLAG CAR DRIVER Thom Shelley MD LAB - CHEMISTRY [facility] Organization Address City/State/ZIP Co de Phone Number [address] [phone] * XR CHEST 2VW (05/06/2015 10:30 AM FLAG CAR DRIVER) Anatomical Region Laterality Modality Chest Other Impressions 05/06/2015 5:43 PM FLAG CAR DRIVER Impression: No acute pulmonary process. Dictated by Antione Jha MD This report was approved by Kervin Jha on 05/06/2015 5:[address] BERTIN Grimes MD have personally reviewed and interpreted this examination/study. This report was electronically signed by BERTIN CLARKE MD on 05/06/2015 5:43 PM . Narrative 05/06/2015 5:43 PM FLAG CAR DRIVER Exam: XR CHEST PA AND LATERAL Date: 05/06/2015 10:32 AM History: History of PE Comparison: 01/28/2015 Findings: There is no consolidation, pleural effusion, or pneumothorax. The cardiomediastinal silhouette is normal. Diffuse idiopathic skeletal hyperostosis is seen in the thoracic spine. Procedure Note Bertin Clarke MD - 06/17/2017 Exam: XR CHEST PA AND LATERAL Date: 05/06/2015 10:32 AM History: History of PE Comparison: 01/28/2015 Findings: There is no consolidation, pleural effusion, or pneumothorax. Thecardiomediastinal silhouette is normal. Diffuse idiopathic skeletalhyperostosis is seen in the thoracic spine. IMPRESSION Impression: No acute pulmonary process. Dictated by Antione Jha MD This report was approved by Kervin Jha on 05/06/2015 5:[address] BERTIN Grimes MD have personally reviewed and interpreted thisexamination/study. This report was electronically signed by BERTIN CLARKE MD on 05/06/20155:43 PM . Mack Harp MD DIAGNOSTIC IMAG ING ORDERABLES * CT HEAD WO CONTRAST (02/11/2015 9:46 AM FLAG CAR DRIVER) Anatomical Region Laterality Modality Head Other Impressions 02/11/2015 10:53 AM FLAG CAR DRIVER IMPRESSION: 1. No acute intracranial process. This report was approved by Ar Erazo on 02/11/2015 10:[address] AMOS Grimes M.D. have personally reviewed and interpreted this examination/study. This report was electronically signed by AMOS JAY M.D. on 02/11/2015 10:53 AM . Narrative 02/11/2015 10:53 AM FLAG CAR DRIVER EXAMINATION: Computed tomography (CT) of the head without contrast HISTORY: Dizziness, recent history of submassive pulmonary embolus TECHNIQUE: CT of the head was performed without contrast according to standard protocol. FINDINGS: No prior study is available for comparison. No acute intra- or extra-axial fluid collections are identified. The ventricles are of normal size, shape, and morphology. The basilar cisterns are patent. No mass effect or midline shift is seen. The dover-white matter differentiation is normal. The visualized portions of the orbits, paranasal sinuses, and mastoids appear normal. No acute fracture is identified. Procedure Note Amos Jay MD - 06/17/2017 EXAMINATION: Computed tomography (CT) of the head without contrast HISTORY: Dizziness, recent history of submassive pulmonary embolus TECHNIQUE: CT of the head was performed without contrast according tostandard protocol. FINDINGS: No prior study is available for comparison. No acute intra- or extra-axial fluid collections are identified. Theventricles are of normal size, shape, and morphology. The basilar cisternsare patent. No mass effect or midline shift is seen. The dover-white matterdifferentiation is normal. The visualized portions of the orbits, paranasal sinuses, and mastoids appearnormal. No acute fracture is identified. IMPRESSION IMPRESSION: 1. No acute intracranial process. This report was approved by Ar Erazo on 02/11/2015 10:[address] AMOS Grimes M.D. have personally reviewed and interpreted thisexamination/study. This report was electronically signed by AMOS JAY M.D. on02/11/2015 10:53 AM . Mack Harp MD CT ORDERABLES * PROTHROMBIN [id number] PANEL (02/02/2015 5:29 PM FLAG CAR DRIVER) PT PCR Specimen Whole Blood [facility] ([place]) Prothrombin (F2) [id number] Mutation Negative [facility] Comment: Indication for testing: Assess genetic risk for thrombosis. NEGATIVE: The Factor II, prothrombin [id number] mutation, was not detected. Other causes of elevated prothrombin levels and hereditary forms of venous thrombosis have not been excluded. Recommendations: If clinically indicated, testing for other inherited or acquired thrombophilic disorders is recommended including DNA testing for the factor V Leiden mutation, measurement of total plasma homocysteine concentration, serological assays for anticardiolipin antibodies, multiple phospholipid-dependent coagulation assays for lupus inhibitor, protein C activity, protein S activity or free protein S antigen, and antithrombin activity. This result has been reviewed and approved by Shruti Ramos M.D., Ph.D. 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 The expression of Factor II thrombophilia is impacted by coexisting genetic thrombophilic disorders, acquired thrombophilic disorders (eg malignancy, hyperhomocysteinemia, high Factor VIII levels), and circumstances including: , oral contraceptive use, hormone replacement therapy, selective estrogen receptor modulators, travel, central venous catheters, surgery, and organ transplantation. INCIDENCE: Approximately 2-5 percent of Caucasians and 0.3 percent of Americans are heterozygous; homozygosity occurs in 1 in 10,000 individuals. INHERITANCE: Incomplete autosomal dominant. PENETRANCE: The risk of thrombosis is increased 2-4 fold for heterozygotes and further increased for homozygotes. CAUSE: Homozygosity or heterozygosity for F2 c.03986E>A (W72588H). MUTATION TESTED: F2 c.01140T>A ([id number]). CLINICAL SENSITIVITY FOR VENOUS THROMBOSIS: Approximately 10 percent. METHODOLOGY: Polymerase chain reaction and fluorescence monitoring. ANALYTICAL SENSITIVITY AND SPECIFICITY: 99 percent. LIMITATIONS: Diagnostic errors can occur due to rare sequence variations. F2 gene mutations, other than [id number], will not be detected. Test developed and characteristics determined by [employer]. See Compliance Statement C: [employer]pl[employer]ub[employer]/CS Blood specimen (specimen) BLOOD SPECIMEN / Unknown 02/02/2015 5:29 PM FLAG CAR DRIVER 02/02/2015 5:38 PM FLAG CAR DRIVER Qi Hyde MD LAB - COAGULATION OR DERABLES [facility] ([facility]) * (ABNORMAL) BLOOD GASES ART (02/02/2015 3:30 PM FLAG CAR DRIVER) pH Arterial 7.43 7.35 - 7.45 [facility] pCO2 Arterial 33(L) 35 - 45 mmHg [facility] pO2 Arterial 93 77 - 101 mmHg [facility] HCO3 Arterial 21.6(L) 22.0 - 26.0 mmol/L [facility] TCO2 Arterial 22.6(L) 25.0 - 29.0 mmol/L [facility] Base Excess Arterial -2.1(L) -2.0 - 2.0 mmol/L [facility] Hemoglobin Arterial 12.5(L) 13.5 - 17.5 g/dL [facility] Oxyhemoglobin Arterial 96.0 95.0 - 100.0 % [facility] Carboxyhemoglobin 0.3 0.0 - 3.0 % [facility] Methemoglobin 0.2 0.0 - 2.0 % [facility] FI O2 Arterial 21.0 % [facility] Blood specimen (specimen) BLOOD SPECIMEN / Unknown 02/02/2015 3:30 PM FLAG CAR DRIVER 02/02/2015 3:35 PM FLAG CAR DRIVER Narrative [facility] - 02/02/2015 3:40 PM FLAG CAR DRIVER FIO2->21 Qi Hyde MD LAB - BLOOD GASES OR DERABLES [address] [phone] * (ABNORMAL) PHOSPHORUS BLOOD (02/02/2015 4:15 AM FLAG CAR DRIVER) Only the most recent of6 resultswithin the time period is included. Phosphorus 5.2(H) 2.3 - 4.7 mg/dL [facility] Blood specimen (specimen) BLOOD SPECIMEN / Unknown 02/02/2015 4:15 AM FLAG CAR DRIVER 02/02/2015 4:22 AM FLAG CAR DRIVER Qi Hyde MD LAB - CHEMISTRY [facility] Performing Organization Address City/[facility]/[place] [address], [facility] [phone] * MAGNESIUM BLOOD (02/02/2015 4:15 AM FLAG CAR DRIVER) Only the most recent of6 resultswithin the time period is included. Magnesium 2.5 1.6 - 2.6 mg/dL [facility] Blood specimen (specimen) BLOOD SPECIMEN / Unknown 02/02/2015 4:15 AM FLAG CAR DRIVER 02/02/2015 4:22 AM FLAG CAR DRIVER Qi Hyde MD LAB - CHEMISTRY [facility] Performing Organization Address [facility] Co de Phone Number [address] [phone] * IR THROMBOLYSIS RECHECK (01/30/2015 12:05 PM FLAG CAR DRIVER) Anatomical Region Laterality Modality Other Impressions 02/03/2015 3:40 PM FLAG CAR DRIVER Impression: 1. Bilateral pulmonary arterial angiogram demonstrating near complete resolution in clot burden in the bilateral pulmonary arteries. MPA pressure dropped from 44 to 28 mmHg. 2. Removal of bilateral pulmonary arterial thrombolytic infusion catheters. 3. A crux IVC filter was placed below the level of renal veins, via right common femoral vein, under fluoroscopic guidance as described above. Note: It is recommended to retrieve the temporary IVC filter within 3 months, if it is no longer needed. Otherwise, it potentially becomes irretrievable and permanent. Silver Grimes performed/was present throughout the procedure and provided the moderate sedation service. Please see nursing flow chart for more details. . This report was approved by Monroe Linares on 01/30/2015 2:[address] SILVER Grimes M.D. have personally reviewed and interpreted this examination/study. This report was electronically signed by SILVER KIM M.D. on 01/30/2015 5:45 PM . Narrative 02/03/2015 3:40 PM FLAG CAR DRIVER History: Patient has submassive PE with significant clot burden and RV strain that underwent ultrasound assisted thrombolysis over night. No significant issue but positional back pain. Patient presents for cessation of PE thrombolysis follow up angiogram and removal of bilateral EKOS infusion catheters. Will also place IVC filter to prevent further embolism of left dvt into the lungs. Operators: 1. Dr. Silver Kim, Attending Physician 2. Dr. Monroe Linares, IR fellow Physician Anesthesia: 1. Intravenous Conscious Sedation (Versed 2 mg and Fentanyl 100 mcg). Procedure: 1. Bilateral pulmonary arterial angiogram. 2. Removal over the wire of bilateral ultrasound assisted thrombolytic catheters in the pulmonary arteries. 3. Inferior venacavogram. 4. Deployment of a Crux IVC filter below the level of renal veins. 5. Post deployment sheath inferior venacavogram. Start time:1104 Sedation Initiated Time: 1141 End Time: 1210 Fluoroscopic time: 6.7 minute Contrast: 60 mL of Omnipaque-240 Procedure in detail: The procedure, risks and possible complications were explained to the patient in detail, and an informed consent was obtained. The patient was placed supine on the angiographic table. The right groin was prepped and draped in the usual sterile manner. Card Seller view of the chest demonstrated bilateral pulmonary arterial thrombolytic infusion catheters in place. A athletic scout film of abdomen was obtained, which was unremarkable. The patient was initiated intravenous conscious sedation with Versed and Fentanyl and maintained throughout the procedure. The vital signs of the patient were monitored by a qualified Radiology Nurse throughout the procedure. 0.035 Amplatz wire was advanced through the right pulmonary arterial thrombolytic catheter. Over the wire the thrombolytic catheter was exchanged for a 5 Guamanian Omni Flush catheter. The Omni flush catheter was parked in the main pulmonary artery and bilateral pulmonary arterial angiogram score performed. Pulmonary arterial angiogram demonstrated significant decrease in clot burden bilaterally in the pulmonary arteries post overnight ultrasound assisted thrombolysis. Therefore at this time it was decided to remove the bilateral pulmonary arterial infusion catheters. The the Omni Flush catheter was retracted into the inferior vena cava above the iliac veins and an inferior venacavogram was obtained. The study revealed patent IVC without any clot burden or congenital abnormality. 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 The level of both renal veins was studied. The catheter was removed over a wire and through the indwelling 12 Guamanian common femoral venous sheath, an IVC filter delivery sheath was advanced. A crux IVC filter was deployed below the level of renal veins. A post-deployment sheath venogram of IVC, confirmed the IVC filter below the level of renal veins. The sheath was left sutured to the skin for later removal in the ICU once the effects of infusion thrombolytics have worn off to decrease the chance for hematoma post groin venous sheath removal. There were no immediate complications associated with the procedure. The patient tolerated the procedure and sedation well. The patient was transferred to ICU in stable condition. Procedure Note Silver Kim MD - 06/17/2017 History: Patient has submassive PE with significant clot burden and RVstrain that underwent ultrasound assisted thrombolysis over night. Nosignificant issue but positional back pain. Patient presents for cessationof PE thrombolysis follow up angiogram and removal of bilateral EKOS infusion catheters. Will also place IVCfilter to prevent further embolism of left dvt into the lungs. Operators: 1. Dr. Silver iKm, Attending Physician 2. Dr. Monroe Linares, IR fellow Physician Anesthesia: 1. Intravenous Conscious Sedation (Versed 2 mg and Fentanyl 100 mcg). Procedure: 1. Bilateral pulmonary arterial angiogram. 2. Removal over the wire of bilateral ultrasound assisted thrombolyticcatheters in the pulmonary arteries. 3. Inferior venacavogram. 4. Deployment of a Crux IVC filter below the level of renal veins. 5. Post deployment sheath inferior venacavogram. Start time:1104 Sedation Initiated Time: 1141 End Time: 1210 Fluoroscopic time: 6.7 minute Contrast: 60 mL of Omnipaque-240 Procedure in detail: The procedure, risks and possible complications wereexplained to the patient in detail, and an informed consent was obtained.The patient was placed supine on the angiographic table. The right groinwas prepped and draped in the usual sterile manner. Card Seller view of the chest demonstrated bilateralpulmonary arterial thrombolytic infusion catheters in place. A athletic scout filmof abdomen was obtained, which was unremarkable. The patient was initiated intravenous conscious sedation with Versed andFentanyl and maintained throughout the procedure. The vital signs of thepatient were monitored by a qualified Radiology Nurse throughout theprocedure. 0.035 Amplatz wire was advanced through the right pulmonary arterialthrombolytic catheter. Over the wire the thrombolytic catheter wasexchanged for a 5 Guamanian Omni Flush catheter. The Omni flush catheter wasparked in the main pulmonary artery and bilateral pulmonary arterial angiogram score performed. Pulmonary arterialangiogram demonstrated significant decrease in clot burden bilaterally inthe pulmonary arteries post overnight ultrasound assisted thrombolysis.Therefore at this time it was decided to remove the bilateral pulmonary arterial infusion catheters. The the Omni Flush catheter was retracted into the inferior vena cavaabove the iliac veins and an inferior venacavogram was obtained. 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 The level of both renalveins was studied. The catheter was removed over a wire and through the indwelling 12 Frenchcommon femoral venous sheath, an IVC filter delivery sheath was advanced.A crux IVC filter was deployed below the level of renal veins. Apost-deployment sheath venogram of IVC, confirmed the IVC filter below the level of renal veins. The sheath was left sutured to the skin for later removal in the ICU oncethe effects of infusion thrombolytics have worn off to decrease the chancefor hematoma post groin venous sheath removal. There were no immediate complications associated with the procedure. Thepatient tolerated the procedure and sedation well. The patient wastransferred to ICU in stable condition. IMPRESSION Impression: 1. Bilateral pulmonary arterial angiogram demonstrating near completeresolution in clot burden in the bilateral pulmonary arteries. MPApressure dropped from 44 to 28 mmHg. 2. Removal of bilateral pulmonary arterial thrombolytic infusioncatheters. 3. A crux IVC filter was placed below the level of renal veins, via rightcommon femoral vein, under fluoroscopic guidance as described above. Note: It is recommended to retrieve the temporary IVC filter within 3months, if it is no longer needed. Otherwise, it potentially becomesirretrievable and permanent. Silver Grimes performed/was present throughout the procedure andprovided the moderate sedation service. Please see nursing flow chart formore details. . This report was approved by Monroe Linares on 01/30/2015 2:[address] SILVER Grimes M.D. have personally reviewed and interpreted thisexamination/study. This report was electronically signed by SILVER KIM M.D. on01/30/2015 5:45 PM . Silver Kim MD IR ORDERABLES * IR IVC FILTER PLACEMENT (01/30/2015 12:05 PM FLAG CAR DRIVER) Anatomical Region Laterality Modality Abdomen Other Impressions 02/03/2015 3:40 PM FLAG CAR DRIVER Impression: 1. Bilateral pulmonary arterial angiogram demonstrating near complete resolution in clot burden in the bilateral pulmonary arteries. MPA pressure dropped from 44 to 28 mmHg. 2. Removal of bilateral pulmonary arterial thrombolytic infusion catheters. 3. A crux IVC filter was placed below the level of renal veins, via right common femoral vein, under fluoroscopic guidance as described above. Note: It is recommended to retrieve the temporary IVC filter within 3 months, if it is no longer needed. Otherwise, it potentially becomes irretrievable and permanent. Silver Grimes performed/was present throughout the procedure and provided the moderate sedation service. Please see nursing flow chart for more details. . This report was approved by Monroe Linares on 01/30/2015 2:07 PM . IDr. SILVER M.D. have personally reviewed and interpreted this examination/study. This report was electronically signed by SILVER KIM M.D. on 01/30/2015 5:45 PM . Narrative 02/03/2015 3:40 PM FLAG CAR DRIVER History: Patient has submassive PE with significant clot burden and RV strain that underwent ultrasound assisted thrombolysis over night. No significant issue but positional back pain. Patient presents for cessation of PE thrombolysis follow up angiogram and removal of bilateral EKOS infusion catheters. Will also place IVC filter to prevent further embolism of left dvt into the lungs. Operators: 1. Dr. Silver Kim, Attending Physician 2. Dr. Monroe Linares, IR fellow Physician Anesthesia: 1. Intravenous Conscious Sedation (Versed 2 mg and Fentanyl 100 mcg). Procedure: 1. Bilateral pulmonary arterial angiogram. 2. Removal over the wire of bilateral ultrasound assisted thrombolytic catheters in the pulmonary arteries. 3. Inferior venacavogram. 4. Deployment of a Crux IVC filter below the level of renal veins. 5. Post deployment sheath inferior venacavogram. Start time:1104 Sedation Initiated Time: 1141 End Time: 1210 Fluoroscopic time: 6.7 minute Contrast: 60 mL of Omnipaque-240 Procedure in detail: The procedure, risks and possible complications were explained to the patient in detail, and an informed consent was obtained. The patient was placed supine on the angiographic table. The right groin was prepped and draped in the usual sterile manner. Card Seller view of the chest demonstrated bilateral pulmonary arterial thrombolytic infusion catheters in place. A athletic scout film of abdomen was obtained, which was unremarkable. The patient was initiated intravenous conscious sedation with Versed and Fentanyl and maintained throughout the procedure. The vital signs of the patient were monitored by a qualified Radiology Nurse throughout the procedure. 0.035 Amplatz wire was advanced through the right pulmonary arterial thrombolytic catheter. Over the wire the thrombolytic catheter was exchanged for a 5 Guamanian Omni Flush catheter. The Omni flush catheter was parked in the main pulmonary artery and bilateral pulmonary arterial angiogram score performed. Pulmonary arterial angiogram demonstrated significant decrease in clot burden bilaterally in the pulmonary arteries post overnight ultrasound assisted thrombolysis. Therefore at this time it was decided to remove the bilateral pulmonary arterial infusion catheters. The the Omni Flush catheter was retracted into the inferior vena cava above the iliac veins and an inferior venacavogram was obtained. The study revealed patent IVC without any clot burden or congenital abnormality. 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 The level of both renal veins was studied. The catheter was removed over a wire and through the indwelling 12 Guamanian common femoral venous sheath, an IVC filter delivery sheath was advanced. A crux IVC filter was deployed below the level of renal veins. A post-deployment sheath venogram of IVC, confirmed the IVC filter below the level of renal veins. The sheath was left sutured to the skin for later removal in the ICU once the effects of infusion thrombolytics have worn off to decrease the chance for hematoma post groin venous sheath removal. There were no immediate complications associated with the procedure. The patient tolerated the procedure and sedation well. The patient was transferred to ICU in stable condition. Procedure Note Silver Kim MD - 06/17/2017 History: Patient has submassive PE with significant clot burden and RVstrain that underwent ultrasound assisted thrombolysis over night. Nosignificant issue but positional back pain. Patient presents for cessationof PE thrombolysis follow up angiogram and removal of bilateral EKOS infusion catheters. Will also place IVCfilter to prevent further embolism of left dvt into the lungs. Operators: 1. Dr. Silver Kim, Attending Physician 2. Dr. Monroe Linares, IR fellow Physician Anesthesia: 1. Intravenous Conscious Sedation (Versed 2 mg and Fentanyl 100 mcg). Procedure: 1. Bilateral pulmonary arterial angiogram. 2. Removal over the wire of bilateral ultrasound assisted thrombolyticcatheters in the pulmonary arteries. 3. Inferior venacavogram. 4. Deployment of a Crux IVC filter below the level of renal veins. 5. Post deployment sheath inferior venacavogram. Start time:1104 Sedation Initiated Time: 1141 End Time: 1210 Fluoroscopic time: 6.7 minute Contrast: 60 mL of Omnipaque-240 Procedure in detail: The procedure, risks and possible complications wereexplained to the patient in detail, and an informed consent was obtained.The patient was placed supine on the angiographic table. The right groinwas prepped and draped in the usual sterile manner. Card Seller view of the chest demonstrated bilateralpulmonary arterial thrombolytic infusion catheters in place. A athletic scout filmof abdomen was obtained, which was unremarkable. The patient was initiated intravenous conscious sedation with Versed andFentanyl and maintained throughout the procedure. The vital signs of thepatient were monitored by a qualified Radiology Nurse throughout theprocedure. 0.035 Amplatz wire was advanced through the right pulmonary arterialthrombolytic catheter. Over the wire the thrombolytic catheter wasexchanged for a 5 Guamanian Omni Flush catheter. The Omni flush catheter wasparked in the main pulmonary artery and bilateral pulmonary arterial angiogram score performed. Pulmonary arterialangiogram demonstrated significant decrease in clot burden bilaterally inthe pulmonary arteries post overnight ultrasound assisted thrombolysis.Therefore at this time it was decided to remove the bilateral pulmonary arterial infusion catheters. The the Omni Flush catheter was retracted into the inferior vena cavaabove the iliac veins and an inferior venacavogram was obtained. 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 The level of both renalveins was studied. The catheter was removed over a wire and through the indwelling 12 Frenchcommon femoral venous sheath, an IVC filter delivery sheath was advanced.A crux IVC filter was deployed below the level of renal veins. Apost-deployment sheath venogram of IVC, confirmed the IVC filter below the level of renal veins. The sheath was left sutured to the skin for later removal in the ICU oncethe effects of infusion thrombolytics have worn off to decrease the chancefor hematoma post groin venous sheath removal. There were no immediate complications associated with the procedure. Thepatient tolerated the procedure and sedation well. The patient wastransferred to ICU in stable condition. IMPRESSION Impression: 1. Bilateral pulmonary arterial angiogram demonstrating near completeresolution in clot burden in the bilateral pulmonary arteries. MPApressure dropped from 44 to 28 mmHg. 2. Removal of bilateral pulmonary arterial thrombolytic infusioncatheters. 3. A crux IVC filter was placed below the level of renal veins, via rightcommon femoral vein, under fluoroscopic guidance as described above. Note: It is recommended to retrieve the temporary IVC filter within 3months, if it is no longer needed. Otherwise, it potentially becomesirretrievable and permanent. Silver Grimes performed/was present throughout the procedure andprovided the moderate sedation service. Please see nursing flow chart formore details. . This report was approved by Monroe Linares on 01/30/2015 2:07 PM . IDr. SILVER M.D. have personally reviewed and interpreted thisexamination/study. This report was electronically signed by SILVER KIM M.D. on01/30/2015 5:45 PM . Silver Kim MD IR ORDERABLES * IR PULMONARY ANGIO PROCEDURAL CODE (01/29/2015 7:27 PM FLAG CAR DRIVER) Only the most recent of2 resultswithin the time period is included. Anatomical Region Laterality Modality Other Impressions 01/29/2015 9:38 PM FLAG CAR DRIVER Impression: 1. Right and left pulmonary angiography demonstrating right greater than left bilateral pulmonary emboli. 2. Placement of a 18 cm infusion length EKOS ultrasound assisted infusion catheter in the right descending pulmonary artery. 3. Placement of a 18 cm infusion length EKOS ultrasound assisted infusion catheter in the left descending pulmonary artery. 4. Pulmonary artery pressure was 55/22 mmHg (mean 33 mmHg) Note: Followup pulmonary arterial angiogram is recommended within 24 hours to document improvement with thrombolytic therapy. Manoj Grimes performed/was present throughout the procedure and provided the moderate sedation service. Please see the nursing sedation flowsheet. This report was approved by Monroe Linares on 01/29/2015 7:18 PM . IDr. MANOJ MD have personally reviewed and interpreted this examination/study. This report was electronically signed by MANOJ FUENTES MD on 01/29/2015 9:38 PM . Narrative 01/29/2015 9:38 PM FLAG CAR DRIVER History: 54-year-old male with history of submassive PE with significant clot burden and RV strain. Plan is for Ultrasounds Assisted Catheter Directed Thrombolysis. Initial presentation of chest pain and dyspnea to [facility]. He had a LE doppler which was reported as positive for a popliteal DVT. Patient with pulmonary hypertension. Operators: 1. Dr. Manoj Fuentes, IR Attending Physician 2. Dr. Monroe Linares, IR Fellow Physician Anesthesia: 1. Local anesthesia - 15 ml of 1% lidocaine 2. Intravenous conscious sedation - Versed 3 mg and Fentanyl 150 mcg Procedure: 1. Ultrasound-guided access of the right common femoral vein. 2. Selective catheterization of the right descending pulmonary artery and angiogram. 3. Placement of ultrasound assisted infusion catheter (EKOS) with 18 cm infusion length through the right descending pulmonary artery and administration of tPA (Alteplase) at 1 mg/hour. 4. Selective catheterization of the left descending pulmonary artery and angiogram. 5. Placement of ultrasound assisted infusion catheter (EKOS) with 18 cm infusion length through the left descending pulmonary artery and administration of tPA (Alteplase) at 1 mg/hour. Start time: 1545 End time: 1600 Sedation initiated time: 1600 Fluoroscopic time: 39.5 minutes Contrast: 70 mL of Visipaque 320 Procedure in detail: The procedure, risks and possible complications were explained to the patient in detail, and an informed consent was obtained. The patient was placed supine on the angiographic table. The right groin was prepped and draped in the usual sterile manner. Otherwise, the chest was unremarkable. The patient received intravenous Versed and Fentanyl for conscious sedation. A qualified radiology nurse monitored the patient?s vital signs throughout the procedure. Limited ultrasound of right groin demonstrated a patent and compressible right common femoral vein. A dover scale image was documented. After instillation with 1 % local lidocaine, a small incision was made in the right groin. Under real time ultrasound guidance, using a micropuncture needle, the right common femoral vein was accessed. The needle entry was documented on dover scale ultrasound imaging. Following a series of exchanges, a 0.035 inch wire was advanced into the IVC.?Over a wire after series of dilators a 12 Guamanian vascular sheath was based in the right common femoral/iliac vein. Pulmonary artery pressure was measured and was as follows: 55/20 mmHg (mean 33 mmHg) Through the 12 Guamanian vascular sheath in the right common femoral vein, Using a 5 Guamanian angled catheter and Glidewire combination the catheter was advanced into the main pulmonary artery followed by right descending pulmonary artery. Contrast injection confirmed the position of the catheter. Over a wire the ultrasound assisted the infusion catheter (EKOS) with 18 cm infusion length was advanced into the right descending pulmonary artery. Through the 12 Guamanian vascular sheath in the right common femoral vein, Using a 5 Guamanian angled catheter and Glidewire combination the catheter was advanced into the main pulmonary artery followed by left descending pulmonary artery. Contrast injection confirmed the position of the catheter. Over a wire the ultrasound assisted the infusion catheter (EKOS) with 18 cm infusion length was advanced into the left descending pulmonary artery. The 12 Guamanian vascular sheath and both thrombolytic EKOS infusion catheters were secured to the skin using Steri-Strips and sutures. TPA were infused through each of these at 1 mg/hour. Heparin infusion was administered through both sheaths per EKOS thrombolytic protocol. Normal saline was infused into the coolant ports as per protocol. The patient tolerated the procedure well and was transferred to the holding area in stable condition. There were no immediate complications associated with the procedure. Procedure Note Manoj Fuentes MD - 06/17/2017 History: 54-year-old male with history of submassive PE with significantclot burden and RV strain. Plan is for Ultrasounds Assisted CatheterDirected Thrombolysis. Initial presentation of chest pain and dyspnea [facility]. He had a LE doppler which was reported as positive for a popliteal DVT. Patient with pulmonaryhypertension. Operators: 1. Dr. Manoj Fuentes, IR Attending Physician 2. Dr. Monroe Linares, IR Fellow Physician Anesthesia: 1. Local anesthesia - 15 ml of 1% lidocaine 2. Intravenous conscious sedation - Versed 3 mg and Fentanyl 150 mcg Procedure: 1. Ultrasound-guided access of the right common femoral vein. 2. Selective catheterization of the right descending pulmonary artery andangiogram. 3. Placement of ultrasound assisted infusion catheter (EKOS) with 18 cminfusion length through the right descending pulmonary artery andadministration of tPA (Alteplase) at 1 mg/hour. 4. Selective catheterization of the left descending pulmonary artery andangiogram. 5. Placement of ultrasound assisted infusion catheter (EKOS) with 18 cminfusion length through the left descending pulmonary artery andadministration of tPA (Alteplase) at 1 mg/hour. Start time: 1545 End time: 1600 Sedation initiated time: 1600 Fluoroscopic time: 39.5 minutes Contrast: 70 mL of Visipaque 320 Procedure in detail: The procedure, risks and possible complications were explained to thepatient in detail, and an informed consent was obtained. The patient wasplaced supine on the angiographic table. The right groin was prepped anddraped in the usual sterile manner. Otherwise, the chest was unremarkable. The patient received intravenous Versed and Fentanyl for conscioussedation. A qualified radiology nurse monitored the patient?s vital signsthroughout the procedure. Limited ultrasound of right groin demonstrated a patent and compressibleright common femoral vein. A dover scale image was documented. Afterinstillation with 1 % local lidocaine, a small incision was made in theright groin. Under real time ultrasound guidance, using a micropuncture needle, the right commonfemoral vein was accessed. The needle entry was documented on dover scaleultrasound imaging. Following a series of exchanges, a 0.035 inch wire wasadvanced into the IVC.?Over a wire after series of dilators a 12 Guamanian vascular sheath was based in theright common femoral/iliac vein. Pulmonary artery pressure was measured and was as follows: 55/20 mmHg(mean 33 mmHg) Through the 12 Guamanian vascular sheath in the right common femoral vein,Using a 5 Guamanian angled catheter and Glidewire combination the catheterwas advanced into the main pulmonary artery followed by right descendingpulmonary artery. Contrast injection confirmed the position of the catheter. Over a wire the ultrasoundassisted the infusion catheter (EKOS) with 18 cm infusion length wasadvanced into the right descending pulmonary artery. Through the 12 Guamanian vascular sheath in the right common femoral vein,Using a 5 Guamanian angled catheter and Glidewire combination the catheterwas advanced into the main pulmonary artery followed by left descendingpulmonary artery. Contrast injection confirmed the position of the catheter. Over a wire the ultrasoundassisted the infusion catheter (EKOS) with 18 cm infusion length wasadvanced into the left descending pulmonary artery. The 12 Guamanian vascular sheath and both thrombolytic EKOS infusioncatheters were secured to the skin using Steri-Strips and sutures. TPAwere infused through each of these at 1 mg/hour. Heparin infusion wasadministered through both sheaths per EKOS thrombolytic protocol. Normal saline was infused into the coolant ports asper protocol. The patient tolerated the procedure well [facility] There were no immediate complicationsassociated with the procedure. IMPRESSION Impression: 1. Right and left pulmonary angiography demonstrating right greater thanleft bilateral pulmonary emboli. 2. Placement of a 18 cm infusion length EKOS ultrasound assisted infusioncatheter in the right descending pulmonary artery. 3. Placement of a 18 cm infusion length EKOS ultrasound assisted infusioncatheter in the left descending pulmonary artery. 4. Pulmonary artery pressure was 55/22 mmHg (mean 33 mmHg) Note: Followup pulmonary arterial angiogram is recommended within 24 hoursto document improvement with thrombolytic therapy. IManoj performed/was present throughout the procedure andprovided the moderate sedation service. Please see the nursing sedationflowsheet. This report was approved by Monroe Linares on 01/29/2015 7:18 PM . IDr. MANOJ MD have personally reviewed and interpreted thisexamination/study. This report was electronically signed by MANOJ FUENTES MD on 01/29/20159:38 PM . Mack Harp MD IR ORDERABLES * IR THROMBOLYSIS ARTERIAL (01/29/2015 7:27 PM FLAG CAR DRIVER) Only the most recent of2 resultswithin the time period is included. Anatomical Region Laterality Modality Other Impressions 01/29/2015 9:38 PM FLAG CAR DRIVER Impression: 1. Right and left pulmonary angiography demonstrating right greater than left bilateral pulmonary emboli. 2. Placement of a 18 cm infusion length EKOS ultrasound assisted infusion catheter in the right descending pulmonary artery. 3. Placement of a 18 cm infusion length EKOS ultrasound assisted infusion catheter in the left descending pulmonary artery. 4. Pulmonary artery pressure was 55/22 mmHg (mean 33 mmHg) Note: Followup pulmonary arterial angiogram is recommended within 24 hours to document improvement with thrombolytic therapy. Manoj Grimes performed/was present throughout the procedure and provided the moderate sedation service. Please see the nursing sedation flowsheet. This report was approved by Monroe Linares on 01/29/2015 7:18 PM . IDr. MANOJ MD have personally reviewed and interpreted this examination/study. This report was electronically signed by MANOJ FUENTES MD on 01/29/2015 9:38 PM . Narrative 01/29/2015 9:38 PM FLAG CAR DRIVER History: 54-year-old male with history of submassive PE with significant clot burden and RV strain. Plan is for Ultrasounds Assisted Catheter Directed Thrombolysis. Initial presentation of chest pain and dyspnea to [facility]. He had a LE doppler which was reported as positive for a popliteal DVT. Patient with pulmonary hypertension. Operators: 1. Dr. Manoj Fuentes, IR Attending Physician 2. Dr. Monroe Linares, IR Fellow Physician Anesthesia: 1. Local anesthesia - 15 ml of 1% lidocaine 2. Intravenous conscious sedation - Versed 3 mg and Fentanyl 150 mcg Procedure: 1. Ultrasound-guided access of the right common femoral vein. 2. Selective catheterization of the right descending pulmonary artery and angiogram. 3. Placement of ultrasound assisted infusion catheter (EKOS) with 18 cm infusion length through the right descending pulmonary artery and administration of tPA (Alteplase) at 1 mg/hour. 4. Selective catheterization of the left descending pulmonary artery and angiogram. 5. Placement of ultrasound assisted infusion catheter (EKOS) with 18 cm infusion length through the left descending pulmonary artery and administration of tPA (Alteplase) at 1 mg/hour. Start time: 1545 End time: 1600 Sedation initiated time: 1600 Fluoroscopic time: 39.5 minutes Contrast: 70 mL of Visipaque 320 Procedure in detail: The procedure, risks and possible complications were explained to the patient in detail, and an informed consent was obtained. The patient was placed supine on the angiographic table. The right groin was prepped and draped in the usual sterile manner. Otherwise, the chest was unremarkable. The patient received intravenous Versed and Fentanyl for conscious sedation. A qualified radiology nurse monitored the patient?s vital signs throughout the procedure. Limited ultrasound of right groin demonstrated a patent and compressible right common femoral vein. A dover scale image was documented. After instillation with 1 % local lidocaine, a small incision was made in the right groin. Under real time ultrasound guidance, using a micropuncture needle, the right common femoral vein was accessed. The needle entry was documented on dover scale ultrasound imaging. Following a series of exchanges, a 0.035 inch wire was advanced into the IVC.?Over a wire after series of dilators a 12 Guamanian vascular sheath was based in the right common femoral/iliac vein. Pulmonary artery pressure was measured and was as follows: 55/20 mmHg (mean 33 mmHg) Through the 12 Guamanian vascular sheath in the right common femoral vein, Using a 5 Guamanian angled catheter and Glidewire combination the catheter was advanced into the main pulmonary artery followed by right descending pulmonary artery. Contrast injection confirmed the position of the catheter. Over a wire the ultrasound assisted the infusion catheter (EKOS) with 18 cm infusion length was advanced into the right descending pulmonary artery. Through the 12 Guamanian vascular sheath in the right common femoral vein, Using a 5 Guamanian angled catheter and Glidewire combination the catheter was advanced into the main pulmonary artery followed by left descending pulmonary artery. Contrast injection confirmed the position of the catheter. Over a wire the ultrasound assisted the infusion catheter (EKOS) with 18 cm infusion length was advanced into the left descending pulmonary artery. The 12 Guamanian vascular sheath and both thrombolytic EKOS infusion catheters were secured to the skin using Steri-Strips and sutures. TPA were infused through each of these at 1 mg/hour. Heparin infusion was administered through both sheaths per EKOS thrombolytic protocol. Normal saline was infused into the coolant ports as per protocol. The patient tolerated the procedure well and was transferred to the holding area in stable condition. There were no immediate complications associated with the procedure. Procedure Note Manoj Fuentes MD - 06/17/2017 History: 54-year-old male with history of submassive PE with significantclot burden and RV strain. Plan is for Ultrasounds Assisted CatheterDirected Thrombolysis. Initial presentation of chest pain and dyspnea [facility]. He had a LE doppler which was reported as positive for a popliteal DVT. Patient with pulmonaryhypertension. Operators: 1. Dr. Manoj Fuentes, IR Attending Physician 2. Dr. Monroe Linares, IR Fellow Physician Anesthesia: 1. Local anesthesia - 15 ml of 1% lidocaine 2. Intravenous conscious sedation - Versed 3 mg and Fentanyl 150 mcg Procedure: 1. Ultrasound-guided access of the right common femoral vein. 2. Selective catheterization of the right descending pulmonary artery andangiogram. 3. Placement of ultrasound assisted infusion catheter (EKOS) with 18 cminfusion length through the right descending pulmonary artery andadministration of tPA (Alteplase) at 1 mg/hour. 4. Selective catheterization of the left descending pulmonary artery andangiogram. 5. Placement of ultrasound assisted infusion catheter (EKOS) with 18 cminfusion length through the left descending pulmonary artery andadministration of tPA (Alteplase) at 1 mg/hour. Start time: 1545 End time: 1600 Sedation initiated time: 1600 Fluoroscopic time: 39.5 minutes Contrast: 70 mL of Visipaque 320 Procedure in detail: The procedure, risks and possible complications were explained to thepatient in detail, and an informed consent was obtained. The patient wasplaced supine on the angiographic table. The right groin was prepped anddraped in the usual sterile manner. Otherwise, the chest was unremarkable. The patient received intravenous Versed and Fentanyl for conscioussedation. A qualified radiology nurse monitored the patient?s vital signsthroughout the procedure. Limited ultrasound of right groin demonstrated a patent and compressibleright common femoral vein. A dover scale image was documented. Afterinstillation with 1 % local lidocaine, a small incision was made in theright groin. Under real time ultrasound guidance, using a micropuncture needle, the right commonfemoral vein was accessed. The needle entry was documented on dover scaleultrasound imaging. Following a series of exchanges, a 0.035 inch wire wasadvanced into the IVC.?Over a wire after series of dilators a 12 Guamanian vascular sheath was based in theright common femoral/iliac vein. Pulmonary artery pressure was measured and was as follows: 55/20 mmHg(mean 33 mmHg) Through the 12 Guamanian vascular sheath in the right common femoral vein,Using a 5 Guamanian angled catheter and Glidewire combination the catheterwas advanced into the main pulmonary artery followed by right descendingpulmonary artery. Contrast injection confirmed the position of the catheter. Over a wire the ultrasoundassisted the infusion catheter (EKOS) with 18 cm infusion length wasadvanced into the right descending pulmonary artery. Through the 12 Guamanian vascular sheath in the right common femoral vein,Using a 5 Guamanian angled catheter and Glidewire combination the catheterwas advanced into the main pulmonary artery followed by left descendingpulmonary artery. Contrast injection confirmed the position of the catheter. Over a wire the ultrasoundassisted the infusion catheter (EKOS) with 18 cm infusion length wasadvanced into the left descending pulmonary artery. The 12 Guamanian vascular sheath and both thrombolytic EKOS infusioncatheters were secured to the skin using Steri-Strips and sutures. TPAwere infused through each of these at 1 mg/hour. Heparin infusion wasadministered through both sheaths per EKOS thrombolytic protocol. Normal saline was infused into the coolant ports asper protocol. The patient tolerated the procedure well and was transferred to theholding area in stable condition. There were no immediate complicationsassociated with the procedure. IMPRESSION Impression: 1. Right and left pulmonary angiography demonstrating right greater thanleft bilateral pulmonary emboli. 2. Placement of a 18 cm infusion length EKOS ultrasound assisted infusioncatheter in the right descending pulmonary artery. 3. Placement of a 18 cm infusion length EKOS ultrasound assisted infusioncatheter in the left descending pulmonary artery. 4. Pulmonary artery pressure was 55/22 mmHg (mean 33 mmHg) Note: Followup pulmonary arterial angiogram is recommended within 24 hoursto document improvement with thrombolytic therapy. Manoj Grimes performed/was present throughout the procedure andprovided the moderate sedation service. Please see the nursing sedationflowsheet. This report was approved by Monroe Linares on 01/29/2015 7:18 PM . IDr. MANOJ MD have personally reviewed and interpreted thisexamination/study. This report was electronically signed by MANOJ FUENTES MD on 01/29/20159:38 PM . Mack Harp MD IR ORDERABLES * IR US GUIDE VASCULAR ACCESS (01/29/2015 7:27 PM FLAG CAR DRIVER) Anatomical Region Laterality Modality Other Impressions 02/03/2015 3:40 PM FLAG CAR DRIVER Impression: 1. Bilateral pulmonary arterial angiogram demonstrating near complete resolution in clot burden in the bilateral pulmonary arteries. MPA pressure dropped from 44 to 28 mmHg. 2. Removal of bilateral pulmonary arterial thrombolytic infusion catheters. 3. A crux IVC filter was placed below the level of renal veins, via right common femoral vein, under fluoroscopic guidance as described above. Note: It is recommended to retrieve the temporary IVC filter within 3 months, if it is no longer needed. Otherwise, it potentially becomes irretrievable and permanent. Silver Grimes performed/was present throughout the procedure and provided the moderate sedation service. Please see nursing flow chart for more details. . This report was approved by Monroe Linares on 01/30/2015 2:07 PM . IDr. SILVER M.D. have personally reviewed and interpreted this examination/study. This report was electronically signed by SILVER KIM M.D. on 01/30/2015 5:45 PM . Narrative 02/03/2015 3:40 PM FLAG CAR DRIVER History: Patient has submassive PE with significant clot burden and RV strain that underwent ultrasound assisted thrombolysis over night. No significant issue but positional back pain. Patient presents for cessation of PE thrombolysis follow up angiogram and removal of bilateral EKOS infusion catheters. Will also place IVC filter to prevent further embolism of left dvt into the lungs. Operators: 1. Dr. Silver Kim, Attending Physician 2. Dr. Monroe Linares, IR fellow Physician Anesthesia: 1. Intravenous Conscious Sedation (Versed 2 mg and Fentanyl 100 mcg). Procedure: 1. Bilateral pulmonary arterial angiogram. 2. Removal over the wire of bilateral ultrasound assisted thrombolytic catheters in the pulmonary arteries. 3. Inferior venacavogram. 4. Deployment of a Crux IVC filter below the level of renal veins. 5. Post deployment sheath inferior venacavogram. Start time:1104 Sedation Initiated Time: 1141 End Time: 1210 Fluoroscopic time: 6.7 minute Contrast: 60 mL of Omnipaque-240 Procedure in detail: The procedure, risks and possible complications were explained to the patient in detail, and an informed consent was obtained. The patient was placed supine on the angiographic table. The right groin was prepped and draped in the usual sterile manner. Card Seller view of the chest demonstrated bilateral pulmonary arterial thrombolytic infusion catheters in place. A athletic scout film of abdomen was obtained, which was unremarkable. The patient was initiated intravenous conscious sedation with Versed and Fentanyl and maintained throughout the procedure. The vital signs of the patient were monitored by a qualified Radiology Nurse throughout the procedure. 0.035 Amplatz wire was advanced through the right pulmonary arterial thrombolytic catheter. Over the wire the thrombolytic catheter was exchanged for a 5 Guamanian Omni Flush catheter. The Omni flush catheter was parked in the main pulmonary artery and bilateral pulmonary arterial angiogram score performed. Pulmonary arterial angiogram demonstrated significant decrease in clot burden bilaterally in the pulmonary arteries post overnight ultrasound assisted thrombolysis. Therefore at this time it was decided to remove the bilateral pulmonary arterial infusion catheters. The the Omni Flush catheter was retracted into the inferior vena cava above the iliac veins and an inferior venacavogram was obtained. The study revealed patent IVC without any clot burden or congenital abnormality. 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 The level of both renal veins was studied. The catheter was removed over a wire and through the indwelling 12 Guamanian common femoral venous sheath, an IVC filter delivery sheath was advanced. A crux IVC filter was deployed below the level of renal veins. A post-deployment sheath venogram of IVC, confirmed the IVC filter below the level of renal veins. The sheath was left sutured to the skin for later removal in the ICU once the effects of infusion thrombolytics have worn off to decrease the chance for hematoma post groin venous sheath removal. There were no immediate complications associated with the procedure. The patient tolerated the procedure and sedation well. The patient was transferred to ICU in stable condition. Procedure Note Silver Kim MD - 06/17/2017 History: Patient has submassive PE with significant clot burden and RVstrain that underwent ultrasound assisted thrombolysis over night. Nosignificant issue but positional back pain. Patient presents for cessationof PE thrombolysis follow up angiogram and removal of bilateral EKOS infusion catheters. Will also place IVCfilter to prevent further embolism of left dvt into the lungs. Operators: 1. Dr. Silver Kim, Attending Physician 2. Dr. Monroe Linares, IR fellow Physician Anesthesia: 1. Intravenous Conscious Sedation (Versed 2 mg and Fentanyl 100 mcg). Procedure: 1. Bilateral pulmonary arterial angiogram. 2. Removal over the wire of bilateral ultrasound assisted thrombolyticcatheters in the pulmonary arteries. 3. Inferior venacavogram. 4. Deployment of a Crux IVC filter below the level of renal veins. 5. Post deployment sheath inferior venacavogram. Start time:1104 Sedation Initiated Time: 1141 End Time: 1210 Fluoroscopic time: 6.7 minute Contrast: 60 mL of Omnipaque-240 Procedure in detail: The procedure, risks and possible complications wereexplained to the patient in detail, and an informed consent was obtained.The patient was placed supine on the angiographic table. The right groinwas prepped and draped in the usual sterile manner. Card Seller view of the chest demonstrated bilateralpulmonary arterial thrombolytic infusion catheters in place. A athletic scout filmof abdomen was obtained, which was unremarkable. The patient was initiated intravenous conscious sedation with Versed andFentanyl and maintained throughout the procedure. The vital signs of thepatient were monitored by a qualified Radiology Nurse throughout theprocedure. 0.035 Amplatz wire was advanced through the right pulmonary arterialthrombolytic catheter. Over the wire the thrombolytic catheter wasexchanged for a 5 Guamanian Omni Flush catheter. The Omni flush catheter wasparked in the main pulmonary artery and bilateral pulmonary arterial angiogram score performed. Pulmonary arterialangiogram demonstrated significant decrease in clot burden bilaterally inthe pulmonary arteries post overnight ultrasound assisted thrombolysis.Therefore at this time it was decided to remove the bilateral pulmonary arterial infusion catheters. The the Omni Flush catheter was retracted into the inferior vena cavaabove the iliac veins and an inferior venacavogram was obtained. 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 The level of both renalveins was studied. The catheter was removed over a wire and through the indwelling 12 Frenchcommon femoral venous sheath, an IVC filter delivery sheath was advanced.A crux IVC filter was deployed below the level of renal veins. Apost-deployment sheath venogram of IVC, confirmed the IVC filter below the level of renal veins. The sheath was left sutured to the skin for later removal in the ICU oncethe effects of infusion thrombolytics have worn off to decrease the chancefor hematoma post groin venous sheath removal. There were no immediate complications associated with the procedure. Thepatient tolerated the procedure and sedation well. The patient wastransferred to ICU in stable condition. IMPRESSION Impression: 1. Bilateral pulmonary arterial angiogram demonstrating near completeresolution in clot burden in the bilateral pulmonary arteries. MPApressure dropped from 44 to 28 mmHg. 2. Removal of bilateral pulmonary arterial thrombolytic infusioncatheters. 3. A crux IVC filter was placed below the level of renal veins, via rightcommon femoral vein, under fluoroscopic guidance as described above. Note: It is recommended to retrieve the temporary IVC filter within 3months, if it is no longer needed. Otherwise, it potentially becomesirretrievable and permanent. Silver Grimes performed/was present throughout the procedure andprovided the moderate sedation service. Please see nursing flow chart formore details. . This report was approved by Monroe Linares on 01/30/2015 2:[address] SILVER Grimes M.D. have personally reviewed and interpreted thisexamination/study. This report was electronically signed by SILVER KIM M.D. on01/30/2015 5:45 PM . Mack Harp MD IR ORDERABLES * IR PULMONARY ANGIOGRAM BILAT (01/29/2015 7:27 PM FLAG CAR DRIVER) Only the most recent of2 resultswithin the time period is included. Anatomical Region Laterality Modality Lung Other Impressions 01/29/2015 9:38 PM FLAG CAR DRIVER Impression: 1. Right and left pulmonary angiography demonstrating right greater than left bilateral pulmonary emboli. 2. Placement of a 18 cm infusion length EKOS ultrasound assisted infusion catheter in the right descending pulmonary artery. 3. Placement of a 18 cm infusion length EKOS ultrasound assisted infusion catheter in the left descending pulmonary artery. 4. Pulmonary artery pressure was 55/22 mmHg (mean 33 mmHg) Note: Followup pulmonary arterial angiogram is recommended within 24 hours to document improvement with thrombolytic therapy. Manoj Grimes performed/was present throughout the procedure and provided the moderate sedation service. Please see the nursing sedation flowsheet. This report was approved by Monroe Linares on 01/29/2015 7:[address] MANOJ Grimes MD have personally reviewed and interpreted this examination/study. This report was electronically signed by MANOJ FUENTES MD on 01/29/2015 9:38 PM . Narrative 01/29/2015 9:38 PM FLAG CAR DRIVER History: 54-year-old male with history of submassive PE with significant clot burden and RV strain. Plan is for Ultrasounds Assisted Catheter Directed Thrombolysis. Initial presentation of chest pain and dyspnea to [facility]. He had a LE doppler which was reported as positive for a popliteal DVT. Patient with pulmonary hypertension. Operators: 1. Dr. Manoj Fuentes, IR Attending Physician 2. Dr. Monroe Linares, IR Fellow Physician Anesthesia: 1. Local anesthesia - 15 ml of 1% lidocaine 2. Intravenous conscious sedation - Versed 3 mg and Fentanyl 150 mcg Procedure: 1. Ultrasound-guided access of the right common femoral vein. 2. Selective catheterization of the right descending pulmonary artery and angiogram. 3. Placement of ultrasound assisted infusion catheter (EKOS) with 18 cm infusion length through the right descending pulmonary artery and administration of tPA (Alteplase) at 1 mg/hour. 4. Selective catheterization of the left descending pulmonary artery and angiogram. 5. Placement of ultrasound assisted infusion catheter (EKOS) with 18 cm infusion length through the left descending pulmonary artery and administration of tPA (Alteplase) at 1 mg/hour. Start time: 1545 End time: 1600 Sedation initiated time: 1600 Fluoroscopic time: 39.5 minutes Contrast: 70 mL of Visipaque 320 Procedure in detail: The procedure, risks and possible complications were explained to the patient in detail, and an informed consent was obtained. The patient was placed supine on the angiographic table. The right groin was prepped and draped in the usual sterile manner. Otherwise, the chest was unremarkable. The patient received intravenous Versed and Fentanyl for conscious sedation. A qualified radiology nurse monitored the patient?s vital signs throughout the procedure. Limited ultrasound of right groin demonstrated a patent and compressible right common femoral vein. A dover scale image was documented. After instillation with 1 % local lidocaine, a small incision was made in the right groin. Under real time ultrasound guidance, using a micropuncture needle, the right common femoral vein was accessed. The needle entry was documented on dover scale ultrasound imaging. Following a series of exchanges, a 0.035 inch wire was advanced into the IVC.?Over a wire after series of dilators a 12 Guamanian vascular sheath was based in the right common femoral/iliac vein. Pulmonary artery pressure was measured and was as follows: 55/20 mmHg (mean 33 mmHg) Through the 12 Guamanian vascular sheath in the right common femoral vein, Using a 5 Guamanian angled catheter and Glidewire combination the catheter was advanced into the main pulmonary artery followed by right descending pulmonary artery. Contrast injection confirmed the position of the catheter. Over a wire the ultrasound assisted the infusion catheter (EKOS) with 18 cm infusion length was advanced into the right descending pulmonary artery. Through the 12 Guamanian vascular sheath in the right common femoral vein, Using a 5 Guamanian angled catheter and Glidewire combination the catheter was advanced into the main pulmonary artery followed by left descending pulmonary artery. Contrast injection confirmed the position of the catheter. Over a wire the ultrasound assisted the infusion catheter (EKOS) with 18 cm infusion length was advanced into the left descending pulmonary artery. The 12 Guamanian vascular sheath and both thrombolytic EKOS infusion catheters were secured to the skin using Steri-Strips and sutures. TPA were infused through each of these at 1 mg/hour. Heparin infusion was administered through both sheaths per EKOS thrombolytic protocol. Normal saline was infused into the coolant ports as per protocol. The patient tolerated the procedure well and was transferred to the holding area in stable condition. There were no immediate complications associated with the procedure. Procedure Note Manoj Fuentes MD - 06/17/2017 History: 54-year-old male with history of submassive PE with significantclot burden and RV strain. Plan is for Ultrasounds Assisted CatheterDirected Thrombolysis. [facility] He had a LE doppler which was reported as positive for a popliteal DVT. Patient with pulmonaryhypertension. Operators: 1. Dr. Manoj Fuentes, IR Attending Physician 2. Dr. Monroe Linares, IR Fellow Physician Anesthesia: 1. Local anesthesia - 15 ml of 1% lidocaine 2. Intravenous conscious sedation - Versed 3 mg and Fentanyl 150 mcg Procedure: 1. Ultrasound-guided access of the right common femoral vein. 2. Selective catheterization of the right descending pulmonary artery andangiogram. 3. Placement of ultrasound assisted infusion catheter (EKOS) with 18 cminfusion length through the right descending pulmonary artery andadministration of tPA (Alteplase) at 1 mg/hour. 4. Selective catheterization of the left descending pulmonary artery andangiogram. 5. Placement of ultrasound assisted infusion catheter (EKOS) with 18 cminfusion length through the left descending pulmonary artery andadministration of tPA (Alteplase) at 1 mg/hour. Start time: 1545 End time: 1600 Sedation initiated time: 1600 Fluoroscopic time: 39.5 minutes Contrast: 70 mL of Visipaque 320 Procedure in detail: The procedure, risks and possible complications were explained to thepatient in detail, and an informed consent was obtained. The patient wasplaced supine on the angiographic table. The right groin was prepped anddraped in the usual sterile manner. Otherwise, the chest was unremarkable. The patient received intravenous Versed and Fentanyl for conscioussedation. A qualified radiology nurse monitored the patient?s vital signsthroughout the procedure. Limited ultrasound of right groin demonstrated a patent and compressibleright common femoral vein. A dover scale image was documented. Afterinstillation with 1 % local lidocaine, a small incision was made in theright groin. Under real time ultrasound guidance, using a micropuncture needle, the right commonfemoral vein was accessed. The needle entry was documented on dover scaleultrasound imaging. Following a series of exchanges, a 0.035 inch wire wasadvanced into the IVC.?Over a wire after series of dilators a 12 Guamanian vascular sheath was based in theright common femoral/iliac vein. Pulmonary artery pressure was measured and was as follows: 55/20 mmHg(mean 33 mmHg) Through the 12 Guamanian vascular sheath in the right common femoral vein,Using a 5 Guamanian angled catheter and Glidewire combination the catheterwas advanced into the main pulmonary artery followed by right descendingpulmonary artery. Contrast injection confirmed the position of the catheter. Over a wire the ultrasoundassisted the infusion catheter (EKOS) with 18 cm infusion length wasadvanced into the right descending pulmonary artery. Through the 12 Guamanian vascular sheath in the right common femoral vein,Using a 5 Guamanian angled catheter and Glidewire combination the catheterwas advanced into the main pulmonary artery followed by left descendingpulmonary artery. Contrast injection confirmed the position of the catheter. Over a wire the ultrasoundassisted the infusion catheter (EKOS) with 18 cm infusion length wasadvanced into the left descending pulmonary artery. The 12 Guamanian vascular sheath and both thrombolytic EKOS infusioncatheters were secured to the skin using Steri-Strips and sutures. TPAwere infused through each of these at 1 mg/hour. Heparin infusion wasadministered through both sheaths per EKOS thrombolytic protocol. Normal saline was infused into the coolant ports asper protocol. The patient tolerated the procedure well [facility] There were no immediate complicationsassociated with the procedure. IMPRESSION Impression: 1. Right and left pulmonary angiography demonstrating right greater thanleft bilateral pulmonary emboli. 2. Placement of a 18 cm infusion length EKOS ultrasound assisted infusioncatheter in the right descending pulmonary artery. 3. Placement of a 18 cm infusion length EKOS ultrasound assisted infusioncatheter in the left descending pulmonary artery. 4. Pulmonary artery pressure was 55/22 mmHg (mean 33 mmHg) Note: Followup pulmonary arterial angiogram is recommended within 24 hoursto document improvement with thrombolytic therapy. IManoj performed/was present throughout the procedure andprovided the moderate sedation service. Please see the nursing sedationflowsheet. This report was approved by Monroe Linares on 01/29/2015 7:18 PM . IDr. MANOJ MD have personally reviewed and interpreted thisexamination/study. This report was electronically signed by MANOJ FUENTES MD on 01/29/20159:38 PM . Mack Harp MD IR ORDERABLES * CARDIOLIPIN ANTIBODY IGA (01/29/2015 5:00 AM FLAG CAR DRIVER) Anticardiolipin Antibody IgA <15.0 <15.0 [facility] Blood specimen (specimen) BLOOD SPECIMEN / Unknown 01/29/2015 5:00 AM FLAG CAR DRIVER 01/29/2015 5:07 AM FLAG CAR DRIVER Mack Harp MD LAB - SEROLOGY ORDERABLES [address] [phone] * CARDIOLIPIN ANTIBODY IGM (01/29/2015 5:00 AM FLAG CAR DRIVER) Anticardiolipin Antibody IgM <15.0 <15.0 [facility] Blood specimen (specimen) BLOOD SPECIMEN / Unknown 01/29/2015 5:00 AM FLAG CAR DRIVER 01/29/2015 5:07 AM FLAG CAR DRIVER Mack Harp MD LAB - SEROLOGY ORDERABLES [address] [phone] * CARDIOLIPIN ANTIBODY IGG (01/29/2015 5:00 AM FLAG CAR DRIVER) Pathologist [facility] Anticardiolipin Antibody IgG <15.0 <15.0 [facility] Blood specimen (specimen) BLOOD SPECIMEN / Unknown 01/29/2015 5:00 AM FLAG CAR DRIVER 01/29/2015 5:07 AM FLAG CAR DRIVER Mack Harp MD LAB - SEROLOGY ORDERABLES Performing Organization Address City/[facility]/ZIP Co de Phone Number [address] [phone] * FACTOR V ASSAY (01/29/2015 5:00 AM FLAG CAR DRIVER) Pathologist [facility] Factor V Activity 111 60 - 140 U/dL [facility] Blood specimen (specimen) BLOOD SPECIMEN / Unknown 01/29/2015 5:00 AM FLAG CAR DRIVER 01/29/2015 5:07 AM FLAG CAR DRIVER Mack Harp MD LAB - COAGULATI ON ORDERABLES [address] [phone] * HOMOCYSTEINE BLOOD QUANTITATIVE (01/29/2015 5:00 AM FLAG CAR DRIVER) Homocysteine 8.5 4.4 - 16.2 umol/L [facility] Blood specimen (specimen) BLOOD SPECIMEN / Unknown 01/29/2015 5:00 AM FLAG CAR DRIVER 01/29/2015 5:07 AM FLAG CAR DRIVER Mack Harp MD LAB [place] [address], [facility] [phone] * CT ANGIO CHEST PULM EMBOLISM (01/28/2015 10:00 PM FLAG CAR DRIVER) Anatomical Region Laterality Modality Chest Other Impressions 01/29/2015 11:15 AM FLAG CAR DRIVER IMPRESSION: 1. Large bilateral pulmonary emboli in the right and left main pulmonary arteries extending into the lobar, segmental and subsegmental branches. 2. Right ventricular enlargement compared to the left ventricle suggestive of right ventricular strain. 3. Cholelithiasis. Preliminary report was placed in Synapse by Dr. Conteh on 01/28/2015 at 10:28 PM and documentation of the findings is seen in the Epic on 01/29/2015 at 12:21 AM. Dictated by Jeff Howard MD (International Project Manager). This report was approved by Jeff Howard M.D. on 01/29/2015 8:55 AM . I, Dr. SHIRLEY RICH M.D. have personally reviewed and interpreted this examination/study. This report was electronically signed by SHIRLEY RICH M.D. on 01/29/2015 11:15 AM . Narrative 01/29/2015 11:15 AM FLAG CAR DRIVER EXAMINATION: Computed tomography (CT) of the chest with contrast, pulmonary embolism protocol HISTORY: Reported DVT at OSH, has chest pain, dyspnea, tachycardia TECHNIQUE: CT of the chest was performed following the uneventful administration of 100 mL of Omnipaque 350 intravenous contrast according to a pulmonary embolism protocol. COMPARISON: No prior study is available for comparison. FINDINGS: Vascular: There are large filling defects in the bilateral right and left main pulmonary arteries representing pulmonary emboli extending into the lobar, segmental and subsegmental branches. The main pulmonary artery is dilated. The right ventricle is increased in size compared to the left ventricle suggestive of right ventricular strain. 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 The aorta is atherosclerotic but normal in caliber. Chest: The lungs are clear of focal consolidation. No pleural effusion is identified. There is no evidence of pneumothorax. The trachea is patent and midline. The heart size is normal. No pericardial effusion is present. Subcentimeter nonspecific mediastinal, hilar and axillary lymph nodes are seen. Other: The visible portions of the liver, spleen, adrenal glands, kidneys, stomach, and bowel are normal. Multiple gallstones are seen. The pancreas is atrophic. No suspicious lytic or blastic lesions. There are degenerative changes of the thoracic spine. There is mild nonspecific bilateral perinephric stranding. Procedure Note Patrizia Rich MD - 06/17/2017 EXAMINATION: Computed tomography (CT) of the chest with contrast,pulmonary embolism protocol HISTORY: Reported DVT at OSH, has chest pain, dyspnea, tachycardia TECHNIQUE: CT of the chest was performed following the uneventfuladministration of 100 mL of Omnipaque 350 intravenous contrast accordingto a pulmonary embolism protocol. COMPARISON: No prior study is available for comparison. FINDINGS: Vascular: There are large filling defects in the bilateral right and left mainpulmonary arteries representing pulmonary emboli extending into the lobar,segmental and subsegmental branches. The main pulmonary artery is dilated.The right ventricle is increased in size compared to the left ventricle suggestive of right ventricularstrain. 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 The aorta isatherosclerotic but normal in caliber. Chest: The lungs are clear of focal consolidation. No pleural effusion isidentified. There is no evidence of pneumothorax. The trachea is patentand midline. The heart size is normal. No pericardial effusion is present.Subcentimeter nonspecific mediastinal, hilar and axillary lymph nodes areseen. Other: The visible portions of the liver, spleen, adrenal glands, kidneys,stomach, and bowel are normal. Multiple gallstones are seen. The pancreasis atrophic. No suspicious lytic or blastic lesions. There aredegenerative changes of the thoracic spine. There is mild nonspecific bilateral perinephric stranding. IMPRESSION IMPRESSION: 1. Large bilateral pulmonary emboli in the right and left main pulmonaryarteries extending into the lobar, segmental and subsegmental branches. 2. Right ventricular enlargement compared to the left ventricle suggestiveof right ventricular strain. 3. Cholelithiasis. Preliminary report was placed in Synapse by Dr. Conteh on 01/28/2015 at10:28 PM and documentation of the findings is seen in the Epic on01/29/2015 at 12:21 AM. Dictated by Jeff Howard MD (International Project Manager). This report was approved by Jeff Howard M.D. on 01/29/2015 8:55 AM. I, Dr. SHIRLEY RICH M.D. have personally reviewed and interpreted thisexamination/study. This report was electronically signed by SHIRLEY RICH M.D. on01/29/2015 11:15 AM . Mack Harp MD CT ORDERABLES Care Teams Registered Nurse Post Partum Relationship Specialty Start Date End Date Howard Ponce MD [address] [phone] PCP - General Internal Medicine 10/31/22 Faisal Marina MD Internal Medicine 02/26/19 Marjan Henriquez PA-C [address] [address] Gastroenterology 02/26/19
--- OUTSIDE RECORDS SUMMARY | 2024-05-24 07:35 | XMS_ITS | Referral Summary ---
Author Organization [facility] Address [address] [facility] [place] [address] Care Team Providers Care Solution Design Engineer Name Role Phone Faisal Marina MD Unavailable [phone] Marjan Henriquez PA-C Unavailable Howard Ponce MD Primary Care Provider [phone] Source Comments [facility],non-owned Affiliates and Associated Physician Practices is amultiple site organization consisting of ambulatory clinics and hospital sitesin [place], [place], [place] and [place]. This disclosure is being madepursuant to the Care Everywhere program and may not contain all information available regarding this patient. Last updated 17.[facility] Allergies No known active allergies Medications * [...] y.o. male patient who recently presented to [facility] ER with epigastric pain. He relates that [...] 05/19/2015 Overview (06/19/2017): Patient presented recently to [facility] ER with epigastric pain. He relates that [...] 05/19/2015 Overview (06/19/2017): Patient presented recently to [facility] ER with epigastric pain. He relates that [...] Administration Dates Next Due TDAP (7yrs+) 01/03/2017,08/08/2000 Social History Tobacco Use Types Packs/Day Years [...] 36.8 C (98.2 F) 04/20/2022 4:11 PM SUPERVISOR WARPING DEPARTMENT Respiratory Rate 18 05/29/2019 12:21 PM CDT Oxygen Saturation 98% 10/31/2022 1:49 PM CDT Inhaled Oxygen Concentration - - Weight 131.5 kg (290 lb) 10/31/2022 2:38 PM CDT Height 175.3 cm (5' 9 ) 05/04/2023 2:57 PM SUPERVISOR WARPING DEPARTMENT Body Mass Index 42.83 10/31/2022 2:38 PM CDT Plan of Treatment Upcoming Encounters Date Type Department Care Team (Late st Contact Info) Description 08/06/2024 1:10 AM CDT Clinical Support [facility] - Cardiology [address] [facility], [address] [address] 11/05/2024 1:10 AM CDT Clinical Support [facility] - Cardiology [address] [facility], [address] [address] 02/04/2025 1:10 AM SUPERVISOR WARPING DEPARTMENT Clinical Support [facility] - Cardiology [address] [facility], [address] [address] Procedures Procedure Name Priority Date/Time Associated Diagnosis Comments ENDOSCOPY, COLON, SCREENING Routine 12/20/2018 1:47 PM CDT LIPID PROFILE Routine 04/20/2017 11:55 AM SUPERVISOR WARPING DEPARTMENT from Last 3 Months or Most Recently [...] and oxygen saturations were monitored continuously. The [id number] was introduced through the anus and advanced [...] non-hernadez portions. Procedure Code(s): --- Professional --- 71884, Colonoscopy, flexible; with removal of tumor(s), polyp(s), or other lesion(s) by snare technique 69852, 59, Colonoscopy, flexible; with biopsy, single or multiple Diagnosis Code(s): --- Professional --- Z86.010, Personal history of colonic polyps K62.1, Rectal polyp D12.2, Benign neoplasm of ascending colon D12.4, Benign neoplasm of descending colon D12.3, Benign neoplasm of transverse colon (hepatic flexure or splenic flexure) K64.8, Other hemorrhoids K57.30, Diverticulosis of large intestine without perforation or abscess without bleeding CPT copyright 2016 [employer]. All rights reserved. The codes documented in this report are preliminary and upon sound assistant review may be revised to meet current compliance requirements. _ Nick Moses MD 12/20/2018 3:33:40 PM Note Initiated On: 12/20/2018 1:47 PM Number of Addenda: [address] 12/20/2018 1:47 PM CDT Nick Moses MD GI PROCEDURE ORDERAB LES Performing Organization Address City/[facility] Co de Phone Number [facility] * (ABNORMAL) LIPID PROFILE (04/20/2017 11:55 AM SUPERVISOR WARPING DEPARTMENT) Cholesterol Total 125 <200 mg/dL [facility] HDL 31(L) >40 mg/dL [facility] Comment: ATP III Classification of HDL Cholesterol: <40 mg/dL: Considered a major risk factor. >60 mg/dL: Considered a negative risk factor. LDL Calculated 74 <100 mg/dL [facility] Comment: ATP III Classification of LDL Cholesterol: <100 mg/dL: Optimal 100 - 129 mg/dL: Near Optimal/Above Optimal 130 - 159 mg/dL: Borderline High 160 - 189 mg/dL: High >190 mg/dL: Very High Triglycerides 99 <150 mg/dL [facility] Comment: ATP III Classification of Triglycerides: <150 mg/dL: Normal 150 - 199 mg/dL: Borderline High 200 - 400 mg/dL: High >500 mg/dL: Very High Blood specimen (specimen) BLOOD SPECIMEN / Unknown 04/20/2017 11:55 AM SUPERVISOR WARPING DEPARTMENT 04/20/2017 12:27 PM SUPERVISOR WARPING DEPARTMENT Historical Provider LAB - CHEMISTRY O R[place] [address] [phone] from Last 3 Months or Most Recently Relevant to Health Maintenance Care Teams Solution Design Engineer Relationship Specialty Start Date End Date Howard Ponce MD [address] [phone] PCP - General Internal Medicine 10/31/22 Faisal Marina MD Internal Medicine 02/26/19 Marjan Henriquez, PAMagdielC [address] [facility] [address] [place] [phone] Gastroenterology 02/26/19
--- OUTSIDE RECORDS SUMMARY | 2024-05-24 07:35 | XMS_ITS | Clinical Summary ---
Author Organization [facility] Address [address] [place] [address] Phone Care Team Providers Care Weaver Hand Name Role Phone Yoni Mcfadden MD Unavailable [phone] Justo Deluna DO Unavailable [phone] Tiffanie Myrick MD Primary Care Provider [phone] Allergies No known active allergies Medications amLODIPine (NORVASC) 5 MG Tablet amlodipine 5 mg tablet take 1 tab po daily 7 Active apixaban (ELIQUIS) 5 MG Tablet Eliquis 5 mg tablet Take 1 tablet twice a day by oral route. 8 Active tamsulosin (FLOMAX) 0.4 MG Capsule TAKE 1 CAPSULE BY MOUTH DAILY Active Active Problems Problem Noted Date Diagnosed Date Lymphadenopathy 12/29/2020 Immunizations Immunization Administration Dates Next Due TDAP Vaccine 01/03/2017,08/08/2000 Family History Medical History Relation Name Comments Stroke Father Relation Name Status Comments Father Alive Mother Alive Social History Tobacco Use Types Packs/Day Years Used Date Smoking Tobacco: Never Smokeless Tobacco: Never Tobacco Cessation:Counseling Given: Not Answered Alcohol Use Standard Drinks/Week Comments Yes 0 (1 standard drink = 0.6 oz pur e alcohol) occassionally PHQ-2 Answer Date Recorded Total Score - Questions 1-9 0 07/18 Sex and Gender Information Value Date Recorded Sex Assigned at Not on file Legal Sex Male 1:46 PM CDT Gender Identity Not on file Sexual Orientation Not on file Last Filed Vital Signs Vital Sign Reading Time Taken Comments Blood Pressure 142/84 08/01/2023 1:00 PM CDT Pulse 83 08/01/2023 1:00 PM CDT Temperature 36.7 C (98 F) 08/01/2023 1:00 PM CDT Respiratory Rate 18 08/01/2023 1:00 PM CDT Oxygen Saturation 97% 08/01/2023 1:00 PM CDT Inhaled Oxygen Concentration - - Weight 143.8 kg (317 lb) 08/01/2023 1:00 PM CDT Height 175.3 cm (5' 9 ) 08/01/2023 1:00 PM CDT Body Mass Index 46.81 08/01/2023 1:00 PM CDT Plan of Treatment Health Maintenance Due Date Last Done Comments Hepatitis C Virus (HCV) Screening 1960 Colonoscopy 09/22/2004 Colorectal Cancer Screening 09/22/2004 Cologuard 09/22/2009 Immunochemical Fecal Occult Blood 09/22/2009 Pneumococcal Immunization (5 0+ years) (1 of 1 - PCV) 09/22/2009 Zoster Immunization (1 of 2) 09/22/2009 PSA Discussion 09/22/2014 Respiratory Syncytial Virus (RSV) Immunization (Adult) (1 - Risk 60-74 years 1-dose series) 2019 Influenza Immunization (#1) 2023 SARS-COV-2 Immunization ( - season) 2023 Td Immunization Every 10 Yea rs (Adults With 1 Tdap) 01/03/2027 01/03/2017, 08/08/2000 DTaP/Tdap/Td Immunization Discontinued 2016, 08/08/2000 Hepatitis B Immunization Aged Out No longer eligible based on patient's age to complete this topic Meningococcal Immunization (ACWY) Aged Out No longer eligible based on patient's age to complete this topic Rotavirus Immunization Aged Out No lo nger eligible based on patient's age to complete this topic Insurance MEDICARE C AETNA Care Teams Weaver Hand Relationship Specialty Start Date End Date Tiffanie Myrick MD [address] [address] PCP - General 09/07/20 Yoni Mcfadden MD [address] [place] [address] Urologist Urology 08/27/20 Justo Deluna DO [address] [place] [phone] Consulting Physician Oncology 08/27/20
--- OUTSIDE RECORDS SUMMARY | 2024-05-24 07:36 | XMS_ITS | Clinical Summary ---
Author Organization [facility] Address [address] [place] [address] Care Team Providers Care Vest Tailor Name Role Phone Tiffanie Myrick MD Primary Care Provider [phone] Allergies No known active allergies Medications CPAP DME DEVICE 15 cm. 06/07/2016 Act hector amlodipine 5 MG tablet 04/09/2018 Active ELIQUIS 5 MG tablet 04/09/2018 Active atorvastatin 40 MG tablet 04/07/2018 Active GAVILYTE-G 236 g solution 05/30/2018 Active tamsulosin 0.4 MG Cap Take 0.4 mg by mouth daily. 05/04/2021 Active Active Problems Problem Noted Date Diagnosed Date Cardiac pacemaker 06/07/2016 Obesity 06/07/2016 Obstructive sleep apnea of adult 06/07/2016 Pulmonary embolism ([facility]) 06/07/2016 Social History Tobacco Use Types Packs/Day Years Used Date Smoking Tobacco: Never Smokeless Tobacco: Never Alcohol Use Standard Drinks/Week Comments Not Currently 0 (1 standard drink = 0.6 oz pur e alcohol) Sex and Gender Information Value Date Recorded Sex Assigned at Not on file Legal Sex Male 5:14 PM CDT Gender Identity Not on file Sexual Orientation Not on file Last Filed Vital Signs Vital Sign Reading Time Taken Comments Blood Pressure 109/72 07/16/2021 10:45 AM CDT Pulse 68 07/16/2021 9:40 AM CDT Temperature 36.2 C (97.1 F) 07/16/2021 7:35 AM CDT Respiratory Rate 16 07/16/2021 10:3 0 AM CDT Oxygen Saturation 95% 07/16/2021 10: 45 AM CDT Inhaled Oxygen Concentration - - Weight 145.7 kg (321 lb 3.4 oz) 07/16/2021 7:35 AM CDT Height 175.3 cm (5' 9 ) 07/16/2021 7:35 AM CDT Body Mass Index 47.43 07/16/2021 7:35 AM CDT Plan of Treatment Health Maintenance Due Date Last Done Comments Colorectal Cancer Screening Colonoscopy (10 Years) 1960 Annual Physical 09/22/1962 Hepatitis C 09/22/1977 Zoster Vaccines (1 of 2) 09/22/2009 RSV Immunization or 60+ Years (1 - Risk 60-74 years 1-dose series) 2019 COVID-19 Vaccine (1 - 2023-2 5 season) 2023 Influenza Adult (#1) 2023 DTaP, Tdap and Td Vaccines ( 3 - Td or Tdap) 01/03/2027 01/03/2017, 08/08/2000 Meningococcal B Vaccine Aged Out No l onger eligible based on patient's age to complete this topic Meningococcal Vaccine Aged Out No bernardo og eligible based on patient's age to complete this topic Pneumococcal Vaccine: Pediatrics (0 to 5 Years) and At-Risk Patients (6 to 64 Years) Aged Out No longer eligible b ased on patient's age to complete this topic RSV Immunizations Under 20 Months Aged Out No longer eligible b ased on patient's age to complete this topic Insurance AETNA Care Teams Vest Tailor Relationship Specialty Start Date End Date Tiffanie Myrick MD PCP - General 06/11/14
--- OUTSIDE RECORDS SUMMARY | 2024-05-24 07:36 | XMS_ITS | CONTINUITY OF CARE DOCUMENT ---
Author Name michael rodriguez Address Unknown Organization [facility] Address [address] [place] [address] [place] [address] Phone [phone] Care Team Providers Care Pipe Washer Name Role Phone Evgeny Santiago MD Unavailable Evgeny Santiago MD Unavailable Susana Kwong Unavailable INSURANCE PROVIDERS Payer name Policy type / Coverage type Gila red democrat ID AETNA MEDICARE [employer] [id number] [id number]
--- OUTSIDE RECORDS SUMMARY | 2024-05-24 07:36 | XMS_ITS | Encounter Summary ---
Author Organization [facility] Address [facility] [place] [address] Care Team Providers Care Professor Of Vegetable Science Name Role Phone Faisal Marina MD Unavailable [phone] Marjan Herniquez PA-C Unavailable Howard Ponce MD Primary Care Provider [phone] Reason for Visit * Reason Onset Date Comments Reschedule Appointment 02/03/2023 Encounter Details Date Type Department Care Team (Late st Contact Info) Description 02/03/2023 Telephone [facility] - Centralized Scheduling [address] [place] [address] Salome Seay, GROOVING LATHE TENDER-DRESSED POULTRY GRADER [address] [address] Reschedule Appointment Social History Tobacco Use Types Packs/Day Years Used Date Smoking Tobacco: Never Smokeless Tobacco: Never Alcohol Use Standard Drinks/Week Comments Yes 0.8 (1 standard drink = 0.6 oz p ure alcohol) rare Sex and Gender Information Value Date Recorded Sex Assigned at Not on file Gender Identity Not on file Sexual Orientation Not on file documented as of this encounter Miscellaneous Notes * Telephone Encounter - Glenis Jay - 02/03/2023 1:20 PM CST 05/04/23 bumped appointment with TONIA Seay is DCK. Please contact Gino to reschedule his appointment. GHT SEPARATOR documented in this encounter Plan of Treatment Upcoming Encounters Date Type Department Care Team (Late st Contact Info) Description 08/06/2024 1:10 AM CDT Clinical Support [facility] - Cardiology [address], [facility] [address] [place] [address] 11/05/2024 1:10 AM CDT Clinical Support [facility] - Cardiology [address], [facility] [address] [place] [address] 02/04/2025 1:10 AM FREIGHT SEPARATOR Clinical Support [facility] - Cardiology [address], [facility] [address] [place] [address] documented as of this encounter Visit Diagnoses Not on filedocumented in this encounter Care Teams Professor Of Vegetable Science Relationship Specialty Start Date End Date Howard Ponce MD [address] [phone] PCP - General Internal Medicine 10/31/22 Faisal Marina MD Internal Medicine 02/26/19 Marjan Henriquez, PAMirella [address] [facility] [address] [place] [phone] Gastroenterology 02/26/19 documented as of this encounter
== END 2024-05-24 07:31 | disposition home or self-care (01) ==
PROVIDERS: Visit Provider Orthopaedic Surgery
DX: S83.232A Complex tear of medial meniscus, current injury, left knee, initial encounter (principal); M17.12 Unilateral primary osteoarthritis, left knee; M94.262 Chondromalacia, left knee; M71.22 Synovial cyst of popliteal space [Baker], left knee
CPT/HCPCS: 20610; 73701; 77002; J2003; Q9966

== ENCOUNTER 2025-02-25 13:07 | Emergency (ER) | payer MEDICARE, SELFPAY ==
--- NOTE | ~2025-02-25 | XR_ITS ---
EXAMINATION: XR hand LT min 3V, 02/25/2025 15:05 DOUGH MACHINE OPERATOR HISTORY: dog bite 3 DAYS AGO, 4TH PROX PHALANX, [place], COMPARISON: No comparisons available. Findings: No acute fracture or malalignment. No significant degenerative changes. Soft tissues unremarkable. Impression: No acute fracture or malalignment. Reviewed, dictated and finalized at location P. H MACHINE OPERATOR Impression: No acute fracture or malalignment.
[2025-02-25 13:40] VITALS: BP 154/84; PULSE 83; RESP 20; TEMP 37.1; O2SAT 98
--- NOTE | 2025-02-25 16:02 | ED_ITS ---
HPI - Wound/Laceration General Chief Complaint: Wound/Laceration <MANE Neal Last Filed: 02/25/25 16:08> Stated Complaint: left hand pain <MANE Neal Last Filed: 02/25/25 16:08> Time Seen by Provider: 02/25/25 16:02 <MANE Neal Last Filed: 02/25/25 16:08> Focused HPI: Patient is a 64-year-old male who presents the ED with left hand pain. Patient reports he attempted to break up a fight between his dogs on Monday and was bit by 1 of his dogs in his left 4th digit on the dorsal aspect of his hand. Dogs are up-to-date on their vaccines. Patient is unsure of his last tetanus shot. Reports since yesterday he has pain, swelling in his left hand. Pain radiating up his left arm. Denies fevers. GENERAL: Well-appearing, morbidly obese with BMI of 48.3, and in no acute distress. HEAD: Normocephalic, atraumatic. CHEST: Clear to auscultation. ?No respiratory distress. HEART: Regular rate and rhythm.? MSK: Radial pulses intact. Puncture wound/bite wound to proximal phalange of L 4th digit dorsal aspect. No drainage or bleeding. Decreased flexion ROM of L fingers d/t pain. Moderate redness, warmth, swelling to L dorsal hand extending into distal forearm. Focal TTP throughout dorsal hand NEURO: ?Alert and oriented x3. Patient screened in triage and initial orders placed.? ?Additional care and disposition to be based upon?diagnostic testing and treatment. <MANE Neal Last Filed: 02/25/25 16:08> Source: patient <MANE Neal Last Filed: 02/25/25 16:08> Mode of arrival: ambulatory <MANE Neal Last Filed: 02/25/25 16:08> Limitations: no limitations <MANE Neal Last Filed: 02/25/25 16:08> History of Present Illness HPI narrative: agree with HPI <Kelsey Huerta MD - Last Filed: 02/25/25 21:49> Related Data Home Medications: Home Medications ?Medication ?Instructions ?Recorded ?Confirmed ?Last Taken ?Type amlodipine 5 mg tablet 05/24/20 Unknown History apixaban 5 mg tablet (Eliquis) mg 05/24/20 Unknown Hi story tamsulosin 0.4 mg capsule (Flomax) 0.4 mg PO DAILY 03/1202/29/24 Unknown History <Monica Brasher PA-C - Last Filed: 02/25/25 16:08> Allergies/Adverse Reactions: Allergies Allergy/AdvReac Type Severity Reaction Status Date / Time No Known Allergies Allergy Verified 02/25/25 13:45 <Monica Brasher PA-C - Last Filed: 02/25/25 16:08> [facility] Past Medical History Medical History: Medical History Pulmonary embolus DVT (deep venous thrombosis) <Monica Brasher PA-C - Last Filed: 02/25/25 16:08> Family History Family History: Family History (Updated 02/29/24 @ 10:02 by Nanci Burnett CMA) Father Cerebrovascular accident <Monica Brasher PA-C - Last Filed: 02/25/25 16:08> Social History Social History: Social History (Updated 02/29/24 @ 10:10 by Anayeli Shell CMA) Smoking status: Never smoker Alcohol intake: current Alcohol use details: occasionally Substance use: never Lack of Transportation: No Lack of Food: Never True Concerned About Future Housing: No Difficulty Paying Gas/Electric Bills: No Difficulty Paying for Meds: No Education: Associate Degree Difficulty w/ Childcare or Family Care: No Gender identity (if verbalized by the patient): Male Sexual Orientation (if Verbalized by the Patient): Straight or Heterosexual <Moncia Brasher PA-C - Last Filed: 02/25/25 16:08> Course Vital Signs Vital signs: Vital Signs Temperature 98.8 F 02/25/25 13:40 Pulse Rate 83 02/25/25 13:40 Respiratory Rate 20 02/25/25 13:40 Blood Pressure 154/84 H 02/25/25 13:40 Pulse Oximetry 98 02/25/25 13:40 Oxygen Delivery Room Air 02/25/25 13:40 Temperature 98.8 F 02/25/25 13:40 Pulse Rate 81 02/25/25 17:50 Respiratory Rate 18 02/25/25 17:50 Blood Pressure 154/89 H 02/25/25 17:50 Pulse Oximetry 100 02/25/25 17:50 Oxygen Delivery Room Air 02/25/25 13:40 <Monica Brasher PA-C - Last Filed: 02/25/25 16:08> Vital Signs Temperature 98.8 F 02/25/25 13:40 Pulse Rate 83 02/25/25 13:40 Respiratory Rate 20 02/25/25 13:40 Blood Pressure 154/84 H 02/25/25 13:40 Pulse Oximetry 98 02/25/25 13:40 Oxygen Delivery Room Air 02/25/25 13:40 Temperature 98.8 F 02/25/25 13:40 Pulse Rate 81 02/25/25 17:50 Respiratory Rate 18 02/25/25 17:50 Blood Pressure 154/89 H 02/25/25 17:50 Pulse Oximetry 100 02/25/25 17:50 Oxygen Delivery Room Air 02/25/25 13:40 <Kelsey Huerta MD - Last Filed: 02/25/25 21:49> MDM MDM Narrative Medical decision making narrative: MSE by KIAH in triage <Monica Brasher PA-C - Last Filed: 02/25/25 16:08> MSE by KIAH in triage Patient presenting with swelling and pain to his left hand after dog bite a few days ago, on exam there is swelling to the dorsum of the hand, and a small cortney to the top of his left 4th digit, however he is able to wiggle his fingers, limited only by this swelling, I therefore have very low concern for deep tissue infection or septic arthritis. Tetanus is updated, given dose of Unasyn in pain medication on re-evaluation, patient feeling much better, he is now able to move his fingers freely. Lactic is normal, white count normal, I do feel we can trial outpatient antibiotics with close follow-up to hand surgery and strict return precautions. Patient agreeable to the plan. <Kelsey Huerta MD - Last Filed: 02/25/25 21:49> Differential Diagnosis Differential Diagnosis: hand cellulitis, doubt septic arthritis as patient able to move fingers < Kelsey Huerta MD - Last Filed: 02/25/25 21:49> Lab Data Result diagrams: 02/25/25 16:58 02/25/25 16:58 <Monica Brasher PA-C - Last Filed: 02/25/25 16:08> Labs: Lab Results 02/25/25 Range/Units 16:58 WBC 9.7 (4.5-10.0) K/mm3 RBC 5.26 (4.6-6.20) M/mm3 Hgb 15.9 (14.0-18.0) g/dL Hct 46.8 (42.0-52.0) % MCV 89.0 (80-100) fl MCH 30.2 (26-34) pg MCHC 34.0 (32-36) g/dl RDW 12.9 (11.5-14.5) % Plt Count 220 (150-375) k/mm3 MPV 9.2 (7.4-10.4) fl Immature Gran % (Auto) 0.4 (0-0.5) % Neut % (Auto) 78.5 H (45.5-73.1) % Lymph % (Auto) 8.8 L (18.3-44.2) % [place] % (Auto) 11.2 H (2.6-8.5) % Eos % (Auto) 0.9 (0-4.4) % Baso % (Auto) 0.2 (0.2-1.2) % Lymph # (Auto) 0.86 L (0.9-3.2) K/mm3 [place] # (Auto) 1.1 H (0.1-0.6) K/mm3 Eos # (Auto) 0.1 (0-0.3) K/mm3 Baso # (Auto) 0.0 (0.0-0.1) K/mm3 Abs Immat Gran (auto) 0.04 H (0.00-0.031) K/mm3 Absolute Neuts (auto) 7.6 H (1.3-6.7) K/mm3 Absolute Nucleated RBC 0.000 (0.0-0.012) K/mm3 Nucleated RBC % 0.0 (0.0-0.2) % Sodium 133 L (137-145) mmol/L Potassium 4.0 (3.4-5.0) mmol/L Chloride 104 (98-107) mmol/L Carbon Dioxide 24 (22-30) mmol/L Anion Gap 5 (4-12) mmol/L BUN 11 (9-20) mg/dL Creatinine 0.96 (0.7-1.3) mg/dL Estim Creat Clear Calc 97 ml/min Estimated GFR > 60 (59 - ) Glucose 112 H (65-110) mg/dL Lactic Acid 1.4 (0.7-2.0) mmol/L Calcium 9.0 (8.4-10.2) mg/dL C-Reactive Protein 2.9 H (<1.0) mg/dL <Monica Brasher PA-C - Last Filed: 02/25/25 16:08> Lab Results 02/25/25 Range/Units 16:58 WBC 9.7 (4.5-10.0) K/mm3 RBC 5.26 (4.6-6.20) M/mm3 Hgb 15.9 (14.0-18.0) g/dL Hct 46.8 (42.0-52.0) % MCV 89.0 (80-100) fl MCH 30.2 (26-34) pg MCHC 34.0 (32-36) g/dl RDW 12.9 (11.5-14.5) % Plt Count 220 (150-375) k/mm3 MPV 9.2 (7.4-10.4) fl Immature Gran % (Auto) 0.4 (0-0.5) % Neut % (Auto) 78.5 H (45.5-73.1) % Lymph % (Auto) 8.8 L (18.3-44.2) % [place] % (Auto) 11.2 H (2.6-8.5) % Eos % (Auto) 0.9 (0-4.4) % Baso % (Auto) 0.2 (0.2-1.2) % Lymph # (Auto) 0.86 L (0.9-3.2) K/mm3 [place] # (Auto) 1.1 H (0.1-0.6) K/mm3 Eos # (Auto) 0.1 (0-0.3) K/mm3 Baso # (Auto) 0.0 (0.0-0.1) K/mm3 Abs Immat Gran (auto) 0.04 H (0.00-0.031) K/mm3 Absolute Neuts (auto) 7.6 H (1.3-6.7) K/mm3 Absolute Nucleated RBC 0.000 (0.0-0.012) K/mm3 Nucleated RBC % 0.0 (0.0-0.2) % Sodium 133 L (137-145) mmol/L Potassium 4.0 (3.4-5.0) mmol/L Chloride 104 (98-107) mmol/L Carbon Dioxide 24 (22-30) mmol/L Anion Gap 5 (4-12) mmol/L BUN 11 (9-20) mg/dL Creatinine 0.96 (0.7-1.3) mg/dL Estim Creat Clear Calc 97 ml/min Estimated GFR > 60 (59 - ) Glucose 112 H (65-110) mg/dL Lactic Acid 1.4 (0.7-2.0) mmol/L Calcium 9.0 (8.4-10.2) mg/dL C-Reactive Protein 2.9 H (<1.0) mg/dL <Kelsey Huerta MD - Last Filed: 02/25/25 21:49> Imaging Data Radiologist's impression: ITS Impressions Hand X-Ray 02/25/25 15:12 Impression: No acute fracture or malalignment. <Monica Brasher PA-C - Last Filed: 02/25/25 16:08> ITS Impressions Hand X-Ray 02/25/25 15:12 Impression: No acute fracture or malalignment. <Kelsey Huerta MD - Last Filed: 02/25/25 21:49> Discharge Plan Discharge Clinical Impression: Dog bite, Cellulitis of hand <Monica Brasher PA-C - Last Filed: 02/25/25 16:08> Patient Disposition: Home <Monica Brasher PA-C - Last Filed: 02/25/25 16:08> Condition: Stable <MANE Neal Filed: 02/25/25 16:08> Instructions: Antibiotic Form, Animal Bite (ED), Cellulitis (ED) <MANE Neal Filed: 02/25/25 16:08> Additional Instructions: Make sure to take the antibiotics as prescribed, and follow-up with the hand surgeon in the next 2 to 3 days. If you start noticing the pain is worsening, the swelling is spreading, or if you are unable to move your fingers, go straight to the emergency room. <MANE Neal Last Filed: 02/25/25 16:08> Patient Language: Pakistani <MANE Neal Filed: 02/25/25 16:08> Prescriptions: New amoxicillin-pot clavulanate 875-125 mg tablet 1 tablet PO Q12H Qty: 14 0RF oxycodone 5 mg tablet 5 mg PO Q8H PRN (Reason: pain) Qty: 14 0RF No Action tamsulosin [Flomax] 0.4 mg capsule 0.4 mg PO DAILY ciprofloxacin HCl [Cipro] 500 mg tablet 500 mg PO Q12H Qty: 14 0RF hydrocodone-acetaminophen 5-325 mg tablet 1 tablet PO Q12H PRN (Reason: pain) Qty: 14 0RF cyclobenzaprine 10 mg tablet 10 mg PO BID PRN (Reason: muscle spasm) Qty: 14 0RF amlodipine 5 mg tablet Eliquis 5 mg tablet phenazopyridine [Pyridium] 200 mg tablet 200 mg PO TID PRN (Reason: pain) Qty: 6 0RF <MANE Neal Last Filed: 02/25/25 16:08> Follow-up/Referrals: UNKNOWN,DOCTOR [Primary Care Provider] <MANE Neal Filed: 02/25/25 16:08>
[2025-02-25] MEDS: HYDROcodone/acetaminophen (*CRX) 5-325 MG TABLET 1 TAB PO (16:47)
[2025-02-25] MEDS: AMPICILLIN SODIUM/SULBACTAM 3 GM in SODIUM CHLORIDE 0.9% IV 100 ML 200 ML IVPB (16:54)
[2025-02-25] MEDS: TETANUS,DIPHTHERIA,AC PERTUSSIS ADULT (0.5 ML) BOOSTRIX IM (16:56)
[2025-02-25 17:04] LABS: Hematocrit 46.8 % (42.0-52.0); Hemoglobin 15.9 g/dL (14.0-18.0); Immature Granulocyte Percent A 0.4 % (0-0.5); Lymphocytes Absolute Auto 0.86 K/mm3 (0.9-3.2); Mean Corpuscular HGB Conc 34.0 g/dl (32-36); Mean Corpuscular Hemoglobin 30.2 pg (26-34); Mean Corpuscular Volume 89.0 fl (80-100); Nucleated Red Blood Cells Absolute Auto 0.000 K/mm3 (0.0-0.012); Nucleated Red Blood Cells Perc 0.0 % (0.0-0.2); Platelet Count Result 220 k/mm3 (150-375); Red Blood Count 5.26 M/mm3 (4.6-6.20); White Blood Count 9.7 K/mm3 (4.5-10.0)
[2025-02-25 17:17] LABS: Anion Gap 5 mmol/L (4-12); Blood Urea Nitrogen 11 mg/dL (9-20); CRP 2.9 mg/dL (<1.0); Calcium 9.0 mg/dL (8.4-10.2); Carbon Dioxide 24 mmol/L (22-30); Chloride 104 mmol/L (98-107); Estimated CRCL calculation 97 ml/min; Estimated Glomerular Filt Rate > 60; Glucose 112 mg/dL (65-110); Potassium 4.0 mmol/L (3.4-5.0); Sodium 133 mmol/L (137-145)
[2025-02-25 17:50] VITALS: BP 154/89; PULSE 81; RESP 18; O2SAT 100
--- OUTSIDE RECORDS SUMMARY | 2025-02-25 19:07 | XMS_ITS | Clinical Summary ---
Author Organization [facility] Address [address] [place] [address] Phone Care Team Providers Care Intelligence Director Name Role Phone Yoni Mcfadden MD Unavailable [phone] Justo Deluna DO Unavailable [phone] Tiffanie Myrick MD Primary Care Provider [phone] Allergies No known active allergies Medications amLODIPine [...] 1:00 PM CDT Height 175.3 cm (5' 9) 08/01/2023 1:00 PM CDT Body Mass Index 46.81 08/01/2023 1:00 PM CDT Plan of Treatment Health Maintenance Due Date Last Done Comments Hepatitis C Virus (HCV) Screening 1960 Cologuard 09/22/2004 Colonoscopy 09/22/2004 Colorectal Cancer Screening 09/22/2004 Immunochemical Fecal Occult Blood 09/22/2004 Pneumococcal Immunization (5 0+ years) (1 of 1 - PCV) 09/22/2009 Respiratory Syncytial Virus (RSV) Immunization (Adult) (1 - Risk 50-74 years 1-dose series) 09/22/2009 Zoster Immunization (1 of 2) 09/22/2009 PSA Discussion 09/22/2014 Medicare Initial AWV G0438 03/20/2021 Influenza Immunization (#1) 2024 SARS-COV-2 Immunization (1 - season) 2024 Td Immunization Every 10 Yea rs (Adults With 1 Tdap) 01/03/2027 01/03/2017, 08/08/2000 DTaP/Tdap/Td Immunization Discontinued 2016, 08/08/2000 Hepatitis B Immunization Aged Out No longer eligible based on patient's age to complete this topic Human Papillomavirus (HPV) Immunization Aged Out No longer eligible based on patient's age to complete this topic Meningococcal Immunization (ACWY) Aged Out No longer eligible based on patient's age to complete this topic Rotavirus Immunization Aged Out No lo nger eligible based on patient's age to complete this topic Insurance MEDICARE C [employer]ET[employer] Care Teams Intelligence Director Relationship Specialty Start Date End Date Tiffanie Myrick MD [address] [address] PCP - General 09/07/20 Yoni Mcfadden MD [address] [place] [id number] Urologist Urology 08/27/20 Justo Deluna DO [address] [place] [id number] Consulting Physician Oncology 08/27/20
--- OUTSIDE RECORDS SUMMARY | 2025-02-25 19:07 | XMS_ITS | Clinical Summary ---
Author Organization [facility] Address [address] [place] [id number] Care Team Providers Care Double Needle Operator Name Role Phone Tiffanie Myrick MD Primary Care Provider [phone] Allergies No known active allergies Medications CPAP [...] sleep apnea of adult 06/07/2016 Pulmonary embolism 06/07/2016 Social History Tobacco Use Types Packs/Day [...] 7:35 AM CDT Height 175.3 cm (5' 9) 07/16/2021 7:35 AM CDT Body Mass Index 47.43 07/16/2021 7:35 AM CDT Plan of Treatment Health Maintenance Due Date Last Done Comments Colorectal Cancer Screening Colonoscopy (10 Years) 1960 Hepatitis C 09/22/1977 Pneumococcal Vaccine: 50+ Years (1 of 1 - PCV) 09/22/2009 Zoster Vaccines (1 of 2) 09/22/2009 COVID-19 Vaccine (1 - 2024-2 6 season) 2024 Influenza Adult (#1) 2024 DTaP, Tdap and Td Vaccines ( 3 - Td or Tdap) 01/03/2027 01/03/2017, 08/08/2000 RSV Immunization or 60+ Years (1 - 1-dose 75+ series) 09/22/2034 Hepatitis A Vaccines Aged Out No long er eligible based on patient's age to complete this topic Meningococcal B Vaccine Aged Out No l onger eligible based on patient's age to complete this topic Meningococcal Vaccine Aged Out No bernardo og eligible based on patient's age to complete this topic RSV Immunizations Under 20 Months Aged Out No longer eligible b ased on patient's age to complete this topic Insurance AETNA MEDICARE Care Teams Double Needle Operator Relationship Specialty Start Date End Date Tiffanie Myrick MD PCP - General 06/11/14
--- OUTSIDE RECORDS SUMMARY | 2025-02-25 19:07 | XMS_ITS | Encounter Summary ---
Author Organization [facility] Address [facility] [place] [address] Care Team Providers Care Coding Support Specialist Name Role Phone Faisal Marina MD Unavailable [phone] Marjan Henriquez PA-C Unavailable Howard Ponce MD Primary Care Provider [phone] Reason for Visit * Reason Onset Date Comments Reschedule Appointment 02/03/2023 Encounter Details Date Type Department Care Team (Late st Contact Info) Description 02/03/2023 Telephone [facility] - Centralized Scheduling [address] [place] [address] Salome Seay, ASSOCIATE PROFESSOR OF COUNSELING-METABOLIC SPECIALIST [address] [address] Reschedule Appointment Social History Tobacco Use Types Packs/Day Years Used Date Smoking Tobacco: Never Smokeless Tobacco: Never Alcohol Use Standard Drinks/Week Comments Yes 0.8 (1 standard drink = 0.6 oz p ure alcohol) rare Sex and Gender Information Value Date Recorded Sex Assigned at Not on file Legal 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 Please contact Gino to reschedule his appointment. EAR PHARMACIST documented in this encounter Plan of Treatment Not on file documented as of this encounter Visit Diagnoses Not on filedocumented in this encounter Care Teams Coding Support Specialist Relationship Specialty Start Date End Date Howard Ponce MD [address] [place] [address] PCP - General Internal Medicine 10/31/22 Faisal Marina MD Internal Medicine 02/26/19 Marjan Henriquez, PA-C [address] [facility] [address] [place] [address] Gastroenterology 02/26/19 documented as of this encounter
--- OUTSIDE RECORDS SUMMARY | 2025-02-25 19:07 | XMS_ITS | Data Portability ---
[facility] Organization [facility] Address [address] [place] [address] Care Team Providers Care Lapel Padder Blindstitch Name Role Phone SHERI WHITNEY Machine Printer CHRISTY VELASQUEZ Urologist KAMERON CORRIGAN Medical Oncologist EDMUNDO ARRIETA Primary Care Provider Assessment No assessment recorded. Plan of Treatment Reminders Order Date Submit Date Provider Last Modified By Organization Details Last Modified Time Details Appointments None recorded. Lab HbA1c (hemoglobi n A1c), blood 2024 025 jreuss In-Office Order, Internal Use Only DO Not Attach Compendium DO Not Attach Compendium, Do Not Delete/merge, [id number] 17:08:51 PSA, serum or plasma 2024 025 [facility], [address], [place], [address], 5 09:23:31 HbA1c (hemoglobi n A1c), blood 2024 025 jreuss In-Office Order, Internal Use Only DO Not Attach Compendium DO Not Attach Compendium, Do Not Delete/merge, [id number] 15:44:30 microalbum in/creatin ine, mass ratio, urine 2024 025 [facility], [address], [place], [address], 5 02:47:40 HbA1c (hemoglobi n A1c), blood 2024 025 [facility], [address], [place], [address], 5 10:45:38 CBC w/ auto diff 2024 025 [facility], [address], [place], [address], 5 10:45:37 CMP, serum or plasma 2024 025 [facility], [address], [place], [address], 5 10:45:35 lipid panel, serum 2024 025 [facility], [address], [place], [address], 5 10:45:34 CMP, serum or plasma 2022 023 [facility] Not available 3 16:12:58 CBC w/ auto diff 2022 023 [facility] Not available 3 16:12:58 lipid panel, serum 2022 023 [facility] Not available 3 16:12:58 HbA1c (hemoglobi n A1c), blood 2022 023 [email or web address] Not available 3 14:54:59 CMP, serum or plasma 2022 023 [facility], [address] [place], [address], 4 17:05:17 CBC w/ auto diff 2022 023 [facility], [address] [place], [address], 4 17:05:17 lipid panel, serum 2022 023 [facility], [address], [place], [address], 4 17:05:17 HbA1c (hemoglobi n A1c), blood 2022 023 [email or web address] [facility], [address], [place], [address], 4 22:28:34 Referral optometris t referral 2024 025 [facility], [address] , [place], [address], 5 11:05:28 Procedures None recorded. Surgeries None recorded. Imaging None recorded. Medication Orders ezetimibe 10 mg tablet 2024 025 jreuss [facility] [address], [place], [address], 5 17:09:15 metformin ER 500 mg tablet,ext ended release 24 hr 2024 025 jreuss [facility] [address], [address], [place], [address], 5 15:44:34 amlodipine 5 mg tablet 2022 023 [facility] [address], [address], [place], [address], 3 17:30:19 Eliquis 5 mg tablet 2022 023 [facility] [address], [address], [place], [address], 3 17:30:17 Patient TargetsNo targets recorded. Patient Instructions Encounter Date Encounter Id Patient Instructions Last Modified By Organization Details Last Modified Time 08/02/2022 [id number] high cholesterol : care instructions [email or web address] Not available 12/08/2023 17:20:31 sleep apnea: car e instructions [email or web address] Not available 12/08/2023 17:20:31 learning about high blood sugar [email or web address] Not available 12/08/2023 17:20:31 body mass index: care instructions [email or web address] Not available 12/08/2023 17:20:31 learning about healthy weight [email or web address] Not available 12/08/2023 17:20:31 learning about high blood pressure [email or web address] Not available 12/08/2023 17:20:31 Gino, - Thank [...] pneumonia. Currently, this is a single immunization, [id number], if you have never previously been immunized. [...] of green and leafy vegetables, including salads. [email or web address] Not available 08/02/2022 17:08:04 01/30/2023 [id number] high cholesterol : care instructions Not available 01/30/2023 17:20:28 sleep apnea: car e instructions [email or web address] Not available 01/30/2023 17:20:28 body mass index: care instructions [email or web address] Not available 01/30/2023 17:20:28 learning about healthy weight [email or web address] Not available 01/30/2023 17:20:28 learning about high blood sugar [email or web address] Not available 01/30/2023 17:20:28 learning about high blood pressure [email or web address] Not available 01/30/2023 17:20:28 Gino, - Thank [...] pneumonia. Currently, this is a single immunization, [id number], if you have never previously been immunized. [...] of green and leafy vegetables, including salads. [email or web address] Not available 01/30/2023 17:30:14 03/21/2024 [id number] A healthy lifestyle: care instructions jreuss Not available 03/21/2024 16:21:14 06/20/2024 [id number] A healthy lifestyle: care instructions jreuss Not available 06/20/2024 15:44:30 09/18/2024 [id number] advance care planning: care instructions jreuss Not available 09/18/2024 17:08:51 preventing falls : care instructions jreuss Not available 09/18/2024 17:08:51 Quitting Tobacco : Care Instructions jreuss Not available 09/18/2024 17:08:51 [facility]uss Not available 09/18/2024 17:08:51 eating healthy foods: care instructions jreuss Not available 09/18/2024 17:08:51 AD8 Dementia Screening Interview jreuss Not available 09/18/2024 17:08:51 advance care planning: care instructions jreuss Not available 09/18/2024 17:08:51 preventing falls : care instructions jreuss Not available 09/18/2024 17:08:51 Quitting Tobacco : Care Instructions jreuss Not available 09/18/2024 17:08:51 [facility]ive [facility] jreuss Not available 09/18/2024 17:08:51 eating healthy foods: care instructions [facility] Not available 09/18/2024 17:08:51 AD8 Dementia Screening Interview [facility] Not available 09/18/2024 17:08:51 A healthy lifestyle: care instructions [facility] Not available 09/18/2024 17:08:51 Reason for Referral Hospital Nursing Assistant Referral for Eye / vision finding Referring Physician: Susana Schofield, Family Medicine, Encounter Date: 09/18/2024 Results Created Date Observation Date Name Description Value Unit Range Abnormal Flag Note LastModifiedBy Organization Detail LastModifiedTime 03/21/1903/22/2024 LIPID PANEL , STAND STEVENSON cholesterol, total 309 mg/dL <200 high Not Available [facility] [address] [place], [address], 03/22/2024 10:45:34 03/21/19 25 03/22/2024 LIPID PANEL , STAND STEVENSON HDL cholesterol 43 mg/dL > or = 40 normal Not Available [facility] [address] [address] [place], [address], 03/22/2024 10:45:34 03/21/1903/22/2024 LIPID PANEL , STAND STEVENSON triglyceride s 233 mg/dL <150 high If a non-f astin g speci men was colle cted, consi oliverio repea t trigl yceri de testi ng on a fasti ng speci men if clini zaida indic ated. Saman drew et al. J. of Clin. Lipid ol. 2015; 9:129 -169. Not Available [facility] [address] [address] [place], [address], 03/22/2024 10:45:34 03/21/1903/22/2024 LIPID PANEL , STAND STEVENSON LDL-choleste rol 223 mg/dL _(gill c) high LDL-C level s > or = 190 mg/dL may indic ate famil ial hyper jenae stero lemia (FH). Clini gill asses sment and measu remen t of [...] ia: Part 1 Journ al of Clini gill Lipid ology 2015; 9(2), 129-1 69. Phong salcido M. et al. (2014 ). Homoz ygous famil ial hyper jenae stero laemi a: new insig hts and simone nce for clini cians to impro ve detec tion and clini gill manag ement . Europ mohit Heart Journ [...] 2061- 2068 (http ://ed ucati on.Qu estDi [employer]. com/f aq/FA Q164) Not Available [facility] [address] [address], [place], [address], 03/22/2024 10:45:34 03/21/19 25 03/22/2024 LIPID PANEL , STAND STEVENSON chol/HDLC ratio 7.2 (calc ) <5.0 high Not Available [facility] [address], [place], [address], 03/22/2024 10:45:34 03/21/19 25 03/22/2024 LIPID PANEL , STAND STEVENSON non HDL cholesterol 266 mg/dL _(gill c) <130 high Non-H DL level > or = 220 is very high and may indic ate belinda ic famil ial hyper jenae stero lemia (FH). Clini gill asses sment and measu remen t of [...] thera peuti c optio n. Not Available [address], [place], [address], 03/22/2024 10:45:34 03/21/19 25 03/22/2024 COMPR EHENS FILI METAB OLIC PANEL glucose 118 mg/dL 65-99 high Fasti ng refer ence inter bin For someo ne witho ut known diabe josef, a gluco se value betwe en 100 and 125 mg/dL is consi stent with predi abete s and shoul d be confi rmed with a follo w-up test. Not Available [facility] [address], [place], [address], 03/22/2024 10:45:35 03/21/19 25 03/22/2024 COMPR EHENS FILI METAB OLIC PANEL urea nitrogen (BUN) 10 mg/dL 7-25 normal Not Available [facility] [address] [place], [address], 03/22/2024 10:45:35 03/21/19 25 03/22/2024 COMPR EHENS FILI METAB OLIC PANEL creatinine 1.01 mg/dL 0.70-1 .35 normal Not Available [address], [address], 03/22/2024 10:45:35 03/21/19 25 03/22/2024 COMPR EHENS FILI METAB OLIC PANEL eGFR 83 mL/mi n/1.7 3m2 > or = 60 normal Not Available [address], [address], 03/22/2024 10:45:35 03/21/19 25 03/22/2024 COMPR EHENS FILI METAB OLIC PANEL BUN/creatini ne ratio SEE NOTE: (calc ) 6-22 Not Repor jessica: BUN and Creat inine are withi n refer ence range . Not Available [address], [address], 03/22/2024 10:45:35 03/21/19 25 03/22/2024 COMPR EHENS FILI METAB OLIC PANEL sodium 136 mmol/ L 135-14 6 normal Not Available [address], [address], 03/22/2024 10:45:35 03/21/19 25 03/22/2024 COMPR EHENS FILI METAB OLIC PANEL potassium 4.3 mmol/ L 3.5-5. 3 normal Not Available [facility] [address], [address], 03/22/2024 10:45:35 03/21/19 25 03/22/2024 COMPR EHENS FILI METAB OLIC PANEL chloride 101 mmol/ L 98-110 normal Not Available [address] [address] [place], [address], 03/22/2024 10:45:35 03/21/19 25 03/22/2024 COMPR EHENS FILI METAB OLIC PANEL carbon dioxide 23 mmol/ L 20-32 normal Not Available [address], [address], 03/22/2024 10:45:35 03/21/19 25 03/22/2024 COMPR EHENS FILI METAB OLIC PANEL calcium 9.2 mg/dL 8.6-10 .3 normal Not Available [address], [address], 03/22/2024 10:45:35 03/21/19 25 03/22/2024 COMPR EHENS FILI METAB OLIC PANEL protein, total 6.9 g/dL 6.1-8. 1 normal Not Available [address], [address], 03/22/2024 10:45:35 03/21/19 25 03/22/2024 COMPR EHENS FILI METAB OLIC PANEL albumin 4.3 g/dL 3.6-5. 1 normal Not Available [address], [address], 03/22/2024 10:45:35 03/21/19 25 03/22/2024 COMPR EHENS FILI METAB OLIC PANEL globulin 2.6 g/dL_ (calc ) 1.9-3. 7 normal Not Available [address], [address], 03/22/2024 10:45:35 03/21/19 25 03/22/2024 COMPR EHENS FILI METAB OLIC PANEL albumin/glob ulin ratio 1.7 (calc ) 1.0-2. 5 normal Not Available [address], [address], 03/22/2024 10:45:35 03/21/19 25 03/22/2024 COMPR EHENS FILI METAB OLIC PANEL bilirubin, total 1.4 mg/dL 0.2-1. 2 high Not Available [address], [address], 03/22/2024 10:45:35 03/21/19 25 03/22/2024 COMPR EHENS FILI METAB OLIC PANEL alkaline phosphatase 74 U/L 35-144 normal Not Available [facility] [address] [address] [place], [address], 03/22/2024 10:45:35 03/21/19 25 03/22/2024 COMPR EHENS FILI METAB OLIC PANEL AST 22 U/L 10-35 normal Not Available [address], [address], 03/22/2024 10:45:35 03/21/19 25 03/22/2024 COMPR EHENS FILI METAB OLIC PANEL ALT 31 U/L 9-46 normal Not Available [address], [address], 03/22/2024 10:45:35 03/21/19 25 03/22/2024 CBC (INCL UDES DIFF/ PLT) white blood cell count TNP TEST NOT PERFO RMED Speci men recei luis clott ed. Not Available [address], [address], 03/22/2024 10:45:37 03/21/19 25 03/22/2024 HEMOG LOBIN [...] diabe josef for child marva. Not Available [facility] [address] [address] [place], [address], 03/22/2024 10:45:38 05/06/19 25 05/08/2024 LIPID PANEL , STAND STEVENSON cholesterol, total 250 mg/dL <200 high Not Available [facility] [address], [address], 05/08/2024 04:06:57 05/06/19 25 05/08/2024 LIPID PANEL , STAND STEVENSON HDL cholesterol 48 mg/dL > or = 40 normal Not Available [facility] [address] [address] [place], [address], 05/08/2024 04:06:57 05/06/19 25 05/08/2024 LIPID PANEL , STAND STEVENSON triglyceride s 169 mg/dL <150 high Not Available [facility] [address] [address] [place], [address], 05/08/2024 04:06:57 05/06/19 25 05/08/2024 LIPID PANEL , STAND STEVENSON LDL-choleste rol 170 mg/dL _(gill c) high Refer ence range : <100 Elsy able range <100 mg/dL for prima ry preve ntion ; <70 mg/dL for patie nts with CHD or diabe tic patie nts with > or = 2 CHD risk facto rs. LDL-C is now calcu lated using the Clare n-Hop kins calcu latio n, which is a valid ated novel metho d provi ambrocio seble r accur acy than the Fried javier equat ion in the estim ation of LDL-C . Clare roberts SS et al. LORE. 2013; 310(1 9): 2061- 2068 (http ://ed ucati on.Freddy finleyFileHold Document Management software. com/f aq/FA Q164) Not Available [address], [address], 05/08/2024 04:06:57 05/06/19 25 05/08/2024 LIPID PANEL , STAND STEVENSON chol/HDLC ratio 5.2 (calc ) <5.0 high Not Available [address], [place], [address], 05/08/2024 04:06:57 05/06/1905/08/2024 LIPID PANEL , STAND STEVENSON non HDL cholesterol 202 mg/dL _(gill c) <130 high For patie nts with diabe josef plus 1 major ASCVD risk facto r, treat ing to a non-H DL-C goal of <100 mg/dL (LDL- C of <70 mg/dL ) is consi dered a thera peradhai c optio n. Not Available [address], [address], 05/08/2024 04:06:57 06/21/19 25 06/22/2024 ALBUM IN, RANDO M URINE W/CRE ATINI NE creatinine, random urine 287 mg/dL 20-320 normal Not Available [address], [address], 06/22/2024 02:47:40 06/21/19 25 06/22/2024 ALBUM IN, RANDO M URINE W/CRE ATINI NE albumin, urine 2.4 mg/dL see note: normal Refer ence Range : Refer ence Range Not estab lishe d Not Available [address], [address], 06/22/2024 02:47:40 06/21/19 25 06/22/2024 ALBUM IN, RANDO M URINE W/CRE ATINI NE albumin/crea tinine ratio, random urine 8 mg/g_ creat <30 normal The ADA defin es abnor malit ies in album in excre tion as follo ws: Album inuri a Categ ory Resul t (mg/g creat inine ) Cami l to Mildl y incre ased <30 Moder ately incre ased 30-29 9 Sever scott incre ased > OR = 300 The ADA recom mends that at least two of three speci mens colle cted withi n a 3-6 month perio d be abnor mal befor e consi aleksey g a patie nt to be withi n a diagn ostic categ ory. Not Available [facility] [address] [place], [address], 06/22/2024 02:47:40 06/21/19 25 06/20/2024 HbA1c (hemo globi n A1c), blood HbA1c 5.5 Not Available In-Office Order Internal Use Only DO Not Attach Compendium DO Not Attach Compendium, Do Not Delete/merge, [id number] 06/20/2024 10:00:45 09/19/19 25 09/19/2024 PSA, TOTAL PSA, total 3.56 NG/mL < or = 4.00 normal The total PSA value from this assay syste m is stand ardiz ed again st the WHO stand stevenson. The test resul t will be appro ximat scott 20% lower when randi red to the equim olar- stand ardiz ed total PSA (Sequeira man Coult er). Randi rison of seria l PSA resul ts shoul d be inter prete d with this fact in mind. This test was perfo rmed using the Sieme ns chemi lumin escen t metho d. Value s obtai daniele from diffe rent assay metho ds canno t be used inter garcia eably . PSA level s, regar dless of value , shoul d not be inter prete d as absol clark's point evide nce of the prese nce or absen ce of disea se. Not Available [facility] [address] [place], [address], 09/19/2024 09:23:31 09/19/19 25 09/18/2024 HbA1c (hemo globi n A1c), blood HbA1C 6.2 % Not Available In-Office Order Internal Use Only DO Not Attach Compendium DO Not Attach Compendium, Do Not Delete/merge, [id number] 09/18/2024 09:32:22 08/16/19 25 08/08/2024 US, echoc ardio gram, trans thora cic, compl ete, w/ color flow No observ ation record ed. jreuss [facility] [address] [facility] [address], [place], [address], 08/15/2024 15:25:40 Result Notes None recorded. Problems Name Problem SNOMED Code Status Onset Date Resolution Date Notes Provider Name and Address Organization Details Recorded Time External hemorrhoid s 07635524 Active 2014 Edmundo Arrieta MD Attn: Liliana diego,[address] [place], [address], [facility] 3 14:35:28 Sleep apnea 10853186 Active 2014 Edmundo Arrieta MD Attn: Liliana diego,[address] [place], [address], [facility] 3 14:35:54 History of pulmonary embolus 087053691 Active 2014 [facility] 2 08:49:02 Deep vein phlebitis and thrombophl ebitis of the leg Completed 201404/10/2015 Edmundo Arrieta MD Attn: Liliana diego,[address] [facility], [place], [address], [facility] 3 14:36:16 Pulmonary embolism 14196014 Completed 201404/10/2015 Edmundo Arrieta MD Attn: Liliana diego,[address] [facility], [place], [address], [facility] 3 14:36:24 Hyperlipid emia 65788534 Active 2014 Edmundo Arrieta MD Attn: Liliana diego,[address] [facility], [place], [address], [place] [facility] 3 14:35:36 Long-term drug therapy Active 2015 Edmundo Arrieta MD Attn: Liliana diego,[address] [facility], [place], [address], [place] [facility] 3 14:35:40 Family history of Blood disorder 855823725 Active 2015 Edmundo Arrieta MD Attn: Liliana diego,[address] [facility], [place], [address], [place] [facility] 3 14:35:33 Gallstone 630235724 Completed 201506/08/2015 Edmundo Arrieta MD Attn: Liliana diego,[address] [facility], [place], [address], [place] [facility] 3 14:36:20 Cardiac pacemaker in situ 388907648 Active 2015 Edmundo Arrieta MD Attn: Liliana diego,[address] [facility], [place], [address], [place] [facility] 3 14:36:07 Hyperglyce nicolas 19495762 Active 2016 Edmundo Arrieta MD Attn: Liliana diego,[address] [facility], [place], [address], [place] [facility] 3 14:36:07 Essential hypertensi on 57292334 Active 2019 Edmundo Arrieta MD Attn: Accountsulaiman g,[address] [facility], [place], [address], [place] [facility] 3 14:36:07 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, [place], [address], [facility] 3 14:37:43 Type 2 diabetes mellitus 13812845 Active 2024 RACHEAL Cano Attn: Liliana diego,[address] [facility], [place], [address], [facility] 5 09:59:48 Problem Notes Documentation Provider Name and Address Organization Details Recorded Time Urologist Consult Note : This document (1 of 1) was received from [email or web address] on 04/11/2024 through Direct Message along with the following message body content: Patient Name: GINO CUNNINGHAM. Patient : 1960. Patient . Stella Poole [facility], [facility] 04/12/2024 12:26:41 Procedures Surgical History Date Name Laterality Status Provider Name and Address Organization Details Recorded Time 09/17/19 11 Appendectomy completed [facility] 12/01/2016 14:40:49 Tonsillectomy completed [facility] 12/01/2016 14:41:24 Imaging Results None recorded. Procedure Notes None recorded. Medical Equipment None [...] 5 mg tablet TAKE 1 TABLET DAILY active Not Available Not Available No t Available ciprofloxa jos edavid 500 mg tablet TAKE 1 TABLET BY MOUTH EVERY 12 HOURS 01/31 completed Not Available Not Available Not Available sulfametho xazole 800 mg-trimeth oprim 160 mg tablet TAKE 1 TABLET BY MOUTH TWICE DAILY 01/11 completed Not Available Not Available Not Available amoxicilli n 500 mg tablet TAKE 1 TABLET BY MOUTH THREE TIMES A DAY UNTIL FINISHED active Not Available Not Available No t Available tamsulosin 0.4 mg capsule TAKE 1 CAPSULE DAILY active Not Available Not Available No t Available hydrocodon e 7.5 mg-acetami nophen 325 mg tablet TAKE 1 TABLET BY MOUTH EVERY 6 HOURS NEEDED FOR PAIN active Not Available Not Available No t Available cephalexin 500 mg capsule TAKE ONE CAPSULE BY MOUTH EVERY 12 HOURS 01/11 completed Not Available Not Available Not Available simvastati n 20 mg tablet Take 1 tablet po q hs 03/03 completed RxNorm: 093748; Allow Substit ution: True Not Available Not Available Not Available niacin 500 mg tablet take 1 tab q hs 02/09 completed RxNorm: 500282; Allow Substit ution: True Not Available Not Available Not Available niacin ER 500 mg capsule,ex tended release Take 1 capsule( s) by mouth daily 06/09 completed RxNorm: 707270; Allow Substit ution: True Not Available Not Available Not Available pravastati n 20 mg tablet Take 1 tablet(s ) by mouth at bedtime 08/02 completed RxNorm: 104954; Allow Substit ution: True Not Available Not [...] Not Available No t Available rosuvastat in 5 mg tablet TAKE 1 TABLET BY MOUTH ONE TIME PER WEEK active Not Available Not Available No t [...] Available Not Available Eliquis 5 mg tablet TAKE 1 TABLET TWICE A DAY active Not Available Not Available No t Available Vitals Date Recorded Systolic And Diastolic Provider Name and Address Organization Details Last Updated DateTime 03/21/2024 138/84 mm[Hg] RACHEAL Cano Attn: Accounting,[address] [place], [address], [facility] 03/21/2024 14:24:16 Date Recorded Body weight Body temperature Oxygen saturation Heart rate Systolic And Diastolic Provider Name and Address Organization Details Last Updated DateTime 5 103556. 34 g 97.9 [degF] 98 % 88 /min 140/82 mm[Hg] Kaur Carter MA [facility] 5 14:05:23 Date Recorded Systolic And Diastolic Provider Name and Address Organization Details Last Updated DateTime 06/20/2024 126/82 mm[Hg] RACHEAL Cano Attn: Accounting,[address] [place], [address], [facility] 06/20/2024 15:25:24 Date Recorded Body weight Oxygen saturation Heart rate Body temperature Systolic And Diastolic Provider Name and Address Organization Details Last Updated DateTime 5 346796. 43 g 98 % 65 /min 97.2 [degF] 146/93 mm[Hg] Geovanna Maguire MA [facility] 5 14:56:49 Date Recorded Body height Body mass index (BMI) Body weight Body temperature Oxygen saturation Heart rate Systolic And Diastolic Provider Name and Address Organization Details Last Updated DateTime 3 180.34 cm 43 kg/m2 259927. 45 g 97.5 [degF] 98 % 83 /min 123/82 mm[Hg] Rudi Reza MA [facility] 3 15:51:49 Date Recorded Body weight Body mass index (BMI) Body height Oxygen saturation Heart rate Body temperature Systolic And Diastolic Provider Name and Address Organization Details Last Updated DateTime 5 359014. 28 g 46.1 kg/m2 180.34 cm 96 % 70 /min 98.1 [degF] 130/79 mm[Hg] Talita Sánchez MA [facility] 5 14:44:12 Date Recorded Body height Body mass index (BMI) Body weight Body temperature Oxygen saturation Heart rate Systolic And Diastolic Provider Name and Address Organization Details Last Updated DateTime 3 180.34 cm 42.5 kg/m2 768288. 18 g 97.8 [degF] 97 % 67 /min 135/84 mm[Hg] Kirill Stoll MA [facility] 3 16:41:05 Social History Question Answer Notes LastModified by [employer] Details LastModified Time Tobacco Smoking Status Never Smoker [facility] 12/01/2016 14:38:45 Do You Have An Advance Directive? No Information not available 07/12/2021 Are You Blind Or Do You Have Difficulty Seeing? No Information not available 07/12/2021 What Is Your Level Of Caffeine Consumption? Occasional Information not available 01/11/2021 Are You Deaf Or Do You Have Serious Difficulty Hearing? Yes Ringing In Ears Information not available 07/12/2021 What Type Of Diet Are You Following? REGULAR Information not available 07/12/2021 What Was The Date Of Your Most Recent Tobacco Screening? 09/18/2024 Information not available 09/18/2024 What Is Your Relationship Status? Information not available 07/12/2021 Has Tobacco Cessation Counseling Been Provided? No Information not available 01/31/2022 Sex: Male Functional Status Question Answer Note LastModified by [email or web address] Self Representation Document Preparation ion Details LastModified Time Do you use any illicit or recreational drugs? No Information not available 01/11/2021 Do you or have you ever used any other forms of tobacco or nicotine? No Information not available 01/31/2022 What is your level of alcohol consumption? Occasional Information not available 01/11/2021 Are you currently employed? No Information not available 07/12/2021 Are you able to care for yourself independently? Yes Information not available 07/12/2021 What is your exercise level? Occasional Information not available 07/12/2021 Mental Status Question Answer Note LastModified by Organization D etails LastModified Time Do you feel stressed (tense, restless, nervous, or anxious, or unable to sleep at night)? [id number] Information not available 07/12/2021 Family History Relationship Description Onset Age of [...] Recorded Time Tdap 01/03/2017 completed Not Available [employer] 04/06/2019 02:42:30 Tdap 08/08/2000 completed Not Available [employer] 03/23/2016 05:53:41 Past Encounters Encounter ID Performer Location Encounter Start Date Encounter Closed Date Diagnosis/Indication Diagnosis SNOMED-CT Code Diagnosis ICD10 Code Diagnosis IMO Codes Diagnosis Note [id number] Tiffanie Myrick MD [facility] [address] [place] [address] 06/28/2016 11:53:55 06/28/2016 14:40:14 Hyperlipidemia 69112065 E78.5 Morbid obesity 999374261 E66.01 Long-term drug therapy 397116842 Z79.157 [id number] Tiffanie Myrick MD [facility] [address] [place] [address] 07/05/2016 11:37:30 07/05/2016 13:40:37 Hyperlipidemia 52568615 E78.5 Coronary arteriosclerosis 87237575 I25.10 completed disability 5 Physical 2A Mixed anxi ety and depressive disorder 063699933 F41.8 [id number] Tiffanie Myrick MD [facility] [address] [place] [address] 01/03/2017 10:16:01 01/04/2017 16:43:53 Hyperlipidemia 26678907 E78.5 History of pulmonary embolus 540138686 Z86.711 Hyperglycemia 57055568 R 73.9 Administra tion of diphtheria, pertussis, and tetanus vaccine 129774340 Z23 Change in skin lesion 39 3752342 L98.9 enlarging lip lesion [id number] Tiffanie Myrick MD [facility] [address] [place] [address] 01/04/2017 14:37:41 01/05/2017 15:00:53 Hyperglycemia 94962491 R73.9 Long-term drug therapy 217469122 Z79.899 Hyperlipidemia 16205080 E78.5 Morbid obesity 645010906 E66.01 [id number] Tiffanie Myrick MD [facility] [address] [place] [address] 06/26/2017 14:49:40 06/27/2017 10:18:08 Hyperlipidemia 78461587 E78.5 Morbid obesity 627833449 E66.01 Essential hypertension 84269120 I10 Mixed anxi ety and depressive disorder 430762472 F41.8 Intentiona l weight loss 595416084 R63.8 [id number] Tiffanie Myrick MD [facility] [address] [place] [address] 12/28/2017 13:35:29 12/29/2017 11:34:05 Hyperlipidemia 36680331 E78.5 Essential hypertension 01715207 I10 History of pulmonary embolus 095135378 Z86.711 Influenza vaccination declined 912329370 Z28.21 [id number] Tiffanie Myrick MD [facility] [address] [place] [address] 07/05/2018 14:17:04 07/06/2018 09:18:13 Hyperlipidemia 51399415 E78.5 Hyperglycemia 39353424 R 73.9 Morbid obesity 507079096 E66.01 Essential hypertension 94872105 I10 [id number] Tiffanie Myrick MD [facility] [address] [place] [address] 01/03/2019 14:36:19 01/03/2019 16:15:16 Hyperlipidemia 77444408 E78.5 Essential hypertension 84076133 I10 History of pulmonary embolus 708729192 Z86.711 Hyperglycemia 85682034 R 73.9 Influenza vaccination declined 149400311 Z28.21 HIV screening 831457696 Z11.4 [id number] Tiffanie Myrick MD [facility] [address] [place] [address] 07/04/2019 13:28:01 07/04/2019 15:19:05 Body mass index 40+ - severely obese 359165936 Z68.41 Hyperlipidemia 34284207 E78.5 Cardiomegaly 9154002 I51 .7 [id number] Tiffanie Myrick MD [facility] [address] [place] [address] 12/24/2019 13:58:59 12/24/2019 18:05:52 Hyperlipidemia 15554244 E78.5 Essential hypertension 58666571 I10 History of pulmonary embolus 781454752 Z86.007 [id number] Tiffanie Myrick MD [facility] [address] [place] [address] 01/11/2021 15:27:43 01/11/2021 17:06:49 Adult health examination 951531614 Z00.00 Body mass index 40+ - severely obese 621931492 Z68.41 Retroperit ignacio lymphadenopathy 938356187 R59.0 getting blood work from the specialist [id number] Tiffanie Myrick MD [facility] [address] [place] [address] 07/12/2021 15:54:28 07/12/2021 18:03:57 Essential hypertension 43767335 I10 Morbid obesity 440164644 E66.01 Hyperlipidemia 06763759 E78.5 External hemorrhoids 239 78083 K64.4 Retroperit ignacio lymphadenopathy 648318038 R59.0 under care of oncology - maybe getting a biopsy soon Body mass index 40+ - severely obese 408005299 Z68.41 [id number] Tiffanie Myrick MD [facility] [address] [place] [address] 01/31/2022 15:52:32 01/31/2022 18:15:57 Essential hypertension 16770618 I10 Hyperlipidemia 99164078 E78.5 Morbid obesity 133739279 E66.01 Hyperglycemia 18795495 R 73.9 [id number] Edmundo Arrieta MD [facility] [address] [place] [address] 08/02/2022 15:29:08 08/17/2022 21:26:51 Essential hypertension 35099552 I10 # HTN Controlled Continue current medication s. No change in management Encouraged routine blood pressure checksat home, targetless than 140/90 DiscussedD MARLY diet(https ://www.nhl bi.nih.gov /files/doc s/public/h eart/dash_ brief.pdf) anddietary sodium restrictio ns Continue/I ncrease dietary efforts and physical activity Hyperlipidemia 00424341 E78.5 # Hyperlipid emiaLast lipid panel > 1 year agoObtain panel for cardiovasc ular disease, cerebrovas cular disease risk assessment Continue with current management without changes.Fo cus on a dietlow in saturated fats(https ://www.[facility]. [facility]ale[facility].or g/educatio n/guidelin es-for-a-l ow-cholest ruddy-low-s aturated-f at-diet),b lood pressure control,sm oking cessation( http://che tyes.org/) anddaily exerciseto reduce your risk ofheart disease and stroke. Cardiac pa angel in situ 635752148 Z95.0 follows with cardiology Sleep apnea 68258198 G47 .30 reports history of sleep apnea, not currently using cpapconsid er referral to sleep medicine Body mass index 40+ - severely obese 597455392 Z68.41 Focus on a healthy diet, avoid added salt, and aqbxto2166 calories or less daily. Exercise as tolerated, targeting3 0-60 minutes of exercise daily, at least 5 days per week Retroperit ignacio lymphadenopathy 159751037 R59.0 following with oncology for monitoring Long-term drug therapy 775327479 Z79.899 Checking routine labwork for ongoing long-term medication use. Hyperglycemia 18268444 R 73.9 recheck hemoglobin A1c [id number] Edmundo Arrieta MD [facility] [address] [place] [address] 01/30/2023 15:29:54 01/31/2023 15:04:33 Cardiac pacemaker in situ 545049149 Z95.0 - electrophy siology every 6 months- remote interrogat ion in 3 months Essential hypertension 12453784 I10 # HTN - Controlled - Continue current medication s. No change in management - Encouraged routine blood pressure checksat home, targetless than 140/90 - DiscussedD MARLY diet(https ://www.nhl bi.nih.gov /files/doc s/public/h eart/dash_ brief.pdf) anddietary sodium restrictio ns - Continue/I ncrease dietary efforts and physical activity Hyperlipidemia 61854240 E78.5 # Hyperlipid emia- Last lipid panel ~ 1 year ago- ACC/AHA CV risk > 7.5%- Repeat today- Continue with current management without changes.- Focus on a dietlow in saturated fats(https ://www.[facility] Artvalue.comealth.or g/educatio n/guidelin es-for-a-l ow-cholest ruddy-low-s aturated-f at-diet),b lood pressure control,sm oking cessation( http://che tyes.org/) anddaily exerciseto reduce your risk ofheart disease and stroke. History of pulmonary embolus 659897528 Z86.711 - chronic apixaban use- stable- due for complete blood count Hyperglycemia 24217536 R 73.9 - check hemoglobin A1c Body mass index 40+ - severely obese 293923143 Z68.41 Focus on a healthy diet, avoid added salt, and cuvnqw2107 calories or less daily. Exercise as tolerated, targeting3 0-60 minutes of exercise daily, at least 5 days per week Long-term drug therapy 289956032 Z79.899 Checking routine labwork for ongoing long-term medication use. Retroperit ignacio lymphadenopathy 659113257 R59.0 - follows with hematology -oncology - Dr. Corrigan- no more scans, labs only Sleep apnea 65001528 G47 .30 # CARY on CPAPGood compliance .Symptoms improved.C ontinue to monitor. Adult heal th examination 123506440 Z00.00 Discussed importance of annual wellness examinatio [...] (65+ year-old), and herpes zoster (50+ year-old) [id number] Юлия Roman MD [facility] [address] [place] [address] 03/21/2024 13:42:50 03/22/2024 10:01:03 Pain of left knee joint 7442714421 11727 M25.562 -has MRI 03/24/24 and f/u with Dr. Colmenares on 03/28/24.-he is using 1 crutch right now to help with ambulation . He feels like his knee is weak and that it will give out at any moment. Said this has happened before but resolved on its own. Will see what MRI shows and treatment will be determined from that. Essential hypertension 63913780 I10 -Controlle d on current therapy. -Should notify office for BP less than 90/60. -Maintain a low sodium (less than 2000mg) diet and encouraged at least 30-45 minutes of aerobic activity most days of the week -f/u 6 months Prediabetes 972755299 R7 3.03 -pt glucose was 120 in 2022, will check labs and A1C today.-if A1C is elevated again will discuss medication regimen. Sleep apnea 53815923 G47 .30 -Pt needs new machine and supplies soon.-pt has informatio n at home of where he wants it sent. If the company will not send in new equipment with new PCP informatio n he will call me with informatio n on where to send orders to. Morbid obesity 760713509 E66.01 1. Restrict Caloric Intake: Instead of [...] 5. Increase Exertion within Daily Activities : 7500-01319 Steps/day. Avoid Elevators, escalators at public places. Increase steps in parking lots! Immunization advised 310 018103 Z71.9 -pt educated on flu, pneumonia, RSV and shingles vaccine. He declines today and says he does not do shots anymore and will not. I educated on his risk factors and why they would be appropriat e. Pt still declines at this time. [id number] Юлия Roman MD [facility] [address] [place] [address] 06/20/2024 14:30:43 06/20/2024 16:52:23 Type 2 diabetes mellitus 86010320 E11.9 A1C: 6.5Goal A1C less than 7.0Current Therapy: metformin 500 mgStatin: no --intolera nt, cardiology appt upcoming for management MASSIEL/ARB: no --pt declines another medication Foot Exam: completed ..Albumin/ Creatine ratio (urine) : due ..Pneumova x 20: out of stock in officeEye Exam: due --will make appt. Pt was counseled on a low carbohydra te diet to better manage diabetes. I also encouraged regular exercise of 30-60 minutes most days of the week.Next Visit: 3month(s) Morbid obesity 209850181 E66.01 1. Restrict Caloric Intake: Instead of [...] 5. Increase Exertion within Daily Activities : 7500-06328 Steps/day. Avoid Elevators, escalators at public places. Increase steps in parking lots! [id number] Юлия Roman MD [facility] [address] [place] [address] 09/18/2024 14:17:48 09/19/2024 14:12:02 Adult health examination 593725520 Z00.00 Health Risk Assessment collected and reviewedNo living will and does not wish to have one.AD8-1, no memory impairment , more of that there is lack of motivation to remember anything.N o safety concerns. Essential hypertension 07245234 I10 -Controlle d on current therapy. -Should notify office for BP less than 90/60. -Maintain a low sodium (less than 2000mg) diet and encouraged at least 30-45 minutes of aerobic activity most days of the week -f/u 6 months Type 2 christian betes mellitus 32848360 E11.9 A1C: 6.2Goal A1C less than 7.0Current Therapy: metformin 500 mgStatin: yesACE/ARB : no --pt declines another medication Foot Exam: completed ..Albumin/ Creatine ratio (urine) : completed ..Pneumova x 20: declinesEy e Exam: due --will make appt. Pt was counseled on a low carbohydra te diet to better manage diabetes. I also encouraged regular exercise of 30-60 minutes most days of the week.Next Visit: 3month(s) Hyperlipidemia 11917123 E78.5 Follow a low fat and low cholestero l diet.Reduc e dietary intake of fat to less than 30% of total calories.L imit total cholestero l to less than 200mg per day.Minimi ze use of trans fatty acids.Incr ease intake of fiber, vegetables , fruits and other whole grains.Par ticipate in aerobic exercise (at least 30 minutes 4 days a week).Avoi d tobacco products. Cardiac pa angel in situ 130699761 Z95.0 -following with cardiology Obese class III 74221901 5 E66.813 7961447092 -heart healthy diet and routine exercise discussed and f/u yearly Counseling 235740509 Z71 .85 19924364 -declines all vaccines Mixed hyperlipidemia 267 684485 E78.2 Follow a low fat and low cholestero l diet.Reduc e dietary intake of fat to less than 30% of total calories.L imit total cholestero l to less than 200mg per day.Minimi ze use of trans fatty acids.Incr ease intake of fiber, vegetables , fruits and other whole grains.Par ticipate in aerobic exercise (at least 30 minutes 4 days a week).Avoi d tobacco products. Eye / vision finding 118 013249 H53.9 2270780 -has had ongoing spots and waves in vision the last 2 appointmen ts but he does not see a real need to go to eye I advised him on importance not only for these complaints but of his new dx of T2DM. Sleep apnea 87376685 G47 .30 -follows with sleep medicine, wears CPAP nightly. Pneumococc al vaccination declined 349223219 Z28.21 3190422 Prostate s pecific antigen measurement 34848297 Z12.5 252995 Low motivation 07140133 Z91.89 33546188 -when discussing care with patient there is a lot of lack in motivation .-he does not take medication s like he supposed to, does not care about appointmen ts, claims he has no hobbies, does not get along with his and states that he will not change his routine to fit a better diet.-I expressed my concerns surroundin g these claims with my recommenda tions, patient declines.- will keep discussing at upcoming appts. Health Concerns Section Related Observation LastModified by Organization Detai ls LastModified Time None Recorded Concern Status LastModified by Organization Details LastModified Time None Recorded Advance Directives Directive N: Payers Insurance Date Sequence Insurance Name Policy Number Policy Ward Covered Member ID Ward Member ID Guarantor Name 03/21/2024 1 [employer] (MEDICARE REPLACEMENT/ ADVANTAGE - PPO) [id number] Gino Hawthornear [id number] Gino Salcido Cuvar 03/21/2024 1 [employer] - [place] (MEDICARE REPLACEMENT/ ADVANTAGE - HMO) [id number] Gino Salcido Cuvar [id number] Gino Salcido Cuvar 12/16/2024 1 [employer] (MEDICARE REPLACEMENT/ ADVANTAGE - PPO) [id number] Gino Salcido Cuvar [id number] Gino Salcido Cuvar 03/21/2024 1 [employer] (MEDICARE REPLACEMENT/ ADVANTAGE - PPO) [id number] Gino Salcido Cuvar [id number] Gino Salcido Cuvar 03/21/2024 1 [place] [id number] Gino Salcido Cuvar [id number] Gino Salcido Cuvar 03/21/2024 1 [employer] (POS) [id number] Gino Salcido Cuvar [id number] Gino Hawthornear Notes Date Note Type Note Provider Name and Address Organization Details Recorded Time 3 text/htm l HyperlipidemiaReported by PatientHPIFor duration, patient reportschronic. For compliance, patient reportsnoncompliant. For complications, patient reportscoronary artery diseaseandcardiovascular diseasebut reportsno peripheral artery disease. For risk factors, patient reportshypertensionandobesit y. For control, patient reportsusually well controlled. For current therapy, patient reportscurrently taking: (atorvastatin 40mg),last cholesterol level: (156),last ldl level: (98),last triglyceride level: (95),last hdl level: (39), andlast non hdl level: (117)(as of 01/01/2020). Obstructive Sleep Apnea F/UReported by PatientHPIFor quality, patient reportsno change since last visit. For onset/timing, patient reportschronic. For severity, patient reportsdoes not limit daily activities,no difficulty getting going in the morning, andno awakening in the middle of the night with sore throat. For context, patient reportsno lack of adequate sleep(using cp). Hypertension F/UReported by PatientHPIFor lifestyle, patient reportsnot exercising regularlyandhigh salt intake. For medications, patient reportsside effects from medications (cholesterol meds he stopped)but reportstaking medications as directed. For associated symptoms, patient reportsno dizziness (not since stopping cholesterol meds),no lightheadedness,no chest pain,no shortness of breath,no palpitations,no edema, andno calf pain with exertion.ROS as noted in the HPI 6-MONTH FOLLOW-UP VISIT/SUBJECTIVE: The patient presents for routine 6-month follow-up of hypertension, hyperlipidemia, hyperglycemia, obstructive sleep apnea, among other chronic conditions Last office visit: labwork: Patient reports consistent use of medications, [...] others due (declines)- Colorectal cancer screeninOct19 - Giacarafaela - 3 yrfu- PSA: urology follows ([facility]perti) History of pulmonary embolism, deep venous thromboses - On chronic anticoagulation - And rate control medications - Consistent use of medications - No side effects - Denies palpitations, chest pain, dyspnea. Hypertension - On amlodipine - Consistent use of medications - Does not report any headaches, blurry vision, dizziness, chest pain, shortness of breath, or palpitations - Following a low salt diet. - Exercising - active, no formal Hyperlipidemia - On no medication(s) at this time - intolerable side effects - No side effects - Following a low-cholesterol diet - Last lipid panel < 1 year ago Prediabetes - last hemoglobin A1c > 1 year ago - Following a lower carbohydrate diet - Exercising CARY on CPAP - Good adherence to CPAP use - Comfortable with CPAP pressures and mask fit - Reports improvement in alertness and quality of life -Sales Representative Door To Door/Nursing note reviewed.- Edmundo Arrieta MD Attn: Accounting,[address] [facility], [place], [address], [place] - [facility] 12/08/2023 17:20:35 3 text/htm l HyperlipidemiaReported by PatientHPIFor duration, patient reportschronic. For compliance, patient reportsnoncompliant. For complications, patient reportscoronary artery diseaseandcardiovascular diseasebut reportsno peripheral artery disease. For risk factors, patient reportshypertensionandobesit y. For control, patient reportsusually well controlled. For current therapy, patient reportscurrently taking: (atorvastatin 40mg),last cholesterol level: (156),last ldl level: (98),last triglyceride level: (95),last hdl level: (39), andlast non hdl level: (117)(as of 01/01/2020). Obstructive Sleep Apnea F/UReported by PatientHPIFor quality, patient reportsno change since last visit. For onset/timing, patient reportschronic. For severity, patient reportsdoes not limit daily activities,no difficulty getting going in the morning, andno awakening in the middle of the night with sore throat. For context, patient reportsno lack of adequate sleep(using cp). Hypertension F/UReported by PatientHPIFor lifestyle, patient reportsnot exercising regularlyandhigh salt intake. For medications, patient reportsside effects from medications (cholesterol meds he stopped)but reportstaking medications as directed. For associated symptoms, patient reportsno dizziness (not since stopping cholesterol meds),no lightheadedness,no chest pain,no shortness of breath,no palpitations,no edema, andno calf pain with exertion.ROS as noted in the HPI ANNUAL HEALTH MAINTENANCE VISIT/SUBJECTIVE: Gino presents for routine yearly health maintenance visit. Last routine follow-up office visit: [id number] labwork: Patient reports consistent use of medications, without side effects or intolerances. Current concerns:- none Health maintenance:- Immunizations due: COVID series, vzv, RSV, flu- Colorectal cancer screenin - Josué - 3 yrfu -- PSA: urology follows ([facility] [place] [place]- LDCT: never smoker History of pulmonary embolism, deep venous thromboses- On chronic anticoagulation- And rate control medications- Consistent use of medications- No side effects- Denies palpitations, chest pain, dyspnea. Hypertension- On amlodipine- Consistent use of medications- Does not report any headaches, blurry vision, dizziness, chest pain, shortness of breath, or palpitations- Following a low salt diet.- Exercising - active, no formal Hyperlipidemia- On no medication(s) at this time - intolerable side effects- No side effects- Following a low-cholesterol diet- Last lipid panel < 1 year ago Prediabetes- last hemoglobin A1c > 1 year ago- Following a lower carbohydrate diet- Exercising CARY on CPAP- Good adherence to CPAP use- Comfortable with CPAP pressures and mask fit- Reports improvement in alertness and quality of life -Sales Representative Door To Door/Nursing note reviewed.- Edmundo Arrieta MD Attn: Accounting,[address] [facility], [place], [address], [facility] 01/30/2023 17:38:31 5 text/htm l Pt is here today for an annual visit. He has no complaints other than his knee, but he has f/u with Dr. Colmenares coming up next week for further evaluation. RACHEAL Cano Attn: Accounting,[address] [facility], [place], [address], [facility] 03/21/2024 16:23:35 5 text/htm l Diabetes F/UReported by PatientHPIFor context, patient reportsnot seeing eye doctor yearly,not checking feet regularly, andmissing doses of medication. For associated symptoms, patient reportssweats,headaches, andblurred visionbut reportsno confusion(has pain in the back area til he passes gas or urinate).ROS as noted in the HPI RACHEAL Cano Attn: Accounting,[address] [facility], [place], [address], [facility] 06/20/2024 15:45:36 5 text/htm l MAW 2Reported by PatientSocial/Behavioral HistoryFor fracture risk, patient reportshistory of fracturesbut reportsno sudden unexplained fractures.Mental Status:For concentration and memory, patient reportsno decreased concentrating ability,no memory lapses or loss, anddoes not forget words. For speech/motor difficulties, patient reportsno speech difficulties,no difficulty expressing formulated concepts,no difficulty with fine manipulative tasks,no difficulty writing/copying,no slowed reaction time, anddoes not knock things over when trying to pick them up.Functional AbilityFor home safety, patient reportsdoes not have hand bars in the bathroom/showerbut reportsno unsafe zohra hazzards,no unsafe stairs,working smoke/co detectors, andgood lighting in the home. For hearing, patient reportswears hearing aids. For vision, patient reportsno vision problems. For activities of daily living, patient reportsable to bathe with limited or no assistance,able to contol urination and bowels,able to dress with limited or no assistance,able to feed self with limited or no assistance,able to get out of chair or bed with limited or no assistance,able to groom with limited or no assistance, andable to toilet with limited or no assistance. For instrumental activities of daily living, patient reportsable to do house work with limited or no assistance,able to grocery shop with limited or no assistance,able to manage medications with limited or no assistance,able to manage money with limited or no assistance,able to prepare meals with limited or no assistance, andable to use the phone with limited or no assistance. For falls risk assessment, patient reportsno frequent falls while walking,no fall in the past year, andno fall since last visit. RACHEAL Cano Attn: Accounting,[address] [facility], [place], [address], [facility] 09/18/2024 17:09:21
--- OUTSIDE RECORDS SUMMARY | 2025-02-25 19:07 | XMS_ITS | Clinical Summary ---
Author Organization [facility] Address [address] [place] [address] Care Team Providers Care Registry Np Name Role Phone Faisal Marina MD Unavailable [phone] Marjan Henriquez PA-C Unavailable Howard Ponce MD Primary Care Provider [phone] Source Comments [facility],non-owned Affiliates and Associated Physician Practices is amultiple site organization consisting of ambulatory clinics and hospital sitesin [place], [place], [place] and [place]. This disclosure is being madepursuant to the Care Everywhere program and may not contain all information available regarding this patient. Last updated 17.[facility] Allergies No known active allergies Medications * Be aware that medications may not be up to date on this document. Alwaysverify current medications with the patient. amLODIPine (NORVASC) 5 MG tablet Take 5 [...] y.o. male patient who recently presented to [facility] with epigastric pain. He relates [...] 05/19/2015 Overview (06/19/2017): Patient presented recently to [facility] with epigastric pain. He relates [...] 05/19/2015 Overview (06/19/2017): Patient presented recently to [facility] with epigastric pain. He relates [...] device s 01/28/2015 Other secondary pulmonary hypertension 11/11/201 5 Resolved Problems Problem Noted Date Diagnosed Date Resolved Date Shortness of breath 01/28/2015 10/04/19 20 Immunizations Immunization Administration Dates Next Due TDAP (7yrs+) 01/03/2017,08/08/2000 [...] on file Legal Sex Male 5:15 PM SADDLE STITCH OPERATOR Gender Identity Not on file Sexual Orientation Not on file Last Filed Vital Signs Vital Sign Reading Time Taken Comments Blood Pressure 130/84 10/31/2022 2:38 PM CDT Pulse 93 10/31/2022 1:49 PM CDT Temperature 36.8 C (98.2 F) 04/20/2022 4:11 PM SADDLE STITCH OPERATOR Respiratory Rate 18 05/29/2019 12:21 PM CDT Oxygen Saturation 98% 10/31/2022 1:49 PM CDT Inhaled Oxygen Concentration - - Weight 131.5 kg (290 lb) 10/31/2022 2:38 PM CDT Height 175.3 cm (5' 9) 05/04/2023 2:57 PM SADDLE STITCH OPERATOR Body Mass Index 42.83 10/31/2022 2:38 PM CDT Plan of Treatment Health Maintenance Due Date Last Done Comments COLOGUARD (AGES 45-75) - COL ON CA SCREENING 1959 CT COLONOGRAPHY - COLON CA SCREENING 1959 FIT - COLON CA SCREENING 1959 FLEX SIG - COLON CA SCREENING 1959 HIV SCREENING 09/22/1974 HEPATITIS C SCREENING 09/18/1977 PNEUMOCOCCAL VACCINE 50+ (1 of 1 - PCV) 09/22/2009 Respiratory Syncytial Virus (RSV) Vaccine Pt: or over 60 yrs (1 - Risk 50-74 years 1-dose series) 09/22/2009 ZOSTER VACCINE (1 of 2) 09/22/2009 DEPRESSION SCREENING 03/20/2024 MEDICARE AWV CALENDAR YEAR 2024 COVID-19 VACCINE (1 - 2024-2 6 season) 2024 INFLUENZA VACCINE (#1) 2024 DTAP/TDAP/TD VACCINES (3 - T d or Tdap) 01/03/2027 01/03/2017, 08/08/2000 LIPID TESTING 02/01/2028 01/31/2023, 04/20/2017 COLON MONITORING 12/20/2028 12/20/2018, 12/20/2018 COLONOSCOPY - [...] complete this topic MENINGOCOCCAL (Group B) VACCINE SHARED DECISION-MAKING Aged Out No longer eligible based on patient's age to complete this topic MENINGOCOCCAL GROUPS A/C/Y/W VACCINE Aged Out No longer eligible b ased on patient's age to complete this topic Procedures Procedure Name Priority Date/Time Associated Diagnosis Comments ENDOSCOPY, COLON, SCREENING Routine 12/20/2018 1:47 PM CDT LIPID PROFILE Routine 04/20/2017 11:55 AM SADDLE STITCH OPERATOR from Last 3 Months or Most Recently Relevant to Health Maintenance Results * ENDOSCOPY, COLON, SCREENING (12/20/2018 1:47 PM CDT) Report Endoscopy POC Endoscopy Department Report _ Patient Name: Don Akhtar Procedure Date: 12/20/2018 1:47 PM Date of [...] and oxygen saturations were monitored continuously. The CF-[id number] was introduced through the anus and advanced [...] non-hernadez portions. Procedure Code(s): --- Professional --- 14391, Colonoscopy, flexible; with removal of tumor(s), polyp(s), or other lesion(s) by snare technique 32120, 59, Colonoscopy, flexible; with biopsy, single or multiple Diagnosis Code(s): --- Professional --- Z86.010, Personal history of colonic polyps K62.1, Rectal polyp D12.2, Benign neoplasm of ascending colon D12.4, Benign neoplasm of descending colon D12.3, Benign neoplasm of transverse colon (hepatic flexure or splenic flexure) K64.8, Other hemorrhoids K57.30, Diverticulosis of large intestine without perforation or abscess without bleeding CPT copyright 2016 [employer]. All rights reserved. The codes documented in this report are preliminary and upon lead operator review may be revised to meet current compliance requirements. _ Nick Moses MD 12/20/2018 3:33:40 PM Note Initiated On: 12/20/2018 1:47 PM Number of Addenda: 0 [facility] [address] [facility] [place] [address] [facility] [employer] 12/20/2018 1:47 PM CDT us Nick Moses MD GI PROCEDURE ORDERABLES Edite d Result - Final [facility] * (ABNORMAL) LIPID PROFILE (04/20/2017 11:55 AM SADDLE STITCH OPERATOR) Cholesterol Total 125 <200 mg/dL [facility] HDL 31(L) >40 mg/dL [facility] Comment: ATP III Classification of HDL [...] BLOOD SPECIMEN / Unknown 04/20/2017 11:55 AM SADDLE STITCH OPERATOR 04/20/2017 12:27 PM SADDLE STITCH OPERATOR Historical Provider LAB - CHEMISTRY ORDERABLE S Final Result Performing Organization Address City/State/[facility] Co de Phone Number [address] [phone] from Last 3 Months or Most Recently Relevant to Health Maintenance Insurance AETNA MEDICARE ADV AETNA Care Teams Registry Np Relationship Specialty Start Date End Date Howard Ponce MD [address] [phone] PCP - General Internal Medicine 10/31/22 Faisal Marina MD Internal Medicine 02/26/19 Marjan Henriquez, PA-C [address] [phone] Gastroenterology 02/26/19
== END 2025-02-25 17:51 | disposition home or self-care (01) ==
PROVIDERS: Physician Assistant; Emergency Provider Emergency Medicine
DX: L03.114 Cellulitis of left upper limb (principal); S61.255A Open bite of left ring finger without damage to nail, initial encounter; Z23 Encounter for immunization; E66.01 Morbid (severe) obesity due to excess calories; Z68.42 Body mass index [BMI] 45.0-49.9, adult; Z86.718 Personal history of other venous thrombosis and embolism; Z86.711 Personal history of pulmonary embolism; W54.0XXA Bitten by dog, initial encounter
CPT/HCPCS: 36415; 73130; 80048; 83605; 85025; 86140; 90471; 90715; 96365; 99284; A9270; J0295

== ENCOUNTER 2025-02-27 15:00 | Emergency (ER) | payer MEDICARE, SELFPAY ==
[2025-02-27 15:10] VITALS: BP 140/101; PULSE 93; RESP 18; TEMP 36.4; O2SAT 97
--- OUTSIDE RECORDS SUMMARY | 2025-02-27 19:35 | XMS_ITS | Clinical Summary ---
Author Organization [facility] Address [address] [place] [address] Phone Care Team Providers Care Strap Machine Operator Automatic Name Role Phone Yoni Mcfadden MD Unavailable [phone] Justo Deluna DO Unavailable [phone] Tiffanie Myrick MD Primary Care Provider [phone] Allergies No known active allergies Medications amLODIPine [...] complete this topic Human Papillomavirus (HPV) Immunization (No Doses Required) Completed Meningococcal Immunization (ACWY) Aged Out No longer eligible based on patient's age to complete this topic Rotavirus Immunization Aged Out No lo nger eligible based on patient's age to complete this topic Insurance MEDICARE C AETNA Care Teams Strap Machine Operator Automatic Relationship Specialty Start Date End Date Tiffanie Myrick MD [address] [address] PCP - General 09/07/20 Yoni Mcfadden MD [address] [place] [address] Urologist Urology 08/27/20 Justo Deluna DO [address] [place] [phone] Consulting Physician Oncology 08/27/20
--- OUTSIDE RECORDS SUMMARY | 2025-02-27 19:35 | XMS_ITS | Clinical Summary ---
Author Organization [facility] Address [address] [facility] [place] [address] Care Team Providers Care Sales Superintendent Name Role Phone Faisal Marina MD Unavailable [phone] Marjan Henriquez PA-C Unavailable Howard Ponce MD Primary Care Provider [phone] Source Comments [facility],non-owned Affiliates and Associated Physician Practices is amultiple site organization consisting of ambulatory clinics and hospital sitesin [place], [place], [place] and [place]. This disclosure is being madepursuant to the Care Everywhere program and may not contain all information available regarding this patient. Last updated 17.[facility] Allergies No known active allergies Medications * [...] y.o. male patient who recently presented to [facility] with epigastric pain. He relates that [...] 05/19/2015 Overview (06/19/2017): Patient presented recently to [facility] with epigastric pain. He relates that [...] 05/19/2015 Overview (06/19/2017): Patient presented recently to [facility] with epigastric pain. He relates that [...] on file Legal Sex Male 5:15 PM PRIMARY CARE MD Gender Identity Not on file Sexual Orientation Not on file Last Filed Vital Signs Vital Sign Reading Time Taken Comments Blood Pressure 130/84 10/31/2022 2:38 PM CDT Pulse 93 10/31/2022 1:49 PM CDT Temperature 36.8 C (98.2 F) 04/20/2022 4:11 PM PRIMARY CARE MD Respiratory Rate 18 05/29/2019 12:21 PM CDT Oxygen Saturation 98% 10/31/2022 1:49 PM CDT Inhaled Oxygen Concentration - - Weight 131.5 kg (290 lb) 10/31/2022 2:38 PM CDT Height 175.3 cm (5' 9) 05/04/2023 2:57 PM PRIMARY CARE MD Body Mass Index 42.83 10/31/2022 2:38 PM [...] CDT LIPID PROFILE Routine 04/20/2017 11:55 AM PRIMARY CARE MD from Last 3 Months or Most Recently [...] and oxygen saturations were monitored continuously. The CF-[id number] was introduced through the anus and advanced [...] non-hernadez portions. Procedure Code(s): --- Professional --- 81651, Colonoscopy, flexible; with removal of tumor(s), polyp(s), or other lesion(s) by snare technique 75421, 59, Colonoscopy, flexible; with biopsy, single or multiple Diagnosis Code(s): --- Professional --- Z86.010, Personal history of colonic polyps K62.1, Rectal polyp D12.2, Benign neoplasm of ascending colon D12.4, Benign neoplasm of descending colon D12.3, Benign neoplasm of transverse colon (hepatic flexure or splenic flexure) K64.8, Other hemorrhoids K57.30, Diverticulosis of large intestine without perforation or abscess without bleeding CPT copyright 2016 [employer]. All rights reserved. The codes documented in this report are preliminary and upon hospital coder review may be revised to meet current compliance requirements. _ Nick Moses MD 12/20/2018 3:33:40 PM Note Initiated On: 12/20/2018 1:47 PM Number of Addenda: 0 [facility] [address] [facility] [place] [address] [facility] 12/20/2018 1:47 PM CDT us Nick Moses MD GI PROCEDURE ORDERABLES Edite d Result - Final [facility] * (ABNORMAL) LIPID PROFILE (04/20/2017 11:55 AM PRIMARY CARE MD) Cholesterol Total 125 <200 mg/dL [facility] HDL 31(L) >40 mg/dL [facility] Comment: ATP III Classification of HDL Cholesterol: <40 mg/dL: Considered a major risk factor. >60 mg/dL: Considered a negative risk factor. LDL Calculated 74 <100 mg/dL [facility] Comment: ATP III Classification of LDL Cholesterol: <100 mg/dL: Optimal 100 - 129 mg/dL: Near Optimal/Above Optimal 130 - 159 mg/dL: Borderline High 160 - 189 mg/dL: High >190 mg/dL: Very High Triglycerides 99 <150 mg/dL [facility] Comment: ATP III Classification of Triglycerides: <150 mg/dL: Normal 150 - 199 mg/dL: Borderline High 200 - 400 mg/dL: High >500 mg/dL: Very High Blood specimen (specimen) BLOOD SPECIMEN / Unknown 04/20/2017 11:55 AM PRIMARY CARE MD 04/20/2017 12:27 PM PRIMARY CARE MD Historical Provider LAB - CHEMISTRY ORDERABLE S Final Result Performing Organization Address City/State/[facility] Co de Phone Number [address] [phone] from Last 3 Months or Most Recently Relevant to Health Maintenance Insurance AETNA MEDICARE ADV AETNA Care Teams Sales Superintendent Relationship Specialty Start Date End Date Howard Ponce MD [address] [phone] PCP - General Internal Medicine 10/31/22 Faisal Marina MD Internal Medicine 02/26/19 Marjan Henriquez, PA-C [address] [phone] Gastroenterology 02/26/19
--- OUTSIDE RECORDS SUMMARY | 2025-02-27 19:35 | XMS_ITS | Encounter Summary ---
Author Organization [facility] Address [facility] [place] [address] Care Team Providers Care Freight Car Repairer Name Role Phone Faisal Marina MD Unavailable [phone] Marjan Henriquez PA-C Unavailable [phone] Howard Ponce MD Primary Care Provider [phone] Reason for Visit * Reason Onset Date Comments Reschedule Appointment 02/03/2023 Encounter Details Date Type Department Care Team (Late st Contact Info) Description 02/03/2023 Telephone [facility] - Centralized Scheduling [address] [place] [address] Salome Seay, ELECTRICAL PROSPECTING OPERATOR-BEAUTY CULTURE TEACHER [address] [address] Reschedule Appointment Social History Tobacco Use Types Packs/Day Years Used Date Smoking Tobacco: Never Smokeless Tobacco: Never Alcohol Use Standard Drinks/Week Comments Yes 0.8 (1 standard drink = 0.6 oz p ure alcohol) rare Sex and Gender Information Value Date Recorded Sex Assigned at Not on file Legal Sex Male 5:15 PM SUPERVISOR FEED MILL Gender Identity Not on file Sexual Orientation Not on file documented as of this encounter Miscellaneous Notes * Telephone Encounter - Glenis Jay - 02/03/2023 1:20 PM CST 05/04/23 bumped appointment with OTNIA Seay is DCK. Please contact Gino to reschedule his appointment. RVISOR FEED MILL documented in this encounter Plan of Treatment Not on file documented as of this encounter Visit Diagnoses Not on filedocumented in this encounter Care Teams Freight Car Repairer Relationship Specialty Start Date End Date Howard Ponce MD [address] [facility] [address] [place] [phone] PCP - General Internal Medicine 10/31/22 Faisal Marina MD Internal Medicine 02/26/19 Marjan Henriquez, PA-C [address] [facility] [address] [place] [phone] Gastroenterology 02/26/19 documented as of this encounter
--- OUTSIDE RECORDS SUMMARY | 2025-02-27 19:35 | XMS_ITS | Data Portability ---
Author Organization [facility] Address [address] [place] [address] Care Team Providers Care Chore Worker Name Role Phone SHERI WHITNEY Model Builder CHRISTY VELASQUEZ Urologist KAMERON CORRIGAN Medical Oncologist EDMUNDO ARRIETA Primary Care Provider Assessment No assessment recorded. Plan of Treatment Reminders Order Date Submit Date Provider Last Modified By Organization Details Last Modified Time Details Appointments None recorded. Lab HbA1c (hemoglobi n A1c), blood 2024 025 jreuss In-Office Order, Internal Use Only DO Not Attach Compendium DO Not Attach Compendium, Do Not Delete/merge, [id number] 17:08:51 PSA, serum or plasma 2024 025 [facility], [address], [place], [address], 5 09:23:31 HbA1c (hemoglobi n A1c), blood 2024 025 jreuss In-Office Order, Internal Use Only DO Not Attach Compendium DO Not Attach Compendium, Do Not Delete/merge, [id number] 15:44:30 microalbum in/creatin ine, mass ratio, urine 2024 025 [facility], [address], [place], [address], 5 02:47:40 HbA1c (hemoglobi n A1c), blood 2024 025 [facility], [address], [place], [address], 5 10:45:38 CBC w/ auto diff 2024 025 [facility], [address], [place], [address], 5 10:45:37 CMP, serum or plasma 2024 025 [facility], [address], [place], [address], 5 10:45:35 lipid panel, serum 2024 025 [facility], [address], [place], [address], 5 10:45:34 CMP, serum or plasma 2022 023 [facility] Not available 3 16:12:58 CBC w/ auto diff 2022 023 [facility] Not available 3 16:12:58 lipid panel, serum 2022 023 [facility] Not available 3 16:12:58 HbA1c (hemoglobi n A1c), blood 2022 023 [email or web address] Not available 3 14:54:59 CMP, serum or plasma 2022 023 [facility], [address] [place], [address], 4 17:05:17 CBC w/ auto diff 2022 023 [facility], [address] [place], [address], 4 17:05:17 lipid panel, serum 2022 023 [facility], [address], [place], [address], 4 17:05:17 HbA1c (hemoglobi n A1c), blood 2022 023 [email or web address] [facility], [address], [place], [address], 4 22:28:34 Referral optometris t referral 2024 025 [facility], [address] , [place], [address], 5 11:05:28 Procedures None recorded. Surgeries None recorded. Imaging None recorded. Medication Orders ezetimibe 10 mg tablet 2024 025 [email or web address] [facility] [address], [address], [place], [address], 5 17:09:15 metformin ER 500 mg tablet,ext ended release 24 hr 2024 025 [email or web address] [facility] [address], [address], [place], [address], 5 15:44:34 amlodipine 5 mg tablet 2022 023 [facility] [address], [address], [place], [address], 3 17:30:19 Eliquis 5 mg tablet 2022 023 [facility] [address], [address], [place], [address], 3 17:30:17 Patient TargetsNo targets recorded. Patient Instructions Encounter Date Encounter Id Patient Instructions Last Modified By Organization Details Last Modified Time 08/02/2022 [id number] high cholesterol : care instructions [email or web address] Not available 12/08/2023 17:20:31 sleep apnea: car e instructions [id number] Not available 12/08/2023 17:20:31 learning about high blood sugar [id number] Not available 12/08/2023 17:20:31 body mass index: care instructions [id number] Not available 12/08/2023 17:20:31 learning about healthy weight [email or web address] Not available 12/08/2023 17:20:31 learning about high blood pressure Not available 12/08/2023 17:20:31 Gino, - Thank [...] pneumonia. Currently, this is a single immunization, Anrazzc41, if you have never previously been immunized. [...] of green and leafy vegetables, including salads. [email or web address] Not available 08/02/2022 17:08:04 01/30/2023 [id number] high cholesterol : care instructions [id number] Not available 01/30/2023 17:20:28 sleep apnea: car e instructions [id number] Not available 01/30/2023 17:20:28 body mass index: care instructions [email or web address] Not available 01/30/2023 17:20:28 learning about healthy weight [email or web address] Not available 01/30/2023 17:20:28 learning about high blood sugar [email or web address] Not available 01/30/2023 17:20:28 learning about high blood pressure [email or web address] Not available 01/30/2023 17:20:28 Gino, - Thank [...] pneumonia. Currently, this is a single immunization, [id number], if you have never previously been immunized. [...] of green and leafy vegetables, including salads. [email or web address] Not available 01/30/2023 17:30:14 03/21/2024 [id number] A healthy lifestyle: care instructions jreuss Not available 03/21/2024 16:21:14 06/20/2024 [id number] A healthy lifestyle: care instructions jreuss Not available 06/20/2024 15:44:30 09/18/2024 [id number] advance care planning: care instructions jreuss Not available 09/18/2024 17:08:51 preventing falls : care instructions jreuss Not available 09/18/2024 17:08:51 Quitting Tobacco : Care Instructions [email or web address] Not available 09/18/2024 17:08:51 [facility] [email or web address] Not available 09/18/2024 [...] 09/18/2024 17:08:51 eating healthy foods: care instructions [facility] Not available 09/18/2024 17:08:51 AD8 Dementia Screening Interview [facility] Not available 09/18/2024 17:08:51 A healthy lifestyle: care instructions [facility] Not available 09/18/2024 17:08:51 Reason for Referral Face Worker Referral for Eye / vision finding Referring Physician: Susana Schofield, Family Medicine, Encounter Date: 09/18/2024 Results Created Date Observation Date Name Description Value Unit Range Abnormal Flag Note LastModifiedBy Organization Detail LastModifiedTime 03/21/1903/22/2024 LIPID PANEL , STAND STEVENSON cholesterol, total 309 mg/dL <200 high Not Available [facility] [address] [place], [address], 03/22/2024 10:45:34 03/21/19 25 03/22/2024 LIPID PANEL , STAND STEVENSON HDL cholesterol 43 mg/dL > or = 40 normal Not Available [facility] [address] [address] [place], [address], 03/22/2024 10:45:34 03/21/1903/22/2024 LIPID PANEL , STAND STEVENSON triglyceride s 233 mg/dL <150 high If a non-f astin g speci men was colle cted, consi oliverio repea t trigl yceri de testi ng on a fasti ng speci men if clini zaida indic ated. Saman drew et al. J. of Clin. Lipid ol. 2015; 9:129 -169. Not Available [facility] [address] [address] [place], [address], 03/22/2024 10:45:34 03/21/1903/22/2024 LIPID PANEL , STAND [...] 2061- 2068 (http ://ed ucati on.Qu estDi Virgin Plays. com/f aq/FA Q164) Not Available [facility] [address] [address] [address], [place], [address], 03/22/2024 10:45:34 03/21/19 25 03/22/2024 LIPID PANEL , STAND STEVENSON chol/HDLC ratio 7.2 (calc ) <5.0 high Not Available [facility] [address], [place], [address], 03/22/2024 10:45:34 03/21/19 25 03/22/2024 LIPID PANEL [...] thera peuti c optio n. Not Available [address] [address] [address], [place], [address], 03/22/2024 10:45:34 03/21/19 25 03/22/2024 COMPR EHENS FILI METAB OLIC PANEL glucose 118 mg/dL 65-99 high Fasti ng refer ence inter bin For someo ne witho ut known diabe josef, a gluco se value betwe en 100 and 125 mg/dL is consi stent with predi abete s and shoul d be confi rmed with a follo w-up test. Not Available [facility] [address], [place], [address], 03/22/2024 10:45:35 03/21/19 25 03/22/2024 COMPR EHENS FILI METAB OLIC PANEL urea nitrogen (BUN) 10 mg/dL 7-25 normal Not Available [facility] [address] [place], [address], 03/22/2024 10:45:35 03/21/19 25 03/22/2024 COMPR EHENS FILI METAB OLIC PANEL creatinine 1.01 mg/dL 0.70-1 .35 normal Not Available [address], [address], 03/22/2024 10:45:35 03/21/19 25 03/22/2024 COMPR EHENS FILI METAB OLIC PANEL eGFR 83 mL/mi n/1.7 3m2 > or = 60 normal Not Available [address], [address], 03/22/2024 10:45:35 03/21/19 25 03/22/2024 COMPR EHENS FILI METAB OLIC PANEL BUN/creatini ne ratio SEE NOTE: (calc ) 6-22 Not Repor jessica: BUN and Creat inine are withi n refer ence range . Not Available [address], [address], 03/22/2024 10:45:35 03/21/19 25 03/22/2024 COMPR EHENS FILI METAB OLIC PANEL sodium 136 mmol/ L 135-14 6 normal Not Available [address], [address], 03/22/2024 10:45:35 03/21/19 25 03/22/2024 COMPR EHENS FILI METAB OLIC PANEL potassium 4.3 mmol/ L 3.5-5. 3 normal Not Available [employer] [employer] [address], [address], 03/22/2024 10:45:35 03/21/19 25 03/22/2024 COMPR EHENS FILI METAB OLIC PANEL chloride 101 mmol/ L 98-110 normal Not Available [address] [address] [place], [address], 03/22/2024 10:45:35 03/21/19 25 03/22/2024 COMPR EHENS FILI METAB OLIC PANEL carbon dioxide 23 mmol/ L 20-32 normal Not Available [address], [address], 03/22/2024 10:45:35 03/21/19 25 03/22/2024 COMPR EHENS FILI METAB OLIC PANEL calcium 9.2 mg/dL 8.6-10 .3 normal Not Available [address], [address], 03/22/2024 10:45:35 03/21/19 25 03/22/2024 COMPR EHENS FILI METAB OLIC PANEL protein, total 6.9 g/dL 6.1-8. 1 normal Not Available [address], [address], 03/22/2024 10:45:35 03/21/19 25 03/22/2024 COMPR EHENS FILI METAB OLIC PANEL albumin 4.3 g/dL 3.6-5. 1 normal Not Available [address], [address], 03/22/2024 10:45:35 03/21/19 25 03/22/2024 COMPR EHENS FILI METAB OLIC PANEL globulin 2.6 g/dL_ (calc ) 1.9-3. 7 normal Not Available [address], [address], 03/22/2024 10:45:35 03/21/19 25 03/22/2024 COMPR EHENS FILI METAB OLIC PANEL albumin/glob ulin ratio 1.7 (calc ) 1.0-2. 5 normal Not Available [address], [address], 03/22/2024 10:45:35 03/21/19 25 03/22/2024 COMPR EHENS FILI METAB OLIC PANEL bilirubin, total 1.4 mg/dL 0.2-1. 2 high Not Available [address], [address], 03/22/2024 10:45:35 03/21/19 25 03/22/2024 COMPR EHENS FILI METAB OLIC PANEL alkaline phosphatase 74 U/L 35-144 normal Not Available [facility] [employer] [address] [address] [place], [address], 03/22/2024 10:45:35 03/21/19 25 03/22/2024 COMPR EHENS FILI METAB OLIC PANEL AST 22 U/L 10-35 normal Not Available [address], [address], 03/22/2024 10:45:35 03/21/19 25 03/22/2024 COMPR EHENS FILI METAB OLIC PANEL ALT 31 U/L 9-46 normal Not Available [address], [address], 03/22/2024 10:45:35 03/21/19 25 03/22/2024 CBC (INCL UDES DIFF/ PLT) white blood cell count TNP TEST NOT PERFO RMED Speci men recei luis clott ed. Not Available [address], [address], 03/22/2024 10:45:37 03/21/19 25 03/22/2024 HEMOG LOBIN [...] diabe josef for child marva. Not Available [facility] [address] [address] [place], [address], 03/22/2024 10:45:38 05/06/19 25 05/08/2024 LIPID PANEL , STAND STEVENSON cholesterol, total 250 mg/dL <200 high Not Available [facility] [address], [address], 05/08/2024 04:06:57 05/06/19 25 05/08/2024 LIPID PANEL , STAND STEVENSON HDL cholesterol 48 mg/dL > or = 40 normal Not Available [facility] [address] [address] [place], [address], 05/08/2024 04:06:57 05/06/19 25 05/08/2024 LIPID PANEL , STAND STEVENSON triglyceride s 169 mg/dL <150 high Not Available [facility] [address] [address] [place], [address], 05/08/2024 04:06:57 05/06/19 25 05/08/2024 LIPID PANEL [...] 9): 2061- 2068 (http ://ed ucati on.Freddy finleyLookFlow. com/f aq/FA Q164) Not Available [address], [address], 05/08/2024 04:06:57 05/06/19 25 05/08/2024 LIPID PANEL , STAND STEVENSON chol/HDLC ratio 5.2 (calc ) <5.0 high Not Available [address], [place], [address], 05/08/2024 04:06:57 05/06/1905/08/2024 LIPID PANEL , STAND STEVENSON non HDL cholesterol 202 mg/dL _(gill c) <130 high For patie nts with diabe josef plus 1 major ASCVD risk facto r, treat ing to a non-H DL-C goal of <100 mg/dL (LDL- C of <70 mg/dL ) is consi dered a thera peradhai c optio n. Not Available [address], [address], 05/08/2024 04:06:57 06/21/19 25 06/22/2024 ALBUM IN, RANDO M URINE W/CRE ATINI NE creatinine, random urine 287 mg/dL 20-320 normal Not Available [address], [address], 06/22/2024 02:47:40 06/21/19 25 06/22/2024 ALBUM IN, RANDO M URINE W/CRE ATINI NE albumin, urine 2.4 mg/dL see note: normal Refer ence Range : Refer ence Range Not estab lishe d Not Available [address], [address], 06/22/2024 02:47:40 06/21/19 25 06/22/2024 ALBUM IN, [...] a diagn ostic categ ory. Not Available [facility] [address] [place], [address], 06/22/2024 02:47:40 06/21/19 25 06/20/2024 HbA1c (hemo globi n A1c), blood HbA1c 5.5 Not Available In-Office Order Internal Use Only DO Not Attach Compendium DO Not Attach Compendium, Do Not Delete/merge, [id number] 06/20/2024 10:00:45 09/19/19 25 09/19/2024 PSA, TOTAL [...] not be inter prete d as absol georges evide nce of the prese nce or absen ce of disea se. Not Available [facility] [address] [place], [address], 09/19/2024 09:23:31 09/19/19 25 09/18/2024 HbA1c (hemo globi n A1c), blood HbA1C 6.2 % Not Available In-Office Order Internal Use Only DO Not Attach Compendium DO Not Attach Compendium, Do Not Delete/merge, [id number] 09/18/2024 09:32:22 08/16/19 25 08/08/2024 US, echoc ardio gram, trans thora cic, compl ete, w/ color flow No observ ation record ed. jreuss [facility] [address] [facility] [address], [place], [address], 08/15/2024 15:25:40 Result Notes None recorded. Problems Name Problem SNOMED Code Status Onset Date Resolution Date Notes Provider Name and Address Organization Details Recorded Time External hemorrhoid s 40429712 Active 2014 Edmundo Arrieta MD Attn: Liliana diego,[address] [place], [address], [facility] 3 14:35:28 Sleep apnea 46075833 Active 2014 Edmundo Arrieta MD Attn: Liliana diego,[address] [place], [address], [facility] 3 14:35:54 History of pulmonary embolus 848761653 [facility] 08:49:02 Deep vein phlebitis and thrombophl ebitis of the leg Completed 201404/10/2015 Edmundo Arrieta MD Attn: Liliana diego,[address] [facility], [place], [address], [facility] 3 14:36:16 Pulmonary embolism 49795731 Completed 201404/10/2015 Edmundo Arrieta MD Attn: Liliana diego,[address] [facility], [place], [address], [facility] 3 14:36:24 Hyperlipid emia 55560938 Active 2014 Edmundo Arrieta MD Attn: Liliana diego,[address] [facility], [place], [address], [place] [facility] 3 14:35:36 Long-term drug therapy Active 2015 Edmundo Arrieta MD Attn: Liliana diego,[address] [facility], [place], [address], [place] [facility] 3 14:35:40 Family history of Blood disorder 319441293 Active 2015 Edmundo Arrieta MD Attn: Liliana diego,[address] [facility], [place], [address], [place] [facility] 3 14:35:33 Gallstone 050167505 Completed 201506/08/2015 Edmundo Arrieta MD Attn: Liliana diego,[address] [facility], [place], [address], [place] [facility] 3 14:36:20 Cardiac pacemaker in situ 446602120 Active 2015 Edmundo Arrieta MD Attn: Liliana diego,[address] [facility], [place], [address], [place] [facility] 3 14:36:07 Hyperglyce nicolas 20012013 Active 2016 Edmundo Arrieta MD Attn: Liliana diego,[address] [facility], [place], [address], [place] [facility] 3 14:36:07 Essential hypertensi on 65058249 Active 2019 Edmundo Arrieta MD Attn: Accountsulaiman g,[address] [facility], [place], [address], [place] [facility] 3 14:36:07 Retroperit ignacio lymphadeno tien 055035922 Active 2020 under care of DO Edmundo Conroy MD Attn: Accountsulaiman g,[address] [facility], [place], [address], [place] [facility] 3 14:36:07 Body mass index 40+ - severely obese 846488228 Active 2022 Edmundo Arrieta MD Attn: Liliana diego,[address] [facility], [place], [address], [facility] 3 14:37:43 Type 2 diabetes mellitus 68198587 Active 2024 RACHEAL Cano Attn: Liliana diego,[address] [facility], [place], [address], [facility] 5 09:59:48 Problem Notes Documentation Provider Name and Address Organization Details Recorded Time Urologist Consult Note : This document (1 of 1) was received from [email or web address] on 04/11/2024 through Direct Message along with the following message body content: Patient Name: GINO CUNNINGHAM. Patient : 1960. Patient . Stella Poole [facility], [facility] 04/12/2024 12:26:41 Procedures Surgical History Date Name Laterality Status Provider Name and Address Organization Details Recorded Time 09/17/19 11 Appendectomy completed [facility] 12/01/2016 14:40:49 Tonsillectomy completed [facility] 12/01/2016 14:41:24 Imaging Results None recorded. Procedure [...] Available Not Available No t Available ciprofloxa jose david 500 mg tablet TAKE [...] tablet po q hs 03/03 completed RxNorm: 336650; Allow Substit ution: True Not Available Not Available Not Available niacin 500 mg tablet take 1 tab q hs 02/09 completed RxNorm: 653203; Allow Substit ution: True Not Available Not Available Not Available niacin ER 500 mg capsule,ex tended release Take 1 capsule( s) by mouth daily 06/09 completed RxNorm: 431378; Allow Substit ution: True Not Available Not Available Not Available pravastati n 20 mg tablet Take 1 tablet(s ) by mouth at bedtime 08/02 completed RxNorm: 567748; Allow Substit ution: True Not Available Not [...] 03/21/2024 138/84 mm[Hg] RACHEAL Cano Attn: Accounting,[address] [place], [address], [facility] 03/21/2024 14:24:16 Date Recorded Body weight Body temperature Oxygen saturation Heart rate Systolic And Diastolic Provider Name and Address Organization Details Last Updated DateTime 5 298463. 34 g 97.9 [degF] 98 % 88 /min 140/82 mm[Hg] Kaur Carter MA [facility] 5 14:05:23 Date Recorded Systolic And Diastolic Provider Name and Address Organization Details Last Updated DateTime 06/20/2024 126/82 mm[Hg] RACHEAL Cano Attn: Accounting,[address] [place], [address], [facility] 06/20/2024 15:25:24 Date Recorded Body weight Oxygen saturation Heart rate Body temperature Systolic And Diastolic Provider Name and Address Organization Details Last Updated DateTime 5 054349. 43 g 98 % 65 /min 97.2 [degF] 146/93 mm[Hg] Geovanna Maguire MA [facility] 5 14:56:49 Date Recorded Body height Body mass index (BMI) Body weight Body temperature Oxygen saturation Heart rate Systolic And Diastolic Provider Name and Address Organization Details Last Updated DateTime 3 180.34 cm 43 kg/m2 512763. 45 g 97.5 [degF] 98 % 83 /min 123/82 mm[Hg] Rudi Reza MA [facility] 3 15:51:49 Date Recorded Body weight Body mass index (BMI) Body height Oxygen saturation Heart rate Body temperature Systolic And Diastolic Provider Name and Address Organization Details Last Updated DateTime 5 802609. 28 g 46.1 kg/m2 180.34 cm 96 % 70 /min 98.1 [degF] 130/79 mm[Hg] Talita Sánchez MA [facility] 5 14:44:12 Date Recorded Body height Body mass index (BMI) Body weight Body temperature Oxygen saturation Heart rate Systolic And Diastolic Provider Name and Address Organization Details Last Updated DateTime 3 180.34 cm 42.5 kg/m2 738855. 18 g 97.8 [degF] 97 % 67 /min 135/84 mm[Hg] Kirill Stoll MA [facility] 3 16:41:05 Social History Question Answer Notes LastModified by [employer] Details LastModified Time Tobacco Smoking Status Never Smoker [facility] 12/01/2016 14:38:45 Do You Have [...] Functional Status Question Answer Note LastModified by [email or web address] ion Details LastModified Time Do you use [...] anxious, or unable to sleep at night)? [id number] Information not available 07/12/2021 Family History Relationship [...] ICD10 Code Diagnosis IMO Codes Diagnosis Note [id number] Tiffanie Myrick MD [facility] [address] [place] [address] 06/28/2016 11:53:55 06/28/2016 14:40:14 Hyperlipidemia 32222836 E78.5 Morbid obesity 167251276 E66.01 Long-term drug therapy 111398728 Z79.082 [id number] Tiffanie Myrick MD [facility] [address] [place] [address] 07/05/2016 11:37:30 07/05/2016 13:40:37 Hyperlipidemia 39615860 E78.5 Coronary arteriosclerosis 24745575 I25.10 completed disability 5 Physical 2A Mixed anxi ety and depressive disorder 903684384 F41.8 [id number] Tiffanie Myrick MD [facility] [address] [place] [address] 01/03/2017 10:16:01 01/04/2017 16:43:53 Hyperlipidemia 67052990 E78.5 History of pulmonary embolus 839552237 Z86.711 Hyperglycemia 05389126 R 73.9 Administra tion of diphtheria, pertussis, and tetanus vaccine 974993402 Z23 Change in skin lesion 39 2403854 L98.9 enlarging lip lesion [id number] Tiffanie Myrick MD [facility] [address] [place] [address] 01/04/2017 14:37:41 01/05/2017 15:00:53 Hyperglycemia 41199979 R73.9 Long-term drug therapy 916729361 Z79.899 Hyperlipidemia 95291866 E78.5 Morbid obesity 678632568 E66.01 [id number] Tiffanie Myrick MD [facility] [address] [place] [address] 06/26/2017 14:49:40 06/27/2017 10:18:08 Hyperlipidemia 82595816 E78.5 Morbid obesity 420729286 E66.01 Essential hypertension 37526063 I10 Mixed anxi ety and depressive disorder 589295654 F41.8 Intentiona l weight loss 427009383 R63.8 [id number] Tiffanie Myrick MD [facility] [address] [place] [address] 12/28/2017 13:35:29 12/29/2017 11:34:05 Hyperlipidemia 58982972 E78.5 Essential hypertension 09678624 I10 History of pulmonary embolus 872787886 Z86.711 Influenza vaccination declined 189220002 Z28.21 [id number] Tiffanie Myrick MD [facility] [address] [place] [address] 07/05/2018 14:17:04 07/06/2018 09:18:13 Hyperlipidemia 73605011 E78.5 Hyperglycemia 79378923 R 73.9 Morbid obesity 248940435 E66.01 Essential hypertension 39076837 I10 [id number] Tiffanie Myrick MD [facility] [address] [place] [address] 01/03/2019 14:36:19 01/03/2019 16:15:16 Hyperlipidemia 45870244 E78.5 Essential hypertension 09563995 I10 History of pulmonary embolus 777268492 Z86.711 Hyperglycemia 43831645 R 73.9 Influenza vaccination declined 466663361 Z28.21 HIV screening 378519487 Z11.4 [id number] Tiffanie Myrick MD [facility] [address] [place] [address] 07/04/2019 13:28:01 07/04/2019 15:19:05 Body mass index 40+ - severely obese 391416146 Z68.41 Hyperlipidemia 24395632 E78.5 Cardiomegaly 1229558 I51 .7 [id number] Tiffanie Myrick MD [facility] [address] [place] [address] 12/24/2019 13:58:59 12/24/2019 18:05:52 Hyperlipidemia 16869923 E78.5 Essential hypertension 51381712 I10 History of pulmonary embolus 672536108 Z86.139 [id number] Tiffanie Myrick MD [facility] [address] [place] [place] [address] 01/11/2021 15:27:43 01/11/2021 17:06:49 Adult health examination 290957849 Z00.00 Body mass index 40+ - severely obese 807557034 Z68.41 Retroperit ignacio lymphadenopathy 509750475 R59.0 getting blood work from the specialist [id number] Tiffanie Myrick MD [facility] [address] [place] [address] 07/12/2021 15:54:28 07/12/2021 18:03:57 Essential hypertension 94649123 I10 Morbid obesity 921581322 E66.01 Hyperlipidemia 93235593 E78.5 External hemorrhoids 239 67775 K64.4 Retroperit ignacio lymphadenopathy 067734122 R59.0 under care of oncology - maybe getting a biopsy soon Body mass index 40+ - severely obese 995827421 Z68.41 [id number] Tiffanie Myrick MD [facility] [address] [place] [address] 01/31/2022 15:52:32 01/31/2022 18:15:57 Essential hypertension 66419769 I10 Hyperlipidemia 48703161 E78.5 Morbid obesity 606437035 E66.01 Hyperglycemia 17088554 R 73.9 [id number] Edmundo Arrieta MD [facility] [address] [place] [address] 08/02/2022 15:29:08 08/17/2022 21:26:51 Essential hypertension 24624575 I10 # HTN Controlled Continue current medication s. No change in management Encouraged routine blood pressure checksat home, targetless than 140/90 DiscussedD MARLY diet(https ://www.nhl bi.nih.gov /files/doc s/public/h eart/dash_ brief.pdf) anddietary sodium restrictio ns Continue/I ncrease dietary efforts and physical activity Hyperlipidemia 91383783 E78.5 # Hyperlipid emiaLast lipid panel > 1 year agoObtain panel for cardiovasc ular disease, cerebrovas cular disease risk assessment Continue with current management without changes.Fo cus on a dietlow in saturated fats(https ://www.[facility].or g/educatio n/guidelin es-for-a-l ow-cholest ruddy-low-s aturated-f at-diet),b lood pressure control,sm oking cessation( http://che tyes.org/) anddaily exerciseto reduce your risk ofheart disease and stroke. Cardiac pa angel in situ 301190779 Z95.0 follows with cardiology Sleep apnea 98609620 G47 .30 reports history of sleep apnea, not currently using cpapconsid er referral to sleep medicine Body mass index 40+ - severely obese 993660183 Z68.41 Focus on a healthy diet, avoid added salt, and laufwq2848 calories or less daily. Exercise as tolerated, targeting3 0-60 minutes of exercise daily, at least 5 days per week Retroperit ignacio lymphadenopathy 943836097 R59.0 following with oncology for monitoring Long-term drug therapy 492629520 Z79.899 Checking routine labwork for ongoing long-term medication use. Hyperglycemia 35566188 R 73.9 recheck hemoglobin A1c [id number] Edmundo Arrieta MD [facility] [address] [place] [address] 01/30/2023 15:29:54 01/31/2023 15:04:33 Cardiac pacemaker in situ 438063117 Z95.0 - electrophy siology every 6 months- remote interrogat ion in 3 months Essential hypertension 41647799 I10 # HTN - Controlled - Continue current medication s. No change in management - Encouraged routine blood pressure checksat home, targetless than 140/90 - DiscussedD MARLY diet(https ://www.nhl bi.nih.gov /files/doc s/public/h eart/dash_ brief.pdf) anddietary sodium restrictio ns - Continue/I ncrease dietary efforts and physical activity Hyperlipidemia 70677119 E78.5 # Hyperlipid emia- Last lipid panel ~ 1 year ago- ACC/AHA CV risk > 7.5%- Repeat today- Continue with current management without changes.- Focus on a dietlow in saturated fats(https ://www.[facility].or g/educatio n/guidelin es-for-a-l ow-cholest ruddy-low-s aturated-f at-diet),b lood pressure control,sm oking cessation( http://che tyes.org/) anddaily exerciseto reduce your risk ofheart disease and stroke. History of pulmonary embolus 961937568 Z86.711 - chronic apixaban use- stable- due for complete blood count Hyperglycemia 43242095 R 73.9 - check hemoglobin A1c Body mass index 40+ - severely obese 957666647 Z68.41 Focus on a healthy diet, avoid added salt, and xmgtei5711 calories or less daily. Exercise as tolerated, targeting3 0-60 minutes of exercise daily, at least 5 days per week Long-term drug therapy 751488522 Z79.899 Checking routine labwork for ongoing long-term medication use. Retroperit ignacio lymphadenopathy 772949617 R59.0 - follows with hematology -oncology - Dr. Corrigan- no more scans, labs only Sleep apnea 94709905 G47 .30 # CARY on CPAPGood compliance .Symptoms improved.C ontinue to monitor. Adult heal th examination 765818227 Z00.00 Discussed importance of annual wellness examinatio [...] (65+ year-old), and herpes zoster (50+ year-old) [id number] Юлия Roman MD [facility] [address] [facility] [place] [address] 03/21/2024 13:42:50 03/22/2024 10:01:03 Pain of left knee joint 8525301591 55386 M25.562 -has MRI 03/24/24 and f/u with Dr. Colmenares on 03/28/24.-he is using 1 crutch right now to help with ambulation . He feels like his knee is weak and that it will give out at any moment. Said this has happened before but resolved on its own. Will see what MRI shows and treatment will be determined from that. Essential hypertension 88002324 I10 -Controlle d on current therapy. -Should notify office for BP less than 90/60. -Maintain a low sodium (less than 2000mg) diet and encouraged at least 30-45 minutes of aerobic activity most days of the week -f/u 6 months Prediabetes 830828616 R7 3.03 -pt glucose was 120 in 2022, will check labs and A1C today.-if A1C is elevated again will discuss medication regimen. Sleep apnea 20394629 G47 .30 -Pt needs new machine and supplies soon.-pt has informatio n at home of where he wants it sent. If the company will not send in new equipment with new PCP informatio n he will call me with informatio n on where to send orders to. Morbid obesity 792036188 E66.01 1. Restrict Caloric Intake: Instead of [...] 5. Increase Exertion within Daily Activities : 7500-89975 Steps/day. Avoid Elevators, escalators at public places. Increase steps in parking lots! Immunization advised 310 697341 Z71.9 -pt educated on flu, pneumonia, RSV and shingles vaccine. He declines today and says he does not do shots anymore and will not. I educated on his risk factors and why they would be appropriat e. Pt still declines at this time. [id number] Юлия Roman MD [facility] [address] [place] [address] 06/20/2024 14:30:43 06/20/2024 16:52:23 Type 2 diabetes mellitus 77475851 E11.9 A1C: 6.5Goal A1C less than 7.0Current [...] of the week.Next Visit: 3month(s) Morbid obesity 863177433 E66.01 1. Restrict Caloric Intake: Instead of [...] 5. Increase Exertion within Daily Activities : 7500-29612 Steps/day. Avoid Elevators, escalators at public places. Increase steps in parking lots! [id number] Юлия Roman MD [facility] [address] [place] [address] 09/18/2024 14:17:48 09/19/2024 14:12:02 Adult health examination 638277658 Z00.00 Health Risk Assessment collected and reviewedNo living will and does not wish to have one.AD8-1, no memory impairment , more of that there is lack of motivation to remember anything.N o safety concerns. Essential hypertension 94577220 I10 -Controlle d on current therapy. -Should notify office for BP less than 90/60. -Maintain a low sodium (less than 2000mg) diet and encouraged at least 30-45 minutes of aerobic activity most days of the week -f/u 6 months Type 2 christian betes mellitus 76742194 E11.9 A1C: 6.2Goal A1C less than 7.0Current [...] days of the week.Next Visit: 3month(s) Hyperlipidemia 89646908 E78.5 Follow a low fat and low [...] tobacco products. Cardiac pa angel in situ 602073821 Z95.0 -following with cardiology Obese class III 41392547 5 E66.813 8895229915 -heart healthy diet and routine exercise discussed and f/u yearly Counseling 631793409 Z71 .85 78157529 -declines all vaccines Mixed hyperlipidemia 267 632466 E78.2 Follow a low fat and low [...] tobacco products. Eye / vision finding 118 879753 H53.9 7217182 -has had ongoing spots and waves in vision the last 2 appointmen ts but he does not see a real need to go to eye I advised him on importance not only for these complaints but of his new dx of T2DM. Sleep apnea 01675390 G47 .30 -follows with sleep medicine, wears CPAP nightly. Pneumococc al vaccination declined 830056187 Z28.21 [id number] Prostate s pecific antigen measurement 51727409 Z12.5 222880 Low motivation 18959616 Z91.89 [id number] -when discussing care with patient there is [...] 1 [employer] (MEDICARE REPLACEMENT/ ADVANTAGE - PPO) [id number] Gino Hawthornear [id number] Gino Salcido Cuvar 03/21/2024 1 [employer] - PRIME (MEDICARE REPLACEMENT/ ADVANTAGE - HMO) [id number] Gino Salcido Cuvar [id number] Gino Salcido Cuvar 12/16/2024 1 [employer] (MEDICARE REPLACEMENT/ ADVANTAGE - PPO) [id number] Gino Salcido Cuvar [id number] Gino Salcido Cuvar 03/21/2024 1 [employer] (MEDICARE REPLACEMENT/ ADVANTAGE - PPO) [id number] Gino Salcido Cuvar [id number] Gino Salcido Cuvar 03/21/2024 1 [place] [id number] Gino Salcido Cuvar [id number] Gino Salcido Cuvar 03/21/2024 1 [employer] (POS) [id number] Gino Salcido Cuvar [id number] Gino Hawthornear Notes Date Note Type Note [...] improvement in alertness and quality of life -Chemical Dependency Attendant/Nursing note reviewed.- Edmundo Arrieta MD Attn: Accounting,[address] [facility], [place], [address], [place] [facility] 12/08/2023 17:20:35 3 text/htm [...] maintenance visit. Last routine follow-up office visit: [id number] labwork: Patient reports consistent use of medications, without side effects or intolerances. Current concerns:- none Health maintenance:- Immunizations due: COVID series, vzv, RSV, flu- Colorectal cancer screenin - Josué - 3 yrfu -- PSA: urology follows ([facility]- LDCT: never smoker History of pulmonary embolism, [...] improvement in alertness and quality of life -Chemical Dependency Attendant/Nursing note reviewed.- Edmundo Arrieta MD Attn: Accounting,[address] [facility], [place], [address], [facility] 01/30/2023 17:38:31 5 text/htm l Pt is here today for an annual visit. He has no complaints other than his knee, but he has f/u with Dr. Colmenares coming up next week for further evaluation. RACHEAL Cano Attn: Accounting,[address] [facility], [place], [address], [facility] 03/21/2024 16:23:35 5 text/htm l Diabetes F/UReported by PatientHPIFor context, patient reportsnot seeing eye doctor yearly,not checking feet regularly, andmissing doses of medication. For associated symptoms, patient reportssweats,headaches, andblurred visionbut reportsno confusion(has pain in the back area til he passes gas or urinate).ROS as noted in the HPI RACHEAL Cano Attn: Accounting,[address] [facility], [place], [address], [facility] 06/20/2024 15:45:36 5 text/htm l MAW 2Reported [...] visit. RACHEAL Cano Attn: Accounting,[address] [facility], [place], [address], [facility] 09/18/2024 17:09:21
[2025-02-27 19:42] VITALS: BP 128/76; PULSE 76; RESP 18; TEMP 36.6; O2SAT 100
--- NOTE | 2025-02-28 00:19 | ED.GENADULT ---
HPI - General Adult General Chief complaint: Extremity Injury, Upper Stated complaint: Swelling left hand-told to come back if not better Time Seen by Provider: 02/27/25 17:16 History of Present Illness HPI narrative: 64-year-old male presenting with concerns following a dog bite to his left hand that occurred this last weekend. The patient was seen here in the ED and prescribed antibiotics. He took a little over a day's worth of his antibiotics and returned to the ER because he was concerned that it was not getting better. Presently he is reporting dorsal left hand swelling and pain with mild numbness. Related Data Home Medications ?Medication ?Instructions ?Recorded ?Confirmed ?Last Taken ?Type amlodipine 5 mg tablet 05/24/20 Unknown History apixaban 5 mg tablet (Eliquis) mg 05/24/20 Unknown History tamsulosin 0.4 mg capsule (Flomax) 0.4 mg PO DAILY 02/29/24 02/29/24 Unknown History Allergies Allergy/AdvReac Type Severity Reaction Status Date / Time No Known Allergies Allergy Verified 02/25/25 13:45 Review of Systems Review of Systems: All systems reviewed & are unremarkable except as noted in HPI and below PMFSH Past Medical History Medical History Pulmonary embolus DVT (deep venous thrombosis) Family History Family History (Updated 02/29/24 @ 10:02 by Nanci Burnett CMA) Father Cerebrovascular accident Social History Social History (Updated 02/29/24 @ 10:10 by Anayeli Shell CMA) Smoking status: Never smoker Alcohol intake: current Alcohol use details: occasionally Substance use: never Lack of Transportation: No Lack of Food: Never True Concerned About Future Housing: No Difficulty Paying Gas/Electric Bills: No Difficulty Paying for Meds: No Education: Associate Degree Difficulty w/ Childcare or Family Care: No Gender identity (if verbalized by the patient): Male Sexual Orientation (if Verbalized by the Patient): Straight or Heterosexual Exam Narrative: GENERAL: Well-appearing, well-nourished, and in no acute distress. HEAD: Normocephalic, atraumatic. EYES: PERRLA and EOMI. ENT: Nares clear, no rhinorrhea or epistaxis. Mucous membranes moist. Oropharynx without tonsillar hypertrophy exudate or other lesions. Bilateral TMs pearly dover non-bulging NECK: Supple. No adenopathy or masses. No carotid bruits or JVD CHEST: Clear to auscultation. No respiratory distress. No wheezes rales or rhonchi HEART: Regular rate and rhythm. No murmur heard. Normal peripheral pulses. ABDOMEN: Soft, nontender, nondistended, normal active bowel sounds. EXTREMITIES: L hand ROM limited due to edema, pitting edema extending slightly past the wrist. Finger to thumb good in first through third digits, edema prevents fourth and fifth. No erythema. Neurovascular intact. SKIN: Warm, dry, no rash. NEURO: No focal deficits. Alert and oriented x3. PSYCH: Normal mood and affect Course Vital Signs Vital signs: Vital Signs Temperature 97.6 F 02/27/25 15:10 Pulse Rate 93 02/27/25 15:10 Respiratory Rate 18 02/27/25 15:10 Blood Pressure 140/101 H 02/27/25 15:10 Pulse Oximetry 97 02/27/25 15:10 Oxygen Delivery Room Air 02/27/25 15:10 Temperature 97.8 F 02/27/25 19:42 Pulse Rate 76 02/27/25 19:42 Respiratory Rate 18 02/27/25 19:42 Blood Pressure 128/76 02/27/25 19:42 Pulse Oximetry 100 02/27/25 19:42 Oxygen Delivery Room Air 02/27/25 15:10 MDM MDM Narrative Medical decision making narrative: 64-year-old male presenting with concerns following a dog bite to his left hand that occurred this last weekend. The patient was seen here in the ED and prescribed antibiotics. He took a little over a day's worth of his antibiotics and returned to the ER because he was concerned that it was not getting better. Presently he is reporting dorsal left hand swelling and pain with mild numbness. Upon my initial assessment patient appears nontoxic and is reporting that his hand feels better than when he was seen in the ER the the first time for the same injury. The puncture wounds at the base of his dorsal 4th digit are healing accordingly. MSE provider Monica Brasher PA-C who saw the patient during his last visit attests that the patient's injury has improved. Patient's hand is neurovascular intact. I advised the patient to continue his current antibiotic regimen and educated him on signs/symptoms that would warrant his return. Patient agrees with discussion and after shared medical decision making agrees with plan of care. All questions were answered to the patient's satisfaction. The patient is appropriate for outpatient treatment and follow-up. Given reasons to return. Differential Diagnosis Differential Diagnosis: Differential diagnostic considerations for animal bites include bite by animal, human bite, rabies contact, musculoskeletal injury, retained FB. Medical Records I have reviewed the following patient records and this information was taken into consideration when formulating the assessment and plan.: previous labs and previous ER visits Discharge Plan Discharge Clinical Impression: Dog bite, Cellulitis of hand Patient Disposition: Home Condition: Stable Instructions: Antibiotic Form, Animal Bite (ED), Cellulitis (ED) Additional Instructions: Return if symptoms worsen or concerns: any increase in redness, swelling, pain or fever over 101 Take antibiotics as directed. Take pain medication as directed and take Tylenol as needed for breakthrough pain. Do not take NSAIDs like ibuprofen, Aleve, naproxen, etc. while on blood thinners as this can increase the risk of bleeding. Follow-up with your PCP. Patient Language: Frisian Prescriptions: No Action tamsulosin [Flomax] 0.4 mg capsule 0.4 mg PO DAILY ciprofloxacin HCl [Cipro] 500 mg tablet 500 mg PO Q12H Qty: 14 0RF hydrocodone-acetaminophen 5-325 mg tablet 1 tablet PO Q12H PRN (Reason: pain) Qty: 14 0RF cyclobenzaprine 10 mg tablet 10 mg PO BID PRN (Reason: muscle spasm) Qty: 14 0RF amlodipine 5 mg tablet Eliquis 5 mg tablet phenazopyridine [Pyridium] 200 mg tablet 200 mg PO TID PRN (Reason: pain) Qty: 6 0RF amoxicillin-pot clavulanate 875-125 mg tablet 1 tablet PO Q12H Qty: 14 0RF oxycodone 5 mg tablet 5 mg PO Q8H PRN (Reason: pain) Qty: 14 0RF Follow-up/Referrals: [facility] [Other]
== END 2025-02-27 19:48 | disposition home or self-care (01) ==
DX: S61.452D Open bite of left hand, subsequent encounter (principal); L03.114 Cellulitis of left upper limb; Z86.711 Personal history of pulmonary embolism; Z86.718 Personal history of other venous thrombosis and embolism; W54.0XXD Bitten by dog, subsequent encounter
CPT/HCPCS: 99281